=== PATIENT | female | born 1975 | race Caucasian/White ===

== ENCOUNTER 2018-03-17 17:25 | Emergency (ER) | payer SELFPAY ==
[2018-03-17] MEDS ORDERED: IBUPROFEN 400 MG TAB ONE (19:28)
--- NOTE | 2018-03-17 20:43 | RAD REPORT ---
EXAM DESCRIPTION: RAD - Foot Right 3 View - 03/17/2018 6:48 pm CLINICAL HISTORY: Foot pain and swelling COMPARISON: None. FINDINGS: No fracture, dislocation or periosteal reaction. No acute or destructive finding. Small pl cyndi spur is present. Distal soft tissues are edematous. No air or foreign body. IMPRESSION: No acute bone or joint finding. Small plantar spur present. Soft tissue swelling without air or foreign body.
[2018-03-17 21:16] LABS: Absolute Lymphocytes (CBC) 3.8 K/uL (0.7-4.9); Absolute Monocytes 0.6 K/uL (0.1-1.3); Absolute Neutrophil 6.4 K/uL (1.8-8.0); Basophils % 1.1 % (0-1.3); Eosinophils % 1.6 % (0-4.4); Lymphocytes % 34.3 % (15.3-44.8); MCH 26.9 pg (27.0-35.0); MCV 80.3 fL (80-100); MPV 8.8 fL (7.6-11.3); Monocytes % 5.6 % (3.3-12.3); RBC Red Blood Cell Count 4.73 M/uL (3.86-4.86)
[2018-03-17 21:24] LABS: Potassium 3.8 mEq/L (3.6-5.0)
[2018-03-17 21:28] LABS: Uric Acid 3.5 mg/dL (2.6-8.0)
--- NOTE | 2018-03-17 21:48 | EDPHYS ---
Physician Documentation [facility] Name: So Olea Age: 42 yrs Sex: Female : 1975 Arrival Date: 03/17/2018 Time: 17:27 Bed 11 Private MD: out of town, doctor ED Physician Jose Luis Sweeney HPI: 03/17 19:36 This 42 yrs old Female presents to ER via Ambulatory with complaints of Feet jmm Swelling, Foot Pain. 19:36 The patient presents with pain, that is acute. The complaints affect the dorsum of jmm right foot. Onset: The symptoms/episode began/occurred gradually, 4 day(s) ago. 19:36 Modifying factors: the symptoms are aggravated by movement, weight bearing. jmm 19:36 Associated signs and symptoms: Pertinent positives: swelling, Pertinent negatives jmm fever. This is a 42 year old female with a hx of chronic pain that presents to the ED with right foot pain. Patient denies trauma, denies known injury, denies fever. Denies hx of arthritis or gout. 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 - Social history:: Smoking status: Patient/guardian denies using tobacco. - Ebola Screening: : No symptoms or risks identified at this time. ROS: 19:36 Constitutional: Negative for fever, chills, and weight loss, Cardiovascular: Negative jmm for chest pain, palpitations, and edema, Respiratory: Negative for shortness of breath, cough, wheezing, and pleuritic chest pain. 19:36 MS/extremity: Positive for pain, swelling. 19:36 Skin: Positive for erythema. 19:36 All other systems are negative. Exam: 19:36 Constitutional: This is a well developed, well nourished patient who is awake, alert, jmm and in no acute distress. 19:36 Constitutional: The patient appears in no acute distress, alert, awake. 19:36 Neck: External neck: is normal. 19:36 Cardiovascular: Rate: normal, Rhythm: regular. 19:36 Respiratory: the patient does not display signs of respiratory distress, Respirations: normal, Breath sounds: are clear throughout. 19:36 Musculoskeletal/extremity: FROM appreciated to the right foot and ankle, compartments are soft, pain elicited on palpation of the dorsal surface of the foot. . 19:36 Skin: erythema noted to the right foot, no induration or streaking appreciated. 19:36 Neuro: Orientation: is normal, Mentation: is normal, Memory: is normal. Vital Signs: 17:51 BP 148 / 83; Pulse 74; Resp 18; Temp 97.8; Pulse Ox 98% ; Weight 108.86 kg; Height 5 sv ft. 5 in. (165.10 cm); Pain 7/10; 19:42 BP 131 / 82; Pulse 76; Resp 20; Pulse Ox 100% on R/A; jw5 17:51 Body Mass Index 39.94 (108.86 kg, 165.10 cm) sv MDM: 19:34 Patient medically screened. [facility] 19:36 Differential diagnosis: arthritis, cellulitis, foot sprain. Data reviewed: vital signs, [facility] nurses notes. 22:33 ED course: Patient is alert and non toxic in appearance in the ED. Due to the patient's [facility] pain to the foot along with redness and swelling, the patient will be prescribed antibiotics for cellulitis. The patient has no swelling to the lower leg, I do not currently suspect DVT. Patient is advised of the need to follow up with PCP or orthopedics or return to the ED if symptoms worsen. Patient understood and agrees with the plan of care. . 03/17 19:35 Order name: CBC with Diff; Complete Time: 21:26 [facility] 03/17 19:35 Order name: Uric Acid; Complete Time: 21:42 [facility] 03/17 17:54 Order name: Foot Right 3 View XRAY; Complete Time: 20:45 sv 03/17 19:35 Order name: BMP; Complete Time: 21:42 [facility] Administered Medications: 19:28 Drug: Motrin 800 mg Route: PO; aa1 20:30 Follow up: Response: No adverse reaction; Pain is decreased aa1 Disposition: 22:53 Co-signature as Attending Physician, Jose Luis Sweeney MD I agree with the assessment and tw4 plan of care. Disposition: 03/17/18 21:48 Discharged to Home. Impression: Cellulitis and acute lymphangitis, unspecified. - Condition is Stable. - Discharge Instructions: Cellulitis. - Prescriptions for Bactrim DS 800- 160 mg Oral Tablet - take 1 tablet by ORAL route every 12 hours for 10 days; 20 tablet. - Medication Reconciliation Form, Thank You Letter, Antibiotic Education, Prescription Opioid Use form. - Follow up: Private Physician; When: 1 - 2 days; Reason: Re-evaluation by your physician. - Notes: Please follow up with your primary care provider or orthopedics for further evaluation of your foot pain. We are treating you with antibiotics due to concerns you may have a skin infection. Please return to the ED if you develop increased redness, increased swelling, or increased pain Signatures: Dispatcher [employer] EDMS Anh Gregg RN RN Abena Mann RN RN aa1 West Bustos PA PA jmm Wadley, Terrence, MD MD tw4 Corrections: (The following items were deleted from the chart) 22:17 21:48 03/17/2018 21:48 Discharged to Home. Impression: Cellulitis and acute aa1 lymphangitis, unspecified. Condition is Stable. Forms are Medication Reconciliation Form, Thank You Letter, Antibiotic Education, Prescription Opioid Use. Follow up: Private Physician; When: 1 - 2 days; Reason: Re-evaluation by your physician. marty
--- NOTE | 2018-03-17 21:48 | ER ---
Nurse's Notes [facility] Name: So Olea Age: 42 yrs Sex: Female : 1975 Arrival Date: 03/17/2018 Time: 17:27 Bed 11 Private MD: out of town, doctor Diagnosis: Cellulitis and acute lymphangitis, unspecified Presentation: 03/17 17:48 Presenting complaint: Patient states: right foot pain started 3 days ago. Reports sv swelling. c/o nausea. Transition of care: patient was not received from another setting of care. Onset of symptoms was March 14, 2018. Risk Assessment: Do you want to hurt yourself or someone else? Patient reports no desire to harm self or others. Initial Sepsis Screen: Does the patient meet any 2 criteria? No. Patient's initial sepsis screen is negative. Does the patient have a suspected source of infection? No. Patient's initial sepsis screen is negative. Care prior to arrival: None. 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 - Social history:: Smoking status: Patient/guardian denies using tobacco. - Ebola Screening: : No symptoms or risks identified at this time. Screenin:45 Abuse screen: Denies threats or abuse. Denies injuries from another. Nutritional aa1 screening: No deficits noted. Tuberculosis screening: No symptoms or risk factors identified. Fall Risk None identified. Assessment: 19:45 General: Appears in no apparent distress. comfortable, Behavior is calm, cooperative, aa1 appropriate for age. Pain: Complains of pain in right foot Pain began 2-3 days ago. Neuro: Level of Consciousness is awake, alert, obeys commands, Oriented to person, place, time, situation, Moves all extremities. Full function Gait is steady. Respiratory: Airway is patent Respiratory effort is even, unlabored, Respiratory pattern is regular, symmetrical. GI: No signs and/or symptoms were reported involving the gastrointestinal system. : No signs and/or symptoms were reported regarding the genitourinary system. EENT: No signs and/or symptoms were reported regarding the EENT system. Derm: Skin is intact, is healthy with good turgor, Skin is pink, warm \T\ dry. Musculoskeletal: Circulation, motion, and sensation intact. Capillary refill < 3 seconds, Range of motion: intact in all extremities, Swelling present in right foot. 22:10 Reassessment: Patient appears in no apparent distress at this time. Patient is alert, aa1 oriented x 3, equal unlabored respirations, skin warm/dry/pink. Discussed d/c \T\ f/u instructions with pt; denies questions or concerns at this time. Vital Signs: 17:51 BP 148 / 83; Pulse 74; Resp 18; Temp 97.8; Pulse Ox 98% ; Weight 108.86 kg; Height 5 sv ft. 5 in. (165.10 cm); Pain 7/10; 19:42 BP 131 / 82; Pulse 76; Resp 20; Pulse Ox 100% on R/A; jw5 17:51 Body Mass Index 39.94 (108.86 kg, 165.10 cm) sv ED Course: 17:27 Patient arrived in ED. sb2 17:28 out of town, doctor is Private Physician. sb2 17:50 Triage completed. sv 17:52 Arm band placed on right wrist. sv 17:53 Patient placed in waiting room, Patient notified of wait time. sv 18:48 Foot Right 3 View XRAY In Process Unspecified. EDMS 19:25 Abena Mann, KRISTIN is Primary Nurse. aa1 19:28 West Bustos PA is PHCP. jmm 19:28 Jose Luis Sweeney MD is Attending Physician. jmm 19:45 Patient has correct armband on for positive identification. Call light in reach. Pulse aa1 ox on. NIBP on. 19:45 No provider procedures requiring assistance completed. aa1 21:10 Inserted saline lock: 20 gauge in left antecubital area, using aseptic technique. Blood oe collected. 22:15 IV discontinued, intact, bleeding controlled, No redness/swelling at site. Pressure aa1 dressing applied. Administered Medications: 19:28 Drug: Motrin 800 mg Route: PO; aa1 20:30 Follow up: Response: No adverse reaction; Pain is decreased aa1 Outcome: 21:48 Discharge ordered by . marty 22:17 Patient left the ED. aa1 22:17 Discharged to home ambulatory, with family. aa1 22:17 Condition: good 22:17 Discharge instructions given to patient, Instructed on discharge instructions, follow up and referral plans. medication usage, Demonstrated understanding of instructions, follow-up care, medications, Prescriptions given X 1. Signatures: Dispatcher [employer] Anh Jose RN RN sv Kern, Alissa, RN RN aa1 West Bustos PA PA jmm Espinosa, Orlando oe Billeau, Sheri sb2 Mary Santacruz jw5
== END 2018-03-17 22:17 | disposition home or self-care (01) ==
LOC: ER 17:25
DX: L03.115 Cellulitis of right lower limb (principal); I89.1 Lymphangitis; N80.9 Endometriosis, unspecified; I10 Essential (primary) hypertension
CPT/HCPCS: 36415; 80048; 84550; 85025; 99284

== ENCOUNTER 2019-01-09 16:39 | Observation (INO) | payer SELFPAY ==
--- OUTSIDE RECORDS SUMMARY | 2019-01-09 16:41 | XMS REPORT ---
:1975 [facility] Address [address] [place] [address] [address]. [address] [place] [address] Care Team Providers Name Role Phone Unavailable Unavailable Unavailable Problems This patient has no known problems. Allergies, Adverse Reactions, Alerts This patient has no known allergies or adverse reactions. Medications This patient has no known medications.
[2019-01-09 18:28] LABS: Barbiturates NEGATIVE (NEGATIVE); Benzodiazepines NEGATIVE (NEGATIVE); Cocaine NEGATIVE (NEGATIVE); METHAMPHETAM NEGATIVE (NEGATIVE); Methadone NEGATIVE (NEGATIVE); Opiates NEGATIVE (NEGATIVE); Phencyclidine NEGATIVE (NEGATIVE); THC Cannibis NEGATIVE (NEGATIVE)
[2019-01-09] MEDS ORDERED: KETOROLAC 30 MG/ML INJ ONE (18:29)
[2019-01-09] MEDS ORDERED: ONDANSETRON 4 MG/2 ML VIAL ONE ×2 (18:29→20:01)
[2019-01-09] MEDS ORDERED: NA CHLORIDE 0.9% 500 ML ONE ×2 (18:29→19:19)
--- NOTE | 2019-01-09 18:39 | RAD REPORT ---
EXAM DESCRIPTION: CT - Abdomen Pelvis Wo Contrast - 01/09/2019 6:26 pm CLINICAL HISTORY: Abdominal pain left flank pain COMPARISON: None TECHNIQUE: Computed axial tomography of the abdomen and pelvis was obtained. IV and oral contrast we re not requested. All CT scans are performed using dose optimization technique as appropriate and may include automated exposure control or mA/KV adjustment according to patient size. FINDINGS: The evaluation of solid organs, vessels and bowel is limited secondary to the lack of con trast administration. The liver, spleen, pancreas, adrenals and kidneys appear grossly normal. The appendix is normal. There is no evidence of diverticulitis. An adnexal mass is not noted Tiny umbilical hernia contains fat IMPRESSION: No acute abnormality is displayed.
[2019-01-09 18:52] LABS: Absolute Lymphocytes (CBC) 3.4 K/uL (0.7-4.9); Absolute Neutrophil 9.3 K/uL (1.8-8.0); Basophils % 0.5 % (0-1.3); Lymphocytes % 24.2 % (15.3-44.8); MPV 8.7 fL (7.6-11.3); Monocytes % 7.5 % (3.3-12.3); RBC Red Blood Cell Count 4.64 M/uL (3.86-4.86)
[2019-01-09 19:02] LABS: Albumin 3.5 g/dL (3.4-5.0); Bilirubin Direct 0.1 mg/dL (0-0.2); Bilirubin Total 0.5 mg/dL (0.2-1.0); Protein, Total 7.3 g/dL (6.4-8.2)
[2019-01-09 19:16] LABS: Urine Bacteria LOADED /HPF (<20); Urine RBC <5 /HPF (NONE SEEN)
[2019-01-09 19:17] LABS: Urine Culture Reflex Order REFLEXED
[2019-01-09] MEDS ORDERED: CEFTRIAXONE 1000 MG/VIAL ONE (19:18)
[2019-01-09] MEDS ORDERED: NA CHLORIDE 0.9% 100 ML IV ONE (19:19)
--- NOTE | 2019-01-09 19:52 | RAD REPORT ---
EXAM DESCRIPTION: US - Transvaginal Study Probe - 01/09/2019 7:35 pm CLINICAL HISTORY: Pelvic pain COMPARISON: 2014 FINDINGS: The uterus measures 7 x 4 x 5cm. A fibroid is not seen. The endometrial stripe measures 7 millimeters An approximately 3 centimeter left ovarian hypoechoic mass is present containing low level echoes. Color Doppler did not document flow within the left ovary. Right ovary was not seen. Right adnexal mass is not noted No significant free fluid is seen. IMPRESSION: 3 centimeter hypoechoic mass within the left ovary containing low level echoes may repre sent a hemorrhagic cyst or endometrioma. Color Doppler could not demonstrate flow within the ovary. This could indicate a torsion. However, th is needs to be correlated clinically as hemorrhagic cysts are known for being relatively avascular. Examination was discussed with Dr. Hector in the Emergency Room
[2019-01-09] MEDS ORDERED: MORPHINE 4 MG/ML SYR ONE (20:00)
[2019-01-09 20:23] LABS: Urine Blood 2+ (NEG); Urine Glucose NEGATIVE (NEG); Urine Protein 3+ (NEG); Urine Specific Gravity 1.025 (1.005-1.030)
[2019-01-09 20:23] LABS: Urine Specific Gravity 1.025 (1.005-1.030)
--- NOTE | 2019-01-09 20:42 | ER ---
Nurse's Notes [facility] Name: So Olea Age: 43 yrs Sex: Female : 1975 Arrival Date: 01/09/2019 Time: 16:42 Bed 18 Private MD: Diagnosis: Torsion of ovary and ovarian pedicle Presentation: 01/09 17:06 Presenting complaint: Patient states: i hurt really bad in my LEFT side and down into tw2 my groin and into back, i feel like i have to go to the bathroom but i cant. Transition of care: patient was not received from another setting of care. Onset of symptoms was January 09, 2019. Risk Assessment: Do you want to hurt yourself or someone else? Patient reports no desire to harm self or others. Initial Sepsis Screen: Does the patient meet any 2 criteria? RR > 20 per min. HR > 90 bpm. Yes Does the patient have a suspected source of infection? Yes: Dysuria/Frequency/Urgency/UTI. Care prior to arrival: None. 17:06 Method Of Arrival: Ambulatory tw2 17:06 Acuity: JERROD 3 tw2 17:08 Presenting complaint: Patient states: yesterday when when i went to the restroom i had tw2 quarter sized blood clots. 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 - Social history:: Smoking status: . - Ebola Screening: : Patient denies travel to an Ebola-affected area in the 21 days before illness onset. - Family history:: not pertinent. - Hospitalizations: : No recent hospitalization is reported. Screenin:15 Abuse screen: Denies threats or abuse. Denies injuries from another. Nutritional bp screening: No deficits noted. Tuberculosis screening: No symptoms or risk factors identified. Fall Risk None identified. Assessment: 17:31 Reassessment: called from lobby, no answer. Attempted to call patient's phone number on ss file. Not a working number. 19:15 Reassessment: PT taken to ultrasound, family is at the bedside, fluids paused for jb4 patient to be taken to ultrasound. Respirations even and unlabored. 19:15 General: Appears uncomfortable, Behavior is cooperative, anxious, crying. Pain: jb4 Complains of pain in left low back Pain radiates to abdomen Pain currently is 10 out of 10 on a pain scale. Neuro: Level of Consciousness is awake, alert, obeys commands, Oriented to person, place, time, situation. Cardiovascular: Patient's skin is warm and dry. Respiratory: Airway is patent Respiratory effort is even, labored, Respiratory pattern is symmetrical, tachypnea. GI: Reports lower abdominal pain, upper abdominal pain. : Reports pain in left flank(s), with urination. EENT: No signs and/or symptoms were reported regarding the EENT system. Derm: Skin is intact, Skin is pink, warm \T\ dry. Musculoskeletal: Circulation, motion, and sensation intact. 20:00 Reassessment: No changes from previously documented assessment. Patient and/or family jb4 updated on plan of care and expected duration. Pain level reassessed. Patient is alert, oriented x 3, equal unlabored respirations, skin warm/dry/pink. 21:00 Reassessment: Patient appears in no apparent distress at this time. Patient and/or jb4 family updated on plan of care and expected duration. Pain level reassessed. Patient is alert, oriented x 3, equal unlabored respirations, skin warm/dry/pink. Dr. Guerrier at the bedside. Patient states feeling better. 21:55 Reassessment: Patient appears in no apparent distress at this time. Patient and/or jb4 family updated on plan of care and expected duration. Pain level reassessed. Patient is alert, oriented x 3, equal unlabored respirations, skin warm/dry/pink. Patient states feeling better. Vital Signs: 17:07 BP 129 / 90; Pulse 123; Resp 20; Temp 98(O); Pulse Ox 100% on R/A; Weight 117.93 kg tw2 (R); Height 5 ft. 5 in. (165.10 cm); Pain 10/10; 19:50 BP 154 / 115; Pulse 104; Resp 17; Pulse Ox 100% on R/A; Pain 10/10; jb4 20:53 BP 153 / 89; Pulse 106; Resp 22; Temp 98.3(O); Pulse Ox 100% on R/A; jb4 21:55 BP 120 / 78; Pulse 101; Resp 20; Pulse Ox 100% on R/A; jb4 17:07 Body Mass Index 43.27 (117.93 kg, 165.10 cm) tw2 ED Course: 16:42 Patient arrived in ED. tw3 17:07 Triage completed. tw2 17:08 Arm band placed on. tw2 17:37 Sahil Foster, KRISTIN is Primary Nurse. bp 17:44 Andrea Jamil MD is Attending Physician. wa 17:57 Radiology exam delayed due to test not completed at this time. nj 18:06 Radiology exam delayed due to test not completed at this time. nj 18:15 Patient has correct armband on for positive identification. Bed in low position. Call bp light in reach. Side rails up X2. 18:15 Inserted saline lock: 20 gauge in right forearm, using aseptic technique. Blood bp collected. 18:[address] via wheelchair. vm2 18:26 CT completed. Patient moved back from CT. vm2 18:27 CT Abd/Pelvis - Without Cont In Process Unspecified. EDMS 19:23 West Bustos PA is PHCP. jmm 19:35 Transvaginal Study Probe In Process Unspecified. EDMS 20:41 Yecenia Pedersen MD is Hospitalizing Provider. [facility] 21:19 No provider procedures requiring assistance completed. Patient admitted, IV remains in jb4 place. Administered Medications: 18:22 Drug: NS 0.9% 500 ml Route: IV; Rate: bolus; Site: right forearm; bp 19:00 Follow up: Response: No adverse reaction; IV Status: Completed infusion; IV Intake: jb4 500ml 18:22 Drug: Zofran 4 mg Route: IVP; Site: right forearm; bp 19:04 Follow up: Response: No adverse reaction bp 18:22 Drug: TORadol 30 mg Route: IVP; Site: right forearm; bp 19:04 Follow up: Response: No adverse reaction; Pain is decreased bp 19:48 Drug: Zofran 4 mg Route: IVP; Site: right forearm; jb4 22:12 Follow up: Response: No adverse reaction; Nausea is decreased jb4 19:50 Drug: NS 0.9% 500 ml Route: IV; Rate: bolus; Site: right forearm; jb4 20:20 Follow up: Response: No adverse reaction; IV Status: Completed infusion; IV Intake: jb4 500ml 19:50 Drug: morphine 4 mg Route: IVP; Site: right forearm; jb4 22:12 Follow up: Response: No adverse reaction; Pain is decreased jb4 19:52 Drug: Rocephin - (cefTRIAXone) 2 grams Route: IVPB; Infused Over: 30 mins; Site: right jb4 forearm; 20:20 Follow up: Response: No adverse reaction; IV Status: Completed infusion; IV Intake: jb4 100ml Intake: 19:00 IV: 500ml; Total: 500ml. jb4 20:20 IV: 500ml; Total: 1000ml. jb4 20:20 IV: 100ml; Total: 1100ml. jb4 Outcome: 20:41 Decision to Hospitalize by Provider. marty 21:19 Admitted to L \T\ D, accompanied by tech, via wheelchair, room 279, Report called to andrew Ya RN 21:19 Condition: stable 21:19 Discharge instructions given to patient, Instructed on the need for admit, Demonstrated understanding of instructions. 22:15 Patient left the ED. jb4 Signatures: Dispatcher [employer] EDMS West Bustos PA PA jmm Smirch, Shelby, RN RN ss Wise, Tara, RN RN tw2 Hugo Dietrich RN RN [facility] Sanya Victor Tia 3 Judy Worley [facility] Andrea Jamil MD MD wa Peltier, Brian, RN RN bp Corrections: (The following items were deleted from the chart) 22:14 21:00 Reassessment: Patient appears in no apparent distress at this time. Patient jb4 and/or family updated on plan of care and expected duration. Pain level reassessed. Patient is alert, oriented x 3, equal unlabored respirations, skin warm/dry/pink. Patient states feeling better. jb4
--- NOTE | 2019-01-09 20:42 | EDPHYS ---
Physician Documentation [facility] Name: So Olea Age: 43 yrs Sex: Female : 1975 Arrival Date: 01/09/2019 Time: 16:42 Bed 18 Private MD: ED Physician Andrea Jamil HPI: 01/09 19:10 This 43 yrs old Female presents to ER via Ambulatory with complaints of Side wa Pain. 19:10 The patient complains of pain in the left flank. The pain does not radiate. Onset: The wa symptoms/episode began/occurred 2 day(s) ago. Modifying factors: The symptoms are alleviated by nothing. the symptoms are aggravated by nothing. Associated signs and symptoms: Pertinent positives: nausea, Pertinent negatives: diarrhea, dizziness, dysuria, fever, urinary frequency, headache, hematuria, vomiting. Severity of pain: At its worst the pain was severe in the emergency department the pain is unchanged. The patient has experienced similar episodes in the past, several times. The patient has not recently seen a physician. 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 - Social history:: Smoking status: . - Ebola Screening: : Patient denies travel to an Ebola-affected area in the 21 days before illness onset. - Family history:: not pertinent. - Hospitalizations: : No recent hospitalization is reported. ROS: 19:10 Constitutional: Negative for fever, chills, and weight loss, Eyes: Negative for injury, wa pain, redness, and discharge, ENT: Negative for injury, pain, and discharge, Neck: Negative for injury, pain, and swelling, Cardiovascular: Negative for chest pain, palpitations, and edema, Respiratory: Negative for shortness of breath, cough, wheezing, and pleuritic chest pain, MS/Extremity: Negative for injury and deformity, Skin: Negative for injury, rash, and discoloration, Neuro: Negative for headache, weakness, numbness, tingling, and seizure, Psych: Negative for depression, anxiety, suicide ideation, homicidal ideation, and hallucinations. 19:10 Abdomen/GI: Positive for abdominal pain, nausea, of the left lower quadrant. 19:10 Back: Positive for flank pain, on the left, Negative for radiated pain. 19:10 : Positive for pelvic pain, of the left side, Negative for urinary symptoms, urinary frequency, hematuria. Exam: 19:11 Constitutional: This is a well developed, well nourished patient who is awake, alert, wa and in no acute distress. Head/Face: Normocephalic, atraumatic. Eyes: Pupils equal round and reactive to light, extra-ocular motions intact. Lids and lashes normal. Conjunctiva and sclera are non-icteric and not injected. Cornea within normal limits. Periorbital areas with no swelling, redness, or edema. ENT: Nares patent. No nasal discharge, no septal abnormalities noted. Tympanic membranes are normal and external auditory canals are clear. Oropharynx with no redness, swelling, or masses, exudates, or evidence of obstruction, uvula midline. Mucous membranes moist. Neck: Trachea midline, no thyromegaly or masses palpated, and no cervical lymphadenopathy. Supple, full range of motion without nuchal rigidity, or vertebral point tenderness. No Meningismus. Chest/axilla: Normal chest wall appearance and motion. Nontender with no deformity. No lesions are appreciated. Cardiovascular: Regular rate and rhythm with a normal S1 and S2. No gallops, murmurs, or rubs. Normal PMI, no JVD. No pulse deficits. Respiratory: Lungs have equal breath sounds bilaterally, clear to auscultation and percussion. No rales, rhonchi or wheezes noted. No increased work of breathing, no retractions or nasal flaring. Skin: Warm, dry with normal turgor. Normal color with no rashes, no lesions, and no evidence of cellulitis. MS/ Extremity: Pulses equal, no cyanosis. Neurovascular intact. Full, normal range of motion. Neuro: Awake and alert, GCS 15, oriented to person, place, time, and situation. Cranial nerves II-XII grossly intact. Motor strength 5/5 in all extremities. Sensory grossly intact. Cerebellar exam normal. Normal gait. Psych: Awake, alert, with orientation to person, place and time. Behavior, mood, and affect are within normal limits. 19:11 Abdomen/GI: Inspection: abdomen appears normal, Palpation: moderate abdominal tenderness, in the left lower quadrant. 19:11 Back: CVA tenderness, that is mild, is noted on the left. Vital Signs: 17:07 BP 129 / 90; Pulse 123; Resp 20; Temp 98(O); Pulse Ox 100% on R/A; Weight 117.93 kg tw2 (R); Height 5 ft. 5 in. (165.10 cm); Pain 10/10; 19:50 BP 154 / 115; Pulse 104; Resp 17; Pulse Ox 100% on R/A; Pain 10/10; jb4 20:53 BP 153 / 89; Pulse 106; Resp 22; Temp 98.3(O); Pulse Ox 100% on R/A; jb4 21:55 BP 120 / 78; Pulse 101; Resp 20; Pulse Ox 100% on R/A; jb4 17:07 Body Mass Index 43.27 (117.93 kg, 165.10 cm) tw2 MDM: 17:44 Patient medically screened. ri 19:12 Differential diagnosis: nephrolithiasis, pyelonephritis, UTI, diverticulitis, consider ri ovarian cyst rupture. 19:19 Data reviewed: vital signs, nurses notes, lab test result(s). Test interpretation: by ri ED physician or midlevel provider: labs noted for leukocytosis. UA noted for loaded wbcs consistent with UTI. 19:20 Test interpretation: by ED physician or midlevel provider: CT abd/plevis: no acute ri process.. ED course: rocephin IV given. will check pelvic US r/o other pathology. 20:46 ED course: I discussed the patient with Dr. Pedersen whom accepted admission. . marty 01/09 17:50 Order name: Basic Metabolic Panel; Complete Time: 19: ri 01/09 17:50 Order name: CBC with Diff; Complete Time: 19: ri 01/09 17:50 Order name: Hepatic Function; Complete Time: 19: ri 01/09 17:50 Order name: Lipase; Complete Time: 19: ri 01/09 17:50 Order name: Urine Microscopic Only; Complete Time: 19:19 ri 01/09 17:51 Order name: UDS; Complete Time: 18:44 ri 01/09 18:12 Order name: Urine Dipstick--Ancillary (enter results); Complete Time: 20:27 [facility] 01/09 18:14 Order name: Urine --Ancillary (enter results); Complete Time: 20:27 [facility] 01/09 19:18 Order name: Urine Culture [facility] 01/09 20:44 Order name: Basic Metabolic Panel [facility] 01/09 20:44 Order name: Basic Metabolic Panel [facility] 01/09 20:44 Order name: Lipase [facility] 01/09 20:45 Order name: Lipase [facility] 01/09 20:45 Order name: Liver (Hepatic) Function [facility] 01/09 17:50 Order name: IV Saline Lock; Complete Time: 18:23 ri 01/09 17:50 Order name: Labs collected and sent; Complete Time: 18:23 ri 01/09 17:52 Order name: CT Abd/Pelvis - Without Cont; Complete Time: 18:43 ri 01/09 19:08 Order name: Transvaginal Study Probe; Complete Time: 19:55 [facility] 01/09 20:45 Order name: NPO [facility] 01/09 20:45 Order name: CBC with Automated Diff [facility] 01/09 20:45 Order name: CBC with Automated Diff [facility] 01/09 20:45 Order name: Liver (Hepatic) Function [facility] 01/09 17:50 Order name: Urine Dipstick-Ancillary (obtain specimen); Complete Time: 18:21 ri 01/09 17:50 Order name: Urine Test (obtain specimen); Complete Time: 18:21 ri Administered Medications: 18:22 Drug: NS 0.9% 500 ml Route: IV; Rate: bolus; Site: right forearm; bp 19:00 Follow up: Response: No adverse reaction; IV Status: Completed infusion; IV Intake: jb4 500ml 18:22 Drug: Zofran 4 mg Route: IVP; Site: right forearm; bp 19:04 Follow up: Response: No adverse reaction bp 18:22 Drug: TORadol 30 mg Route: IVP; Site: right forearm; bp 19:04 Follow up: Response: No adverse reaction; Pain is decreased bp 19:48 Drug: Zofran 4 mg Route: IVP; Site: right forearm; jb4 22:12 Follow up: Response: No adverse reaction; Nausea is decreased jb4 19:50 Drug: NS 0.9% 500 ml Route: IV; Rate: bolus; Site: right forearm; jb4 20:20 Follow up: Response: No adverse reaction; IV Status: Completed infusion; IV Intake: jb4 500ml 19:50 Drug: morphine 4 mg Route: IVP; Site: right forearm; jb4 22:12 Follow up: Response: No adverse reaction; Pain is decreased jb4 19:52 Drug: Rocephin - (cefTRIAXone) 2 grams Route: IVPB; Infused Over: 30 mins; Site: right jb4 forearm; 20:20 Follow up: Response: No adverse reaction; IV Status: Completed infusion; IV Intake: jb4 100ml Disposition: 01/10 07:36 Co-signature as Attending Physician, Andrea Jamil MD I agree with the assessment and wa plan of care. Disposition: 01/09/19 20:41 Hospitalization ordered by Yecenia Pedersen for Inpatient Admission. Preliminary diagnosis is Torsion of ovary and ovarian pedicle. - [facility]. - Status is Inpatient Admission. jb4 - Condition is Stable. - Problem is new. - Symptoms are unchanged. UTI on Admission? Yes Signatures: Dispatcher [employer] [facility] [place] [facility] Sylwia Silva, RN RN tw2 Hugo Dietrich, RN RN jb4 Andrea Jamil MD MD wa Aguilar, Jose, RN RN ja1 Sahil Foster RN RN bp Corrections: (The following items were deleted from the chart) 01/09 19:08 18:56 Pelvis Complete+US.RAD.BRZ ordered. [facility] EDRI 20:48 20:41 Hospitalization Ordered by Yecenia Pedersen MD for Inpatient Admission. Preliminary ja diagnosis is Torsion of ovary and ovarian pedicle. Bed requested for [facility]. Status is Inpatient Admission. Condition is Stable. Problem is new. Symptoms are unchanged. UTI on Admission? Yes. [facility] 22:15 20:48 01/09/2019 20:41 Hospitalization Ordered by Yecenia Pedersen MD for Inpatient jb4 Admission. Preliminary diagnosis is Torsion of ovary and ovarian pedicle. Bed requested for [facility]. Status is Inpatient Admission. Condition is Stable. Problem is new. Symptoms are unchanged. UTI on Admission? Yes. ja1
[2019-01-09] MEDS ORDERED: ACETAMINOPHEN 500 MG TAB PO PRN (20:43)
[2019-01-09] MEDS ORDERED: MORPHINE 4 MG/ML SYR IV PRN (20:43)
[2019-01-09] MEDS ORDERED: ONDANSETRON 4 MG/2 ML VIAL IV PRN (20:43)
[2019-01-09] MEDS ORDERED: ZOLPIDEM TARTRATE 5 MG TABLET PO PRN (22:02)
[2019-01-09] MEDS ORDERED: KETOROLAC 30 MG/ML INJ IV PRN (22:02)
--- NOTE | 2019-01-09 22:02 | P.OBGYNHP ---
Certification for Inpatient Patient admitted to: Observation With expected LOS: <2 Midnights Practitioner: I am a practitioner with admitting privileges, knowledge of patient current condition, hospital course, and medical plan of care. Services: Services provided to patient in accordance with Admission requirements found in Title 42 Section 412.3 of the Code of Federal Regulations Patient History Date of Service: 01/20/19 Reason for admission: Acute pelvic pain History of Present Illness: Patient is a 43-year-old 3 para 3 who presented to the emergency department with acute pelvic pain that began 2 days ago. Patient states at that time she also had some blood clots that came when she urinated. Patient has a history of endometriosis. Patient has been on Depo-Provera. States her next injection was due for February 18. She has been on Depo-Provera for 3 years. It appears that the patient has a history of chronic pain. When patient presented with this pain to the emergency department a CT scan and ultrasound were performed. Allergies No Known Drug Allergies Allergy (Unverified 01/13/15 09:13) Unknown No Known Allergies Allergy (Uncoded 07/15/17 11:16) Unknown Home Medications: Amitriptyline [Elavil*] 10 mg PO BEDTIME 01/09/19 Diclofenac Sodium 75 mg PO TID 01/09/19 Furosemide 20 mg PO BID 01/09/19 Gabapentin 300 mg PO TID 01/09/19 Lisinopril 10 mg PO BID 01/09/19 Tramadol HCl [Ultram] 50 mg PO PRN 01/09/19 Nitrofurantoin Monohyd/M-Cryst [Macrobid 100 mg Capsule] 100 mg PO BID #14 capsule 01/10/19 - Past Medical/Surgical History -: chronic pain -: hypertension -: obesity Past Surgical History: Patient denies surgical history - Family History Mother -: Hypertension Brother -: Heart disease - Social History Smoking Status: Current every day smoker Review of Systems General: Weakness, Malaise Eyes: Unremarkable ENT: Unremarkable Respiratory: Cough, Shortness of Breath Cardiovascular: Light Headedness Gastrointestinal: Nausea, Abdominal Pain Genitourinary: Dysuria, Frequency Musculoskeletal: Neck Pain, Back Pain Integumentary: Rash Neurological: Weakness Physical Examination - Vital Signs Temperature: 98 F Blood Pressure: 129/90 Pulse: 120 Respirations: 20 Pulse Ox (%): 100 - General General: Alert, Oriented x3, Moderate distress HEENT: Atraumatic Neck: Supple Respiratory: Normal air movement Cardiovascular: Edema Breasts: Normal configuration, Normal contours Gastrointestinal: No ascites, No massess, No guarding, Other (Tenderness palpable) Integumentary: Rash(es) (Vascular changes noted all across patient's thighs and legs. Also signs of excoriation.) - Female Pelvic External genitalia: Normal Vagina: Normal, [place], Moist Cervix: Normal, Non-tender Uterus: Non-gravid, Smooth contour, Anteverted, Other (Unable to palpate well due to obesity) Adnexa: Unable to evaluate (Secondary to obesity) Laboratory Data (last 24 hrs) 01/09/19 18:15: WBC 13.9 H, Hgb 12.6, Hct 39.0, Plt Count 286 01/09/19 18:15: Sodium 144, Potassium 4.0, BUN 12, Creatinine 0.79, Glucose 109 H, Total Bilirubin 0.5, AST 12 L, ALT 19, Alkaline Phosphatase 93, Lipase 223 Imagings Data: TECHNIQUE: Computed axial tomography of the abdomen and pelvis was obtained. IV and oral contrast were not requested. All CT scans are performed using dose optimization technique as appropriate and may include automated exposure control or mA/KV adjustment according to patient size. FINDINGS: The evaluation of solid organs, vessels and bowel is limited secondary to the lack of contrast administration. The liver, spleen, pancreas, adrenals and kidneys appear grossly normal. The appendix is normal. There is no evidence of diverticulitis. An adnexal mass is not noted Tiny umbilical hernia contains fat IMPRESSION: No acute abnormality is displayed EXAM DESCRIPTION: US - Transvaginal Study Probe - 01/09/2019 7:35 pm CLINICAL HISTORY: Pelvic pain COMPARISON: 2014 FINDINGS: The uterus measures 7 x 4 x 5cm. A fibroid is not seen. The endometrial stripe measures 7 millimeters An approximately 3 centimeter left ovarian hypoechoic mass is present containing low level echoes. Color Doppler did not document flow within the left ovary. Right ovary was not seen. Right adnexal mass is not noted No significant free fluid is seen. IMPRESSION: 3 centimeter hypoechoic mass within the left ovary containing low level echoes may represent a hemorrhagic cyst or endometrioma. Color Doppler could not demonstrate flow within the ovary. This could indicate a torsion. However, this needs to be correlated clinically as hemorrhagic cysts are known for being relatively avascular. Assessment and Plan - Plan 43-year-old 3 para 3 who presented to the emergency department with acute pelvic pain. Patient likely there has a ovarian cyst persists a urinary tract infection. Urine culture is pending. Pain management is being provided. Patient will be kept for observation CBC will be recheck to the morning to assess for hemorrhage. Also patient has a history of chronic pain for which she has been taking pain medications for. I researched the patient and the [place] [facility] truck index and found that she receives 180 tablets of tramadol monthly. Will encourage patient to use NSAIDs for pain management. Patient be kept for observation until tomorrow morning at which time her pain will be reassessed. And hopefully the urine culture results will be received. Discharge Plan: Home Plan to discharge in: 24 Hours - Advance Directives Does patient have a Living Will: No Does patient have a Durable POA for Healthcare: No
[2019-01-09] MEDS ORDERED: D5 0.45 NS 1,000 ML IV ONE (22:24)
[2019-01-09] MEDS: D5 0.45 NS 1,000 ML IV SCH (22:35)
[2019-01-09 22:47] VITALS: BMI 19.4
[2019-01-10 04:38] LABS: Absolute Lymphocytes (CBC) 2.8 K/uL (0.7-4.9); Absolute Monocytes 0.8 K/uL (0.1-1.3); Absolute Neutrophil 6.1 K/uL (1.8-8.0); Basophils % 0.7 % (0-1.3); Eosinophils % 1.5 % (0-4.4); Hematocrit 33.3 % (36.0-45.0); Lymphocytes % 28.1 % (15.3-44.8); MPV 8.6 fL (7.6-11.3); Monocytes % 8.1 % (3.3-12.3); RBC Red Blood Cell Count 4.06 M/uL (3.86-4.86)
[2019-01-10 04:45] LABS: Albumin 2.9 g/dL (3.4-5.0); Bilirubin Direct 0.2 mg/dL (0-0.2); Bilirubin Total 0.7 mg/dL (0.2-1.0); Potassium 4.1 mmol/L (3.5-5.1); Protein, Total 6.2 g/dL (6.4-8.2)
[2019-01-10] MEDS ORDERED: D5 0.45 NS 1,000 ML IV ONE (05:58)
[2019-01-10] MEDS: D5 0.45 NS 1,000 ML IV SCH (06:03)
[2019-01-10 07:27] VITALS: O2SAT 99
[2019-01-10] MEDS ORDERED: LISINOPRIL 10 MG TAB PO SCH (21:00)
[2019-01-10] MEDS ORDERED: FUROSEMIDE 20 MG TABLET PO SCH (21:00)
--- NOTE | 2019-01-10 22:37 | P.DS ---
Admission Date: 01/09/19 Discharge Date: 01/10/19 Disposition: ROUTINE DISCHARGE Discharge Condition: GOOD Reason for Admission: Acute pelvic pain Brief History of Present Illness: Patient is a 43-year-old 3 para 3 who presented to the emergency department with acute pelvic pain that began 2 days ago. Patient states at that time she also had some blood clots that came when she urinated. Patient has a history of endometriosis. Patient has been on Depo-Provera. States her next injection was due for February 18. She has been on Depo-Provera for 3 years. It appears that the patient has a history of chronic pain. When patient presented with this pain to the emergency department a CT scan and ultrasound were performed. Vital Signs/Physical Exam: Temp Pulse Resp BP Pulse Ox 97.7 F 94 H 18 151/76 H 99 01/10/19 13:20 01/10/19 13:20 01/10/19 13:20 01/10/19 13:20 01/10/19 07:22 Laboratory Data at Discharge: WBC 10.0 K/uL (4.3-10.9) D 01/10/19 04:14 Hgb 11.2 g/dL (12.0-15.0) L 01/10/19 04:14 Hct 33.3 % (36.0-45.0) L 01/10/19 04:14 Plt Count 241 K/uL (152-406) 01/10/19 04:14 Sodium 144 mmol/L (136-145) 01/10/19 04:14 Potassium 4.1 mmol/L (3.5-5.1) 01/10/19 04:14 BUN 10 mg/dL (7-18) 01/10/19 04:14 Creatinine 0.78 mg/dL (0.55-1.3) 01/10/19 04:14 Glucose 120 mg/dL (74-106) H 01/10/19 04:14 Total Bilirubin 0.7 mg/dL (0.2-1.0) 01/10/19 04:14 AST 10 U/L (15-37) L 01/10/19 04:14 ALT 17 U/L (12-78) 01/10/19 04:14 Alkaline Phosphatase 76 U/L (45-117) 01/10/19 04:14 Lipase 120 U/L (73-393) 01/10/19 04:14 Home Medications: Amitriptyline [Elavil*] 10 mg PO BEDTIME 01/09/19 Diclofenac Sodium 75 mg PO TID 01/09/19 Furosemide 20 mg PO BID 01/09/19 Gabapentin 300 mg PO TID 01/09/19 Lisinopril 10 mg PO BID 01/09/19 Tramadol HCl [Ultram] 50 mg PO PRN 01/09/19 Nitrofurantoin Monohyd/M-Cryst [Macrobid 100 mg Capsule] 100 mg PO BID #14 capsule 01/10/19 New Medications: Nitrofurantoin Monohyd/M-Cryst [Macrobid 100 mg Capsule] 100 mg PO BID #14 capsule Followup: [facility], health [Other] - 1 Week (Follow up with your physician after discharge. )
[2019-01-11] MEDS ORDERED: CEFTRIAXONE/SWI 2gm 2 GM/20 ML SYR IV ONE (09:45)
[2019-01-20 22:28] VITALS: BP 129/90; TEMP 98
== END 2019-01-10 14:40 | disposition home or self-care (01) ==
LOC: ER 16:39 → INTOOBSV 20:43 → 2ND-WC 20:43
PROVIDERS: ADMIT Student in an Organized Health Care Education/Training Program; ATTEND Student in an Organized Health Care Education/Training Program
DX: R10.2 Pelvic and perineal pain (principal); I10 Essential (primary) hypertension; F17.210 Nicotine dependence, cigarettes, uncomplicated
CPT/HCPCS: 36415; 74176; 76830; 80048; 80076; 80307; 81003; 81015; 81025; 83690; 85025; 87077; 87086; 87088; 87186; 96361; 96365; 96375; 99285; G0378; J0696; J2405

== ENCOUNTER 2019-05-30 15:20 | Emergency (ER) | payer SELFPAY ==
--- OUTSIDE RECORDS SUMMARY | 2019-05-30 15:23 | XMS REPORT ---
:1975 [facility] Address [address] [place] [address] [address] [place] [address] Care Team Providers Name Role Phone Unavailable Unavailable Unavailable Problems This patient has no known problems. Allergies, Adverse Reactions, Alerts This patient has no known allergies or adverse reactions. Medications This patient has no known medications.
--- OUTSIDE RECORDS SUMMARY | 2019-05-30 15:24 | XMS REPORT | Summary of Care ---
:1975 Author Organization [facility] Address [address] [place] [id number] Care Team Providers Name Role Phone Visit, [facility] Nurse Unavailable Unavailable Randee Locke MD Insurance Hmo Randee Locke MD Primary Care Provider Reason for Visit Reason Comments Refill Request Encounter Details Date Type Department Care Team Description 05/28/2019 Refill [facility] and Hugo Gonzalez III, MD Refill Request Adult Primary Care- [address] [place] [address] Dr. Dunn [place] [id number] [facility] [phone] [place] [address] [phone] Allergies No Known Allergiesdocumented as of this encounter (statuses as of 05/29/2019) Medications Medication Sig Dispensed Refills Start Date End Date Status MULTIVIT Take by 0 Active &MINERALS/FERROUS mouth. FUM (MULTI VITAMIN ORAL) CALCIUM CARB/VIT Take by 0 Active D3/MINERALS mouth. (CALCIUM CARBONATE-VIT D3-MIN ORAL) docusate calcium Take 1 capsule 60 capsule 2 07/09/2017 Active 240 mg capsule by mouth daily. diclofenac 75 mg EC Take 1 tablet 180 tablet 3 07/19/2018 Active tabletIndications: by mouth 2 Chronic pelvic pain (two) times in female daily with meals. furosemide 20 mg Take 1 tablet 90 tablet 3 07/19/2018 Active tabletIndications: by mouth Essential daily. hypertension, benign omeprazole 40 mg Take 1 capsule 180 capsule 3 07/19/2018 Active capsuleIndications: by mouth 2 Epigastric pain (two) times daily. LISINOPRIL 10 mg TAKE ONE 180 tablet 3 09/17/2018 Active tabletIndications: TABLET BY Essential MOUTH TWICE A hypertension, DAY benign turmeric root Take 500 mg by 0 Active extract 500 mg Cap mouth 2 (two) times daily. ondansetron Take 1 tablet 30 tablet 11 10/19/2018 Active (ZOFRAN) 4 mg by mouth every tabletIndications: 8 (eight) Chronic pelvic pain hours as in female, Nausea needed for Nausea and Vomiting (N/V). amitriptyline 10 mg Start with 1 270 tablet 3 10/19/2018 Active tabletIndications: pill at night Chronic pelvic pain and slowly in female increase up to 3 pills at night for pain as discussed in clinic. TRAMADOL 50 mg TAKE TWO 180 tablet 4 01/08/2019 Active tabletIndications: TABLETS BY Chronic pelvic pain MOUTH EVERY 8 in female HOURS NEEDED FOR PAIN (CHRONIC PELVIC PAIN) Diclofenac Sodium 1 Take 2-4 grams 100 g 3 01/28/2019 Active % gelIndications: three times a Chronic pelvic pain day as needed in female, Muscle for pain spasm DULoxetine 60 mg Take 1 capsule 90 capsule 3 01/28/2019 Active capsuleIndications: by mouth Chronic pelvic pain daily. in female FLUARIX QUAD ADM 0.5ML IM 0 11/23/2018 Active 8848-9522, PF, 60 UTD mcg (15 mcg x 4)/0.5 mL cholestyramine 4 grams/1 210 g 11 03/05/2019 Active light 4 gram scoop four powderIndications: times a day. Mold exposure GABAPENTIN 300 mg TAKE TWO 270 capsule 1 05/29/2019 Active capsuleIndications: CAPSULES BY Chronic pelvic pain MOUTH THREE in female TIMES A DAY GABAPENTIN 300 mg TAKE TWO 270 capsule 2 01/08/2019 Discontinued capsuleIndications: CAPSULES BY 9 Chronic pelvic pain MOUTH THREE in female TIMES A DAY Hospital, Clinic, or Other Ordered Dose Route Frequency Start Date End Date Status Facility Administered Medication medroxyPROGESTERone 150 mg IM [id number] 03/21/2019 11/27/2019 Active (DEPO-PROVERA) injection 150 mgIndications: Encounter for Depo-Provera contraception documented as of this encounter (statuses as of 05/29/2019) Active Problems Problem Noted Date Sigmoid diverticulitis 05/15/2019 Overview: Added automatically from request for surgery [id number] Abdominal pain 04/27/2019 Contraceptive management 12/19/2018 History of 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 12/19/2018 Essential hypertension, benign 07/07/2017 Encounter for surveillance of injectable contraceptive 07/28/2016 Well woman exam 07/28/2016 Hyperlipidemia, unspecified hyperlipidemia type 07/28/2016 HLD (hyperlipidemia) 04/05/2016 Chronic pelvic pain in female 07/30/2015 Morbid obesity 10/05/2014 Ovarian cyst 05/29/2014 documented as of this encounter (statuses as of 05/29/2019) Resolved Problems Problem Noted Date Resolved Date Surveillance of previously prescribed contraceptive method 10/05/20142015 Overview: ICD10 Diagnosis Term Nuclear Unit Operator Utility H/O 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 10/05/2014 04/05/2016 Acute upper respiratory infection 10/05/2014 07/30/2015 Overview: ICD10 Diagnosis Term Nuclear Unit Operator Utility Elevated blood pressure reading without diagnosis of 05/30/2014 10/05/2014 hypertension documented as of this encounter (statuses as of 05/29/2019) Immunizations Name Administration Dates Next Due Tdap 05/29/2014 documented as of this encounter Social History Tobacco Use Types Packs/Day Years Used Date Never Smoker Smokeless Tobacco: Never Used Alcohol Use Drinks/Week oz/Week Comments No 0 Standard drinks or equivalent 0.0 Education Answer Date Recorded What is the highest level of school you have completed or 12th grade 2018 the highest degree you have received? Financial Resource Strain Answer Date Recorded How hard is it for you to pay for the very basics like Not hard at all 2018 food, housing, medical care, and heating? Food Insecurity Answer Date Recorded Within the past 12 months, you worried that your food would Never true 2018 run out before you got money to buy more. Within the past 12 months, the food you bought just didn't Never true 2018 last and you didn't have money to get more. Transportation Needs Answer Date Recorded In the past 12 months, has lack of transportation kept you from No 04/27/2019 medical appointments or from getting medications? In the past 12 months, has lack of transportation kept you from No 04/27/2019 meetings, work, or getting things needed for daily living? Sex Assigned at Date Recorded Not on file Job Start Date Occupation Industry Not on file Not on file Not on file Travel History Travel Start Travel End No recent travel history available. documented as of this encounter Last Filed Vital Signs Not on filedocumented in this encounter Plan of Treatment Date Type Specialty Care Team Description 06/06/2019 Nurse Visit OB Satellites Visit, [facility] Nurse 06/28/2019 [facility] Surgery Mahi Escobar, Sigmoid diverticulitis Encounter [address] [place] [address] [address] [place] [address] [phone] 06/28/2019 Surgery Surgery Mahi Escobar, COLONOSCOPY [address] [place] [address] [address] [place] [address] [phone] 08/06/2019 Office Visit Internal Medicine Randee Locke MD [address] [place] [id number] Health Maintenance Due Date Last Done Comments INFLUENZA VACCINE 06/16/2019 01/05/2017 (Declined) PAP SMEAR 07/31/2020 07/31/2017, 05/29/2014, 10/01/2010, Additional history exists MAMMOGRAM 10/30/2020 Postponed from 2017 (Alternative Guidelines) DTaP,Tdap,and Td Vaccines 05/29/2024 05/29/2014 (2 - Td) PNEUMOCOCCAL 0-64 YEARS Aged Out No longer eligible COMBINED SERIES based on patient's age to complete this topic documented as of this encounter Results Not on filedocumented in this encounter Visit Diagnoses Diagnosis Chronic pelvic pain in female Unspecified symptom associated with female genital organs documented in this encounter Insurance Payer Benefit Plan / Subscriber ID Effective Phone Address Type Group Dates [facility] [id number] 2019-Addi [phone] [address] [facility] [employer] [employer] [id number] [place] [address] documented as of this encounter Advance Directives Name Relationship Healthcare Agent Communication Relationship Solitario Olea Spouse Primary healthcare agent Verona Baron Mother [facility] [phone] agent (Home)
--- OUTSIDE RECORDS SUMMARY | 2019-05-30 15:24 | XMS REPORT | Summary of Care ---
:1975 Author Organization [facility] Address [address] [place] [address] Care Team Providers Name Role Phone Visit, KendraRmchp Nurse Unavailable Unavailable Randee Locke MD Insurance Hmo Randee Locke MD Primary Care Provider Reason for Visit Reason Comments Follow-up Follow up visit from ED Other (Routine) Status Reason Specialty Diagnoses / Referred By Referred To Procedures Contact Contact Closed AIME-SURGERY / Diagnoses Abdominal pain in female Panchito Escobar, Panchito Escobar, Surgery Procedures Discharge Follow-up: Specialty Provider PANCHITO ESCOBAR; 2 Weeks MD DIAMOND [address] [place] [address] [address] [place] [place], [place] [id number] Phone: Encounter Details Date Type Department Care Team Description 05/13/2019 Office Visit [facility] Surgical Panchito Escobar, Sigmoid diverticulitis (Primary Dx); Specialties - Chronic pelvic pain in female; [address] History of endometriosis [address] [facility], [address] [place] [place] [address] [phone] Allergies No Known Allergiesdocumented as of this encounter (statuses as of 05/13/2019) Medications Medication Sig Dispensed Refills Start Date End Date Status MULTIVIT Take by mouth. 0 Active &MINERALS/FERROUS FUM (MULTI VITAMIN ORAL) CALCIUM CARB/VIT Take by mouth. 0 Active D3/MINERALS (CALCIUM CARBONATE-VIT D3-MIN ORAL) docusate calcium 240 Take 1 capsule 60 capsule 2 07/09/2017 Active mg capsule by mouth daily. diclofenac 75 mg EC Take 1 tablet by 180 tablet 3 07/19/2018 Active tabletIndications: mouth 2 (two) Chronic pelvic pain in times daily with female meals. furosemide 20 mg Take 1 tablet by 90 tablet 3 07/19/2018 Active tabletIndications: mouth daily. Essential hypertension, benign omeprazole 40 mg Take 1 capsule 180 capsule 3 07/19/2018 Active capsuleIndications: by mouth 2 (two) Epigastric pain times daily. LISINOPRIL 10 mg TAKE ONE TABLET 180 tablet 3 09/17/2018 Active tabletIndications: BY MOUTH TWICE A Essential DAY hypertension, benign turmeric root extract Take 500 mg by 0 Active 500 mg Cap mouth 2 (two) times daily. ondansetron (ZOFRAN) 4 Take 1 tablet by 30 tablet 11 10/19/2018 Active mg tabletIndications: mouth every 8 Chronic pelvic pain in (eight) hours as female, Nausea needed for Nausea and Vomiting (N/V). amitriptyline 10 mg Start with 1 270 tablet 3 10/19/2018 Active tabletIndications: pill at night Chronic pelvic pain in and slowly female increase up to 3 pills at night for pain as discussed in clinic. TRAMADOL 50 mg TAKE TWO TABLETS 180 tablet 4 01/08/2019 Active tabletIndications: BY MOUTH EVERY 8 Chronic pelvic pain in HOURS NEEDED female FOR PAIN (CHRONIC PELVIC PAIN) GABAPENTIN 300 mg TAKE TWO 270 capsule 2 01/08/2019 Active capsuleIndications: CAPSULES BY Chronic pelvic pain in MOUTH THREE female TIMES A DAY Diclofenac Sodium 1 % Take 2-4 grams 100 g 3 01/28/2019 Active gelIndications: three times a Chronic pelvic pain in day as needed female, Muscle spasm for pain DULoxetine 60 mg Take 1 capsule 90 capsule 3 01/28/2019 Active capsuleIndications: by mouth daily. Chronic pelvic pain in female FLUARIX QUAD ADM 0.5ML IM UTD 0 11/23/2018 Active 5536-8135, PF, 60 mcg (15 mcg x 4)/0.5 mL cholestyramine light 4 4 grams/1 scoop 210 g 11 03/05/2019 Active gram four times a powderIndications: day. Mold exposure Hospital, Clinic, or Other Ordered Dose Route Frequency Start Date End Date Status Facility Administered Medication medroxyPROGESTERone 150 mg IM [id number] 03/21/2019 11/27/2019 Active (DEPO-PROVERA) injection 150 mgIndications: Encounter for Depo-Provera contraception documented as of this encounter (statuses as of 05/13/2019) Active Problems Problem Noted Date Abdominal pain 04/27/2019 Contraceptive management 12/19/2018 History of 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 12/19/2018 Essential hypertension, benign 07/07/2017 Encounter for surveillance of injectable contraceptive 07/28/2016 Well woman exam 07/28/2016 Hyperlipidemia, unspecified hyperlipidemia type 07/28/2016 HLD (hyperlipidemia) 04/05/2016 Chronic pelvic pain in female 07/30/2015 Morbid obesity 10/05/2014 Ovarian cyst 05/29/2014 documented as of this encounter (statuses as of 05/13/2019) Resolved Problems Problem Noted Date Resolved Date Surveillance of previously prescribed contraceptive method 10/05/20142015 Overview: ICD10 Diagnosis Term Legal Department Manager Utility H/O 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 10/05/2014 04/05/2016 Acute upper respiratory infection 10/05/2014 07/30/2015 Overview: ICD10 Diagnosis Term Legal Department Manager Utility Elevated blood pressure reading without diagnosis of 05/30/2014 10/05/2014 hypertension documented as of this encounter (statuses as of 05/13/2019) Immunizations Name Administration Dates Next Due Tdap [...] of this encounter Last Filed Vital Signs Vital Sign Reading Time Taken Comments Blood Pressure 91/48 05/13/2019 9:55 AM CDT Pulse 94 05/13/2019 9:55 AM CDT Temperature 36.8 C (98.3 F) 05/13/2019 9:55 AM CDT Respiratory Rate 18 05/13/2019 9:55 AM CDT Oxygen Saturation - - Inhaled Oxygen Concentration - - Weight 116.6 kg (257 lb) 05/13/2019 9:55 AM CDT Height 167.6 cm (5' 6") 05/13/2019 9:55 AM CDT Body Mass Index 41.48 05/13/2019 9:55 AM CDT documented in this encounter Progress Notes Panchito Escobar MD - 05/13/2019 9:30 AM CDT GENERAL SURGERY CLINIC NOTE Patient Name: So Olea Date of : 1975 Date: 05/13/2019 Subjective: So Olea is a 43 year old female who presents for hospital follow up. Sheis doing well since her discharge from the hospital for sigmoid diverticulitis. She still reports minor LLQ pain but states it is better. She also has a history of chronic pelvic pain and states it is better as well. She is eating a bland diet. She denies nausea or vomiting. She is having regular softBM's without diarrhea or constipation. She denies fever. She finished her prescription of Augmentin. Past Medical History: Past Medical History: Diagnosis Date Anxiety ongoing Chronic pelvic pain in female Endometriosis 2014 Ongoing Hemorrhoids HTN (hypertension) Managed by Cornelia, ongoing 2015 Nerve pain Ovarian cyst Past Surgical History: Past Surgical History: Procedure Laterality Date TUBAL LIGATION 2007 Allergies: No Known Allergies Medications: Patient's Medications START taking these medications No medications on file CONTINUE taking these medications which have NOT CHANGED AMITRIPTYLINE 10 MG TABLET Start with 1 pill at night and slowly increase up to 3 pills at nightfor pain as discussed in clinic. CALCIUM CARB/VIT D3/MINERALS (CALCIUM CARBONATE-VIT D3-MIN ORAL) Take by mouth. CHOLESTYRAMINE LIGHT 4 GRAM POWDER 4 grams/1 scoop four times a day. DICLOFENAC 75 MG EC TABLET Take 1 tablet by mouth 2 (two) times daily with meals. DICLOFENAC SODIUM 1 % GEL Take 2-4 grams three times a day as needed for pain DOCUSATE CALCIUM 240 MG CAPSULE Take 1 capsule by mouth daily. DULOXETINE 60 MG CAPSULE Take 1 capsule by mouth daily. FLUARIX QUAD , PF, 60 MCG (15 MCG X 4)/0.5 ML ADM 0.5ML IM UTD FUROSEMIDE 20 MG TABLET Take 1 tablet by mouth daily. GABAPENTIN 300 MG CAPSULE TAKE TWO CAPSULES BY MOUTH THREE TIMES A DAY LISINOPRIL 10 MG TABLET TAKE ONE TABLET BY MOUTH TWICE A DAY MULTIVIT &MINERALS/FERROUS FUM (MULTI VITAMIN ORAL) Take by mouth. OMEPRAZOLE 40 MG CAPSULE Take 1 capsule by mouth 2 (two) times daily. ONDANSETRON (ZOFRAN) 4 MG TABLET Take 1 tablet by mouth every 8 (eight) hours as needed for Nausea and Vomiting (N/V). TRAMADOL 50 MG TABLET TAKE TWO TABLETS BY MOUTH EVERY 8 HOURS NEEDED FOR PAIN (CHRONIC PELVICPAIN) TURMERIC ROOT EXTRACT 500 MG CAP Take 500 mg by mouth 2 (two) times daily. START taking Modified Medications as Prescribed No medications on file STOP taking these medications No medications on file Current Outpatient Medications Medication Sig Dispense Refill cholestyramine light 4 gram powder 4 grams/1 scoop four times a day. 210 g 11 FLUARIX QUAD , PF, 60 mcg (15 mcg x 4)/0.5 mL ADM 0.5ML IM UTD 0 Diclofenac Sodium 1 % gel Take 2-4 grams three times a day as needed for pain 100 g 3 DULoxetine 60 mg capsule Take 1 capsule by mouth daily. 90 capsule 3 GABAPENTIN 300 mg capsule TAKE TWO CAPSULES BY MOUTH THREE TIMES A DAY 270 capsule 2 TRAMADOL 50 mg tablet TAKE TWO TABLETS BY MOUTH EVERY 8 HOURS NEEDED FOR PAIN (CHRONIC PELVICPAIN) 180 tablet 4 amitriptyline 10 mg tablet Start with 1 pill at night and slowly increase up to 3 pills at nightfor pain as discussed in clinic. 270 tablet 3 ondansetron (ZOFRAN) 4 mg tablet Take 1 tablet by mouth every 8 (eight) hours as needed for Nausea and Vomiting (N/V). 30 tablet 11 turmeric root extract 500 mg Cap Take 500 mg by mouth 2 (two) times daily. LISINOPRIL 10 mg tablet TAKE ONE TABLET BY MOUTH TWICE A DAY 180 tablet 3 diclofenac 75 mg EC tablet Take 1 tablet by mouth 2 (two) times daily with meals. 180 tablet 3 furosemide 20 mg tablet Take 1 tablet by mouth daily. 90 tablet 3 omeprazole 40 mg capsule Take 1 capsule by mouth 2 (two) times daily. 180 capsule 3 docusate calcium 240 mg capsule Take 1 capsule by mouth daily. 60 capsule 2 CALCIUM CARB/VIT D3/MINERALS (CALCIUM CARBONATE-VIT D3-MIN ORAL) Take by mouth. MULTIVIT &MINERALS/FERROUS FUM (MULTI VITAMIN ORAL) Take by mouth. Current Facility-Administered Medications Medication Dose Route Frequency Last Rate Last Dose medroxyPROGESTERone (DEPO-PROVERA) injection 150 mg 150 mg Intramuscular [id number] 150 mg at 03/13/19 0852 Family History: Family History Problem Relation Age of Onset Arthritis Mother 30 Hypertension Mother Heart Brother 30 ND's X2 Breast Cancer Maternal Grandmother Diabetes Maternal Grandmother Hypertension Maternal Grandmother Colon Cancer Paternal Grandfather No Significant Medical Problems Father Ovarian Cancer Maternal Aunt No Significant Medical Problems Maternal Uncle No Significant Medical Problems Paternal Aunt No Significant Medical Problems Paternal Uncle Cancer Maternal Grandfather Diabetes Maternal Grandfather Hypertension Maternal Grandfather No Significant Medical Problems Paternal Grandmother Social History: Social History Socioeconomic History Marital status: Spouse name: Solitario Olea Number of children: 3 Years of education: Not on file Highest education level: 12th grade Occupational History Occupation: [employer] Employer: [employer] Comment: [employer] Social Needs Financial resource strain: Not hard at all Food insecurity: Worry: Never true Inability: Never true Transportation needs: Medical: No Non-medical: No Tobacco Use Smoking status: Never Smoker Smokeless tobacco: Never Used Substance and Sexual Activity Alcohol use: No Alcohol/week: 0.0 oz Drug use: No Sexual activity: Yes Partners: Male control/protection: Injection, Surgical Comment: last sexual intercourse 12/17/2018 Lifestyle Physical activity: Days per week: Not on file Minutes per session: Not on file Stress: Not on file Relationships Social connections: Talks on phone: Not on file Gets together: Not on file Attends jehovah's witness service: Not on file Active member of club or organization: Not on file Attends meetings of clubs or organizations: Not on file Relationship status: Not on file Intimate partner violence: Fear of current or ex partner: Not on file Emotionally abused: Not on file Physically abused: Not on file Forced sexual activity: Not on file Other Topics Concern Not on file Social History Narrative Patient denies any violence or domestic. Patient lives at home with spouse and children. Pt is yarsani. Physical Exam: BP 91/48 (BP Location: Left arm, Patient Position: Sitting, BP CUFF SIZE: Adult Large) | Pulse 94 | Temp 36.8 C (98.3 F) (Oral) | Resp 18 | Ht 1.676 m ( 5' 6") | Wt 116.6 kg (257 lb) | BMI 41.48 kg/m Constitutional: Awake, alert, oriented, in no acute distress Head: Normocephalic, atraumatic Eyes: Extraocular movements grossly intact, pupils equal and reactive to light and accomodation, anicteric sclerae Ears: Normal external exam Nose: Normal external exam Mouth: Moist mucous membranes, good dentition, no lesions, tongue midline Neck: Supple, no jugular venous distention Cardiovascular: Regular rate and rhythm without murmurs, gallops, or rubs Respiratory: Symmetry of chest wall motion, clear to ausculation bilaterally, no respiratory distress GI: Normoactive bowel sounds, soft, nontender, non-distended Extremities: No clubbing, cyanosis, or edema Musculoskeletal: Normal tone and strength, normal range of motion Vascular: Radial and dorsalis pedis pulses palpable bilaterally Neurologic: CN II through XII grossly intact, no focal deficits Skin: Warm and dry, capillary refill <2 seconds, no jaundice, rashes, lesions , or erythema Hematologic/lymphatic: No cervical, axillary, or inguinal lymphadenopathy Psychiatric: Appropriate mood and affect, no obvious deficits of insight or judgment Radiology: CT ABDOMEN PELVIS W CONTRAST HISTORY: 43 years-old; Female; Abd distension Abd pain, acute, generalized COMPARISON: Abdominal radiographs earlier in the same day DOSE: CTDIvol: 13 mGy; DLP: 633 mGy-cm TECHNIQUE AND FINDINGS: Contiguous axial imaging from the level of the lung bases through the pubic symphysis was performed after the uncomplicated administration of 120 cc of intravenous Omnipaque contrast. Coronal and sagittal reconstructions were obtained. Auto mA and/or iterative reconstruction were used to reduce radiation dose. FINDINGS: LOWER THORAX: The lung bases are clear. No cardiomegaly. LIVER: No focal hepatic lesions. Normal contour. GALLBLADDER AND BILIARY TREE: No intra or extrahepatic biliary ductal dilation. No gallbladder wall thickening. SPLEEN: Unremarkable. PANCREAS: No ductal dilation or masses. ADRENAL GLANDS: No adrenal mass. KIDNEYS: No Hydroureteronephrosis, stones, or masses. Homogeneous and symmetrical enhancement. PERITONEUM AND RETROPERITONEUM: No free air or fluid collection. LYMPH NODES: No intra-abdominal or pelvic lymph node enlargement. GI TRACT: No dilation or bowel wall thickening. Scattered colonic diverticulosis noted. There is mild fat stranding about the sigmoid colon without evidence of perforation. The appendix is larger in size, up to 11 mm with areas of hypoattenuation in the base and tip, suggestive of lymphoid hyperplasia without fecalith. No fat stranding is noted about the appendix to suggest acute appendicitis. PELVIS/BLADDER: Bladder is partially distended with no wall thickening. The uterus is unremarkable. The left ovary measures up to 4.0 cm without identifiable mass or cyst. VESSELS: Unremarkable. BONES AND SOFT TISSUES: No suspicious lytic or sclerotic bony lesions. IMPRESSION Acute minimal sigmoid diverticulitis. Dilated appendix up to 11 mm with foci of lymphoid hyperplasia without any associated CT signs of appendicitis. Surgical consult is suggested. Assessment: So Olea is a 43 year old female doing well following hospitalization foracute noncomplicated sigmoid diverticulitis. Her abdominal pain is nearly resolved. She also reportsa history of endometriosis and chronic pelvic pain. She does not see a correctional officer chief regularly. Plan: 1. Schedule colonoscopy in 4 to 6 weeks 2. Refer to OBGYN for chronic pelvic pain Risks including bleeding and perforation, benefits, alternatives of colonoscopy were discussed with the patient; all questions answered; informed consent obtained. Panchito Escobar M.D. 05/13/2019 10:49 11: 17 AM CDTdocumented in this encounter Plan of Treatment Date Type Specialty Care Team Description 06/06/2019 Nurse Visit OB Satellites Visit, Teresachsrinivas Nurse 08/06/2019 Office Visit Internal Medicine Randee Locke MD [address] [place] [address] Dr Butts [address] [place] [address] [phone] Health Maintenance Due Date Last Done Comments [...] filedocumented in this encounter Visit Diagnoses Diagnosis Sigmoid diverticulitis - Primary Diverticulitis of colon (without mention of hemorrhage) Chronic pelvic pain in female Unspecified symptom associated with female genital organs History of endometriosis Personal history of other genital system and obstetric disorders documented in this encounter Insurance Payer Benefit Plan / Subscriber ID Effective Phone Address Type Group Dates [facility] [id number] 2019-Addi [phone] [address] [employer] 86 [id number] [place] [address] documented as of this encounter Advance Directives Name Relationship Healthcare Agent Communication Relationship Solitario Olea Spouse Primary healthcare agent Verona Baron Mother First alternate healthcare [phone] agent (Home)
--- OUTSIDE RECORDS SUMMARY | 2019-05-30 15:24 | XMS REPORT | Summary of Care ---
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 Mold exposure Hospital, Clinic, or Other Ordered Dose Route Frequency Start Date End Date Status Facility Administered Medication medroxyPROGESTERone 150 mg IM [id number] 03/21/2019 11/27/2019 Active (DEPO-PROVERA) injection 150 mgIndications: Encounter for Depo-Provera contraception documented as of this encounter (statuses as of 05/15/2019) Active Problems Problem Noted Date Abdominal pain 04/27/2019 Contraceptive management 12/19/2018 History of 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 12/19/2018 Essential hypertension, benign 07/07/2017 Encounter for surveillance of injectable contraceptive 07/28/2016 Well woman exam 07/28/2016 Hyperlipidemia, unspecified hyperlipidemia type 07/28/2016 HLD (hyperlipidemia) 04/05/2016 Chronic pelvic pain in female 07/30/2015 Morbid obesity 10/05/2014 Ovarian cyst 05/29/2014 documented as of this encounter (statuses as of 05/15/2019) Resolved Problems Problem Noted Date Resolved Date Surveillance of previously prescribed contraceptive method 10/05/20142015 Overview: ICD10 Diagnosis 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 H/O 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 10/05/2014 04/05/2016 Acute upper respiratory infection 10/05/2014 07/30/2015 Overview: ICD10 Diagnosis 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 Elevated blood pressure reading without diagnosis of 05/30/2014 10/05/2014 hypertension documented as of this encounter (statuses as of 05/15/2019) Immunizations Name Administration Dates Next Due Tdap [...] Description 06/06/2019 Nurse Visit OB Satellites Visit, Tiago-Thierry Nurse 08/06/2019 Office Visit Internal Medicine Randee Locke MD [address] [place] [address] Dr Butts [address] [place] [address] [phone] Health Maintenance Due Date Last Done Comments [...] Diverticulitis of colon (without mention of hemorrhage) documented in this encounter Insurance Payer Benefit Plan / Subscriber ID Effective Phone Address Type Group Dates [facility] [id number] 2019-Addi [phone] [facility] [employer] [phone] [place] [address] documented as of this encounter Advance Directives Name Relationship Healthcare Agent Communication Relationship Solitario Olea Spouse Primary healthcare agent Verona Tod Mother First alternate healthcare [phone] agent (Home)
--- OUTSIDE RECORDS SUMMARY | 2019-05-30 15:24 | XMS REPORT | Summary of Care ---
:1975 Author Organization [facility] Address [address] [place] [address] Care Team Providers Name Role Phone Visit, Teresachp Nurse Unavailable Unavailable Randee Locke MD Insurance Hmo Randee Locke MD Primary Care Provider Encounter Details Date Type Department Care Team Description 05/06/2019 Orders Only [facility] Doctor Unassigned, No [address] [facility] [place] [address] [address] [place] [address] Allergies No Known Allergiesdocumented as of this encounter (statuses as of 05/21/2019) Medications Medication Sig Dispensed Refills Start Date [...] ADM 0.5ML IM UTD 0 11/23/2018 Active 2860-1103, PF, 60 mcg (15 mcg x 4)/0.5 mL cholestyramine light 4 4 grams/1 scoop 210 g 11 03/05/2019 Active gram four times a powderIndications: day. Mold exposure Hospital, Clinic, or Other Ordered Dose Route Frequency Start Date End Date Status Facility Administered Medication medroxyPROGESTERone 150 mg IM [id number] 03/21/2019 11/27/2019 Active (DEPO-PROVERA) injection 150 mgIndications: Encounter for Depo-Provera contraception documented as of this encounter (statuses as of 05/21/2019) Active Problems Problem Noted Date Sigmoid diverticulitis 05/15/2019 Overview: Added automatically from request for surgery [id number] Abdominal pain 04/27/2019 Contraceptive management 12/19/2018 History of 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 12/19/2018 Essential hypertension, benign 07/07/2017 Encounter for surveillance of injectable contraceptive 07/28/2016 Well woman exam 07/28/2016 Hyperlipidemia, unspecified hyperlipidemia type 07/28/2016 HLD (hyperlipidemia) 04/05/2016 Chronic pelvic pain in female 07/30/2015 Morbid obesity 10/05/2014 Ovarian cyst 05/29/2014 documented as of this encounter (statuses as of 05/21/2019) Resolved Problems Problem Noted Date Resolved Date Surveillance of previously prescribed contraceptive method 10/05/20142015 Overview: ICD10 Diagnosis 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 H/O 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 10/05/2014 04/05/2016 Acute upper respiratory infection 10/05/2014 07/30/2015 Overview: ICD10 Diagnosis 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 Elevated blood pressure reading without diagnosis of 05/30/2014 10/05/2014 hypertension documented as of this encounter (statuses as of 05/21/2019) Immunizations Name Administration Dates Next Due Tdap [...] Description 06/06/2019 Nurse Visit OB Satellites Visit, Teresachp Nurse 06/28/2019 [facility] Surgery Shawn Mahi, Sigmoid diverticulitis Encounter [address] [facility] [address] [place] [address] [phone] 06/28/2019 Surgery Surgery Mahi Escobar, COLONOSCOPY [address] [facility] [address] [place], [place] [address] 08/06/2019 Office Visit Internal Medicine Randee Locke MD [address] [place] [address] Dr Butts [address] [place], [place] [address] Health Maintenance Due Date Last Done Comments INFLUENZA VACCINE 06/16/2019 01/05/2017 (Declined) PAP SMEAR 07/31/2020 07/31/2017, 05/29/2014, 10/01/2010, Additional history exists MAMMOGRAM 10/30/2020 Postponed from 2017 (Alternative Guidelines) DTaP,Tdap,and Td Vaccines 05/29/2024 05/29/2014 (2 - Td) PNEUMOCOCCAL 0-64 YEARS Aged Out No longer eligible COMBINED SERIES based on patient's age to complete this topic documented as of this encounter Procedures Procedure Name Priority Date/Time Associated Diagnosis Comments AUTHORIZATION FOR RELEASE Routine 05/06/2019 12:01 AM OF PHI CDT documented in this encounter Results Not on filedocumented in this encounter Insurance Payer Benefit Plan / Subscriber ID Effective Phone Address Type Group Dates [facility] [id number] 2019-Addi [phone] [facility] [employer] [facility] [phone] [place] [address] documented as of this encounter Advance Directives Name Relationship Healthcare Agent Communication Relationship Solitario Olea Spouse Primary healthcare agent Verona Baron Mother First alternate healthcare [phone] agent (Home)
--- OUTSIDE RECORDS SUMMARY | 2019-05-30 15:24 | XMS REPORT | Summary of Care ---
:1975 Author Organization [facility] Address [address] [place] [address] Care Team Providers Name Role Phone Visit, [...] Provider PANCHITO ESCOBAR; 2 Weeks MD DIAMOND [address] [place] [address] [address] [place] [place], [place] [phone] Phone: Encounter Details Date Type Department Care Team Description 05/13/2019 Office Visit [facility] Surgical Panchito Escobar, Sigmoid diverticulitis (Primary Dx); Specialties - Chronic pelvic pain in female; [address] History of endometriosis [address] [facility], [address] [place] [address] [place] [address] [phone] Allergies No Known Allergiesdocumented as of this [...] ADM 0.5ML IM UTD 0 11/23/2018 Active [id number], PF, 60 mcg (15 mcg x 4)/0.5 mL cholestyramine light 4 4 grams/1 scoop 210 g 11 03/05/2019 Active gram four times a powderIndications: day. 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 H/O 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 10/05/2014 04/05/2016 Acute upper respiratory infection 10/05/2014 07/30/2015 Overview: ICD10 Diagnosis Term Merchandise Shopper Utility Elevated blood pressure reading without diagnosis [...] (DEPO-PROVERA) injection 150 mg 150 mg Intramuscular [id number] 150 mg at 03/13/19 0852 Family History: Family History Problem Relation Age of Onset Arthritis Mother 30 Hypertension Mother Heart Brother 30 KS's X2 Breast Cancer Maternal Grandmother Diabetes Maternal [...] file Gets together: Not on file Attends jew service: Not on file Active member of [...] home with spouse and children. Pt is mandaen. Physical Exam: BP 91/48 (BP Location: Left [...] pelvic pain. She does not see a locum tenens hospitalist regularly. Plan: 1. Schedule colonoscopy in 4 [...] Office Visit Internal Medicine Randee Locke MD [address] [place] [address] Dr Butts [address] [place] [address] [phone] Health Maintenance Due Date Last Done Comments [...] ID Effective Phone Address Type Group Dates [facility] [id number] 2019-Addi [phone] [address] [employer] [id number] [place] [address] documented as of this encounter Advance Directives Name Relationship Healthcare Agent Communication Relationship Solitario Olea Spouse Primary healthcare agent Verona Baron Mother First alternate healthcare [phone] agent (Home)
[2019-05-30] MEDS ORDERED: IBUPROFEN 400 MG TAB ONE (15:57)
--- NOTE | 2019-05-30 16:14 | ER ---
Nurse's Notes [facility] Name: So Olea Age: 43 yrs Sex: Female : 1975 Arrival Date: 05/30/2019 Time: 15:22 Bed 13 Private MD: Diagnosis: Pain in right foot Presentation: 05/30 15:28 Presenting complaint: Patient states: Right foot pain for one month, no known injury. la1 Transition of care: patient was not received from another setting of care. Onset of symptoms was May 30, 2019. Risk Assessment: Do you want to hurt yourself or someone else? Patient reports no desire to harm self or others. Initial Sepsis Screen: Does the patient meet any 2 criteria? No. Patient's initial sepsis screen is negative. Does the patient have a suspected source of infection? No. Patient's initial sepsis screen is negative. Care prior to arrival: None. 15:28 Method Of Arrival: Ambulatory la1 15:28 Acuity: JERROD 4 la1 Historical: - Allergies: 15:28 No Known Allergies; la1 - PMHx: 15:28 Chronic pain; Endometriosis; Hypertension; Ovarian cysts; la1 - Immunization history:: Adult Immunizations up to date. - Social history:: Smoking status: Patient/guardian denies using tobacco. - Ebola Screening: : No symptoms or risks identified at this time. Screenin:01 Abuse screen: Denies threats or abuse. Nutritional screening: No deficits noted. aa5 Tuberculosis screening: No symptoms or risk factors identified. Fall Risk None identified. Assessment: 15:28 General: Appears in no apparent distress. Behavior is calm, cooperative. Pain: la1 Complains of pain in right foot. Neuro: Level of Consciousness is awake, alert, obeys commands, Oriented to person, place, time, situation. Cardiovascular: Capillary refill < 3 seconds Patient's skin is warm and dry. Respiratory: Airway is patent Respiratory effort is even, unlabored, Respiratory pattern is regular, symmetrical. GI: No signs and/or symptoms were reported involving the gastrointestinal system. : No signs and/or symptoms were reported regarding the genitourinary system. Musculoskeletal: Circulation, motion, and sensation intact. Range of motion: intact in all extremities. 15:59 Reassessment: Patient is alert, oriented x 3, equal unlabored respirations, skin aa5 warm/dry/pink. Awaiting x-ray results, pt notified of wait time . 16:35 Reassessment: Patient is alert, oriented x 3, equal unlabored respirations, skin aa5 warm/dry/pink. Vital Signs: 15:29 Pulse 94; Resp 16; Temp 97.5; Pulse Ox 100% on R/A; Weight 113.4 kg; Height 5 ft. 6 in. la1 (167.64 cm); 15:29 BP 151 / 72; la1 15:29 Body Mass Index 40.35 (113.40 kg, 167.64 cm) la1 ED Course: 15:22 Patient arrived in ED. as 15:26 [facility]-C [facility] kb 15:26 Edinson Walker MD is Attending Physician. kb 15:28 Triage completed. la1 15:28 Arm band placed on left wrist. la1 15:59 Haylie Andujar, RN is Primary Nurse. aa5 15:59 Patient has correct armband on for positive identification. Bed in low position. Call aa5 light in reach. Side rails up X2. 16:04 Foot Right 3 View XRAY In Process Unspecified. EDMS 16:35 No provider procedures requiring assistance completed. Patient did not have IV access aa5 during this emergency room visit. Administered Medications: 15:59 Drug: Ibuprofen 800 mg Route: PO; aa5 Outcome: 16:13 Discharge ordered by MD. kb 16:35 Discharged to home ambulatory. aa5 16:35 Condition: good 16:35 Discharge instructions given to patient, Instructed on discharge instructions, follow up and referral plans. medication usage, Demonstrated understanding of instructions, follow-up care, medications, Prescriptions given X 1. 16:36 Patient left the ED. rb1 Signatures: Dispatcher [employer] EDMS Kianna Rubio FNP-C DIRECTOR WRITING-Suzy Baldwin as Haylie Andujar, RN RN aa5 Kodak Garcia RN RN la1 Slime Brandon, KRISTIN RN rb1 Corrections: (The following items were deleted from the chart) 15:29 15:28 Acuity: JERROD 5 la1 la1 16:02 15:55 Patient has correct armband on for positive identification. Bed in low position. aa5 Call light in reach. Side rails up X2. aa5
--- NOTE | 2019-05-30 16:14 | EDPHYS ---
Physician Documentation [facility] Name: So Olea Age: 43 yrs Sex: Female : 1975 Arrival Date: 05/30/2019 Time: 15:22 Bed 13 Private MD: ED Physician Edinson Walker HPI: 05/30 16:00 This 43 yrs old Female presents to ER via Ambulatory with complaints of Foot kb Pain. 16:00 The patient presents with pain, that is acute, tenderness. The complaints affect the kb right foot. Context: The problem was sustained at an unknown location, resulted from an unknown cause, the patient can fully bear weight, the patient is able to ambulate. Onset: The symptoms/episode began/occurred 1 month(s) ago. Modifying factors: The symptoms are alleviated by nothing, the symptoms are aggravated by weight bearing. Associated signs and symptoms: The patient has no apparent associated signs or symptoms. Severity of symptoms: At their worst the symptoms were moderate, in the emergency department the symptoms are unchanged. The patient has not experienced similar symptoms in the past. The patient has not recently seen a physician. Pt reports pain to right foot for month. Denies injury. States pain runs across bottom of foot. . Historical: - Allergies: 15:28 No Known Allergies; la1 - PMHx: 15:28 Chronic pain; Endometriosis; Hypertension; Ovarian cysts; la1 - Immunization history:: Adult Immunizations up to date. - Social history:: Smoking status: Patient/guardian denies using tobacco. - Ebola Screening: : No symptoms or risks identified at this time. ROS: 15:56 Constitutional: Negative for fever, chills, and weight loss, Cardiovascular: Negative kb for chest pain, palpitations, and edema, Respiratory: Negative for shortness of breath, cough, wheezing, and pleuritic chest pain, Abdomen/GI: Negative for abdominal pain, nausea, vomiting, diarrhea, and constipation, Skin: Negative for injury, rash, and discoloration, Neuro: Negative for headache, weakness, numbness, tingling, and seizure. 15:56 MS/extremity: Positive for pain, tenderness. Exam: 15:56 Constitutional: This is a well developed, well nourished patient who is awake, alert, kb and in no acute distress. Head/Face: Normocephalic, atraumatic. Chest/axilla: Normal chest wall appearance and motion. Nontender with no deformity. No lesions are appreciated. Cardiovascular: Regular rate and rhythm with a normal S1 and S2. No gallops, murmurs, or rubs. Normal PMI, no JVD. No pulse deficits. Respiratory: Lungs have equal breath sounds bilaterally, clear to auscultation and percussion. No rales, rhonchi or wheezes noted. No increased work of breathing, no retractions or nasal flaring. Abdomen/GI: Soft, non-tender, with normal bowel sounds. No distension or tympany. No guarding or rebound. No evidence of tenderness throughout. Skin: Warm, dry with normal turgor. Normal color with no rashes, no lesions, and no evidence of cellulitis. Neuro: Awake and alert, GCS 15, oriented to person, place, time, and situation. Cranial nerves II-XII grossly intact. Motor strength 5/5 in all extremities. Sensory grossly intact. Cerebellar exam normal. Normal gait. 15:56 Musculoskeletal/extremity: Extremities: grossly normal except: noted in the right foot: pain, tenderness, ROM: intact in all extremities, Circulation is intact in all extremities. Sensation intact. Weight bearing: able to fully bear weight. Vital Signs: 15:29 Pulse 94; Resp 16; Temp 97.5; Pulse Ox 100% on R/A; Weight 113.4 kg; Height 5 ft. 6 in. la1 (167.64 cm); 15:29 BP 151 / 72; la1 15:29 Body Mass Index 40.35 (113.40 kg, 167.64 cm) la1 MDM: 15:29 Patient medically screened. kb 15:56 Data reviewed: vital signs, nurses notes. Data interpreted: Pulse oximetry: on room air kb is 100 %. Interpretation: normal. 16:00 Counseling: I had a detailed discussion with the patient and/or guardian regarding: the kb historical points, exam findings, and any diagnostic results supporting the discharge/admit diagnosis, radiology results, the need for outpatient follow up, a family practitioner, to return to the emergency department if symptoms worsen or persist or if there are any questions or concerns that arise at home. 16:21 Test interpretation: by ED physician or midlevel provider: plain radiologic studies, no kb acute fracture. 05/30 15:30 Order name: Foot Right 3 View XRAY; Complete Time: 16:21 kb Administered Medications: 15:59 Drug: Ibuprofen 800 mg Route: PO; aa5 Disposition: 05/31 08:35 Co-signature as Attending Physician, Edinson Walker MD I agree with the assessment and mary plan of care. Disposition: 05/30/19 16:13 Discharged to Home. Impression: Pain in right foot. - Condition is Stable. - Discharge Instructions: Plantar Fasciitis. - Prescriptions for Diclofenac Sodium 75 mg Oral Tablet, Delayed Release (E.C.) - take 1 tablet by ORAL route 2 times per day As needed; 30 tablet. - Medication Reconciliation Form, Thank You Letter, Antibiotic Education, Prescription Opioid Use form. - Follow up: Emergency Department; When: As needed; Reason: Worsening of condition. Follow up: Private Physician; When: 2 - 3 days; Reason: Recheck today's complaints, Continuance of care, Re-evaluation by your physician. Signatures: Dispatcher [employer] EDND Kianna Rubio, JEWELRY DRILLING MACHINE OPERATOR-C JEWELRY DRILLING MACHINE OPERATOR-Edinson Hernandez MD MD cha Calderon, Audri, RN RN aa5 Kodak Garcia RN RN la1 Slime Brandon, RN RN rb1 Corrections: (The following items were deleted from the chart) 05/30 16:36 16:13 05/30/2019 16:13 Discharged to Home. Impression: Pain in right foot. Condition is rb1 Stable. Discharge Instructions: Plantar Fasciitis. Prescriptions for Diclofenac Sodium 75 mg Oral Tablet, Delayed Release (E.C.) - take 1 tablet by ORAL route 2 times per day As needed; 30 tablet. and Forms are Medication Reconciliation Form, Thank You Letter, Antibiotic Education, Prescription Opioid Use. Follow up: Emergency Department; When: As needed; Reason: Worsening of condition. Follow up: Private Physician; When: 2 - 3 days; Reason: Recheck today's complaints, Continuance of care, Re-evaluation by your physician. kb
--- NOTE | 2019-05-30 16:16 | RAD REPORT ---
EXAM DESCRIPTION: RAD - Foot Right 3 View - 05/30/2019 4:01 pm CLINICAL HISTORY: Right foot pain FINDINGS: No fracture or dislocation is seen. Moderate plantar calcaneal spur Small posterior calcaneal spur
[2019-05-30 16:51] VITALS: BP 151/72; TEMP 97.5; O2SAT 100
== END 2019-05-30 16:36 | disposition home or self-care (01) ==
LOC: ER 15:20
DX: M79.671 Pain in right foot (principal); I10 Essential (primary) hypertension
CPT/HCPCS: 99283

== ENCOUNTER 2019-06-20 12:21 | Emergency (ER) | payer OTHER ==
--- OUTSIDE RECORDS SUMMARY | 2019-06-20 12:23 | XMS REPORT ---
:1975 [facility] Address [address] [place] [address] Dr. Hudson [address] [place] [address] Care Team Providers Name Role Phone Unavailable Unavailable Unavailable Problems This patient has no known problems. Allergies, Adverse Reactions, Alerts This patient has no known allergies or adverse reactions. Medications This patient has no known medications.
[2019-06-20] MEDS ORDERED: KETOROLAC 30 MG/ML INJ ONE (13:28)
[2019-06-20] MEDS ORDERED: CYCLOBENZAPRINE 10 MG TAB ONE (13:28)
[2019-06-20] MEDS ORDERED: HYDROCODONE/APAP 5/325 MG TAB ONE (13:28)
--- NOTE | 2019-06-20 14:32 | RAD REPORT ---
EXAM DESCRIPTION: RAD - Foot Right 3 View - 06/20/2019 1:19 pm CLINICAL HISTORY: Right foot pain status post injury FINDINGS: Nondisplaced fracture involves the base of the fifth metatarsal which appears subacute. The base of the fourth metatarsal lies a few millimeters medial to the medial aspect of the cuboid. T his may indicate a subtle dislocation. If clinically indicated further evaluation with CT could be ob tained. Large calcaneal spur
--- NOTE | 2019-06-20 15:33 | RAD REPORT ---
EXAM DESCRIPTION: CT - Foot Right Wo Con - 06/20/2019 3:21 pm CLINICAL HISTORY: Possible 4th metatarsal dislocation Pain and swelling COMPARISON: Foot Right 3 View dated 06/20/2019; Foot Right 3 View dated 05/30/2019 FINDINGS: Lucency is seen along the base of the fifth metatarsal with slight sclerosis seen, likely indicating subacute Olsen fracture. There is no evidence of a dislocation. Small posterior and planta r calcaneal spurs are seen. No soft tissue mass or hematoma. IMPRESSION: Subacute Olsen fracture is seen. No dislocation evident. All CT scans are performed using dose optimization technique as appropriate and may include automated exposure control or mA/KV adjustment according to patient size.
--- NOTE | 2019-06-20 15:59 | ER ---
Nurse's Notes [facility] Name: So Olea Age: 43 yrs Sex: Female : 1975 Arrival Date: 06/20/2019 Time: 12:23 Bed 24 Private MD: Diagnosis: Nondisplaced fracture of fifth metatarsal bone, right foot Presentation: 06/20 12:45 Presenting complaint: Patient states: pain to R foot for the past month. no trauma. ch hurts to walk on it now. Transition of care: patient was not received from another setting of care. Onset of symptoms was April 2019. Risk Assessment: Do you want to hurt yourself or someone else? Patient reports no desire to harm self or others. Initial Sepsis Screen: Does the patient meet any 2 criteria? Yes Does the patient have a suspected source of infection? No. Patient's initial sepsis screen is negative. Care prior to arrival: None. 12:45 Method Of Arrival: Ambulatory 12:45 Acuity: JERROD 4 Triage Assessment: 12:47 General: Appears in no apparent distress. 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 - Social history:: Smoking status: Patient/guardian denies using tobacco, Patient/guardian denies using alcohol, street drugs. - Ebola Screening: : Patient negative for fever greater than or equal to 101.5 degrees Fahrenheit, and additional compatible Ebola Virus Disease symptoms Patient denies exposure to infectious person Patient denies travel to an Ebola-affected area in the 21 days before illness onset No symptoms or risks identified at this time. Screenin:32 Abuse screen: Denies threats or abuse. Denies injuries from another. Nutritional ca1 screening: No deficits noted. Tuberculosis screening: No symptoms or risk factors identified. Fall Risk Gait- Impaired (20 pts.). Assessment: 13:32 General: Appears in no apparent distress. comfortable, Behavior is calm, cooperative, ca1 appropriate for age. Pain: Complains of pain in right foot Pain radiates to right barroso Pain currently is 9 out of 10 on a pain scale. Pain began about a month ago. Neuro: Level of Consciousness is awake, alert, obeys commands, Oriented to person, place, time, situation. Cardiovascular: Heart tones S1 S2 present Capillary refill < 3 seconds Patient's skin is warm and dry. Cardiovascular: Pulses are all present. Respiratory: Airway is patent Respiratory effort is even, unlabored, Respiratory pattern is regular, symmetrical, Breath sounds are clear bilaterally. Derm: Skin is intact, is healthy with good turgor, Skin is pink, warm \T\ dry. Musculoskeletal: Circulation, motion, and sensation intact. Capillary refill < 3 seconds, Range of motion: limited in right ankle. 14:30 Reassessment: Patient appears in no apparent distress at this time. Patient and/or ca1 family updated on plan of care and expected duration. Pain level reassessed. Patient is alert, oriented x 3, equal unlabored respirations, skin warm/dry/pink. 15:15 Reassessment: Patient appears in no apparent distress at this time. Patient and/or ca1 family updated on plan of care and expected duration. Pain level reassessed. Patient is alert, oriented x 3, equal unlabored respirations, skin warm/dry/pink. 16:38 Reassessment: Patient appears in no apparent distress at this time. Patient is alert, ca1 oriented x 3, equal unlabored respirations, skin warm/dry/pink. Vital Signs: 12:47 BP 128 / 58; Pulse 86; Resp 18; Temp 98.2; Pulse Ox 99% ; Weight 117.93 kg; Height 5 ch ft. 4 in. (162.56 cm); Pain 9/10; 14:12 BP 136 / 62; Pulse 102; Resp 20; Pulse Ox 100% ; lt1 16:38 BP 129 / 63; Pulse 94; Resp 16 S; Pulse Ox 99% on R/A; ca1 12:47 Body Mass Index 44.63 (117.93 kg, 162.56 cm) ED Course: 12:23 Patient arrived in ED. rg4 12:46 Triage completed. 12:47 Arm band placed on left wrist. Patient placed in an exam room, on a stretcher. ch 12:50 Ced Thorpe NP is PHCP. pm1 12:50 Renny Leon MD is Attending Physician. pm1 13:21 Caro Palumbo, KRISTIN is Primary Nurse. ca1 13:24 Foot Right 3 View XRAY In Process Unspecified. EDMS 13:32 Patient has correct armband on for positive identification. Bed in low position. Call ca1 light in reach. Side rails up X 1. Pulse ox on. NIBP on. 13:32 No provider procedures requiring assistance completed. Patient did not have IV access ca1 during this emergency room visit. 15:26 Foot Right Wo Con In Process Unspecified. EDMS 16:31 Crutch training done. On right foot patient was given a walker air low large black boot lt1 (walking boot). Administered Medications: 13:32 Drug: TORadol 60 mg Route: IM; Site: right gluteus; ca1 16:50 Follow up: Response: No adverse reaction; Pain is decreased ca1 13:32 Drug: Flexeril 10 mg Route: PO; ca1 15:30 Follow up: Response: No adverse reaction; Pain is decreased ca1 13:32 Drug: [place] 5 mg-325 mg 1 tabs Route: PO; ca1 14:30 Follow up: Response: No adverse reaction; Pain is decreased ca1 Outcome: 15:58 Discharge ordered by MD. pm1 16:51 Discharged to home via wheelchair, with crutches. ca1 16:51 Condition: stable 16:51 Discharge instructions given to patient, Instructed on discharge instructions, follow up and referral plans. medication usage, crutch walking, Demonstrated understanding of instructions, follow-up care, medications, crutch walking, Prescriptions given X 1. 16:51 Patient left the ED. ca1 Signatures: Dispatcher [employer] EDMS Karon Marques RN RN Ced Thorpe NP SCRAP CARRIER pm1 Emmy Bello rg4 Caro Palumbo RN RN ca1 Adriana King lt1 Corrections: (The following items were deleted from the chart) 15:32 15:31 Reassessment: Patient appears in no apparent distress at this time. Patient ca1 and/or family updated on plan of care and expected duration. Pain level reassessed. Patient is alert, oriented x 3, equal unlabored respirations, skin warm/dry/pink. ca1
--- NOTE | 2019-06-20 15:59 | EDPHYS ---
Physician Documentation [facility] Name: So Olea Age: 43 yrs Sex: Female : 1975 Arrival Date: 06/20/2019 Time: 12:23 Bed 24 Private MD: ED Physician Renny Leon HPI: 06/20 13:30 This 43 yrs old Female presents to ER via Ambulatory with complaints of Right pm1 Foot Pain. 13:30 The patient presents with pain. The complaints affect the lateral aspect of right foot. pm1 Context: The problem was sustained at home, resulted from an unknown cause, the patient can fully bear weight, the patient is able to ambulate, Problem is a result from a previous injury: No. Onset: The symptoms/episode began/occurred 1 month(s) ago. Modifying factors: the symptoms are aggravated by weight bearing. Associated signs and symptoms: Pertinent positives: swelling, Pertinent negatives calf tenderness, fever, numbness, tingling. Treatment prior to arrival includes: no previous treatment. Severity of symptoms: in the emergency department the symptoms are unchanged. The patient has not experienced similar symptoms in the past. The patient has not recently seen a physician. Denies trauma. 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 - Social history:: Smoking status: Patient/guardian denies using tobacco, Patient/guardian denies using alcohol, street drugs. - Ebola Screening: : Patient negative for fever greater than or equal to 101.5 degrees Fahrenheit, and additional compatible Ebola Virus Disease symptoms Patient denies exposure to infectious person Patient denies travel to an Ebola-affected area in the 21 days before illness onset No symptoms or risks identified at this time. ROS: 13:30 Constitutional: Negative for fever, chills, and weight loss, Cardiovascular: Negative pm1 for chest pain, palpitations, and edema, Respiratory: Negative for shortness of breath, cough, wheezing, and pleuritic chest pain, Back: Negative for injury and pain. 13:30 Skin: Negative for injury, rash, and discoloration, Neuro: Negative for headache, weakness, numbness, tingling, and seizure. 13:30 MS/extremity: Positive for pain, swelling, of the lateral aspect of right foot, Negative for deformity. Exam: 13:30 Constitutional: This is a well developed, well nourished patient who is awake, alert, pm1 and in no acute distress. Head/Face: Normocephalic, atraumatic. Skin: Warm, dry with normal turgor. Normal color with no rashes, no lesions, and no evidence of cellulitis. 13:30 Musculoskeletal/extremity: Extremities: grossly normal except: noted in the dorsum of right foot and lateral aspect of right foot: swelling, tenderness, There is no evidence of deformity, Circulation is intact in all extremities. Vital Signs: 12:47 BP 128 / 58; Pulse 86; Resp 18; Temp 98.2; Pulse Ox 99% ; Weight 117.93 kg; Height 5 ch ft. 4 in. (162.56 cm); Pain 9/10; 14:12 BP 136 / 62; Pulse 102; Resp 20; Pulse Ox 100% ; lt1 16:38 BP 129 / 63; Pulse 94; Resp 16 S; Pulse Ox 99% on R/A; ca1 12:47 Body Mass Index 44.63 (117.93 kg, 162.56 cm) MDM: 12:50 Patient medically screened. pm1 15:00 Data reviewed: vital signs. Data interpreted: Pulse oximetry: on room air is 100 %. pm1 Interpretation: normal. Counseling: I had a detailed discussion with the patient and/or guardian regarding: the historical points, exam findings, and any diagnostic results supporting the discharge/admit diagnosis, radiology results, the need for outpatient follow up, to return to the emergency department if symptoms worsen or persist or if there are any questions or concerns that arise at home. 06/20 12:54 Order name: Foot Right 3 View XRAY; Complete Time: 14:45 pm1 06/20 15:11 Order name: Foot Right Wo Con; Complete Time: 15:46 EDNH 06/20 15:55 Order name: Walking boot; Complete Time: 16:34 pm1 06/20 15:55 Order name: Crutches; Complete Time: 16:34 pm1 Administered Medications: 13:32 Drug: TORadol 60 mg Route: IM; Site: right gluteus; ca1 16:50 Follow up: Response: No adverse reaction; Pain is decreased ca1 13:32 Drug: Flexeril 10 mg Route: PO; ca1 15:30 Follow up: Response: No adverse reaction; Pain is decreased ca1 13:32 Drug: [place] 5 mg-325 mg 1 tabs Route: PO; ca1 14:30 Follow up: Response: No adverse reaction; Pain is decreased ca1 Disposition: 17:04 Co-signature as Attending Physician, Renny Leon MD. rn Disposition: 06/20/19 15:58 Discharged to Home. Impression: Nondisplaced fracture of fifth metatarsal bone, right foot. - Condition is Stable. - Discharge Instructions: Crutch Use, Metatarsal Fracture, Walking Boot. - Prescriptions for Tylenol- Codeine #3 300-30 mg Oral Tablet - take 2 tablets by ORAL route every 6 hours As needed; 20 tablet. - Work release form, Medication Reconciliation Form, Thank You Letter, Antibiotic Education, Prescription Opioid Use form. - Follow up: Emergency Department; When: As needed; Reason: Worsening of condition. Follow up: Private Physician; When: 2 - 3 days; Reason: Recheck today's complaints, Continuance of care, Re-evaluation by your physician. - Problem is new. - Symptoms have improved. Signatures: Dispatcher [employer] [facility] Karon Marques RN RN ch Nieto, Roman, MD MD rn Marinas, Patrick, NIDIA CLINICAL COUNSELOR pm1 Caro Palumbo RN RN ca1 Corrections: (The following items were deleted from the chart) 16:51 15:58 06/20/2019 15:58 Discharged to Home. Impression: Nondisplaced fracture of fifth ca1 metatarsal bone, right foot. Condition is Stable. Forms are Medication Reconciliation Form, Thank You Letter, Antibiotic Education, Prescription Opioid Use. Follow up: Emergency Department; When: As needed; Reason: Worsening of condition. Follow up: Private Physician; When: 2 - 3 days; Reason: Recheck today's complaints, Continuance of care, Re-evaluation by your physician. Problem is new. Symptoms have improved. pm1
[2019-06-20 17:57] VITALS: TEMP 98.2
[2019-06-20 17:59] VITALS: BP 129/63; O2SAT 99
== END 2019-06-20 16:51 | disposition home or self-care (01) ==
LOC: ER 12:21
DX: S92.354A Nondisplaced fracture of fifth metatarsal bone, right foot, initial encounter for closed fracture (principal); X58.XXXA Exposure to other specified factors, initial encounter; Y93.9 Activity, unspecified; Y92.009 Unspecified place in unspecified non-institutional (private) residence as the place of occurrence of the external cause; I10 Essential (primary) hypertension; K21.9 Gastro-esophageal reflux disease without esophagitis
CPT/HCPCS: 73700; 96372; 99284

== ENCOUNTER 2019-12-09 05:46 | Emergency (ER) | payer OTHER ==
--- OUTSIDE RECORDS SUMMARY | 2019-12-09 05:47 | XMS REPORT ---
:1975 [facility] Address [address] [place] [address] Dr. Hudson [address] [place] [address] Care Team Providers Name Role Phone Unavailable Unavailable Unavailable Problems This patient has no known problems. Allergies, Adverse Reactions, Alerts This patient has no known allergies or adverse reactions. Medications This patient has no known medications.
--- OUTSIDE RECORDS SUMMARY | 2019-12-09 05:50 | XMS REPORT | Summary of Care ---
:1975 Author Organization [facility] Address [address] [place] [address] Care Team Providers Name Role Phone Visit, Jazmine Nurse Unavailable Unavailable Randee [place] MD Insurance Hmo Randee [place] MD Primary Care Provider Reason for Visit Reason Comments DEPO PROVERA Encounter Details Date Type Department Care Team Description [facility]2019 [facility] [address] [facility] [place] [address] [phone] En[facility] [place] [facility] Dep[facility]-Pro[facility]a [address] contraception ([place], [place]) [address] Allergies No Known Allergiesdocumented as of this encounter (statuses as of 11/22/2019) Medications Medication Sig Dispensed Refills Start Date End Date Status MULTIVIT Take by mouth. 0 Active &MINERALS/FERROUS FUM (MULTI VITAMIN ORAL) CALCIUM CARB/VIT Take by mouth. 0 Active D3/MINERALS (CALCIUM CARBONATE-VIT D3-MIN ORAL) docusate calcium 240 Take 1 capsule 60 capsule 2 07/09/2017 Active mg capsule by mouth daily. turmeric root extract Take 500 mg by 0 Active 500 mg Cap mouth 2 (two) times daily. Diclofenac Sodium 1 % Take 2-4 grams 100 g 3 01/28/2019 Active gelIndications: three times a Chronic pelvic pain in day as needed female, Muscle spasm for pain FLUARIX QUAD ADM 0.5ML IM UTD 0 11/23/2018 Active 3506-1679, PF, 60 mcg (15 mcg x 4)/0.5 mL peg-electrolyte soln Take 4,000 mL by 4000 mL 0 06/14/2019 Active 236-22.74-6.74 -5.86 mouth gram SEE-INSTRUCTIONS solutionIndications: . Take as Sigmoid diverticulitis directed FUROSEMIDE 20 mg TAKE ONE TABLET 90 tablet 2 07/11/2019 Active tabletIndications: BY MOUTH DAILY Essential hypertension, benign cholestyramine light 4 4 grams/1 scoop 210 g 11 08/01/2019 Active gram four times a powderIndications: day. Mold exposure traMADol 50 mg Take 2 tablets 180 tablet 3 08/01/2019 Active tabletIndications: by mouth every 8 Chronic pelvic pain in (eight) hours as female needed (severe chronic pelvic pain). diclofenac 75 mg EC Take 1 tablet by 180 tablet 3 08/01/2019 Active tabletIndications: mouth 2 (two) Chronic pelvic pain in times daily with female meals. LISINOPRIL 10 mg TAKE ONE TABLET 180 tablet 2 10/23/2019 Active tabletIndications: BY MOUTH TWICE A Essential DAY hypertension, benign ondansetron (ZOFRAN) 4 Take 1 tablet by 30 tablet 11 11/15/2019 Active mg tabletIndications: mouth every 8 Chronic pelvic pain in (eight) hours as female, Nausea needed for Nausea and Vomiting (N/V). DULoxetine 60 mg Take 1 capsule 90 capsule 3 11/15/2019 Active capsuleIndications: by mouth daily. Chronic pelvic pain in female omeprazole 40 mg Take 1 capsule 180 capsule 3 11/15/2019 Active capsuleIndications: by mouth 2 (two) Epigastric pain times daily. gabapentin 300 mg Take 3 capsules 270 capsule 3 11/15/2019 Active capsuleIndications: by mouth 3 Chronic pelvic pain in (three) times female daily. amitriptyline 10 mg START WITH 1 270 tablet 3 11/15/2019 Active tabletIndications: TABLET AT NIGHT Chronic pelvic pain in AND SLOWLY female INCREASE UP TO 3 TABLETS AT NIGHT FOR PAIN DISCUSSED IN CLINIC Hospital, Clinic, or Other Ordered Dose Route Frequency Start Date End Date Status Facility Administered Medication medroxyPROGESTERone 150 mg IM ONCE 11/22/2019 11/22/2019 Ended (DEPO-PROVERA) injection 150 mgIndications: Encounter for Depo-Provera contraception documented as of this encounter (statuses as of 11/22/2019) Active Problems Problem Noted Date Sigmoid diverticulitis 05/15/2019 Overview: Added automatically from request for surgery [id number] Abdominal pain 04/27/2019 Contraceptive management 12/19/2018 History of 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 12/19/2018 Essential hypertension, benign 07/07/2017 Encounter for surveillance of injectable contraceptive 07/28/2016 Well woman exam 07/28/2016 Hyperlipidemia, unspecified hyperlipidemia type 07/28/2016 HLD (hyperlipidemia) 04/05/2016 Chronic pelvic pain in female 07/30/2015 Morbid obesity 10/05/2014 Ovarian cyst 05/29/2014 documented as of this encounter (statuses as of 11/22/2019) Resolved Problems Problem Noted Date Resolved Date Surveillance of previously prescribed contraceptive method 10/05/20142015 Overview: ICD10 Diagnosis Term Project Builder Utility H/O 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 10/05/2014 04/05/2016 Acute upper respiratory infection 10/05/2014 07/30/2015 Overview: ICD10 Diagnosis 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 Project Builder Utility Elevated blood pressure reading without diagnosis of 05/30/2014 10/05/2014 hypertension documented as of this encounter (statuses as of 11/22/2019) Immunizations Name Administration Dates Next Due Influenza Virus Vaccine 06/19/2019 Influenza Virus Vaccine Quad .5 mL IM 6+ MO 11/23/2018 Tdap 05/29/2014 documented as of this encounter [...] Sign Reading Time Taken Comments Blood Pressure 142/76 11/22/2019 9:01 AM VIDEO EFFECTS EDITOR Pulse 106 11/22/2019 8:47 AM VIDEO EFFECTS EDITOR Temperature 36.2 C (97.1 F) 11/22/2019 8:47 AM VIDEO EFFECTS EDITOR Respiratory Rate 16 11/22/2019 8:47 AM VIDEO EFFECTS EDITOR Oxygen Saturation - - Inhaled Oxygen Concentration - - Weight 123.4 kg (272 lb) 11/22/2019 8:47 AM VIDEO EFFECTS EDITOR Height 162.6 cm (5' 4") 11/22/2019 8:47 AM VIDEO EFFECTS EDITOR Body Mass Index 46.69 11/22/2019 8:47 AM VIDEO EFFECTS EDITOR documented in this encounter Progress Notes Stevan Love RN - 11/22/2019 8:30 AM CST44 year old female has been identified by and name. Verbal consent has been obtained by patientto have an injection of Depo Provera, as ordered by the provider. Date of last Depo Provera injection:08/30/2019 Last WWE: 12/19/2018 Encounter Diagnosis: v25.49 The site was cleaned with an alcohol swab and given intramuscularly (IM) in the left gluteus. A band aid dressing was then applied to the injection site. The patient tolerated the procedure well , norash, swelling or reaction noted. Advised patient on Calcium intake 500-1200 mg daily. ED warnings given. Patient to return to clinic in 12 weeks for next Depo/wwe. Patient verbalized understanding. Manual BP 144/76, patient took BP meds at 5 Am 11/22/2019, patient to get clearance letter from PCP for depo shot and bring to wwe appointment. STEVAN LOVE RN 11/22/2019 8:44 AM documented in this encounter Plan of Treatment Date Type Specialty Care Team Description 12/26/2019 Office Visit Internal Medicine Randee [place] MD [address] [place] [address] [phone] 02/14/2020 Office Visit [facility] [address] [facility] [place], [place] [id number] Health Maintenance Due Date Last Done Comments PAP SMEAR 07/31/2020 07/31/2017, 05/29/2014, 10/01/2010, Additional history exists Breast Cancer Screening 10/30/2020 Postponed from (MAMMOGRAM) 2017 (Alternative Guidelines) DTaP,Tdap,and Td Vaccines 05/29/2024 05/29/2014 (2 - Td) INFLUENZA VACCINE Completed 06/19/2019, 11/23/2018 PNEUMOCOCCAL 0-64 YEARS Aged Out No longer eligible COMBINED SERIES based on patient's age to complete this topic documented as of this encounter Results Not on filedocumented in this encounter Visit Diagnoses Diagnosis Encounter for Depo-Provera contraception - Primary Surveillance of other previously prescribed contraceptive method documented in this encounter Administered Medications Medication Order MAR Action Action Date Dose Rate Site medroxyPROGESTERone Given 11/22/2019 9:04 150 mg Left (DEPO-PROVERA) injection 150 AM VIDEO EFFECTS EDITOR Dorsogluteal-IM mg 150 mg, Intramuscular, ONCE, 1 dose, Mon11/22/19 at 0945, Routine documented in this encounter Insurance Payer Benefit Plan / Subscriber ID Effective Dates Phone Address Type Group [facility] [id number] 2019-Prese HMO/PPO/[facility] PPO nt S documented as of this encounter Advance Directives Name Relationship Healthcare Agent Communication Relationship Solitario Olea Spouse Primary healthcare agent Verona Baron Mother [facility] [phone] agent (Home)
--- OUTSIDE RECORDS SUMMARY | 2019-12-09 05:50 | XMS REPORT | Summary of Care ---
:1975 Author Organization [facility] Address [address] [place] [address] Care Team Providers Name Role Phone Visit, Teresachp Nurse Unavailable Unavailable Randee [place] MD Insurance Hmo Randee [place] MD Primary Care Provider Reason for Visit Reason Comments Results Encounter Details Date Type Department Care Team Description 06/21/2019 Telephone [facility] Pediatric and Randee [place], Results Adult Primary Care- MD [place] [address] [place] [address], [address] [place] [address] [place] [address] Allergies No Known Allergiesdocumented as of this encounter (statuses as of 06/21/2019) Medications Medication Sig Dispensed Refills Start Date [...] night for pain as discussed in clinic. Diclofenac Sodium 1 % Take 2-4 grams 100 g 3 01/28/2019 Active gelIndications: three times a Chronic pelvic pain in day as needed female, Muscle spasm for pain DULoxetine 60 mg Take 1 capsule 90 capsule 3 01/28/2019 Active capsuleIndications: by mouth daily. Chronic pelvic pain in female FLUARIX QUAD ADM 0.5ML IM UTD 0 11/23/2018 Active 4877-9173, PF, 60 mcg (15 mcg x 4)/0.5 mL cholestyramine light 4 4 grams/1 scoop 210 g 11 03/05/2019 Active gram four times a powderIndications: day. Mold exposure GABAPENTIN 300 mg TAKE TWO 270 capsule 1 05/29/2019 Active capsuleIndications: CAPSULES BY Chronic pelvic pain in MOUTH THREE female TIMES A DAY TRAMADOL 50 mg TAKE TWO TABLETS 180 tablet 3 06/06/2019 Active tabletIndications: BY MOUTH EVERY 8 Chronic pelvic pain in HOURS NEEDED female FOR PAIN peg-electrolyte soln Take 4,000 mL by 4000 mL 0 06/14/2019 Active 236-22.74-6.74 -5.86 mouth gram SEE-INSTRUCTIONS solutionIndications: . Take as Sigmoid diverticulitis directed Hospital, Clinic, or Other Ordered Dose Route Frequency Start Date End Date Status Facility Administered Medication medroxyPROGESTERone 150 mg IM [id number] 03/21/2019 11/27/2019 Active (DEPO-PROVERA) injection 150 mgIndications: Encounter for Depo-Provera contraception documented as of this encounter (statuses as of 06/21/2019) Active Problems Problem Noted Date Sigmoid diverticulitis 05/15/2019 Overview: Added automatically from request for surgery [id number] Abdominal pain 04/27/2019 Contraceptive management 12/19/2018 History of 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 12/19/2018 Essential hypertension, benign 07/07/2017 Encounter for surveillance of injectable contraceptive 07/28/2016 Well woman exam 07/28/2016 Hyperlipidemia, unspecified hyperlipidemia type 07/28/2016 HLD (hyperlipidemia) 04/05/2016 Chronic pelvic pain in female 07/30/2015 Morbid obesity 10/05/2014 Ovarian cyst 05/29/2014 documented as of this encounter (statuses as of 06/21/2019) Resolved Problems Problem Noted Date Resolved Date Surveillance of previously prescribed contraceptive method 10/05/20142015 Overview: ICD10 Diagnosis Term Theatrical Rigger Utility H/O 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 10/05/2014 04/05/2016 Acute upper respiratory infection 10/05/2014 07/30/2015 Overview: ICD10 Diagnosis Term Theatrical Rigger Utility Elevated blood pressure reading without diagnosis of 05/30/2014 10/05/2014 hypertension documented as of this encounter (statuses as of 06/21/2019) Immunizations Name Administration Dates Next Due Tdap [...] Treatment Date Type Specialty Care Team Description 06/28/2019 [facility] Surgery Mahi Escobar, Sigmoid diverticulitis Encounter [address] [facility] [address] [place] [address] [phone] 08/06/2019 Office Visit Internal Medicine Randee [place] MD [address] [place] [address] [address] [place], [place] [address] 08/29/2019 Nurse Visit [facility] Health Maintenance Due Date Last Done Comments INFLUENZA VACCINE (#1) 2019 PAP SMEAR 07/31/2020 07/31/2017, 05/29/2014, 10/01/2010, Additional [...] ID Effective Phone Address Type Group Dates [facility] [id number] 2019-Addi [phone] HMO HEALTH [employer] HEALTH CHOICE nt 86 [phone] [place] [address] documented as of this encounter Advance Directives Name Relationship Healthcare Agent Communication Relationship Solitario Olea Spouse Primary healthcare agent Verona Baron Mother First alternate healthcare [phone] agent (Home)
--- OUTSIDE RECORDS SUMMARY | 2019-12-09 05:50 | XMS REPORT | Summary of Care ---
:1975 Author Organization [facility] Address [address] [place] [address] Care Team Providers Name Role Phone Visit, Teresachp Nurse Unavailable Unavailable Randee [place] MD Insurance Hmo Randee [place] MD Primary Care Provider Reason for Visit Reason Comments Refill Request Encounter Details Date Type Department Care Team Description 11/14/2019 Refill [facility] Pediatric and Randee [place], Refill Request Adult Primary Care- MD [place] [address] [place] [address], [address] [place] [address] [place] [address] Allergies No Known Allergiesdocumented as of this encounter (statuses as of 11/18/2019) Medications Medication Sig Dispensed Refills Start Date [...] ADM 0.5ML IM UTD 0 11/23/2018 Active 5098-6490, PF, 60 mcg (15 mcg x 4)/0.5 [...] AT NIGHT FOR PAIN DISCUSSED IN CLINIC documented as of this encounter (statuses as of 11/18/2019) Active Problems Problem Noted Date Sigmoid diverticulitis 05/15/2019 Overview: Added automatically from request for surgery [id number] Abdominal pain 04/27/2019 Contraceptive management 12/19/2018 History of 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 12/19/2018 Essential hypertension, benign 07/07/2017 Encounter for surveillance of injectable contraceptive 07/28/2016 Well woman exam 07/28/2016 Hyperlipidemia, unspecified hyperlipidemia type 07/28/2016 HLD (hyperlipidemia) 04/05/2016 Chronic pelvic pain in female 07/30/2015 Morbid obesity 10/05/2014 Ovarian cyst 05/29/2014 documented as of this encounter (statuses as of 11/18/2019) Resolved Problems Problem Noted Date Resolved Date Surveillance of previously prescribed contraceptive method 10/05/20142015 Overview: ICD10 Diagnosis Term Front Desk Officer Utility H/O 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 10/05/2014 04/05/2016 Acute upper respiratory infection 10/05/2014 07/30/2015 Overview: ICD10 Diagnosis Term Front Desk Officer Utility Elevated blood pressure reading without diagnosis of 05/30/2014 10/05/2014 hypertension documented as of this encounter (statuses as of 11/18/2019) Immunizations Name Administration Dates Next Due Influenza [...] Treatment Date Type Specialty Care Team Description 11/22/2019 Nurse Visit [facility] Visit, KendraRmchp Nurse 12/26/2019 Office Visit Internal Medicine Randee [place] MD [address] [place] [address] Dr Butts [address] [place] [address] [phone] Health Maintenance Due Date Last Done Comments [...] ID Effective Phone Address Type Group Dates [facility] [id number] 2019-Pre HMO/PPO/POS HEALTHCARE HEALTHCARE PPO sent [facility] x[facility] 2019-Pre [phone] Medicaid WOMEN sent [id number] [place] [address] documented as of this encounter Advance Directives Name Relationship Healthcare Agent Communication Relationship Solitario Olea Spouse Primary healthcare agent Verona Baron Mother First alternate healthcare [phone] agent (Home)
[2019-12-09 06:42] LABS: Absolute Lymphocytes (CBC) 2.8 K/uL (0.7-4.9); Basophils % 0.9 % (0-1.3); Hematocrit 34.6 % (36.0-45.0); Lymphocytes % 34.9 % (15.3-44.8); MPV 8.5 fL (7.6-11.3); RBC Red Blood Cell Count 4.53 M/uL (3.86-4.86)
[2019-12-09] MEDS ORDERED: ONDANSETRON 4 MG/2 ML VIAL ONE (06:43)
[2019-12-09] MEDS ORDERED: MORPHINE 4 MG/ML SYR ONE (06:43)
[2019-12-09] MEDS ORDERED: NA CHLORIDE 0.9% 1,000 ML ONE (06:43)
[2019-12-09 06:59] LABS: Albumin 3.7 g/dL (3.4-5.0); Bilirubin Direct 0.1 mg/dL (0-0.2); Bilirubin Total 0.4 mg/dL (0.2-1.0); Potassium 4.1 mmol/L (3.5-5.1); Protein, Total 7.5 g/dL (6.4-8.2)
[2019-12-09 07:45] LABS: Urine Blood NEGATIVE (NEG); Urine Glucose NEGATIVE (NEG); Urine Protein NEGATIVE (NEG); Urine Specific Gravity 1.025 (1.005-1.030); Urine pH 6.5 (5.0-7.0)
--- NOTE | 2019-12-09 07:58 | RAD REPORT ---
EXAM DESCRIPTION: CT - Abdomen Pelvis W Contrast - 12/09/2019 7:21 am CLINICAL HISTORY: Abdominal pain COMPARISON: 2018 TECHNIQUE: Computed axial tomography of the abdomen pelvis was obtained. 100 cc Isovue-300 was admin istered intravenously. Oral contrast was not requested which limits evaluation of bowel. All CT scans are performed using dose optimization technique as appropriate and may include automated exposure control or mA/KV adjustment according to patient size. FINDINGS: The liver, spleen, pancreas, adrenal and kidneys appear unremarkable. There is no evidence of diverticulitis. Normal appendix. Small umbilical hernia IMPRESSION: No acute abnormality is displayed.
--- NOTE | 2019-12-09 08:21 | ER ---
Nurse's Notes [facility] Name: So Olea Age: 44 yrs Sex: Female : 1975 Arrival Date: 12/09/2019 Time: 05:47 Bed 5 Private MD: Diagnosis: Generalized abdominal pain;Rectal bleeding Presentation: 12/09 06:04 Presenting complaint: Patient states: generalized abd pain x 1 week and 4 episodes of aa1 bloody stool in past 24 hrs. Transition of care: patient was not received from another setting of care. Onset of symptoms was December 03, 2019. Risk Assessment: Do you want to hurt yourself or someone else? Patient reports no desire to harm self or others. Initial Sepsis Screen:. Care prior to arrival: None. 06:04 Method Of Arrival: Ambulatory aa1 06:04 Acuity: JERROD 3 aa1 Triage Assessment: 06:07 General: Appears in no apparent distress. comfortable, Behavior is calm, cooperative, aa1 appropriate for age. Historical: - Allergies: 06:07 No Known Allergies; aa1 - Home Meds: 06:07 Amitriptyline Oral [Active]; diclofenac Oral [Active]; duloxetine Oral [Active]; aa1 Furosemide Oral [Active]; gabapentin Oral [Active]; lisinopril Oral [Active]; Tramadol Oral [Active]; Zantac Oral [Active]; - PMHx: 06:07 Chronic pain; Endometriosis; GERD; Hypertension; Ovarian cysts; aa1 - PSHx: 06:07 None; aa1 - Immunization history:: Flu vaccine is up to date. - Coronavirus screen:: The patient has NOT traveled to [place] in the past 14 days. Proceed with normal triage process as indicated. - Social history:: Smoking status: Patient denies any tobacco usage or history of. - Ebola Screening: : No symptoms or risks identified at this time. Screenin:22 Abuse screen: Denies threats or abuse. Denies injuries from another. Nutritional hb screening: No deficits noted. Tuberculosis screening: No symptoms or risk factors identified. Fall Risk None identified. Assessment: 06:30 General: Appears in no apparent distress. uncomfortable, Behavior is calm, cooperative, jb4 appropriate for age. Pain: Complains of pain in abdomen Pain does not radiate. Pain currently is 9 out of 10 on a pain scale. Quality of pain is described as stabbing. Neuro: Level of Consciousness is awake, alert, obeys commands, Oriented to person, place, time, situation. Cardiovascular: Patient's skin is warm and dry. Respiratory: Airway is patent Respiratory effort is even, unlabored, Respiratory pattern is regular, symmetrical. GI: Abdomen is non-distended, obese, Bowel sounds present X 4 quads. Abd is soft X 4 quads Abdomen is tender to palpation X 4 quads. : No signs and/or symptoms were reported regarding the genitourinary system. EENT: No signs and/or symptoms were reported regarding the EENT system. Derm: Skin is intact, Skin is pink, warm \T\ dry. Musculoskeletal: Circulation, motion, and sensation intact. Range of motion: intact in all extremities. 07:23 Reassessment: Patient appears in no apparent distress at this time. Patient and/or hb family updated on plan of care and expected duration. Pain level reassessed. Patient is alert, oriented x 3, equal unlabored respirations, skin warm/dry/pink. 08:15 Reassessment: Patient appears in no apparent distress at this time. Patient and/or hb family updated on plan of care and expected duration. Pain level reassessed. Patient is alert, oriented x 3, equal unlabored respirations, skin warm/dry/pink. Vital Signs: 06:07 Weight 117.93 kg; Height 5 ft. 6 in. (167.64 cm); Pain 8/10; aa1 06:09 BP 142 / 99; Pulse 100; Resp 18; Temp 98.6(O); Pulse Ox 100% on R/A; oe 08:00 BP 133 / 93; Pulse 87; Resp 16; Temp 98.1; Pulse Ox 100% on R/A; hb 06:07 Body Mass Index 41.96 (117.93 kg, 167.64 cm) aa1 ED Course: 05:47 Patient arrived in ED. ds1 05:59 Kianna Rubio FNP-C [facility]. kb 05:59 Aman Yip MD is Attending Physician. kb 06:05 Triage completed. aa1 06:26 Hugo Dietrich, RN is Primary Nurse. jb4 06:30 Initial lab(s) drawn, by me, sent to lab. Inserted saline lock: 20 gauge in right jb4 antecubital area, using aseptic technique. Blood collected. 07:22 CT Abd/Pelvis - IV Contrast Only In Process Unspecified. EDMS 07:45 Patient has correct armband on for positive identification. Bed in low position. Call hb light in reach. Side rails up X 1. 08:34 No provider procedures requiring assistance completed. IV discontinued, intact, hb bleeding controlled, No redness/swelling at site. Pressure dressing applied. Administered Medications: 06:58 Drug: NS 0.9% 1000 ml Route: IV; Rate: 1000 ml; Site: right antecubital; jb4 07:15 Follow up: Response: No adverse reaction; IV Status: Completed infusion; IV Intake: hb 1000ml 06:58 Drug: Zofran 4 mg Route: IVP; Site: right antecubital; 4 07:30 Follow up: Response: No adverse reaction hb 07:00 Drug: morphine 4 mg {Note: Rass score 0.} Route: IVP; Site: right antecubital; 4 07:30 Follow up: Response: No adverse reaction hb Point of Care Testing: Guaiac: 06:17 Stool Guaiac: Positive; Stool Hemoccult Control: Pass; mw2 Intake: 07:15 IV: 1000ml; Total: 1000ml. hb Outcome: 08:19 Discharge ordered by . kb 08:34 Discharged to home ambulatory, with family. hb 08:34 Condition: stable 08:34 Discharge instructions given to patient, Instructed on discharge instructions, follow up and referral plans. medication usage, Demonstrated understanding of instructions, follow-up care, medications, Prescriptions given X 2. 08:36 Patient left the ED. hb Signatures: Dispatcher [employer] EDMS Kianna Rubio, ROLL CLAMP OPERATOR-C ROLL CLAMP OPERATOR-CkAbena Avila RN RN Lori Hernandez ds1 Kiera Swanson RN RN Hugo Venegas RN RN jb4 James Sharma MyKena mw2
--- NOTE | 2019-12-09 08:21 | EDPHYS ---
Physician Documentation [facility] Name: So Olea Age: 44 yrs Sex: Female : 1975 Arrival Date: 12/09/2019 Time: 05:47 Bed 5 Private MD: ED Physician Aman Yip HPI: 12/09 07:43 This 44 yrs old Female presents to ER via Ambulatory with complaints of kb Abdominal Pain, Bloody Stools. 07:43 The patient presents with abdominal pain that is diffuse. Onset: The symptoms/episode kb began/occurred 1 week(s) ago. The symptoms do not radiate. Associated signs and symptoms: Pertinent positives: blood in stools. The symptoms are described as constant. Modifying factors: The symptoms are alleviated by nothing, the symptoms are aggravated by nothing. Severity of pain: At its worst the pain was moderate in the emergency department the pain is unchanged. The patient has experienced a previous episode, and the symptoms today are exactly the same, diverticulitis in the past . The patient has not recently seen a physician. Pt reports abd pain that has been going on "forever," but worse over the last week. States she started having blood with bowel movements last night. States the pain is diffuse, reported as bloating. . Historical: - Allergies: 06:07 No Known Allergies; aa1 - Home Meds: 06:07 Amitriptyline Oral [Active]; diclofenac Oral [Active]; duloxetine Oral [Active]; aa1 Furosemide Oral [Active]; gabapentin Oral [Active]; lisinopril Oral [Active]; Tramadol Oral [Active]; Zantac Oral [Active]; - PMHx: 06:07 Chronic pain; Endometriosis; GERD; Hypertension; Ovarian cysts; aa1 - PSHx: 06:07 None; aa1 - Immunization history:: Flu vaccine is up to date. - Coronavirus screen:: The patient has NOT traveled to [place] in the past 14 days. Proceed with normal triage process as indicated. - Social history:: Smoking status: Patient denies any tobacco usage or history of. - Ebola Screening: : No symptoms or risks identified at this time. ROS: 07:43 Constitutional: Negative for fever, chills, and weight loss, Neck: Negative for injury, kb pain, and swelling, Cardiovascular: Negative for chest pain, palpitations, and edema, Respiratory: Negative for shortness of breath, cough, wheezing, and pleuritic chest pain, Back: Negative for injury and pain, MS/Extremity: Negative for injury and deformity, Skin: Negative for injury, rash, and discoloration, Neuro: Negative for headache, weakness, numbness, tingling, and seizure. 07:43 Abdomen/GI: Positive for abdominal pain, rectal bleeding. Exam: 07:43 Constitutional: This is a well developed, well nourished patient who is awake, alert, kb and in no acute distress. Head/Face: Normocephalic, atraumatic. Chest/axilla: Normal chest wall appearance and motion. Nontender with no deformity. No lesions are appreciated. Cardiovascular: Regular rate and rhythm with a normal S1 and S2. No gallops, murmurs, or rubs. Normal PMI, no JVD. No pulse deficits. Respiratory: Lungs have equal breath sounds bilaterally, clear to auscultation and percussion. No rales, rhonchi or wheezes noted. No increased work of breathing, no retractions or nasal flaring. Back: No spinal tenderness. No costovertebral tenderness. Full range of motion. Skin: Warm, dry with normal turgor. Normal color with no rashes, no lesions, and no evidence of cellulitis. MS/ Extremity: Pulses equal, no cyanosis. Neurovascular intact. Full, normal range of motion. Neuro: Awake and alert, GCS 15, oriented to person, place, time, and situation. Cranial nerves II-XII grossly intact. Motor strength 5/5 in all extremities. Sensory grossly intact. Cerebellar exam normal. Normal gait. 07:43 Abdomen/GI: Inspection: obese Bowel sounds: normal, in all quadrants, Palpation: soft, in all quadrants, mild abdominal tenderness, in the right upper quadrant, left upper quadrant and right lower quadrant, moderate abdominal tenderness, in the left lower quadrant, Rectal exam: rectal tone normal, Stool: guaiac positive, hemorrhoid(s), external, tenderness. Vital Signs: 06:07 Weight 117.93 kg; Height 5 ft. 6 in. (167.64 cm); Pain 8/10; aa1 06:09 BP 142 / 99; Pulse 100; Resp 18; Temp 98.6(O); Pulse Ox 100% on R/A; oe 08:00 BP 133 / 93; Pulse 87; Resp 16; Temp 98.1; Pulse Ox 100% on R/A; hb 06:07 Body Mass Index 41.96 (117.93 kg, 167.64 cm) aa1 MDM: 06:00 Patient medically screened. kb 07:43 Differential diagnosis: bowel obstruction, diverticulitis, GI Bleed, non-specific abd kb pain. Data reviewed: vital signs, nurses notes, lab test result(s), radiologic studies, CT scan. Data interpreted: Pulse oximetry: on room air is 100 %. Interpretation: normal. 08:15 Counseling: I had a detailed discussion with the patient and/or guardian regarding: the kb historical points, exam findings, and any diagnostic results supporting the discharge/admit diagnosis, lab results, radiology results, the need for outpatient follow up, a nail specialist, to return to the emergency department if symptoms worsen or persist or if there are any questions or concerns that arise at home. 08:17 ED course: Discussed diagnostic findings with pt. Pt has seen Dr Sandoval in the past and kb will follow up with him. States they are trying to find a cause of her chronic abd pain. No gross blood upon exam. Pt does have external, possible internal, hemorrhoids. H\\T\\H wnl. Will discharge home to follow up with Jaime. Pt given return precautions and is in agreement in plan of care. . 12/09 06:10 Order name: Basic Metabolic Panel; Complete Time: 07:06 kb 12/09 06:10 Order name: CBC with Diff; Complete Time: 07:06 kb 12/09 06:10 Order name: Hepatic Function; Complete Time: 07:06 kb 12/09 06:10 Order name: Lipase; Complete Time: 07:06 kb 12/09 07:35 Order name: Urine Dipstick--Ancillary (enter results); Complete Time: 07:47 bd 12/09 07:35 Order name: Urine --Ancillary (enter results); Complete Time: 07:47 bd 12/09 06:10 Order name: IV Saline Lock; Complete Time: 06:41 kb 12/09 06:10 Order name: Labs collected and sent; Complete Time: 06:41 kb 12/09 06:18 Order name: CT Abd/Pelvis - IV Contrast Only; Complete Time: 08:28 kb 12/09 08:15 Order name: Vital Signs; Complete Time: 08:35 kb Administered Medications: 06:58 Drug: NS 0.9% 1000 ml Route: IV; Rate: 1000 ml; Site: right antecubital; jb4 07:15 Follow up: Response: No adverse reaction; IV Status: Completed infusion; IV Intake: hb 1000ml 06:58 Drug: Zofran 4 mg Route: IVP; Site: right antecubital; jb4 07:30 Follow up: Response: No adverse reaction hb 07:00 Drug: morphine 4 mg {Note: Rass score 0.} Route: IVP; Site: right antecubital; jb4 07:30 Follow up: Response: No adverse reaction hb Point of Care Testing: Guaiac: 06:17 Stool Guaiac: Positive; Stool Hemoccult Control: Pass; mw2 Disposition: 12/09/19 08:19 Discharged to Home. Impression: Generalized abdominal pain, Rectal bleeding. - Condition is Stable. - Discharge Instructions: Abdominal Pain, Adult, [id number], Rectal Bleeding, [id number]. - Prescriptions for Bentyl 20 mg Oral Tablet - take 1 tablet by ORAL route every 6 hours As needed; 20 tablet. Zofran 4 mg Oral Tablet - take 1 tablet by ORAL route every 6 hours As needed; 20 tablet. - Medication Reconciliation Form, Thank You Letter, Antibiotic Education, Prescription Opioid Use, Work release form, Family Work Release form. - Follow up: Emergency Department; When: As needed; Reason: Worsening of condition. Follow up: Private Physician; When: 2 - 3 days; Reason: Recheck today's complaints, Continuance of care, Re-evaluation by your physician. Addendum: 12/15/2019 19:01 Co-signature as Attending Physician, Aman julian Signatures: Dispatcher [employer] EDMN Kianna Rubio FNP-C FNP-Abena Priest RN RN aa1 Aman Yip MD MD pkl Baxter, Heather, KRISTIN RN Hugo Venegas RN RN jb4 Corrections: (The following items were deleted from the chart) 12/09 08:20 08:17 ED course: Discussed diagnostic findings with pt. Pt has seen Dr Sandoval in the kb past and will follow up with him. No gross blood upon exam. Pt does have external, possible internal, hemorrhoids. H\\T\\H wnl. Will discharge home to follow up with Jaime. Pt given return precautions and is in agreement in plan of care. . kb 08:36 08:19 12/09/2019 08:19 Discharged to Home. Impression: Generalized abdominal pain; hb Rectal bleeding. Condition is Stable. Forms are Medication Reconciliation Form, Thank You Letter, Antibiotic Education, Prescription Opioid Use. Follow up: Emergency Department; When: As needed; Reason: Worsening of condition. Follow up: Private Physician; When: 2 - 3 days; Reason: Recheck today's complaints, Continuance of care, Re-evaluation by your physician. kb
[2019-12-09 08:58] VITALS: BP 133/93; TEMP 98.1; O2SAT 100
== END 2019-12-09 08:36 | disposition home or self-care (01) ==
LOC: ER 05:46
DX: K62.5 Hemorrhage of anus and rectum (principal); I10 Essential (primary) hypertension; G89.29 Other chronic pain
CPT/HCPCS: 85025; 80048; 36415; 81025; 80076; 81003; 83690; 74177; 96375; 96374; 99284; Q9967; J7030; J2405

== ENCOUNTER 2020-02-08 11:10 | Emergency (ER) | payer OTHER ==
--- OUTSIDE RECORDS SUMMARY | 2020-02-08 11:12 | XMS REPORT ---
:1975 Author Organization [facility] t Address [address] [place] [address] Dr. Hudson [address] [place] [id number] Care Team Providers Name Role Phone Unavailable Unavailable Unavailable Problems This patient has no known problems. Allergies, Adverse Reactions, Alerts This patient has no known allergies or adverse reactions. Medications This patient has no known medications.
--- OUTSIDE RECORDS SUMMARY | 2020-02-08 11:16 | XMS REPORT | Summary of Care ---
:1975 Author Organization [facility] Address [address] [place] [id number] Care Team Providers Name Role Phone Visit, Nurse Unavailable Unavailable Jeffry Locke MD Insurance Hmo Jeffry Locke MD Primary Care Provider Reason for Visit Reason Comments Refill Request Encounter Details Date Type Department Care Team Description 12/19/[address] [facility] and Elyssa Locke, Refill Request Adult Primary Care- MD Dunn [address] [place] [address], [address] [place] [address] [place] [address] [phone] Allergies No Known Allergiesdocumented as of this encounter (statuses as of 12/20/2019) Medications Medication Sig Dispensed Refills Start End Date Status Date MULTIVIT Take by 0 Active &MINERALS/FERROUS mouth. FUM (MULTI VITAMIN ORAL) CALCIUM CARB/VIT Take by 0 Act sacha D3/MINERALS mouth. (CALCIUM CARBONATE-VIT D3-MIN ORAL) docusate calcium Take 1 60 capsule 2 Ac tive 240 mg capsule capsule by 7 mouth daily. turmeric root Take 500 mg 0 Acti ve extract 500 mg Cap by mouth 2 (two) times daily. Diclofenac Sodium 1 Take 2-4 100 g 3 Active % gelIndications: grams three 9 Chronic pelvic pain times a day in female, Muscle as needed for spasm pain FLUARIX QUAD ADM 0.5ML IM 0 Acti ve [id number], PF, 60 UTD 9 mcg (15 mcg x 4)/0.5 mL peg-electrolyte Take 4,000 mL 4000 mL 0 Active soln [id number] by mouth 9 -5.86 gram SEE-INSTRUCTI solutionIndications ONS. Take as : Sigmoid directed diverticulitis FUROSEMIDE 20 mg TAKE ONE 90 tablet 2 Act sacha tabletIndications: TABLET BY 9 Essential MOUTH DAILY hypertension, benign cholestyramine 4 grams/1 210 g 11 Activ e light 4 gram scoop four 9 powderIndications: times a day. Mold exposure diclofenac 75 mg EC Take 1 tablet 180 tablet 3 Active tabletIndications: by mouth 2 9 Chronic pelvic pain (two) times in female daily with meals. LISINOPRIL 10 mg TAKE ONE 180 tablet 2 Ac tive tabletIndications: TABLET BY 0 Essential MOUTH TWICE A hypertension, DAY benign DULoxetine 60 mg Take 1 90 capsule 3 Ac tive capsuleIndications: capsule by 0 Chronic pelvic pain mouth daily. in female omeprazole 40 mg Take 1 180 capsule 3 A ctive capsuleIndications: capsule by 0 Epigastric pain mouth 2 (two) times daily. gabapentin 300 mg Take 3 270 capsule 3 Active capsuleIndications: capsules by 0 Chronic pelvic pain mouth 3 in female (three) times daily. amitriptyline 10 mg START WITH 1 270 tablet 3 Active tabletIndications: TABLET AT 0 Chronic pelvic pain NIGHT AND in female SLOWLY INCREASE UP TO 3 TABLETS AT NIGHT FOR PAIN DISCUSSED IN CLINIC traMADol 50 mg Take 2 180 tablet 3 Acti ve tabletIndications: tablets by 0 Chronic pelvic pain mouth every 8 in female (eight) hours as needed (severe chronic pelvic pain). ondansetron Take 1 tablet 30 tablet 11 Acti ve (ZOFRAN) 4 mg by mouth 0 tabletIndications: every 8 Chronic pelvic pain (eight) hours in female, Nausea as needed for Nausea and Vomiting (N/V). traMADol 50 mg Take 2 180 tablet 3 12/19/19 Disc ontinued tabletIndications: tablets by 9 20 (Reorder) Chronic pelvic pain mouth every 8 in female (eight) hours as needed (severe chronic pelvic pain). ondansetron Take 1 tablet 30 tablet 11 12/19/19 Disc ontinued (ZOFRAN) 4 mg by mouth 0 20 (Reord er) tabletIndications: every 8 Chronic pelvic pain (eight) hours in female, Nausea as needed for Nausea and Vomiting (N/V). documented as of this encounter (statuses as of 12/20/2019) Active Problems Problem Noted Date Sigmoid diverticulitis 05/15/2019 Overview: Added automatically from request for susanna delgado [id number] Abdominal pain 04/27/2019 Contraceptive management 12/19/2018 History of 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 12/19/2018 Essential hypertension, benign 07/07/2017 Encounter for surveillance of injectable contraceptive 07/28/2016 Well woman exam 07/28/2016 Hyperlipidemia, unspecified hyperlipidemia type 2015 HLD (hyperlipidemia) 04/05/2016 Chronic pelvic pain in female 07/30/2015 Morbid obesity 10/05/2014 Ovarian cyst 05/29/2014 documented as of this encounter (statuses as of 12/20/2019) Resolved Problems Problem Noted Date Resolved Date Surveillance of previously prescribed contraceptive method 1 12/06/2013 04/05/2016 Overview: ICD10 Diagnosis Term [employer] H/O 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 10/05/2014 04/05/2016 Acute upper respiratory infection 10/05/20142014 Overview: ICD10 Diagnosis Term [employer] Elevated blood pressure reading without diagnosis of 014 10/05/2014 hypertension documented as of this encounter (statuses as of 12/20/2019) Immunizations Name Administration Dates Next Due Influenza [...] level of school you have completed or 12 th grade 04/27/2019 the highest degree you have received? Financial Resource Strain Answer Date Recorded How hard is it for you to pay for the very basics like Not h aniceto at all 04/27/2019 food, housing, medical care, and heating? Food Insecurity Answer Date Recorded Within the past 12 months, you worried that your food would Never true 04/27/2019 run out before you got money to buy more. Within the past 12 months, the food you bought just didn't N ever true 04/27/2019 last and you didn't have money to get more. Transportation Needs Answer Date Recorded In the past 12 months, has lack of transportation kept you f rom No 04/27/2019 medical appointments or from getting medications? In the past 12 months, has lack of transportation kept you f rom No 04/27/2019 meetings, work, or getting things [...] Team Description 12/26/2019 Office Visit Internal Medicine Pat Locke MD [address] [address] [phone] 02/14/2020 [facility] Visit [facility] [place] [address] [place] [address] [phone] Haider Ware, COMPUTER [employer] LIBRARIAN [address] [place] [address] Health Maintenance Due Date Last Done Comments PAP SMEAR 07/31/2020 07/31/2017, 05/29/2014, 10/01/2010, Additional history exists Breast Cancer Screening 10/30/2020 Postpone d from (MAMMOGRAM) 2017 ([place]) DTaP,Tdap,and Td Vaccines 05/29/2024 05/29/2014 (2 - Td) INFLUENZA VACCINE Completed 06/19/2019, 11/23/2018 PNEUMOCOCCAL 0-64 YEARS Aged Out No longe r eligible COMBINED SERIES based on patient 's age to complete this topic documented as of this encounter Results Not on filedocumented in this encounter Visit Diagnoses Diagnosis Chronic pelvic pain in female Unspecified symptom associated with fema le genital organs Nausea Nausea alone documented in this encounter Insurance Payer Benefit Plan / Subscriber ID Effective Phone Address T ype Group Dates [facility] [id number] 2019-Pre HMO/PP O/POS [facility] 2019-Pre [phone] dicaid WOMEN sent [id number] [place] [address] documented as of this encounter Advance Directives Name Relationship Healthcare Agent Communication Relationship Solitario Olea Spouse Primary healthcare agent Verona Baron Mother [facility] agent (Home)
--- OUTSIDE RECORDS SUMMARY | 2020-02-08 11:16 | XMS REPORT | Summary of Care ---
:1975 Author Organization [facility] Address [address] [place] [address] Care Team Providers Name Role Phone Visit, Nurse Unavailable Unavailable Jeffry Locke MD Insurance Hmo Jeffry Locke MD Primary Care Provider Encounter Details Date Type Department Care Team Description 12/05/2019 Patient Secure [facility] Pediatric Romario Locke and Adult Primary MD Jeffry [facility]- [address] [facility] , [facility] [[email or web address] [address] [place] [address] [place] [phone] [address] [phone] Allergies No Known Allergiesdocumented as of this encounter (statuses as of 12/16/2019) Medications Medication Sig Dispensed Refills Start Date End Date Status MULTIVIT Take by mouth. 0 Acti ve &MINERALS/FERROUS FUM (MULTI VITAMIN ORAL) CALCIUM CARB/VIT [...] ADM 0.5ML IM UTD 0 11/23/2018 Active 1384-1150, PF, 60 mcg (15 mcg x 4)/0.5 [...] as of this encounter (statuses as of 12/16/2019) Active Problems Problem Noted Date Sigmoid diverticulitis 05/15/2019 Overview: Added automatically from request for susanna delgado [id number] Abdominal pain 04/27/2019 Contraceptive management 12/19/2018 History of 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 12/19/2018 Essential hypertension, benign 07/07/2017 Encounter for surveillance of injectable contraceptive 07/28/2016 Well woman exam 07/28/2016 Hyperlipidemia, unspecified hyperlipidemia type 2015 HLD (hyperlipidemia) 04/05/2016 Chronic pelvic pain in female 07/30/2015 Morbid obesity 10/05/2014 Ovarian cyst 05/29/2014 documented as of this encounter (statuses as of 12/16/2019) Resolved Problems Problem Noted Date Resolved Date Surveillance of previously prescribed contraceptive method 1 12/06/2013 04/05/2016 Overview: ICD10 Diagnosis Term [employer] Utility H/O 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 10/05/2014 04/05/2016 Acute upper respiratory infection 10/05/20142014 Overview: ICD10 Diagnosis [employer] Utility Elevated blood pressure reading without diagnosis of 014 10/05/2014 hypertension documented as of this encounter (statuses as of 12/16/2019) Immunizations Name Administration Dates Next Due Influenza [...] Internal Medicine Pat Locke MD [address] [address] 02/14/2020 Office Visit [facility], WHCNP [address] [place], [place] [address] Haider Ware, CANNON CREWMEMBER [address] [place] [address] [phone] Health Maintenance Due Date Last Done Comments [...] ID Effective Phone Address T ype Group [facility] [id number] 2019-Pre HMO/PP O/POS HEALTHCARE HEALTHCARE PPO [facility] x[facility] 2019-Pre [phone] [address] dicaid WOMEN sent [id number] [place] [address] documented as of this encounter Advance Directives Name Relationship Healthcare Agent Communication Relationship Solitario Olea Spouse Primary healthcare agent Verona Tod Mother [facility] agent (Home)
--- OUTSIDE RECORDS SUMMARY | 2020-02-08 11:16 | XMS REPORT | Summary of Care ---
:1975 Author Organization [facility] - [facility] Address [address] [place] [address] Care Team Providers Name Role Phone Visit, Nurse Unavailable Unavailable Jeffry Locke MD Insurance Hmo Jeffry Locke MD Primary Care Provider Reason for Visit Reason Comments Refill Request Encounter Details Date Type Department Care Team Description 11/12/2019 Refill [facility] Pediatric and Elyssa Locke, Refill Request Adult Primary Care- MD Dunn [address] [place] [address], [address] [place] [address] [place] [address] [phone] Allergies No Known Allergiesdocumented as of this encounter (statuses as of 12/09/2019) Medications Medication Sig Dispensed Refills Start End [...] QUAD ADM 0.5ML IM 0 Acti ve 2387-2493, PF, 60 UTD 9 mcg (15 mcg [...] 9 powderIndications: times a day. Mold exposure traMADol 50 mg Take 2 180 tablet 3 Acti ve tabletIndications: tablets by 9 Chronic pelvic pain mouth every 8 in female (eight) hours as needed (severe chronic pelvic pain). diclofenac 75 mg EC Take 1 tablet 180 tablet 3 Active tabletIndications: by mouth 2 9 Chronic pelvic pain (two) times in female daily with meals. LISINOPRIL 10 mg TAKE ONE 180 tablet 2 Ac tive tabletIndications: TABLET BY 0 Essential MOUTH TWICE A hypertension, DAY benign ondansetron Take 1 tablet 30 tablet 11 Acti ve (ZOFRAN) 4 mg by mouth 0 tabletIndications: every 8 Chronic pelvic pain (eight) hours in female, Nausea as needed for Nausea and Vomiting (N/V). DULoxetine 60 mg Take 1 90 capsule [...] AT NIGHT FOR PAIN DISCUSSED IN CLINIC ondansetron Take 1 tablet 30 tablet 11 11/12/19 Disc ontinued (ZOFRAN) 4 mg by mouth 9 20 (Reord er) tabletIndications: every 8 Chronic pelvic pain (eight) hours in female, Nausea as needed for Nausea and Vomiting (N/V). DULoxetine 60 mg Take 1 90 capsule 3 11/12/19 Di scontinued capsuleIndications: capsule by 9 20 (Reorder) Chronic pelvic pain mouth daily. in female OMEPRAZOLE 40 mg TAKE ONE 180 capsule 1 11/12/19 D iscontinued capsuleIndications: CAPSULE BY 9 20 (Reorder) Epigastric pain MOUTH TWICE A DAY gabapentin 300 mg Take 3 270 capsule 3 11/12/19 Discontinued capsuleIndications: capsules by 9 20 (Reorder) Chronic pelvic pain mouth 3 in female (three) times daily. amitriptyline 10 mg START WITH 1 270 tablet 2 Discontinued tabletIndications: TABLET AT 9 20 ( Reorder) Chronic pelvic pain NIGHT AND in female SLOWLY INCREASE UP TO 3 TABLETS AT NIGHT FOR PAIN DISCUSSED IN CLINIC documented as of this encounter (statuses as of 12/09/2019) Active Problems Problem Noted Date Sigmoid diverticulitis 05/15/2019 Overview: Added automatically from request for susanna danny [id number] Abdominal pain 04/27/2019 Contraceptive management 12/19/2018 History of 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 12/19/2018 Essential hypertension, benign 07/07/2017 Encounter for surveillance of injectable contraceptive 07/28/2016 Well woman exam 07/28/2016 Hyperlipidemia, unspecified hyperlipidemia type 2015 HLD (hyperlipidemia) 04/05/2016 Chronic pelvic pain in female 07/30/2015 Morbid obesity 10/05/2014 Ovarian cyst 05/29/2014 documented as of this encounter (statuses as of 12/09/2019) Resolved Problems Problem Noted Date Resolved Date Surveillance of previously prescribed contraceptive method 1 12/06/2013 04/05/2016 Overview: ICD10 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 H/O 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 10/05/2014 04/05/2016 Acute upper respiratory infection 10/05/20142014 Overview: ICD10 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 Elevated blood pressure reading without diagnosis of 014 10/05/2014 hypertension documented as of this encounter (statuses as of 12/09/2019) Immunizations Name Administration Dates Next Due Influenza [...] Internal Medicine Pat Locke MD [address] [address] [phone] 02/14/2020 Office Visit [facility], CNP [address] [place] [address] [phone] Haider Ware, LEARNING SPECIALIST [address] [place] [address] [phone] Health Maintenance Due Date Last Done Comments [...] fema le genital organs Nausea Nausea alone Epigastric pain Abdominal pain, epigastric documented in this encounter Insurance Payer Benefit Plan / Subscriber ID Effective Phone Address T e Group Dates [facility] [id number] 2019-Pre HMO/PP O/POS HEALTHCARE HEALTHCARE PPO sent [facility] xxxxxxxxx 2019-Pre [phone] [address] dicaid WOMEN sent [id number] [place] [address] documented as of this encounter Advance Directives Name Relationship Healthcare Agent Communication Relationship Solitario Olea Spouse Primary healthcare agent Verona Baron Mother [facility] agent (Home)
--- OUTSIDE RECORDS SUMMARY | 2020-02-08 11:16 | XMS REPORT | Summary of Care ---
:1975 Author Organization [facility] - [facility] Address [address] [place] [address] Care Team Providers Name Role Phone Visit, Nurse Unavailable Unavailable Jeffry Locke MD Insurance Hmo Jeffry Locke MD Primary Care Provider Reason for Visit Reason Comments Refill Request Encounter Details Date Type Department Care Team Description 10/23/2019 Refill [facility] Pediatric and Elyssa Locke, Refill Request Adult Primary Care- MD Dunn [address] [place] [address], [address] 3 [address] [place] [address] [place] [address] [phone] Allergies No Known Allergiesdocumented as of this [...] QUAD ADM 0.5ML IM 0 Acti ve 5374-3311, PF, 60 UTD 9 mcg (15 mcg [...] Essential MOUTH TWICE A hypertension, DAY benign LISINOPRIL 10 mg TAKE ONE 180 tablet 3 10/23/19 Di scontinued tabletIndications: TABLET BY 8 20 Essential MOUTH TWICE A hypertension, DAY benign [...] Added automatically from request for susanna delgado [id number] Abdominal pain 04/27/2019 Contraceptive management 12/19/2018 History [...] 1 12/06/2013 04/05/2016 Overview: ICD10 Diagnosis 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 H/O 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 10/05/2014 04/05/2016 Acute upper respiratory infection 10/05/20142014 Overview: ICD10 Diagnosis 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 Elevated blood pressure reading without [...] Internal Medicine Pat Locke MD [address] [address] [phone] 02/14/2020 Office Visit [facility], CNP [address] [place] [address] Haider Ware, LIFT TRUCK MECHANIC [address] [place] [address] [phone] Health Maintenance Due Date Last Done Comments [...] filedocumented in this encounter Visit Diagnoses Diagnosis Essential hypertension, benign documented in this encounter Insurance Payer Benefit Plan / Subscriber ID Effective Phone Address T ype Group Dates [facility] [id number] 2019-Pre HMO/PP O/POS HEALTHCARE HEALTHCARE PPO sent [facility] xxxxxxxxx 2019-Pre [phone] [address] Me dicaid WOMEN sent [phone] [place] [address] documented as of this encounter Advance Directives Name Relationship Healthcare Agent Communication Relationship Solitario Olea Spouse Primary healthcare agent Verona Baron Mother [facility] agent (Home)
--- OUTSIDE RECORDS SUMMARY | 2020-02-08 11:17 | XMS REPORT | Summary of Care ---
:1975 Author Organization [facility] Address [address] [place] [address] Care Team Providers Name Role Phone Visit, Nurse Unavailable Unavailable Jeffry Locke MD Insurance Hmo Jeffry Locke MD Primary Care Provider Encounter Details Date Type Department Care Team Description 12/26/2019 Letter (Out) [facility] Pediatric and Elyssa Locke, Adult Primary Care- MD Dunn [address] [place] [address], [address] [place] [address] [place] [address] [phone] Allergies No Known Allergiesdocumented as of this encounter (statuses as of 12/26/2019) Medications Medication Sig Dispensed Refills Start Date End Date Status MULTIVIT Take by mouth. 0 Acti ve &MINERALS/FERROUS FUM (MULTI VITAMIN ORAL) CALCIUM CARB/VIT Take by mouth. 0 Active D3/MINERALS (CALCIUM CARBONATE-VIT D3-MIN ORAL) docusate calcium 240 Take 1 capsule 60 capsule 2 07/09/2017 Active mg capsule by mouth daily. Diclofenac Sodium 1 % Take 2-4 grams 100 g 3 01/28/2019 Active gelIndications: three times a Chronic pelvic pain day as needed in female, Muscle for pain spasm FUROSEMIDE 20 mg TAKE ONE TABLET 90 tablet 2 07/11/2019 Active tabletIndications: BY MOUTH DAILY Essential hypertension, benign cholestyramine light 4 grams/1 scoop 210 g 11 08/01/2019 Active 4 gram four times a powderIndications: day. Mold exposure diclofenac 75 mg EC Take 1 tablet 180 tablet 3 08/01/2019 Active tabletIndications: by mouth 2 Chronic pelvic pain (two) times in female daily with meals. LISINOPRIL 10 mg TAKE ONE TABLET 180 tablet 2 10/23/2019 Active tabletIndications: BY MOUTH TWICE Essential A DAY hypertension, benign DULoxetine 60 mg Take 1 capsule 90 capsule 3 11/15/2019 Active capsuleIndications: by mouth daily. Chronic pelvic pain in female omeprazole 40 mg Take 1 capsule 180 capsule 3 11/15/2019 Active capsuleIndications: by mouth 2 Epigastric pain (two) times daily. gabapentin 300 mg Take 3 capsules 270 capsule 3 11/15/2019 Active capsuleIndications: by mouth 3 Chronic pelvic pain (three) times in female daily. traMADol 50 mg Take 2 tablets 180 tablet 3 12/20/2019 Active tabletIndications: by mouth every Chronic pelvic pain 8 (eight) hours in female as needed (severe chronic pelvic pain). ondansetron (ZOFRAN) Take 1 tablet 30 tablet 11 12/20/2019 Active 4 mg by mouth every tabletIndications: 8 (eight) hours Chronic pelvic pain as needed for in female, Nausea Nausea and Vomiting (N/V). xplpix-nszdeydy-yetfv Take 1 capsule 90 capsule 3 12/26/2019 Active se 12,000-38,000 by mouth 3 -60,000 unit (three) times capsuleIndications: daily with Epigastric pain meals. amoxicillin-clavulana Take 1 tablet 60 tablet 1 12/26/201908/2020 Active te (AUGMENTIN) by mouth 2 875-125 mg per (two) times tabletIndications: daily for 60 Chronic abdominal days. pain, Chronic pelvic pain in female, UTI symptoms amLODIPine 5 mg Take 1 tablet 30 tablet 3 12/26/2019 Active tabletIndications: by mouth daily. Essential hypertension, benign amitriptyline 50 mg Take 1 tablet 30 tablet 3 12/26/2019 Active tabletIndications: by mouth at Chronic pelvic pain bedtime. in female, Pain in both lower extremities, Chronic midline low back pain with bilateral sciatica documented as of this encounter (statuses as of 12/26/2019) Active Problems Problem Noted Date Sigmoid diverticulitis 05/15/2019 Overview: Added automatically from request for susanna delgado [id number] Abdominal pain 04/27/2019 Contraceptive management 12/19/2018 History of 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 12/19/2018 Essential hypertension, benign 07/07/2017 Encounter for surveillance of injectable contraceptive 07/28/2016 Well woman exam 07/28/2016 Hyperlipidemia, unspecified hyperlipidemia type 2015 HLD (hyperlipidemia) 04/05/2016 Chronic pelvic pain in female 07/30/2015 Morbid obesity 10/05/2014 Ovarian cyst 05/29/2014 documented as of this encounter (statuses as of 12/26/2019) Resolved Problems Problem Noted Date Resolved Date Surveillance of previously prescribed contraceptive method 1 12/06/2013 04/05/2016 Overview: ICD10 Diagnosis 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 H/O 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 10/05/2014 04/05/2016 Acute upper respiratory infection 10/05/20142014 Overview: ICD10 Diagnosis 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 Elevated blood pressure reading without diagnosis of 014 10/05/2014 hypertension documented as of this encounter (statuses as of 12/26/2019) Immunizations Name Administration Dates Next Due Influenza [...] Treatment Date Type Specialty Care Team Description 01/06/2020 Office Visit Internal Medicine Pat Locke MD [address] [address] [phone] 01/23/2020 Office Visit Internal Medicine Pat Locke MD [address] [address] [phone] 02/14/2020 Office Visit [facility], CNP [address] [place] [address] Haider Ware, METAL CUT OFF SAW OPERATOR [address] [place] [address] Health Maintenance Due Date Last Done Comments [...] Effective Phone Address T ype Group Dates [employer] [id number] 2019-Pre HMO/PP O/POS [facility] xxxxxxxxx 2019-Pre [phone] [address] Me dicaid WOMEN sent [id number] [place] [address] documented as of this encounter Advance Directives Name Relationship Healthcare Agent Communication Relationship Solitario Olea Spouse Primary healthcare agent Verona Baron Mother [facility] agent (Home)
--- OUTSIDE RECORDS SUMMARY | 2020-02-08 11:17 | XMS REPORT | Summary of Care ---
:1975 Author Organization [facility] [employer] [facility] Address [address] [place] [address] Care Team Providers Name Role Phone Visit, Nurse Unavailable Unavailable Jeffry Locke MD Insurance Hmo Jeffry Locke MD Primary Care Provider Reason for Referral (Routine) Status Reason Specialty Diagnoses / Referred By Referred To Procedures Contact Contact New Request Obstetrics & Diagnoses Chronic pelvic pain in female [facility] Gynecology Procedures CONSULT/REFERRAL HAND SCREEN PRINTER Randee Teran MD [address] [place] [address] [address] [place] [address] MRI/CAT Scan (Routine) Status Reason Specialty Diagnoses / Referred By Referred To Procedures Contact Contact New Request Diagnostic Diagnoses Chronic midline low back pain with bilateral sciatica Cornelia, Radiology Procedures MR LUMBAR SPINE WO CONTRAST Randee Teran MD [address] [place] [address] [facility] [address] [place] [address] Reason for Visit Reason Comments ANNUAL EXAM UTI Encounter Details Date Type Department Care Team Description 12/26/2019 Office Visit [facility] Pediatric Cornelia, UTI sy mptoms (Primary Dx); and Adult Primary Kranthi Ulloa Epigastric pain; Care- [address] Chronic abdominal pain; [address], [facility] 103 Chronic pelvic pain in female; [address] [place] [address] Essential hypertension, benign; [place], [place] [phone] Frequent headaches; [id number] Other chest pain; [phone] Shortness of br eath; Leg swelling; Pain in both lo wer extremities; Skin tag; Chronic 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 FUM (MULTI VITAMIN ORAL) CALCIUM CARB/VIT Take by 0 Act sacha D3/MINERALS mouth. (CALCIUM CARBONATE-VIT D3-MIN ORAL) docusate calcium Take 1 60 capsule 2 Ac tive 240 mg capsule capsule by 7 mouth daily. Diclofenac Sodium 1 Take 2-4 100 g 3 Active % gelIndications: grams three 9 Chronic pelvic pain times a day in female, Muscle as needed for spasm pain FUROSEMIDE 20 mg TAKE ONE 90 tablet [...] mouth 3 in female (three) times daily. traMADol 50 mg Take 2 180 tablet 3 Acti ve tabletIndications: tablets by 0 Chronic pelvic pain mouth every 8 in female (eight) hours as needed (severe chronic pelvic pain). ondansetron Take 1 tablet 30 tablet 11 Acti ve (ZOFRAN) 4 mg by mouth 0 tabletIndications: every 8 Chronic pelvic pain (eight) hours in female, Nausea as needed for Nausea and Vomiting (N/V). mbpvrh-ylwxodzv-iyu Take 1 90 capsule 3 Active lase 12,000-38,000 capsule by 0 -60,000 unit mouth 3 capsuleIndications: (three) times Epigastric pain daily with meals. amoxicillin-clavula Take 1 tablet 60 tablet 1 Active jennifer (AUGMENTIN) by mouth 2 0 20 875-125 mg per (two) times tabletIndications: daily for 60 Chronic abdominal days. pain, Chronic pelvic pain in female, UTI symptoms amLODIPine 5 mg Take 1 tablet 30 tablet 3 Active tabletIndications: by mouth 0 Essential daily. hypertension, benign amitriptyline 50 mg Take 1 tablet 30 tablet 3 Active tabletIndications: by mouth at 0 Chronic pelvic pain bedtime. in female, Pain in both lower extremities, Chronic midline low back pain with bilateral sciatica turmeric root Take 500 mg 0 12/26/19 Disc ontinued extract 500 mg Cap by mouth 2 20 (Therapy (two) times complete d) daily. FLUARIX QUAD ADM 0.5ML IM 0 12/26/19 Disc ontinued [id number], PF, 60 UTD 9 20 (T herapy mcg (15 mcg x comple dylon) 4)/0.5 mL peg-electrolyte Take 4,000 mL 4000 mL 0 12/26/19 Discontinued soln [id number] by mouth 9 20 (Therapy -5.86 gram SEE-INSTRUCTI compl eted) solutionIndications ONS. Take as : Sigmoid directed diverticulitis amitriptyline 10 mg START WITH 1 270 tablet 3 Discontinued tabletIndications: TABLET AT 0 20 ( Dose Chronic pelvic pain NIGHT AND adjustment) in female SLOWLY INCREASE UP TO 3 TABLETS AT NIGHT FOR PAIN DISCUSSED IN CLINIC amitriptyline 10 mg 3 TABLETS AT 270 tablet 3 Discontinued tabletIndications: NIGHT FOR 0 20 ( Reorder) Chronic pelvic pain PAIN in female documented as of this encounter (statuses as of 01/06/2020) Active Problems Problem Noted Date Abdominal pain 04/27/2019 Contraceptive management 12/19/2018 Essential hypertension, benign 07/07/2017 Hyperlipidemia, unspecified hyperlipidemia type 2015 HLD (hyperlipidemia) 04/05/2016 Chronic pelvic pain in female 07/30/2015 Morbid obesity 10/05/2014 Ovarian cyst 05/29/2014 documented as of this encounter (statuses as of 01/06/2020) Resolved Problems Problem Noted Date Resolved Date Sigmoid diverticulitis 05/15/2019 01/06/2020 Overview: Added automatically from request for susanna delgado [id number] History of 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 12/19/2018 01/06/2020 Encounter for surveillance of injectable contraceptive 07/2801/06/2020 Well woman exam 07/28/2016 01/06/2020 Surveillance of previously prescribed contraceptive method 1 12/06/2013 04/05/2016 Overview: ICD10 Diagnosis Term Jig Worker Utility H/O 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 10/05/2014 04/05/2016 Acute upper respiratory infection 10/05/20142014 Overview: ICD10 Diagnosis Term Jig Worker Utility Elevated blood pressure reading without diagnosis of 014 10/05/2014 hypertension documented as of this encounter (statuses as of 01/06/2020) Immunizations Name Administration Dates Next Due Influenza [...] Sign Reading Time Taken Comments Blood Pressure 138/80 12/26/2019 8:55 AM CDT Pulse 98 12/26/2019 8:54 AM CDT Temperature 36.3 C (97.4 F) 12/26/2019 8:54 AM CDT Respiratory Rate 20 12/26/2019 8:54 AM CDT Oxygen Saturation 99% 12/26/2019 8:54 AM CDT Inhaled Oxygen Concentration - - Weight 122.1 kg (269 lb 1.6 oz) 12/26/2019 8:54 AM CDT Height - - Body Mass Index 46.19 11/22/2019 8:47 AM HEAVY EQUIPMENT SALES ASSOCIATE documented in this encounter Patient Instructions Patient InstructionsArchana Ball - 12/26/2019 8:20 AM CDTStart d-mannose 500mg twice a day, it can help decrease UTI recurrence and decrease resistance. Look up foods high in omega 3. [place] 3 can help fight inflammation and omega 6 cause inflammation. Work on increasing omega 3 and decreasing omega 6 in diet. Try to AVOID anything containing peanut oil, sunflower oil and saffron oil. Canola oil seems to be better. Tablespoon of ground flaxseed can also help regulate bowels Eggs from free range chickens are best. If you eat meat, grass fed meat is best. documented in this encounter Progress Notes Randee Locke MD - 12/26/2019 8:20 AM CDT DOS: 12/26/2019 CC: Follow up of chronic conditions HPI: So Olea is a 44 year old female with history including has a past medical history of Anxiety, Chronic pelvic pain in female, Endometriosis (2014), Hemorrhoids, HTN (hypertension),Nerve pain, and Ovarian cyst. who is being seen today for follow up of chronic conditions. Patient states she's had UTI symptoms for about a week. Last UTI was about 3 months ago. UA done 12/26/2019 in clinic is positive, will send for culture. Patient states she saw Dr. Sandoval. She states she was still having blood in her stool so she [facility] and states they couldn't find anything wrong. She states she's had issues with external hemorrhoids but never internal. She she has chronic lower midline back pain that shoots down both legs. She compares leg pain to burning, numbing, and tingling. She states she has a hard time going up stairs, she feels like she has to pick herself up. She has more pain when she has leg swelling. Pain sometimes keeps her out at night. Patient states swelling gets so bad she has to go up a clothing size or two due to discomfort. Patient states she gets a real tight and full sensation along with pain in her abd area at least once a month. When she has this pains she states it's hard for her to breath and eating makes pain worse. She denies seeing solid foods in her bowels. Patient states within 5 min after eating she has diarrhea. She states the pain improves after she has diarrhea because she feels like she released pressure, but this doesn't last long and she ends up feeling bloated again. Patient states she still gets pelvic pain. She hasn't followed with OBGYN. She takes cholestyramine 3 times a day. Patient states her BPs have been high and she has more frequent headaches. She states BPs at home have been running 160s/80s, this is on lisinopril. Patient states lisinopril initially helped but now it doesn't seem to be helping as much. Occasional chest pain more on the left side of her chest, happens when her BPs are high. Patient states she has shortness of breath. She feels like this is due to her weight. Patient states she's having trouble falling asleep. She uses otc melatonin and she takes amitriptyline, not on max dose. Medications reviewed in EPIC, past medical history and social history and allergies reviewed. Review of Systems Gastrointestinal: Positive for abdominal distention, abdominal pain and diarrhea. Neurological: Positive for headaches. Psychiatric/Behavioral: Positive for sleep disturbance. PE: Blood pressure 138/80, pulse 98, temperature 36.3 C (97.4 F), temperature source Oral, resp. rate 20, weight 269 lb 1.6 oz (122.1 kg), SpO2 99 %. Physical Exam Constitutional: She is oriented to person, place, and time. She appears well- developed and well-nourished. HENT: Head: Normocephalic and atraumatic. Nose: Nose normal. No tracheal deviation. Eyes: Lids are normal. Right eye exhibits no discharge. Left eye exhibits no discharge. No scleral icterus. Eyelids normal. Cardiovascular: Normal rate, regular rhythm and normal heart sounds. Exam reveals no gallop and no friction rub. No murmur heard. Pulmonary/Chest: Effort normal and breath sounds normal. No respiratory distress. She has no wheezes. She has no rales. Abdominal: Normal appearance. GI system: Soft. No distension, bowel sounds are normal. There is no tenderness. Neurological: She is alert and oriented to person, place, and time. Skin: Skin is warm and dry. No rash noted. She has some skin tags and other changes around the neck area. Psychiatric: She has a normal mood and affect. Her speech is normal and behavior is normal. Vitals reviewed. Results: No new labs Education & Visit Time: this visit involved counseling and coordination of care that comprised more than 50% of the visit time. I spent at least 40 minutes total time with the patient. Of that time, at least 1 minutes was spent on exam, and at least 39 minutes was spent obtaining history and counseling the patient regarding risks and benefits of treatment, treatment options and prevention. A/P: So Olea is a 44 year old female with history including has a past medical history of Anxiety, Chronic pelvic pain in female, Endometriosis (2014), Hemorrhoids, HTN (hypertension), Nerve pain, and Ovarian cyst. who is being seen today for chronic medical conditions. UTI symptoms (primary encounter diagnosis) Comment: symptoms x1 week. UA today was positive, will send for culture. Discussed d-mannose, 500mg bid, and how it can help decrease UTI recurrence and decrease resistance. Plan: POCT URINALYSIS W SPECIFIC GRAVITY, URINE CULTURE, amoxicillin-clavulanate (AUGMENTIN) 875-125 mg per tablet Epigastric pain Comment: could be related to pancreatitis, will try creon. Plan: START ksaxqw-qjiknffb-ueykebz 12,000-38,000 -60,000 unit capsule Chronic abdominal pain Comment: pain better on antibiotics. Plan: amoxicillin-clavulanate (AUGMENTIN) 875-125 mg per tablet Chronic pelvic pain in female Comment: pain is better on antibiotics. Referral sent to OBGYN. Plan: amoxicillin-clavulanate (AUGMENTIN) 875-125 mg per tablet, START amitriptyline 50 mg tablet, CONSULT/REFERRAL HAND SCREEN PRINTER, Essential hypertension, benign Comment: BPs have been high. Plan: START amLODIPine 5 mg tablet Frequent headaches Comment: she reports more frequent headaches with high BPs. Plan: will work on controlling BPs. Other chest pain Comment: she reports chest pain more on the left side when BPs are high. Plan: If chest pain doesn't get better with lowering her BPs she will need to see cardiology. Shortness of breath Comment: ongoing. Plan: monitor. Leg swelling Comment: could be associated with pancreatitis. Plan: patient will start creon. Pain in both lower extremities Comment: she reports a burning and tingling pain in both legs. increased amitriptyline, this can help with nerve pain. Plan: START amitriptyline 50 mg tablet Skin tag Comment: she has skin tags around her neck and some other skin changes, this could be related to diet. Plan: patient will work on diet, information given on after visit summary. Chronic midline low back pain with bilateral sciatica Comment: pain not controlled. Plan: MR LUMBAR SPINE WO CONTRAST, START amitriptyline 50 mg tablet Difficulty sleeping Comment: pain keeps her up at night. Plan: discussed with patient she can take max 10mg of melatonin. Also increased amitriptyline. Return for appointment on 01/23/20 at 4pm per for abd pain follow-up, ALT visit on 01/06/20 for BP follow-up. Plan of care, desired health behaviors, goals,& medication discussed with patient and educational resources and self management tools provided as appropriate. Patient/family/guardian voices understanding. Patient verbalized understanding & agrees to plan of care. Barriers to care: none Ability to manage care: good Scribe's Attestation Archana Lovell , am scribing for, and in the presence of, Randee Locke MD who performed the services described here-in. Archana Ball, December 26, 2019, 9:08 AM Physician's Attestation I, Randee Locke MD, personally performed the services described in this documentation , asscribed by, Archana Ball in my presence and it is both accurate and complete. Randee Locke MD January 06, 2020, 2:38 PM documented in this encounter Plan of Treatment Date Type Specialty Care Team Description 01/06/2020 Office Visit Internal Medicine Pat Locke MD Arrived [address] [place] [address] 77 15 [phone] 01/23/2020 Office Visit Internal Medicine Pat Locke MD [address] [place] [address] 77 15 [phone] 02/14/2020 Office Visit [facility] AkinsiMc lubin, CNP [address] [place] [address] Haider Ware, CLINICAL NURSING ASSISTANT [address] [place] [address] Name Type Priority Associated Diagnoses Order S chedule MR LUMBAR SPINE WO IMAGING Routine Chronic midline low ba ck Expected: 12/26/2019, CONTRAST pain with bilateral Expires: 12/25/2020 sciatica Health Maintenance Due Date Last Done Comments [...] Procedures Procedure Name Priority Date/Time Associated Diagnosis Comme nts URINE CULTURE Routine 12/26/2019 9:03 AM UTI symptoms Results for this CDT procedure are i n the results section. POCT URINALYSIS Routine 12/26/2019 9:01 AM UTI symptoms Resul ts for this CDT procedure are i n the results section. documented in this encounter Results URINE CULTURE (12/26/2019 9:03 AM CDT) URINE CULTURE >100,000 CFU/mL [facility] Escherichia coli SERVICES Specimen Urine Organism Antibiotic Method Susceptibility Escherichia coli Ampicillin SUSCEPTIBILITY TESTING 4: Susce ptible Escherichia coli Cefazolin SUSCEPTIBILITY TESTING <=4: Sidra ceptible Escherichia coli Ceftriaxone SUSCEPTIBILITY TESTING <=1: Sidra ceptible Escherichia coli Ciprofloxacin SUSCEPTIBILITY TESTING <=0.25: Susceptible Escherichia coli Ertapenem SUSCEPTIBILITY TESTING <=0.5: S usceptible Escherichia coli Gentamicin SUSCEPTIBILITY TESTING <=1: Sidra ceptible Escherichia coli Levofloxacin SUSCEPTIBILITY TESTING <=0.12: Susceptible Escherichia coli Nitrofurantoin SUSCEPTIBILITY TESTING <=16: [place]allos sceptible Escherichia coli Piperacillin/Tazobactam SUSCEPTIBILITY TESTING <=4: Susceptible Escherichia coli Trimethoprim/Sulfamethoxa SUSCEPTIBILITY TESTIN G <=20: Susceptible zole Performing Organization Address City/State/Zipcode Phone Number [facility] CLIA: [id number], [address] [place] [address] [facility] POCT URINALYSIS W SPECIFIC GRAVITY (12/26/2019 9:01 AM CDT) Pathologist Sig nature POCT U SP GRAV 1.020 1.005 - 1.025 mg/dl POCT PH U 5 5 - 8 mg/dl POCT U LEUK EST 3+ Negative - Negative POCT U NIT Positive Negative - Negative POCT U PROT trace Negative - Negative POCT U GLU Negative Negative - Negative POCT U KETONE Negative Negative - Negative POCT U UROBILI 0.2 0.2 - 1 mg/dl POCT U BILI Negative Negative - Negative POCT U BLD 3+ Negative - Negative POCT U COLOR dark yellow POCT U APPEAR Specimen Urine - URINE, CLEAN CATCH documented in this encounter Visit Diagnoses Diagnosis UTI symptoms - Primary Epigastric pain Abdominal pain, epigastric Chronic abdominal pain Abdominal pain, unspecified site Chronic pelvic pain in female Unspecified symptom associated with fema le genital organs Essential hypertension, benign Frequent headaches Other chest pain Shortness of breath Leg swelling Swelling of limb Pain in both lower extremities Skin tag Unspecified hypertrophic and atrophic co ndition of skin Chronic midline low back pain with bilat eral sciatica Difficulty sleeping Sleep disturbance, unspecified documented in this encounter Insurance Payer Benefit Plan / Subscriber ID Effective Dates Phone Addre ss Type Group [facility] [id number] 2019-Prese HMO/ PPO/ HEALTHCARE HEALTHCARE PPO nt S documented as of this encounter Advance Directives Name Relationship Healthcare Agent Communication Relationship Solitario Olea Spouse Primary healthcare agent Verona Baron Mother [facility] healthcare agent (Home)
--- OUTSIDE RECORDS SUMMARY | 2020-02-08 11:18 | XMS REPORT | Summary of Care ---
:1975 Author Organization [facility] [employer] [facility] Address [address] [place] [address] Care Team Providers Name Role Phone Visit, Nurse Unavailable Unavailable Jeffry Locke MD Insurance Hmo Jeffry Locke MD Primary Care Provider Reason for Referral (Routine) Status Reason Specialty Diagnoses / Referred By Referred To Procedures Contact Contact New Request Obstetrics & Diagnoses Chronic pelvic pain in female [facility] Gynecology Procedures CONSULT/REFERRAL LEASING ASSOCIATE Randee Teran MD [address] [place] [address] [address] [place] [address] MRI/CAT Scan (Routine) Status Reason Specialty Diagnoses / Referred By Referred To Procedures Contact Contact New Request Diagnostic Diagnoses Chronic midline low back pain with bilateral sciatica Cornelia, Radiology Procedures MR LUMBAR SPINE WO CONTRAST Randee Teran MD [address] [place] [address] [facility] [address] [place] [address] Reason for Visit Reason Comments ANNUAL EXAM UTI Encounter Details Date Type Department Care Team Description 12/26/2019 Office Visit [facility] Pediatric Cornelia, UTI sy mptoms (Primary Dx); and Adult Primary Kranthi Ulloa Epigastric pain; Care- [address] Chronic abdominal pain; [address], [facility] 103 Chronic pelvic pain in female; [address] [place] [address] Essential hypertension, benign; [place], [place] [phone] Frequent headaches; [phone] Other chest pain; [phone] Shortness of br eath; Leg swelling; Pain [...] as needed for Nausea and Vomiting (N/V). [id number] Take 1 90 capsule 3 Active lase [...] ADM 0.5ML IM 0 12/26/19 Disc ontinued [id number], PF, 60 UTD 9 20 (T herapy [...] Added automatically from request for susanna delgado [id number] History of 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 12/19/2018 01/06/2020 Encounter for surveillance of injectable contraceptive 07/2801/06/2020 Well woman exam 07/28/2016 01/06/2020 Surveillance of previously prescribed contraceptive method 1 12/06/2013 04/05/2016 Overview: ICD10 Diagnosis Term Cello Teacher Utility H/O 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 10/05/2014 04/05/2016 Acute upper respiratory infection 10/05/20142014 Overview: ICD10 Diagnosis Term Cello Teacher Utility Elevated blood pressure reading without diagnosis [...] Body Mass Index 46.19 11/22/2019 8:47 AM STAFF DEVELOPMENT EDUCATOR documented in this encounter Patient Instructions Patient InstructionsArchana Ball - 12/26/2019 8:20 AM CDTStart d-mannose 500mg twice a day, it can help decrease UTI recurrence and decrease resistance. Look up foods high in omega 3. [place] 3 can help fight inflammation and omega [...] blood in her stool so she went [facility] ER and states they couldn't find anything [...] to pancreatitis, will try creon. Plan: START rbxqhu-wdluryhl-yjwoifj 12,000-38,000 -60,000 unit capsule Chronic abdominal pain Comment: pain better on antibiotics. Plan: amoxicillin-clavulanate (AUGMENTIN) 875-125 mg per tablet Chronic pelvic pain in female Comment: pain is better on antibiotics. Referral sent to OBGYN. Plan: amoxicillin-clavulanate (AUGMENTIN) 875-125 mg per tablet, START amitriptyline 50 mg tablet, CONSULT/REFERRAL LEASING ASSOCIATE, Essential hypertension, benign Comment: BPs have been [...] Visit Internal Medicine Pat Locke MD Arrived [address] [place] [address] 77 15 [phone] 01/23/2020 Office Visit Internal Medicine Pat Locke MD [address] [place] [address] 77 15 [phone] 02/14/2020 Office Visit [facility] AkinsiMc lubin, CNP [address] [place] [address] Haider Ware, INTERNATIONAL ACCOUNTANT [address] [place] [address] Name Type Priority Associated Diagnoses Order S [...] 9:03 AM CDT) URINE CULTURE >100,000 CFU/mL [facility] Escherichia coli SERVICES Specimen Urine Organism [...] zole Performing Organization Address City/State/Zipcode Phone Number [facility] CLIA: [id number], [address] [place] [address] 555 [facility] POCT URINALYSIS W SPECIFIC GRAVITY (12/26/2019 9:01 [...] Effective Dates Phone Addre ss Type Group [facility] [id number] 2019-Prese HMO/ PPO/ HEALTHCARE HEALTHCARE PPO nt S documented as of this encounter Advance Directives Name Relationship Healthcare Agent Communication Relationship Solitario Olea Spouse Primary healthcare agent Verona Baron Mother [facility] healthcare agent (Home)
--- OUTSIDE RECORDS SUMMARY | 2020-02-08 11:18 | XMS REPORT | Summary of Care ---
:1975 Author Organization [facility] - [facility] Address [address] [place] [address] Care Team Providers Name Role Phone Visit, Nurse Unavailable Unavailable Jeffry Locke MD Insurance Hmo Jeffry Locke MD Primary Care Provider Reason for Visit Reason Comments Assessment Encounter Details Date Type Department Care Team Description 01/06/2020 Telephone [facility] Pediatric and Elyssa Locke, Assessment Adult Primary Care- MD Dunn [address] [place] [address], [address] [place] [address] [place] [address] [phone] Allergies No Known Allergiesdocumented as of this [...] as needed for Nausea and Vomiting (N/V). amoxicillin-clavula Take 1 tablet 60 tablet 1 Active jennifer (AUGMENTIN) by mouth 2 0 20 875-125 mg per (two) times tabletIndications: daily for 60 Chronic abdominal days. pain, Chronic pelvic pain in female, UTI symptoms amitriptyline 50 mg Take 1 tablet 30 tablet 3 Active tabletIndications: by mouth at 0 Chronic pelvic pain bedtime. in female, Pain in both lower extremities, Chronic midline low back pain with bilateral sciatica amLODIPine 5 mg Take 1.5 45 tablet 3 Acti ve tabletIndications: tablets by 0 Essential mouth daily. hypertension, benign oaawfk-affpngpx-ifj Take 2 180 capsule 3 Active lase 12,000-38,000 capsules by 0 -60,000 unit mouth 3 capsuleIndications: (three) times Epigastric pain daily with meals. fluconazole 150 mg Take 1 pill 2 tablet 3 Active tabletIndications: now and 1 in 0 Antibiotics causing 72 hours. adverse effect in therapeutic use, initial encounter qvzxme-iplwzmnc-cyx Take 1 90 capsule 3 01/06/20 Discontinued lase 12,000-38,000 capsule by 0 20 (Reorder) -60,000 unit mouth 3 capsuleIndications: (three) times Epigastric pain daily with meals. amLODIPine 5 mg Take 1 tablet 30 tablet 3 01/06/20 Discontinued tabletIndications: by mouth 0 20 ( Reorder) Essential daily. 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 Utility H/O 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 10/05/2014 04/05/2016 Acute upper respiratory infection 10/05/20142014 Overview: ICD10 Diagnosis Term It Field Technician Utility Elevated blood pressure reading without diagnosis [...] Treatment Date Type Specialty Care Team Description 01/23/2020 Office Visit Internal Medicine Pat Locke MD [address] 775 [address] [phone] 02/14/2020 Office Visit [facility] Satellites Mc Boogie, CNP [address] [place] [address] [phone] Haider Ware, SENIOR BUYER [address] [place] [address] [phone] Health Maintenance Due Date Last Done Comments [...] filedocumented in this encounter Visit Diagnoses Diagnosis Antibiotics causing adverse effect in th erapeutic use, initial encounter - Primary Essential hypertension, benign Epigastric pain Abdominal pain, epigastric documented in this encounter Insurance Payer Benefit Plan / Subscriber ID Effective Phone Address [facility] [id number] 2019-Pre HMO/PP O/POS HEALTHCARE HEALTHCARE PPO sent [facility] xxxxxxxxx 2019-Pre [phone] [address] Me dicaid WOMEN sent [id number] [place] [address] documented as of this encounter Advance Directives Name Relationship Healthcare Agent Communication Relationship Solitario Olea Spouse Primary healthcare agent Verona Baron Mother First [facility] agent (Home)
--- OUTSIDE RECORDS SUMMARY | 2020-02-08 11:18 | XMS REPORT | Summary of Care ---
:1975 Author Organization [facility] Address [address] [place] [address] Care Team Providers Name Role Phone Visit, Nurse Unavailable Unavailable Jeffry Locke MD Insurance Hmo Jeffry Locke MD Primary Care Provider Encounter Details Date Type Department Care Team Description 01/01/2020 Patient Secure [facility] Romario Locke and Adult Primary MD Jeffry [facility] [address] 146 [facility] , [facility] [address] [place] [address] [place], [place] [phone] [address] [phone] Allergies No Known Allergiesdocumented as of this encounter (statuses as of 01/07/2020) Medications Medication Sig Dispensed Refills Start Date [...] in female, Nausea Nausea and Vomiting (N/V). amoxicillin-clavulana Take 1 tablet 60 tablet 1 [...] as of this encounter (statuses as of 01/07/2020) Active Problems Problem Noted Date Abdominal pain 04/27/2019 Contraceptive management 12/19/2018 Essential hypertension, benign 07/07/2017 Hyperlipidemia, unspecified hyperlipidemia type 2015 HLD (hyperlipidemia) 04/05/2016 Chronic pelvic pain in female 07/30/2015 Morbid obesity 10/05/2014 Ovarian cyst 05/29/2014 documented as of this encounter (statuses as of 01/07/2020) Resolved Problems Problem Noted Date Resolved Date Sigmoid diverticulitis 05/15/2019 01/06/2020 Overview: Added automatically from request for susanna delgado [id number] History of 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 12/19/2018 01/06/2020 Encounter for surveillance of injectable contraceptive 07/2801/06/2020 Well woman exam 07/28/2016 01/06/2020 Surveillance of previously prescribed contraceptive method 1 12/06/2013 04/05/2016 Overview: ICD10 Diagnosis 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 Utility H/O 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 10/05/2014 04/05/2016 Acute upper respiratory infection 10/05/20142014 Overview: ICD10 Diagnosis 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 Utility Elevated blood pressure reading without diagnosis of 014 10/05/2014 hypertension documented as of this encounter (statuses as of 01/07/2020) Immunizations Name Administration Dates Next Due Influenza [...] Treatment Date Type Specialty Care Team Description 01/21/2020 Office Visit Internal Medicine Pat Locke MD [address] [facility] [address] [place], [place] [address] [phone] 02/14/2020 Office Visit [facility] Satellites Mc Boogie, CNP [address] [facility] [place] [address] [phone] Haider Ware, SENIOR AUDIT MANAGER [address] [place], [place] 1098[address] Health Maintenance Due Date Last Done Comments [...] ID Effective Phone Address T e Group [facility] [id number] 2019-Pre HMO/PP O/POS HEALTHCARE HEALTHCARE PPO sent [employer] [place] [facility] xxxxxxxxx 2019-Pre [phone] P O BOX Me dicaid WOMEN sent [id number] [place] [address] documented as of this encounter Advance Directives Name Relationship Healthcare Agent Communication Relationship Solitario lOea Spouse Primary healthcare agent Verona Baron Mother [facility] agent (Home)
--- OUTSIDE RECORDS SUMMARY | 2020-02-08 11:19 | XMS REPORT | Summary of Care ---
:1975 Author Organization [facility] Address [address] [place] [address] Care Team Providers Name Role Phone Visit, Nurse Unavailable Unavailable Jeffry Locke MD Insurance Hmo Jeffry Locke MD Primary Care Provider Reason for Visit Reason Comments Appointment Referral/consult Encounter Details Date Type Department Care Team Description 01/14/2020 Telephone [facility] Women's Randee Locke Appointment; Healthcare- Shaun Teran MD Referral/consult 146 [facility], [address] [facility] [address] [facility] 103 [place], [place] [address] [phone] Allergies No Known Allergiesdocumented as of this encounter (statuses as of 01/14/2020) Medications Medication Sig Dispensed Refills Start Date [...] 5 mg Take 1.5 45 tablet 3 01/06/2020 Act sacha tabletIndications: tablets by Essential mouth daily. hypertension, benign gqcfol-vcpuhxyg-fvebt Take 2 capsules 180 capsule 3 01/06/2020 Active se 12,000-38,000 by mouth 3 -60,000 unit (three) times capsuleIndications: daily with Epigastric pain meals. fluconazole 150 mg Take 1 pill now 2 tablet 3 01/06/2020 Active tabletIndications: and 1 in 72 Antibiotics causing hours. adverse effect in therapeutic use, initial encounter documented as of this encounter (statuses as of 01/14/2020) Active Problems Problem Noted Date Abdominal pain 04/27/2019 Contraceptive management 12/19/2018 Essential hypertension, benign 07/07/2017 Hyperlipidemia, unspecified hyperlipidemia type 2015 HLD (hyperlipidemia) 04/05/2016 Chronic pelvic pain in female 07/30/2015 Morbid obesity 10/05/2014 Ovarian cyst 05/29/2014 documented as of this encounter (statuses as of 01/14/2020) Resolved Problems Problem Noted Date Resolved Date Sigmoid diverticulitis 05/15/2019 01/06/2020 Overview: Added automatically from request for susanna delgado [id number] History of 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 12/19/2018 01/06/2020 Encounter for surveillance of injectable contraceptive 07/2801/06/2020 Well woman exam 07/28/2016 01/06/2020 Surveillance of previously prescribed contraceptive method 1 12/06/2013 04/05/2016 Overview: ICD10 Diagnosis 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 H/O 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 10/05/2014 04/05/2016 Acute upper respiratory infection 10/05/20142014 Overview: ICD10 Diagnosis 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 Elevated blood pressure reading without diagnosis of 014 10/05/2014 hypertension documented as of this encounter (statuses as of 01/14/2020) Immunizations Name Administration Dates Next Due Influenza [...] Internal Medicine Pat Locke MD [address] 775 [address] [phone] 02/14/2020 Office Visit [facility]ell[facility] Mc Boogie, CNP [address] [place] [address] Haider Ware, VEHICLE DAMAGE APPRAISER [address] [place] [address] Health Maintenance Due Date Last Done Comments [...] Effective Phone Address T e Group Dates [facility] [id number] 2019-Pre HMO/PP O/POS HEALTHCARE HEALTHCARE PPO sent [facility] [place] [facility] xxxxxxxxx 2019-Pre [phone] [address] Me dicaid WOMEN sent [id number] [place] [address] documented as of this encounter Advance Directives Name Relationship Healthcare Agent Communication Relationship Solitario Olea Spouse Primary healthcare agent Verona Baron Mother First [place] [phone] agent (Home)
--- OUTSIDE RECORDS SUMMARY | 2020-02-08 11:19 | XMS REPORT | Summary of Care ---
:1975 Author Organization [facility] Address [address] [place] [address] Care Team Providers Name Role Phone Visit, Nurse Unavailable Unavailable Jeffry Locke MD Insurance Hmo Jeffry Locke MD Primary Care Provider Reason for Visit Reason Comments Refill Request Encounter Details Date Type Department Care Team Description 01/19/2020 Refill [facility] Pediatric and Elyssa Locke, Refill Request Adult Primary Care- MD Dunn [address] [place] [address], [address] [place] [address] [place] [address] [phone] Allergies No Known Allergiesdocumented as of this encounter (statuses as of 01/21/2020) Medications Medication Sig Dispensed Refills Start Date End Date Status MULTIVIT Take by 0 Active &MINERALS/FERROUS mouth. FUM (MULTI VITAMIN ORAL) CALCIUM CARB/VIT Take by 0 Act sacha D3/MINERALS (CALCIUM mouth. CARBONATE-VIT D3-MIN ORAL) docusate calcium 240 Take 1 60 capsule 2 07/09/2017 Active mg capsule capsule by mouth daily. Diclofenac Sodium 1 Take 2-4 100 g 3 01/28/2019 Active % gelIndications: grams three Chronic pelvic pain times a day in female, Muscle as needed for spasm pain cholestyramine light 4 grams/1 210 g 11 08/01/2019 Active 4 gram scoop four powderIndications: times a day. Mold exposure diclofenac 75 mg EC Take 1 tablet 180 tablet 3 08/01/2019 Active tabletIndications: by mouth 2 Chronic pelvic pain (two) times in female daily with meals. LISINOPRIL 10 mg TAKE ONE 180 tablet 2 10/23/2019 A ctive tabletIndications: TABLET BY Essential MOUTH TWICE A hypertension, benign DAY gabapentin 300 mg Take 3 270 capsule 3 11/15/2019 Active capsuleIndications: capsules by Chronic pelvic pain mouth 3 in female (three) times daily. traMADol 50 mg Take 2 180 tablet 3 12/20/2019 Act sacha tabletIndications: tablets by Chronic pelvic pain mouth every 8 in female (eight) hours as needed (severe chronic pelvic pain). ondansetron (ZOFRAN) Take 1 tablet 30 tablet 11 12/20/2019 Active 4 mg by mouth tabletIndications: every 8 Chronic pelvic pain (eight) hours in female, Nausea as needed for Nausea and Vomiting (N/V). amoxicillin-clavulan Take 1 tablet 60 tablet 1 12/26/201902/13 Active ate (AUGMENTIN) by mouth 2 0 875-125 mg per (two) times tabletIndications: daily [...] tablets by Essential mouth daily. hypertension, benign aevmpp-ekekbaql-jyfe Take 2 180 capsule 3 01/06/2020 Active ase 12,000-38,000 capsules by -60,000 unit mouth 3 capsuleIndications: (three) times Epigastric pain daily with meals. fluconazole 150 mg Take 1 pill 2 tablet 3 01/06/2020 Active tabletIndications: now and 1 in Antibiotics causing 72 hours. adverse effect in therapeutic use, initial encounter furosemide 20 mg Take 1 tablet 90 tablet 2 01/16/2020 Active tabletIndications: by mouth Essential daily. hypertension, benign DULOXETINE 60 mg TAKE ONE 90 capsule 3 01/21/2020 A ctive capsuleIndications: CAPSULE BY Chronic pelvic pain MOUTH DAILY in female DULoxetine 60 mg Take 1 90 capsule 3 11/15/2019 D iscontinued capsuleIndications: capsule by 0 Chronic pelvic pain mouth daily. in female documented as of this encounter (statuses as of 01/21/2020) Active Problems Problem Noted Date Abdominal pain 04/27/2019 Contraceptive management 12/19/2018 Essential hypertension, benign 07/07/2017 Hyperlipidemia, unspecified hyperlipidemia type 2015 HLD (hyperlipidemia) 04/05/2016 Chronic pelvic pain in female 07/30/2015 Morbid obesity 10/05/2014 Ovarian cyst 05/29/2014 documented as of this encounter (statuses as of 01/21/2020) Resolved Problems Problem Noted Date Resolved Date Sigmoid diverticulitis 05/15/2019 01/06/2020 Overview: Added automatically from request for susanna delgado [id number] History of 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 12/19/2018 01/06/2020 Encounter for surveillance of injectable contraceptive 07/2801/06/2020 Well woman exam 07/28/2016 01/06/2020 Surveillance of previously prescribed contraceptive method 1 12/06/2013 04/05/2016 Overview: ICD10 Diagnosis Term 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 H/O 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 10/05/2014 04/05/2016 Acute upper respiratory infection 10/05/20142014 Overview: ICD10 Diagnosis Term Dry 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 Elevated blood pressure reading without diagnosis of 014 10/05/2014 hypertension documented as of this encounter (statuses as of 01/21/2020) Immunizations Name Administration Dates Next Due Influenza [...] Visit Internal Medicine Pat Locke MD Arrived [address] 7[address] [phone] 02/14/2020 Office Visit [facility] Mc Boogie, CNP [address] [place] [address] Haider Ware, PERSONNEL TRAINING OFFICER [address] [place] [address] Health Maintenance Due Date Last Done Comments [...] symptom associated with fema le genital organs documented in this encounter Insurance Payer Benefit Plan / Subscriber ID Effective Phone Address T ype Group Dates [facility] [id number] 2019-Pre HMO/PP O/POS HEALTHCARE HEALTHCARE PPO sent [facility] [place] [facility] xxxxxxxxx 2019-Pre [phone] [address] Me dicaid WOMEN sent [id number] [place] [address] documented as of this encounter Advance Directives Name Relationship Healthcare Agent Communication Relationship Solitario Olea Spouse Primary healthcare agent Verona Baron Mother [facility] agent (Home)
--- OUTSIDE RECORDS SUMMARY | 2020-02-08 11:19 | XMS REPORT | Summary of Care ---
:1975 Author Organization [facility] Address [address] [place] [address] Care Team Providers Name Role Phone Visit, Nurse Unavailable Unavailable Jeffry Locke MD Insurance Hmo Jeffry Locke MD Primary Care Provider Reason for Visit Reason Comments Refill Request Encounter Details Date Type Department Care Team Description 01/21/2020 Refill [facility] Pediatric and Elyssa Locke, Refill Request Adult Primary Care- MD Dunn [address] [place] [address], [address] 3 205 [place] [address] [place] [address] [phone] Allergies No Known Allergiesdocumented as of this [...] Essential MOUTH TWICE A hypertension, benign DAY DULoxetine 60 mg Take 1 90 capsule 3 11/15/2019 A ctive capsuleIndications: capsule by Chronic pelvic pain mouth daily. in female gabapentin 300 mg Take 3 270 capsule [...] amoxicillin-clavulan Take 1 tablet 60 tablet 1 12/26/2019/ Active ate (AUGMENTIN) by mouth 2 0 [...] tablets by Essential mouth daily. hypertension, benign cwwrxc-ywtpjpxr-fkpq Take 2 180 capsule 3 01/06/2020 Active [...] tabletIndications: by mouth Essential daily. hypertension, benign OMEPRAZOLE 40 mg TAKE ONE 180 capsule 0 01/21/2020 Active capsuleIndications: CAPSULE BY Epigastric pain MOUTH TWICE A DAY omeprazole 40 mg Take 1 180 capsule 3 11/15/2019 Discontinued capsuleIndications: capsule by 0 Epigastric pain mouth 2 (two) times daily. 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 [address] [place] [address] [phone] Haider Ware, RECREATION OFFICER [address] [place] [address] [phone] Health Maintenance Due Date Last Done Comments [...] filedocumented in this encounter Visit Diagnoses Diagnosis Epigastric pain Abdominal pain, epigastric documented in this encounter Insurance Payer Benefit Plan / Subscriber ID Effective Phone Address T ype Group [facility] [id number] 2019-Pre HMO/PP O/POS HEALTHCARE HEALTHCARE PPO sent [facility] xxxxxxxxx 2019-Pre [phone] P [address] Me dicaid WOMEN sent [id number] [place] [address] documented as of this encounter Advance Directives Name Relationship Healthcare Agent Communication Relationship Solitario Olea Spouse Primary healthcare agent Verona Baron Mother [facility] agent (Home)
--- OUTSIDE RECORDS SUMMARY | 2020-02-08 11:19 | XMS REPORT | Summary of Care ---
:1975 Author Organization [facility] Address [address] [place] [address] Care Team Providers Name Role Phone Visit, Nurse Unavailable Unavailable Jeffry Locke MD Insurance Hmo Jeffry Locke MD Primary Care Provider Reason for Visit Reason Comments Appointment Referral/consult Encounter Details Date Type Department Care Team Description 01/14/2020 Telephone [facility] Women's Randee Locke Appointment; Healthcare- Shaun Teran MD Referral/consult 146 [facility], [address] [facility] [address] [facility] 103 [place], [place] [address] [phone] Allergies No Known Allergiesdocumented as of this [...] tablets by Essential mouth daily. 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 Utility Elevated blood pressure reading without diagnosis [...] Internal Medicine Pat Locke MD [address] [address] [phone] 02/14/2020 Office Visit [facility] Satellites Mc Boogie, CNP [address] [place] [address] Haider Ware, PATIENT DAY COORDINATOR [address] [place] [address] Health Maintenance Due Date Last Done Comments [...] Effective Phone Address T e Group Dates [facility] [id number] 2019-Pre HMO/PP O/POS HEALTHCARE HEALTHCARE PPO sent [facility] [place] [facility]W-[facility] xxxxxxxxx 2019-Pre [phone] [address] Me dicaid WOMEN sent [id number] [place] [address] documented as of this encounter Advance Directives Name Relationship Healthcare Agent Communication Relationship Solitario Olea Spouse Primary healthcare agent Verona Baron Mother First [place] [phone] agent (Home)
--- OUTSIDE RECORDS SUMMARY | 2020-02-08 11:19 | XMS REPORT | Summary of Care ---
:1975 Author Organization [facility] Address [address] [place] [address] Care Team Providers Name Role Phone Visit, Nurse Unavailable Unavailable Jeffry Locke MD Insurance Hmo Jeffry Locke MD Primary Care Provider Reason for Visit Reason Comments Refill Request Encounter Details Date Type Department Care Team Description 01/16/2020 Refill [facility] Pediatric and Elyssa Locke, Refill Request Adult Primary Care- MD Dunn [address] [place] [address], [address] [place] [address] [place] [address] [phone] Allergies No Known Allergiesdocumented as of this encounter (statuses as of 01/16/2020) Medications Medication Sig Dispensed Refills Start End [...] Muscle as needed for spasm pain cholestyramine 4 grams/1 210 g 11 Activ [...] by 0 Essential mouth daily. hypertension, benign vxrjtj-ozmdsotn-edh Take 2 180 capsule 3 Active lase 12,000-38,000 capsules by 0 -60,000 unit mouth 3 capsuleIndications: (three) times Epigastric pain daily with meals. fluconazole 150 mg Take 1 pill 2 tablet 3 Active tabletIndications: now and 1 in 0 Antibiotics causing 72 hours. adverse effect in therapeutic use, initial encounter furosemide 20 mg Take 1 tablet 90 tablet 2 Active tabletIndications: by mouth 0 Essential daily. hypertension, benign FUROSEMIDE 20 mg TAKE ONE 90 tablet 2 01/16/20 Dis continued tabletIndications: TABLET BY 9 20 ( Reorder) Essential MOUTH DAILY hypertension, benign documented as of this encounter (statuses as of 01/16/2020) Active Problems Problem Noted Date Abdominal pain 04/27/2019 Contraceptive management 12/19/2018 Essential hypertension, benign 07/07/2017 Hyperlipidemia, unspecified hyperlipidemia type 2015 HLD (hyperlipidemia) 04/05/2016 Chronic pelvic pain in female 07/30/2015 Morbid obesity 10/05/2014 Ovarian cyst 05/29/2014 documented as of this encounter (statuses as of 01/16/2020) Resolved Problems Problem Noted Date Resolved Date Sigmoid diverticulitis 05/15/2019 01/06/2020 Overview: Added automatically from request for susanna delgado [id number] History of 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 12/19/2018 01/06/2020 Encounter for surveillance of injectable contraceptive 07/2801/06/2020 Well woman exam 07/28/2016 01/06/2020 Surveillance of previously prescribed contraceptive method 1 12/06/2013 04/05/2016 Overview: ICD10 Diagnosis Term 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 H/O 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 10/05/2014 04/05/2016 Acute upper respiratory infection 10/05/20142014 Overview: ICD10 Diagnosis Term 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 Elevated blood pressure reading without diagnosis of 014 10/05/2014 hypertension documented as of this encounter (statuses as of 01/16/2020) Immunizations Name Administration Dates Next Due Influenza [...] Internal Medicine Pat Locke MD [address] [address] [phone] 02/14/2020 Office Visit [facility], [facility] [address] [place] [address] [phone] Haider Ware, CAN REPAIRER [address] [place] [address] Health Maintenance Due Date Last Done Comments [...] ID Effective Phone Address T e Group [facility] [id number] 2019-Pre HMO/PP O/POS HEALTHCARE HEALTHCARE PPO sent [facility] xxxxxxxxx 2019-Pre [phone] [address] dicaid WOMEN sent [phone] [id number] [place] [address] documented as of this encounter Advance Directives Name Relationship Healthcare Agent Communication Relationship Solitario Olea Spouse Primary healthcare agent Verona Baron Mother First [facility] agent (Home)
--- OUTSIDE RECORDS SUMMARY | 2020-02-08 11:20 | XMS REPORT | Summary of Care ---
:1975 Author Organization [facility] [employer] Address [address] [place] [address] Care Team Providers Name Role Phone Visit, Nurse Unavailable Unavailable Jeffry Locke MD Insurance Hmo Jeffry Locke MD Primary Care Provider Reason for Visit Reason Comments Assessment abdominal pain, alt visit Encounter Details Date Type Department Care Team Description 01/21/2020 Telephone [facility] Pediatric Louise Locke Assessment (abdominal and Adult Primary AMD pain, alt visit) [facility] [address] [address] [place] [address] [place] [phone] [address] [phone] Allergies No Known Allergiesdocumented as of this encounter (statuses as of 01/21/2020) Medications Medication Sig Dispensed Refills Start End [...] Essential MOUTH TWICE A hypertension, DAY benign gabapentin 300 mg Take 3 270 capsule [...] as needed for Nausea and Vomiting (N/V). amitriptyline 50 mg Take 1 tablet 30 tablet 3 Active tabletIndications: by mouth at 0 Chronic pelvic pain bedtime. in female, Pain in both lower extremities, Chronic midline low back pain with bilateral sciatica amLODIPine 5 mg Take 1.5 45 tablet 3 Acti ve tabletIndications: tablets by 0 Essential mouth daily. hypertension, benign kcrmhm-vhzhypmk-fgz Take 2 180 capsule 3 Active lase [...] by mouth 0 Essential daily. hypertension, benign DULOXETINE 60 mg TAKE ONE 90 capsule 3 Ac tive capsuleIndications: CAPSULE BY 0 Chronic pelvic pain MOUTH DAILY in female esomeprazole Take 1 180 capsule 3 Activ e (NEXIUM) 40 mg capsule by 0 capsuleIndications: mouth 2 (two) Epigastric pain times daily. ciprofloxacin HCl Take 1 tablet 60 tablet 0 02/20/20 Active 500 mg by mouth 0 20 tabletIndications: every 12 Chronic pelvic pain (twelve) in female hours for 30 days. metroNIDAZOLE Take 1 tablet 90 tablet 0 02/20/20 Ac tive (FLAGYL) 500 mg by mouth 0 20 tabletIndications: every 8 Chronic pelvic pain (eight) hours in female for 30 days. amoxicillin-clavula Take 1 tablet 60 tablet 1 Discontinued jennifer (AUGMENTIN) by mouth 2 0 20 (A lternate 875-125 mg per (two) times the rapy) tabletIndications: daily for 60 Chronic abdominal days. pain, Chronic pelvic pain in female, UTI symptoms documented as of this encounter (statuses as [...] Added automatically from request for susanna delgado [id number] History of 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 12/19/2018 01/06/2020 Encounter for surveillance of injectable contraceptive 07/2801/06/2020 Well woman exam 07/28/2016 01/06/2020 Surveillance of previously prescribed contraceptive method 1 12/06/2013 04/05/2016 Overview: ICD10 Diagnosis Term Verification Engineer Utility H/O 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 10/05/2014 04/05/2016 Acute upper respiratory infection 10/05/20142014 Overview: ICD10 Diagnosis Term Verification Engineer Utility Elevated blood pressure reading without diagnosis [...] Treatment Date Type Specialty Care Team Description 02/14/2020 Office Visit [facility], CNP [address] [place] [address] Haider Ware, TREE DRILLER [address] [place] [address] Health Maintenance Due Date Last Done Comments [...] Diagnoses Diagnosis Chronic pelvic pain in female - Primary Unspecified symptom associated with fema le genital organs documented in this encounter Insurance Payer Benefit Plan / Subscriber ID Effective Phone Address T [facility] Group Dates [facility] [id number] 2019-Pre HMO/PP O/POS [facility] PPO sent [facility] xxxxxxxxx 2019-Pre [phone] [address] dicaid WOMEN sent [id number] [place] [address] documented as of this encounter Advance Directives Name Relationship Healthcare Agent Communication Relationship Solitario Olea Spouse Primary healthcare agent Verona Baron Mother [place] [phone] agent (Home)
--- OUTSIDE RECORDS SUMMARY | 2020-02-08 11:20 | XMS REPORT | Summary of Care ---
:1975 Author Organization [facility] Address [address] [place] [address] Care Team Providers Name Role Phone Visit, Nurse Unavailable Unavailable Jeffry Locke MD Insurance Hmo Jeffry Locke MD Primary Care Provider Reason for Visit Reason Comments Refill Request Encounter Details Date Type Department Care Team Description 01/21/2020 Refill [facility] Pediatric and Elyssa Locke, Refill Request Adult Primary Care- MD Dunn [address] [place] [address], [address] [place] [address] [place] [address] [phone] Allergies No Known Allergiesdocumented as of this [...] needed in female, Muscle for pain spasm cholestyramine light 4 grams/1 scoop 210 g [...] MOUTH TWICE Essential A DAY hypertension, benign gabapentin 300 mg Take 3 capsules 270 [...] tablets by Essential mouth daily. hypertension, benign bceuwu-aaaqcjbx-ftyrc Take 2 capsules 180 capsule 3 01/06/2020 [...] tablet 2 01/16/2020 Active tabletIndications: by mouth daily. Essential hypertension, benign DULOXETINE 60 mg TAKE ONE 90 capsule 3 01/21/2020 A ctive capsuleIndications: CAPSULE BY Chronic pelvic pain MOUTH DAILY in female esomeprazole (NEXIUM) Take 1 capsule 180 capsule 3 01/21/2020 Active 40 mg by mouth 2 capsuleIndications: (two) times Epigastric pain daily. documented as of this encounter (statuses [...] Added automatically from request for susanna delgado [id number] History of 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 12/19/2018 01/06/2020 Encounter for surveillance of injectable contraceptive 07/2801/06/2020 Well woman exam 07/28/2016 01/06/2020 Surveillance of previously prescribed contraceptive method 1 12/06/2013 04/05/2016 Overview: ICD10 Diagnosis Term Records Management Engineer Utility H/O 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 10/05/2014 04/05/2016 Acute upper respiratory infection 10/05/20142014 Overview: ICD10 Diagnosis Term Records Management Engineer Utility Elevated blood pressure reading without [...] Medicine Pat Locke MD Arrived [address] [address] [phone] 02/14/2020 Office Visit [facility] [address] [place] [facility] [place] [address] Haider Ware, SENIOR FIREWALL ENGINEER [address] [place] [address] Health Maintenance Due Date Last Done Comments [...] Effective Phone Address T ype Group Dates [facility] [id number] 2019-Pre HMO/PP O/POS HEALTHCARE HEALTHCARE PPO sent [facility] [place] [facility] xxxxxxxxx 2019-Pre [phone] [address] Me dicaid WOMEN sent [id number] [place] [address] documented as of this encounter Advance Directives Name Relationship Healthcare Agent Communication Relationship Solitario Olea Spouse Primary healthcare agent Verona Baron Mother First [place] [phone] agent (Home)
--- OUTSIDE RECORDS SUMMARY | 2020-02-08 11:20 | XMS REPORT | Summary of Care ---
:1975 Author Organization [facility] [address] Address [address] [place] [address] Care Team Providers Name Role Phone Visit, Nurse Unavailable Unavailable Jeffry Locke MD Insurance Hmo Jeffry Locke MD Primary Care Provider Reason for Visit Reason Comments Rx Concern/Question Encounter Details Date Type Department Care Team Description 01/20/2020 Telephone [facility] Pediatric Louise Locke Rx Concern/Question and Adult Primary Care- MD Jeffry [place] [address] [address] [place] [address] [place] [address] [phone] Allergies No Known Allergiesdocumented as of this [...] tablets by Essential mouth daily. hypertension, benign zhwbjw-yzzosxvx-vltdz Take 2 capsules 180 capsule 3 01/06/2020 [...] tabletIndications: by mouth daily. Essential hypertension, benign esomeprazole (NEXIUM) Take 1 capsule 180 capsule [...] Added automatically from request for susanna delgado [id number] History of 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 12/19/2018 01/06/2020 Encounter for surveillance of injectable contraceptive 07/2801/06/2020 Well woman exam 07/28/2016 01/06/2020 Surveillance of previously prescribed contraceptive method 1 12/06/2013 04/05/2016 Overview: ICD10 Diagnosis Term Rug Hooker Utility H/O 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 10/05/2014 04/05/2016 Acute upper respiratory infection 10/05/20142014 Overview: ICD10 Diagnosis Term Rug Hooker Utility Elevated blood pressure reading without diagnosis [...] Medicine Pat Locke MD Arrived [address] [address] 02/14/2020 Office Visit [facility], CNP [address] [place], [place] [address] Haider Ware, TIMBER DEADENER [address] [place], [place] [id number] Health Maintenance Due Date Last Done Comments [...] this encounter Visit Diagnoses Diagnosis Epigastric pain - Primary Abdominal pain, epigastric documented in this encounter Insurance Payer Benefit Plan / Subscriber ID Effective Phone Address T ype Group Dates [facility] [id number] 2019-Pre HMO/PP O/POS HEALTHCARE HEALTHCARE PPO sent [facility] xxxxxxxxx 2019-Pre [phone] [address] Me dicaid WOMEN sent [id number] [place] [address] documented as of this encounter Advance Directives Name Relationship Healthcare Agent Communication Relationship Solitario Olea Spouse Primary healthcare agent Verona Baron Mother First [facility] healthcare agent (Home)
--- OUTSIDE RECORDS SUMMARY | 2020-02-08 11:21 | XMS REPORT | Summary of Care ---
:1975 Author Organization [facility] Address [address] [place] [address] Care Team Providers Name Role Phone Visit, Nurse Unavailable Unavailable Jeffry Locke MD Insurance Hmo Jeffry Locke MD Primary Care Provider Reason for Visit Reason Comments Refill Request Encounter Details Date Type Department Care Team Description 01/22/2020 Refill [facility] Pediatric and Elyssa Locke, Refill Request Adult Primary Care- MD Dunn [address] [place] [address], [address] 3 [address] [place] [address] [place] [address] [phone] Allergies No Known Allergiesdocumented as of this encounter (statuses as of 01/22/2020) Medications Medication Sig Dispensed Refills Start Date [...] in female, Nausea Nausea and Vomiting (N/V). amitriptyline 50 mg Take 1 tablet 30 tablet 3 12/26/2019 Active tabletIndications: by mouth at Chronic pelvic pain bedtime. in female, Pain in both lower extremities, Chronic midline low back pain with bilateral sciatica amLODIPine 5 mg Take 1.5 45 tablet 3 01/06/2020 Act sacha tabletIndications: tablets by Essential mouth daily. hypertension, benign lkfwty-fuqnveui-kbbbj Take 2 capsules 180 capsule 3 01/06/2020 [...] 2 capsuleIndications: (two) times Epigastric pain daily. ciprofloxacin HCl 500 Take 1 tablet 60 tablet 0 01/21/202004/2020 Active mg tabletIndications: by mouth every Chronic pelvic pain 12 (twelve) in female hours for 30 days. metroNIDAZOLE Take 1 tablet 90 tablet 0 01/21/2020 02/20/2020 Active (FLAGYL) 500 mg by mouth every tabletIndications: 8 (eight) hours Chronic pelvic pain for 30 days. in female documented as of this encounter (statuses as of 01/22/2020) Active Problems Problem Noted Date Abdominal pain 04/27/2019 Contraceptive management 12/19/2018 Essential hypertension, benign 07/07/2017 Hyperlipidemia, unspecified hyperlipidemia type 2015 HLD (hyperlipidemia) 04/05/2016 Chronic pelvic pain in female 07/30/2015 Morbid obesity 10/05/2014 Ovarian cyst 05/29/2014 documented as of this encounter (statuses as of 01/22/2020) Resolved Problems Problem Noted Date Resolved Date Sigmoid diverticulitis 05/15/2019 01/06/2020 Overview: Added automatically from request for susanna danny [id number] History of 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 12/19/2018 01/06/2020 Encounter for surveillance of injectable contraceptive 07/2801/06/2020 Well woman exam 07/28/2016 01/06/2020 Surveillance of previously prescribed contraceptive method 1 12/06/2013 04/05/2016 Overview: ICD10 Diagnosis 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 Of Revenue Cycle Management Utility H/O 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 10/05/2014 04/05/2016 Acute upper respiratory infection 10/05/20142014 Overview: ICD10 Diagnosis 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 Of Revenue Cycle Management Utility Elevated blood pressure reading without diagnosis of 014 10/05/2014 hypertension documented as of this encounter (statuses as of 01/22/2020) Immunizations Name Administration Dates Next Due Influenza [...] Treatment Date Type Specialty Care Team Description 02/13/2020 Office Visit Internal Medicine Pat Locke MD [address] [address] [phone] 02/14/2020 Office Visit [facility] C, CNP [address] [place] [address] Haider Ware, MATERIAL CONTROL ASSOCIATE [address] [place] [address] [phone] Health Maintenance Due Date Last Done Comments [...] Effective Phone Address T ype Group Dates [facility] [id number] 2019-Pre HMO/PP O/POS HEALTHCARE HEALTHCARE PPO sent [facility] [place] [facility] xxxxxxxxx 2019-Pre [phone] [address] Me dicaid WOMEN sent [id number] [place] [address] documented as of this encounter Advance Directives Name Relationship Healthcare Agent Communication Relationship Solitario Olea Spouse Primary healthcare agent Verona Baron Mother First [facility] agent (Home)
--- OUTSIDE RECORDS SUMMARY | 2020-02-08 11:21 | XMS REPORT | Summary of Care ---
:1975 Author Organization [facility] [employer] Address [address] [place] [address] Care Team Providers Name Role Phone Visit, Nurse Unavailable Unavailable Jeffry Locke MD Insurance Hmo Jeffry Locke MD Primary Care Provider Reason for Visit Reason Comments Rx Concern/Question Encounter Details Date Type Department Care Team Description 01/21/2020 Telephone [facility] Pediatric Louise Locke Rx Concern/Question and Adult Primary Care- MD Jeffry [place] [address] [address] [place] [address] [place] [address] [phone] Allergies No Known Allergiesdocumented as of this [...] as needed female, Muscle spasm for pain cholestyramine light 4 4 grams/1 scoop 210 [...] MOUTH TWICE A Essential DAY hypertension, benign gabapentin 300 mg Take 3 capsules 270 capsule 3 11/15/2019 Active capsuleIndications: by mouth 3 Chronic pelvic pain in (three) times female daily. traMADol 50 mg Take 2 tablets 180 tablet 3 12/20/2019 Active tabletIndications: by mouth every 8 Chronic pelvic pain in (eight) hours as female needed (severe chronic pelvic pain). ondansetron (ZOFRAN) 4 Take 1 tablet by 30 tablet 11 12/20/2019 Active mg tabletIndications: mouth every 8 Chronic pelvic pain in (eight) hours as female, Nausea needed for Nausea and Vomiting (N/V). amitriptyline 50 mg Take 1 tablet by 30 tablet 3 12/26/2019 Active tabletIndications: mouth at Chronic pelvic pain in bedtime. female, Pain in both lower extremities, Chronic midline low back pain with bilateral sciatica amLODIPine 5 mg Take 1.5 tablets 45 tablet 3 01/06/2020 Active tabletIndications: by mouth daily. Essential hypertension, benign vkgghf-mulikdke-poxugx Take 2 capsules 180 capsule 3 0 Active e 12,000-38,000 by mouth 3 -60,000 unit (three) times capsuleIndications: daily with Epigastric pain meals. fluconazole 150 mg Take 1 pill now 2 tablet 3 01/06/2020 Active tabletIndications: and 1 in 72 Antibiotics causing hours. adverse effect in therapeutic use, initial encounter furosemide 20 mg Take 1 tablet by 90 tablet 2 01/16/2020 Active tabletIndications: mouth daily. Essential hypertension, benign DULOXETINE 60 mg TAKE ONE CAPSULE 90 capsule 3 01/21/2020 Active capsuleIndications: BY MOUTH DAILY Chronic pelvic pain in female esomeprazole (NEXIUM) Take 1 capsule 180 capsule 3 01/21/2020 Active 40 mg by mouth 2 (two) capsuleIndications: times daily. Epigastric pain documented as of this encounter (statuses as [...] Added automatically from request for susanna delgado [id number] History of 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 12/19/2018 01/06/2020 Encounter for surveillance of injectable contraceptive 07/2801/06/2020 Well woman exam 07/28/2016 01/06/2020 Surveillance of previously prescribed contraceptive method 1 12/06/2013 04/05/2016 Overview: ICD10 Diagnosis Term Scientific Informatics Project Leader Utility H/O 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 10/05/2014 04/05/2016 Acute upper respiratory infection 10/05/20142014 Overview: ICD10 Diagnosis Term Scientific Informatics Project Leader Utility Elevated blood pressure reading without diagnosis [...] Internal Medicine Pat Locke MD [address] [address] [phone] 02/14/2020 [facility] [address] [place] [address] [phone] Haider Ware, BAGGER AND STOCK HANDLER HELPER [address] [place] [address] [phone] Health Maintenance Due Date Last Done Comments [...] ID Effective Phone Address T e Group [facility] [id number] 2019-Pre HMO/PP O/POS HEALTHCARE HEALTHCARE PPO sent [employer] [place] [facility] xxxxxxxxx 2019-Pre [phone] [address] Me dicaid WOMEN sent [id number] [place] [address] documented as of this encounter Advance Directives Name Relationship Healthcare Agent Communication Relationship Solitario Olea Spouse Primary healthcare agent Verona Baron Mother First [place] [phone] agent (Home)
[2020-02-08] MEDS ORDERED: IBUPROFEN 200 MG TAB PO ONE (12:22)
[2020-02-08] MEDS ORDERED: CYCLOBENZAPRINE 10 MG TAB ONE (12:22)
[2020-02-08] MEDS ORDERED: ACETAMINOPHEN 325 MG TABLET ONE (12:22)
[2020-02-08] MEDS ORDERED: IBUPROFEN 400 MG TAB ONE (12:23)
--- NOTE | 2020-02-08 12:31 | EDPHYS ---
Physician Documentation [facility] Name: So Olea Age: 44 yrs Sex: Female : 1975 Arrival Date: 02/08/2020 Time: 11:13 Bed 14 Private MD: ED Physician Edinson Walker HPI: 02/07 12:24 This 44 yrs old Female presents to ER via Ambulatory with complaints of Leg la1 Pain. 12:24 The patient presents with pain, spasm. The complaints affect the right leg, thigh, la1 knee, calf area, foot. Context: The problem was sustained at an unknown site, the patient can fully bear weight, the patient is able to ambulate, with mild difficulty, no injury. Onset: The symptoms/episode began/occurred 2 week(s) ago. Modifying factors: The symptoms are alleviated by nothing. the symptoms are aggravated by movement, weight bearing, bending knee. Associated signs and symptoms: Pertinent positives: numbness, tingling, Pertinent negatives calf tenderness, fever, nausea, swelling. Severity of symptoms: At their worst the symptoms were moderate. The patient has experienced a previous episode. Historical: - PMHx: 11:31 Endometriosis; Hypertension; Ovarian cysts; GERD; Chronic pain; hb - PSHx: 11: None; hb - Immunization history:: Adult Immunizations up to date. - Social history:: Smoking status: Patient denies any tobacco usage or history of. ROS: 12:25 Constitutional: Negative for fever, chills, and weight loss, Eyes: Negative for injury, la1 pain, redness, and discharge, Neck: Negative for injury, pain, and swelling, Cardiovascular: Negative for chest pain, palpitations, and edema, Respiratory: Negative for shortness of breath, cough, wheezing, and pleuritic chest pain, Abdomen/GI: Negative for abdominal pain, nausea, vomiting, diarrhea, and constipation, Back: Negative for injury and pain. 12:25 Skin: Negative for injury, rash, and discoloration. 12:25 MS/extremity: Positive for pain, tingling, of the Right leg from posterior hip to foot. Exam: 12:26 Constitutional: This is a well developed, well nourished patient who is awake, alert, la1 and in no acute distress. Head/Face: Normocephalic, atraumatic. Chest/axilla: Normal chest wall motion. Cardiovascular: Regular rate and rhythm with a normal S1 and S2. Respiratory: Lungs have equal breath sounds bilaterally, clear to auscultation 12:26 Skin: Warm, dry with normal turgor. Normal color with no rashes, no lesions, and no evidence of cellulitis. MS/ Extremity: Pulses equal, no cyanosis. Neurovascular intact. Neuro: Awake and alert, GCS 15, oriented to person, place, time, and situation. Cranial nerves II-XII grossly intact. Motor strength 5/5 in all extremities. Sensory grossly intact. 12:26 Back: ROM is painful, with all movement, CVA tenderness, is absent, vertebral tenderness, is not appreciated, Straight leg raises: right lower extremity illicits pain, at 30 degrees. Vital Signs: 11:29 BP 147 / 77; Pulse 87; Resp 16; Temp 97.8; Pulse Ox 100% ; Weight 106.59 kg; Height 5 hb ft. 6 in. (167.64 cm); Pain 6/10; 11:29 Body Mass Index 37.93 (106.59 kg, 167.64 cm) hb MDM: 11:36 Patient medically screened. mary 12:27 Data reviewed: vital signs, nurses notes, and as a result, I will discharge patient. la1 Data interpreted: Pulse oximetry: on room air is 100 %. Interpretation: normal. Counseling: I had a detailed discussion with the patient and/or guardian regarding: the historical points, exam findings, and any diagnostic results supporting the discharge/admit diagnosis, the need for outpatient follow up, a family practitioner, to return to the emergency department if symptoms worsen or persist or if there are any questions or concerns that arise at home. Special discussion: Based on the patient's history, exam, and Dx evaluation, there is no indication for emergent intervention or inpatient Tx. It is understood by the patient/guardian that if the Sx's persist or worsen they need to return immediately for re-evaluation. ED course: pt without saddle anesthesia, urine/bowel incontinence or reported retention, no nursing home steroid use, no IV drug use reported, no injury/falls, no calf tenderness. Pt has had sx for 2 weeks, good strength with dorsi and plantar flexion of right foot. . Administered Medications: 12:22 Drug: Ibuprofen 600 mg Route: PO; ll1 12:22 Drug: Tylenol 650 mg Route: PO; ll1 12:22 Drug: Flexeril 10 mg Route: PO; ll1 Disposition: 02/08/20 12:30 Discharged to Home. Impression: Sciatica, right side, Pain in right leg. - Condition is Stable. - Discharge Instructions: Musculoskeletal Pain, Sciatica, Sciatica, [id number]. - Prescriptions for Tylenol- Codeine #3 300-30 mg Oral Tablet - take 2 tablets by ORAL route every 6 hours As needed; 20 tablet. Cyclobenzaprine 10 mg Oral Tablet - take 1 tablet by ORAL route every 8 hours As needed; 20 tablet. Medrol (Artemio) 4 mg Oral Tablets, Dose Pack - take 1 tablet by ORAL route as directed - follow package instructions; 1 packet. - Work release form, Medication Reconciliation Form, Thank You Letter, Prescription Opioid Use form. - Follow up: Private Physician; When: 2 - 3 days; Reason: Recheck today's complaints, Continuance of care, Re-evaluation by your physician. Follow up: Emergency Department; When: As needed; Reason: Worsening of condition. - Problem is an ongoing problem. - Symptoms are unchanged. Addendum: 02/10/2020 09:55 Co-signature as Attending Physician, Edinson Walker MD I agree with the assessment and c maharaj plan of care. Signatures: Edinson Walker MD MD cha Attema, Lee, DIGITAL SALES PLANNER-C DIGITAL SALES PLANNER-Cla1 Kiera Swanson RN RN Carmelina Small RN RN ll1 Corrections: (The following items were deleted from the chart) 02/07 12:50 12:30 02/08/2020 12:30 Discharged to Home. Impression: Sciatica, right side; Pain in hb right leg. Condition is Stable. Forms are Medication Reconciliation Form, Thank You Letter, Antibiotic Education, Prescription Opioid Use. Follow up: Private Physician; When: 2 - 3 days; Reason: Recheck today's complaints, Continuance of care, Re-evaluation by your physician. Follow up: Emergency Department; When: As needed; Reason: Worsening of condition. Problem is an ongoing problem. Symptoms are unchanged. la1
--- NOTE | 2020-02-08 12:31 | ER ---
Nurse's Notes [facility] Name: So Olea Age: 44 yrs Sex: Female : 1975 Arrival Date: 02/08/2020 Time: 11:13 Bed 14 Private MD: Diagnosis: Sciatica, right side;Pain in right leg Presentation: 02/07 11:29 Chief complaint: Right knee pain that radiates to right lower leg x 2 months. Report hb pain started in right low back then moved to right leg. Denies injury. Coronavirus screen: Proceed with normal triage. Ebola Screen: No symptoms or risks identified at this time. Initial Sepsis Screen: Does the patient meet any 2 criteria? No. Patient's initial sepsis screen is negative. Does the patient have a suspected source of infection? No. Patient's initial sepsis screen is negative. Risk Assessment: Do you want to hurt yourself or someone else? Patient reports no desire to harm self or others. Onset of symptoms was January 2020. 11:29 Method Of Arrival: Ambulatory hb 11:29 Acuity: JERROD 4 hb Triage Assessment: 11:32 General: Appears in no apparent distress. Behavior is calm, cooperative. Pain: Pain hb currently is 6 out of 10 on a pain scale. EENT: No signs and/or symptoms were reported regarding the EENT system. Neuro: Level of Consciousness is awake, alert, obeys commands, Oriented to person, place, time, situation. Cardiovascular: Capillary refill < 3 seconds Patient's skin is warm and dry. Respiratory: Airway is patent Respiratory effort is even, unlabored, Respiratory pattern is regular, symmetrical. GI: No signs and/or symptoms were reported involving the gastrointestinal system. : No signs and/or symptoms were reported regarding the genitourinary system. Derm: Skin is pink, warm \T\ dry. Musculoskeletal: Reports right knee pain. Historical: - PMHx: 11:31 Endometriosis; Hypertension; Ovarian cysts; GERD; Chronic pain; hb - PSHx: 11:31 None; hb - Immunization history:: Adult Immunizations up to date. - Social history:: Smoking status: Patient denies any tobacco usage or history of. Screenin:50 Abuse screen: Denies threats or abuse. Denies injuries from another. Nutritional hb screening: No deficits noted. Tuberculosis screening: No symptoms or risk factors identified. Fall Risk None identified. Assessment: 11:35 General: see triage assessment. hb 12:30 Reassessment: Patient appears in no apparent distress at this time. Patient and/or hb family updated on plan of care and expected duration. Pain level reassessed. Patient is alert, oriented x 3, equal unlabored respirations, skin warm/dry/pink. Vital Signs: 11:29 BP 147 / 77; Pulse 87; Resp 16; Temp 97.8; Pulse Ox 100% ; Weight 106.59 kg; Height 5 hb ft. 6 in. (167.64 cm); Pain 6/10; 11:29 Body Mass Index 37.93 (106.59 kg, 167.64 cm) hb ED Course: 11:13 Patient arrived in ED. mr 11:28 Kodak Garcia FNP-C [facility]. la1 11:28 Edinson Walker MD is Attending Physician. la1 11:31 Triage completed. hb 11:31 Arm band placed on. hb 11:47 Carmelina Small RN is Primary Nurse. ll1 11:50 Patient has correct armband on for positive identification. Bed in low position. Call hb light in reach. Side rails up X 1. 12:49 No provider procedures requiring assistance completed. Patient did not have IV access hb during this emergency room visit. Administered Medications: 12:22 Drug: Ibuprofen 600 mg Route: PO; ll1 12:22 Drug: Tylenol 650 mg Route: PO; ll1 12:22 Drug: Flexeril 10 mg Route: PO; ll1 Outcome: 12:30 Discharge ordered by . la1 12:49 Discharged to home ambulatory. hb 12:49 Condition: stable 12:49 Discharge instructions given to patient, Instructed on discharge instructions, follow up and referral plans. medication usage, Demonstrated understanding of instructions, follow-up care, medications, Prescriptions given X 3. 12:50 Patient left the ED. hb Signatures: Curry Marielos mr Kodak Garcia FNP-C FNP-Cla1 Kiera Swanson RN RN Carmelina Preston RN RN ll1 Corrections: (The following items were deleted from the chart) 11:55 11:55 General: see triage assessment. hb hb
[2020-02-08 12:55] VITALS: BP 147/77; TEMP 97.8; O2SAT 100
== END 2020-02-08 12:50 | disposition home or self-care (01) ==
LOC: ER 11:10
DX: M54.31 Sciatica, right side (principal); I10 Essential (primary) hypertension
CPT/HCPCS: 99283

== ENCOUNTER 2020-06-15 13:48 | Emergency (ER) | payer OTHER ==
--- OUTSIDE RECORDS SUMMARY | 2020-06-15 13:51 | XMS REPORT | Summary of Care ---
:1975 Author Organization [facility] - [facility] Address [address] [place] [id number] Care Team Providers Name Role Phone Visit, Nurse Unavailable Unavailable Jeffry Locke MD Insurance Hmo Jeffry Locke MD Primary Care Provider Reason for Visit Reason Comments Refill Request Encounter Details Date Type Department Care Team Description 03/09/2020 Refill [facility] Pediatric and Elyssa Locke, Refill Request Adult Primary Care- MD Dunn [address] [place] [address], [address] [place] [address] [place] [address] [phone] Allergies No Known Allergiesdocumented as of this encounter (statuses as of 03/18/2020) Medications Medication Sig Dispensed Refills Start Date [...] MOUTH TWICE A Essential DAY hypertension, benign traMADol 50 mg Take 2 tablets 180 [...] tabletIndications: by mouth daily. Essential hypertension, benign zsnlwv-nhoyhdne-tozpad Take 2 capsules 180 capsule 3 0 Active e 12,000-38,000 by mouth 3 -60,000 unit (three) times capsuleIndications: daily with Epigastric pain meals. furosemide 20 mg Take 1 tablet by 90 tablet 2 01/16/2020 Active tabletIndications: mouth daily. Essential hypertension, benign DULOXETINE 60 mg TAKE ONE CAPSULE 90 capsule 3 01/21/2020 Active capsuleIndications: BY MOUTH DAILY Chronic pelvic pain in female esomeprazole (NEXIUM) Take 1 capsule 180 capsule 3 01/21/2020 Active 40 mg by mouth 2 (two) capsuleIndications: times daily. Epigastric pain butalbital-acetaminoph Take 1 tablet by 60 tablet 0 02/19/2020 Active en-caff 50-325-40 mg mouth every 4 tabletIndications: (four) hours as Migraine equivalent needed syndrome (Migraine). ondansetron (ZOFRAN) 4 Take 1 tablet by 30 tablet 0 02/19/2020 Active mg tabletIndications: mouth every 12 Nausea (twelve) hours. PREVALITE 4 gram TAKE 1 PACKET BY 120 Packet 3 03/18/2020 Active packetIndications: MOUTH Chronic pelvic pain in DIRECTED FOUR female TIMES DAILY (CAN USE CAN IF PACKET UNAVAILABLE) Hospital, Clinic, or Other Ordered Dose Route Frequency Start Date End Date Status Facility Administered Medication medroxyPROGESTERone 150 mg IM [id number] 02/14/2020 1 Active (DEPO-PROVERA) injection 150 mgIndications: Encounter for other contraceptive management documented as of this encounter (statuses as of 03/18/2020) Active Problems Problem Noted Date Migraine equivalent syndrome 02/19/2020 Nausea 02/19/2020 Fatigue, unspecified type 02/19/2020 Well woman exam 02/14/2020 Contraception management 02/14/2020 Epigastric pain 02/10/2020 Abdominal pain 04/27/2019 Contraceptive management 12/19/2018 Essential hypertension, benign 07/07/2017 Hyperlipidemia, unspecified hyperlipidemia type 2015 HLD (hyperlipidemia) 04/05/2016 Chronic pelvic pain in female 07/30/2015 Morbid obesity 10/05/2014 Ovarian cyst 05/29/2014 documented as of this encounter (statuses as of 03/18/2020) Resolved Problems Problem Noted Date Resolved Date Sigmoid diverticulitis 05/15/2019 01/06/2020 Overview: Added automatically from request for susanna danny [id number] History of 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 12/19/2018 01/06/2020 Encounter for surveillance of injectable contraceptive 07/2801/06/2020 Well woman exam 07/28/2016 01/06/2020 Surveillance of previously prescribed contraceptive method 1 12/06/2013 04/05/2016 Overview: ICD10 Diagnosis Term 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 COVID-19 Exposure Response Date Recorded In the last month, have you been in contact with No / Unsure 02/19/2020 2:10 PM CDT someone who was confirmed or suspected to have Coronavirus / COVID-19? documented as of this encounter Last Filed Vital Signs Not on filedocumented in this encounter Plan of Treatment Date Type Specialty Care Team Description 05/15/2020 [facility] Visit [facility] [place] [address], [place] [address] [phone] Health Maintenance Due Date Last Done Comments PAP SMEAR 07/31/2020 07/31/2017, 05/29/2014, 10/01/2010, Additional history exists Breast Cancer Screening 10/30/2020 Postpone d from (MAMMOGRAM) 2017 ([place]) Depression Screening 02/18/2021 02/19/2020 DTaP,Tdap,and Td Vaccines 05/29/2024 05/29/2014 (2 - [...] Address T ype Group Dates [employer] [id number] 2019-Pre HMO/PP O/POS HEALTHCARE HEALTHCARE PPO sent [facility] xxxxxxxxx 2019-Pre [phone] dicaid WOMEN sent [phone] [place] [address] documented as of this encounter Advance Directives Name Relationship Healthcare Agent Communication Relationship Solitario Olea Spouse Primary healthcare agent Verona Baron Mother [facility] agent (Home)
--- OUTSIDE RECORDS SUMMARY | 2020-06-15 13:51 | XMS REPORT | Continuity of Care Document ---
:1975 Author Organization [facility] t Address [address] [place] [address] Care Team Providers Name Role Phone Jeffry Locke MD Attending Clinician Problems This patient has no known problems. Allergies, Adverse Reactions, Alerts This patient has no known allergies or adverse reactions. Medications This patient has no known medications. Procedures This patient has no known procedures. Encounters Start End Encounter Admission Attending Care Care Encounter Source Date/Time Date/Time Type Type Clinicians Facility Department ID 2020-06-15 2020-06-15 Telephone [facility] [id number] 00:00:00 00:00:00 Randee Dunn [id number] Olga Lidia [id number] Professio [phone] [address] 2020-06-12 2020-06-12 Patient [facility] [id number] 00:00:00 00:00:00 Secure Msg Randee Dunn [id number] Olga Lidia [id number] Professio [phone] [address] 2020-06-05 2020-06-05 Office [facility] [id number] 13:38:13 14:48:45 Visit Randee Dunn [id number] Olga Lidia [id number] [facility] [phone] [facility] [address] [facility] 2020-06-05 2020-06-05 Telephone NORMA Locke [id number] 00:00:00 00:00:00 Randee Dunn [id number] [place] [id number] [facility] [phone] [address] Results This patient has no known results.
--- OUTSIDE RECORDS SUMMARY | 2020-06-15 13:51 | XMS REPORT | Summary of Care ---
:1975 Author Organization [facility] - [facility] Address [address] [place] [address] Care Team Providers Name Role Phone Visit, Nurse Unavailable Unavailable Jeffry Locke MD Insurance Hmo Jeffry Locke MD Primary Care Provider Reason for Visit Reason Comments Refill Request Encounter Details Date Type Department Care Team Description 04/02/2020 Refill [facility] Pediatric and Elyssa Locke, Refill Request Adult Primary Care- MD Dunn [address] [place] [address] 146 [facility] [address] [place] [address] [place] [address] [phone] Allergies No Known Allergiesdocumented as of this encounter (statuses as of 04/05/2020) Medications Medication Sig Dispensed Refills Start Date [...] Essential MOUTH TWICE A hypertension, benign DAY traMADol 50 mg Take 2 180 tablet [...] tablets by Essential mouth daily. hypertension, benign [id number]-ltkxbxgd-djcq Take 2 180 capsule 3 01/06/2020 Active ase 12,000-38,000 capsules by -60,000 unit mouth 3 capsuleIndications: (three) times Epigastric pain daily with meals. DULOXETINE 60 mg TAKE ONE 90 capsule 3 01/21/2020 A ctive capsuleIndications: CAPSULE BY Chronic pelvic pain MOUTH DAILY in female esomeprazole Take 1 180 capsule 3 01/21/2020 Acti ve (NEXIUM) 40 mg capsule by capsuleIndications: mouth 2 (two) Epigastric pain times daily. butalbital-acetamino Take 1 tablet 60 tablet 0 02/19/2020 Active phen-caff 50-325-40 by mouth mg every 4 tabletIndications: (four) hours Migraine equivalent as needed syndrome (Migraine). ondansetron (ZOFRAN) Take 1 tablet 30 tablet 0 02/19/2020 Active 4 mg by mouth tabletIndications: every 12 Nausea (twelve) hours. PREVALITE 4 gram TAKE 1 PACKET 120 Packet 3 03/18/2020 Active packetIndications: BY MOUTH Chronic pelvic pain DIRECTED FOUR in female TIMES DAILY (CAN USE CAN IF PACKET UNAVAILABLE) GABAPENTIN 300 mg TAKE 3 270 capsule 0 03/16/2020 Active capsuleIndications: CAPSULES BY Chronic pelvic pain MOUTH 3 TIMES in female A DAY FUROSEMIDE 20 mg TAKE ONE 90 tablet 1 04/05/2020 Ac tive tabletIndications: TABLET BY Essential MOUTH DAILY hypertension, benign furosemide 20 mg Take 1 tablet 90 tablet 2 01/16/2020 04/05/20 2 Discontinued tabletIndications: by mouth 0 Essential daily. hypertension, benign Hospital, Clinic, or Other Ordered Dose Route Frequency Start Date End Date Status Facility Administered Medication medroxyPROGESTERone 150 mg IM [id number] 02/14/2020 1 Active (DEPO-PROVERA) injection 150 mgIndications: Encounter for other contraceptive management documented as of this encounter (statuses as of 04/05/2020) Active Problems Problem Noted Date Migraine equivalent syndrome 02/19/2020 Nausea 02/19/2020 Fatigue, unspecified type 02/19/2020 Well woman exam 02/14/2020 Contraception management 02/14/2020 Epigastric pain 02/10/2020 Abdominal pain 04/27/2019 Contraceptive management 12/19/2018 Essential hypertension, benign 07/07/2017 Hyperlipidemia, unspecified hyperlipidemia type 2015 HLD (hyperlipidemia) 04/05/2016 Chronic pelvic pain in female 07/30/2015 Morbid obesity 10/05/2014 Ovarian cyst 05/29/2014 documented as of this encounter (statuses as of 04/05/2020) Resolved Problems Problem Noted Date Resolved Date Sigmoid diverticulitis 05/15/2019 01/06/2020 Overview: Added automatically from request for susanna delgado [id number] History of 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 12/19/2018 01/06/2020 Encounter for surveillance of injectable contraceptive 07/2801/06/2020 Well woman exam 07/28/2016 01/06/2020 Surveillance of previously prescribed contraceptive method 1 12/06/2013 04/05/2016 Overview: ICD10 Diagnosis Term 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 H/O 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 10/05/2014 04/05/2016 Acute upper respiratory infection 10/05/20142014 Overview: ICD10 Diagnosis Term 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 Elevated blood pressure reading without diagnosis of 014 10/05/2014 hypertension documented as of this encounter (statuses as of 04/05/2020) Immunizations Name Administration Dates Next Due Influenza Virus Vaccine 06/19/2019 Influenza Virus Vaccine Quad .5 mL IM 6+ MO 11/23/2018 TDAP 05/29/2014 documented as of this encounter Social [...] 05/15/2020 [facility] [place] [address] [place], [place] [address] [phone] Health Maintenance Due Date Last Done Comments [...] Effective Phone Address T e Group Dates [facility] [id number] 2019-Pre HMO/PP O/POS [facility] PPO sent Naldo [facility] xxxxxxxxx 2019-Pre [phone] [address] dicaid WOMEN sent [phone] [place] [address] documented as of this encounter Advance Directives Name Relationship Healthcare Agent Communication Relationship Solitario Olea Spouse Primary healthcare agent Verona Baron Mother First [facility] agent (Home)
--- OUTSIDE RECORDS SUMMARY | 2020-06-15 13:52 | XMS REPORT | Summary of Care ---
:1975 Author Organization [facility] - [facility] Address [address] [place] [address] Care Team Providers Name Role Phone Visit, Nurse Unavailable Unavailable Jeffry Locke MD Insurance Hmo Jeffry Locke MD Primary Care Provider Reason for Visit Reason Comments Refill Request Encounter Details Date Type Department Care Team Description 04/05/2020 Refill [facility] Pediatric and Elyssa Locke, Refill Request Adult Primary Care- MD Dunn [address] [place] [address] 146 [facility] [address] [place] [address] [place] [address] [phone] Allergies No Known Allergiesdocumented as of this encounter (statuses as of 04/06/2020) Medications Medication Sig Dispensed Refills Start Date [...] four powderIndications: times a day. Mold exposure LISINOPRIL 10 mg TAKE ONE 180 tablet 2 10/23/2019 A ctive tabletIndications: TABLET BY Essential MOUTH TWICE A hypertension, benign DAY traMADol 50 mg Take 2 180 tablet 3 12/20/2019 Act sacha tabletIndications: tablets by Chronic pelvic pain mouth every 8 in female (eight) hours as needed (severe chronic pelvic pain). amitriptyline 50 mg Take 1 tablet 30 tablet 3 12/26/2019 Active tabletIndications: by mouth at Chronic pelvic pain bedtime. in female, Pain in both lower extremities, Chronic midline low back pain with bilateral sciatica amLODIPine 5 mg Take 1.5 45 tablet 3 01/06/2020 Act sacha tabletIndications: tablets by Essential mouth daily. hypertension, benign vcqykz-zyafoite-rjgo Take 2 180 capsule 3 01/06/2020 Active [...] hours Migraine equivalent as needed syndrome (Migraine). PREVALITE 4 gram TAKE 1 PACKET 120 Packet 3 03/18/2020 Active packetIndications: BY MOUTH Chronic pelvic pain DIRECTED FOUR in female TIMES DAILY (CAN USE CAN IF PACKET UNAVAILABLE) GABAPENTIN 300 mg TAKE 3 270 capsule 0 03/16/2020 Active capsuleIndications: CAPSULES BY Chronic pelvic pain MOUTH 3 TIMES in female A DAY ONDANSETRON 4 mg TAKE 1 TABLET 30 tablet 0 04/05/2020 Active tabletIndications: BY MOUTH Nausea EVERY 12 HOURS FUROSEMIDE 20 mg TAKE ONE 90 tablet 1 04/05/2020 Ac tive tabletIndications: TABLET BY Essential MOUTH DAILY hypertension, benign DICLOFENAC 75 mg EC TAKE 1 TABLET 180 tablet 0 04/06/2020 Active tabletIndications: BY MOUTH Chronic pelvic pain TWICE A DAY in female WITH FOOD diclofenac 75 mg EC Take 1 tablet 180 tablet 3 08/01/201903/17 Discontinued tabletIndications: by mouth 2 0 Chronic pelvic pain (two) times in female daily with meals. Hospital, Clinic, or Other Ordered Dose Route Frequency Start Date End Date Status Facility Administered Medication medroxyPROGESTERone 150 mg IM [id number] 02/14/2020 1 Active (DEPO-PROVERA) injection 150 mgIndications: Encounter for other contraceptive management documented as of this encounter (statuses as of 04/06/2020) Active Problems Problem Noted Date Migraine equivalent syndrome 02/19/2020 Nausea 02/19/2020 Fatigue, unspecified type 02/19/2020 Well woman exam 02/14/2020 Contraception management 02/14/2020 Epigastric pain 02/10/2020 Abdominal pain 04/27/2019 Contraceptive management 12/19/2018 Essential hypertension, benign 07/07/2017 Hyperlipidemia, unspecified hyperlipidemia type 2015 HLD (hyperlipidemia) 04/05/2016 Chronic pelvic pain in female 07/30/2015 Morbid obesity 10/05/2014 Ovarian cyst 05/29/2014 documented as of this encounter (statuses as of 04/06/2020) Resolved Problems Problem Noted Date Resolved Date Sigmoid diverticulitis 05/15/2019 01/06/2020 Overview: Added automatically from request for susanna danny [id number] History of 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 12/19/2018 01/06/2020 Encounter for surveillance of injectable contraceptive 07/2801/06/2020 Well woman exam 07/28/2016 01/06/2020 Surveillance of previously prescribed contraceptive method 1 12/06/2013 04/05/2016 Overview: ICD10 Diagnosis Term 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 H/O 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 10/05/2014 04/05/2016 Acute upper respiratory infection 10/05/20142014 Overview: ICD10 Diagnosis Term 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 Elevated blood pressure reading without diagnosis of 014 10/05/2014 hypertension documented as of this encounter (statuses as of 04/06/2020) Immunizations Name Administration Dates Next Due Influenza [...] 05/15/2020 Office Visit [facility] [place], [facility] [address] [address] 15 [phone] Health Maintenance Due Date Last Done Comments [...] Effective Phone Address T ype Group Dates [facility] [id number] 2019-Pre HMO/PP O/POS HEALTHCARE HEALTHCARE PPO sent [facility] [place] HTW-RMCHP xxxxxxxxx 2019-Pre [phone] [address] Me dicaid WOMEN sent [phone] [place] [address] documented as of this encounter Advance Directives Name Relationship Healthcare Agent Communication Relationship Solitario Olea Spouse Primary healthcare agent Verona Baron Mother [facility] agent (Home)
--- OUTSIDE RECORDS SUMMARY | 2020-06-15 13:52 | XMS REPORT | Summary of Care ---
:1975 Author Organization [facility] Address [address] [place] [address] Care Team Providers Name Role Phone Visit, Nurse Unavailable Unavailable Jeffry Locke MD Insurance Hmo Jeffry Locke MD Primary Care Provider Reason for Visit Reason Comments Refill Request Encounter Details Date Type Department Care Team Description 04/06/2020 Refill [facility] Pediatric and Elyssa Locke, Refill Request Adult Primary Care- MD Dunn [address] [place] [address] 146 [facility] [address] [place] [address] [place] [address] [phone] Allergies No Known Allergiesdocumented as of this encounter (statuses as of 04/08/2020) Medications Medication Sig Dispensed Refills Start Date [...] tablets by Essential mouth daily. hypertension, benign rfgmwj-nqxogtgy-kmdd Take 2 180 capsule 3 01/06/2020 Active [...] DAILY (CAN USE CAN IF PACKET UNAVAILABLE) ONDANSETRON 4 mg TAKE 1 TABLET 30 tablet 0 04/05/2020 Active tabletIndications: BY MOUTH Nausea EVERY 12 HOURS FUROSEMIDE 20 mg TAKE ONE 90 tablet 1 04/05/2020 Ac tive tabletIndications: TABLET BY Essential MOUTH DAILY hypertension, benign DICLOFENAC 75 mg EC TAKE 1 TABLET 180 tablet 0 04/06/2020 Active tabletIndications: BY MOUTH Chronic pelvic pain TWICE A DAY in female WITH FOOD GABAPENTIN 300 mg TAKE 3 270 capsule 3 04/08/2020 Active capsuleIndications: CAPSULES BY Chronic pelvic pain MOUTH 3 TIMES in female A DAY GABAPENTIN 300 mg TAKE 3 270 capsule 0 03/16/2020 Discontinued capsuleIndications: CAPSULES BY 0 Chronic pelvic pain MOUTH 3 TIMES in female A DAY Hospital, Clinic, or Other Ordered Dose Route Frequency Start Date End Date Status Facility Administered Medication medroxyPROGESTERone 150 mg IM [id number] 02/14/2020 1 Active (DEPO-PROVERA) injection 150 mgIndications: Encounter for other contraceptive management documented as of this encounter (statuses as of 04/08/2020) Active Problems Problem Noted Date Migraine equivalent syndrome 02/19/2020 Nausea 02/19/2020 Fatigue, unspecified type 02/19/2020 Well woman exam 02/14/2020 Contraception management 02/14/2020 Epigastric pain 02/10/2020 Abdominal pain 04/27/2019 Contraceptive management 12/19/2018 Essential hypertension, benign 07/07/2017 Hyperlipidemia, unspecified hyperlipidemia type 2015 HLD (hyperlipidemia) 04/05/2016 Chronic pelvic pain in female 07/30/2015 Morbid obesity 10/05/2014 Ovarian cyst 05/29/2014 documented as of this encounter (statuses as of 04/08/2020) Resolved Problems Problem Noted Date Resolved Date Sigmoid diverticulitis 05/15/2019 01/06/2020 Overview: Added automatically from request for susanna danny [id number] History of 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 12/19/2018 01/06/2020 Encounter for surveillance of injectable contraceptive 07/2801/06/2020 Well woman exam 07/28/2016 01/06/2020 Surveillance of previously prescribed contraceptive method 1 12/06/2013 04/05/2016 Overview: ICD10 Diagnosis Term Corporate Pilot Utility H/O 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 10/05/2014 04/05/2016 Acute upper respiratory infection 10/05/20142014 Overview: ICD10 Diagnosis Term Corporate Pilot Utility Elevated blood pressure reading without diagnosis of 014 10/05/2014 hypertension documented as of this encounter (statuses as of 04/08/2020) Immunizations Name Administration Dates Next Due Influenza [...] 05/15/2020 [facility] [address] [address] [phone] Health Maintenance Due Date Last Done Comments [...] Effective Phone Address T ype Group Dates [facility] [id number] 2019-Pre HMO/PP O/POS HEALTHCARE HEALTHCARE PPO sent [facility] [place] HTW-RMCHP xxxxxxxxx 2019-Pre [phone] [address] Me dicaid WOMEN sent [phone] [place] [address] documented as of this encounter Advance Directives Name Relationship Healthcare Agent Communication Relationship Solitario Olea Spouse Primary healthcare agent Verona Baron Mother First [facility] healthcare agent (Home)
--- OUTSIDE RECORDS SUMMARY | 2020-06-15 13:52 | XMS REPORT | Summary of Care ---
:1975 Author Organization [facility] Address [address] [place] [address] Care Team Providers Name Role Phone Visit, Nurse Unavailable Unavailable Jeffry Locke MD Insurance Hmo Jeffry Locke MD Primary Care Provider Reason for Visit Reason Comments Refill Request Encounter Details Date Type Department Care Team Description 04/11/2020 Refill [facility] Pediatric and Elyssa Locke, Refill Request Adult Primary Care- MD Dunn [address] [place] [address] 146 [facility] [address] [place] [address] [place] [address] [phone] Allergies No Known Allergiesdocumented as of this encounter (statuses as of 04/13/2020) Medications Medication Sig Dispensed Refills Start Date End Date Status MULTIVIT Take by 0 Active &MINERALS/FERROUS mouth. FUM (MULTI VITAMIN ORAL) CALCIUM CARB/VIT Take by 0 Act sacha D3/MINERALS mouth. (CALCIUM CARBONATE-VIT D3-MIN ORAL) docusate calcium Take 1 capsule 60 capsule 2 07/09/2017 Active 240 mg capsule by mouth daily. Diclofenac Sodium 1 Take 2-4 grams 100 g 3 01/28/2019 Active % gelIndications: three times a Chronic pelvic pain day as needed in female, Muscle for pain spasm LISINOPRIL 10 mg TAKE ONE 180 tablet 2 10/23/2019 A ctive tabletIndications: TABLET BY Essential MOUTH TWICE A hypertension, DAY benign traMADol 50 mg Take 2 tablets 180 tablet 3 12/20/2019 Active tabletIndications: by mouth every Chronic pelvic pain 8 (eight) in female hours as needed (severe chronic pelvic pain). amLODIPine 5 mg Take 1.5 45 tablet 3 01/06/2020 Act sacha tabletIndications: tablets by Essential mouth daily. hypertension, benign jvwdyl-tonungvd-kvc Take 2 180 capsule 3 01/06/2020 Active lase 12,000-38,000 capsules by -60,000 unit mouth 3 capsuleIndications: (three) times Epigastric pain daily with meals. DULOXETINE 60 mg TAKE ONE 90 capsule 3 01/21/2020 A ctive capsuleIndications: CAPSULE BY Chronic pelvic pain MOUTH DAILY in female esomeprazole Take 1 capsule 180 capsule 3 01/21/2020 Active (NEXIUM) 40 mg by mouth 2 capsuleIndications: (two) times Epigastric pain daily. butalbital-acetamin Take 1 tablet 60 tablet 0 02/19/2020 Active ophen-caff by mouth every 50-325-40 mg 4 (four) hours tabletIndications: as needed Migraine equivalent (Migraine). syndrome ONDANSETRON 4 mg TAKE 1 TABLET 30 tablet 0 04/05/2020 Active tabletIndications: BY MOUTH EVERY Nausea 12 HOURS FUROSEMIDE 20 mg TAKE ONE 90 tablet 1 04/05/2020 Ac tive tabletIndications: TABLET BY Essential MOUTH DAILY hypertension, benign DICLOFENAC 75 mg EC TAKE 1 TABLET 180 tablet 0 04/06/2020 Active tabletIndications: BY MOUTH TWICE Chronic pelvic pain A DAY WITH in female FOOD GABAPENTIN 300 mg TAKE 3 270 capsule 3 04/08/2020 Active capsuleIndications: CAPSULES BY Chronic pelvic pain MOUTH 3 TIMES in female A DAY AMITRIPTYLINE 50 mg TAKE 1 TABLET 90 tablet 3 04/13/2020 Active tabletIndications: BY MOUTH AT Chronic pelvic pain BEDTIME in female, Pain in both lower extremities, Chronic midline low back pain with bilateral sciatica amitriptyline 50 mg Take 1 tablet 30 tablet 3 12/26/201904/13 Discontinued tabletIndications: by mouth at 0 Chronic pelvic pain bedtime. in female, Pain in both lower extremities, Chronic midline low back pain with bilateral sciatica Hospital, Clinic, or Other Ordered Dose Route Frequency Start Date End Date Status Facility Administered Medication medroxyPROGESTERone 150 mg IM [id number] 02/14/2020 1 Active (DEPO-PROVERA) injection 150 mgIndications: Encounter for other contraceptive management documented as of this encounter (statuses as of 04/13/2020) Active Problems Problem Noted Date Migraine equivalent syndrome 02/19/2020 Nausea 02/19/2020 Fatigue, unspecified type 02/19/2020 Well woman exam 02/14/2020 Contraception management 02/14/2020 Epigastric pain 02/10/2020 Abdominal pain 04/27/2019 Contraceptive management 12/19/2018 Essential hypertension, benign 07/07/2017 Hyperlipidemia, unspecified hyperlipidemia type 2015 HLD (hyperlipidemia) 04/05/2016 Chronic pelvic pain in female 07/30/2015 Morbid obesity 10/05/2014 Ovarian cyst 05/29/2014 documented as of this encounter (statuses as of 04/13/2020) Resolved Problems Problem Noted Date Resolved Date Sigmoid diverticulitis 05/15/2019 01/06/2020 Overview: Added automatically from request for susanna delgado [id number] History of 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 12/19/2018 01/06/2020 Encounter for surveillance of injectable contraceptive 07/2801/06/2020 Well woman exam 07/28/2016 01/06/2020 Surveillance of previously prescribed contraceptive method 1 12/06/2013 04/05/2016 Overview: ICD10 Diagnosis 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 H/O 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 10/05/2014 04/05/2016 Acute upper respiratory infection 10/05/20142014 Overview: ICD10 Diagnosis 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 Elevated blood pressure reading without diagnosis of 014 10/05/2014 hypertension documented as of this encounter (statuses as of 04/13/2020) Immunizations Name Administration Dates Next Due Influenza [...] 05/15/2020 Office Visit [facility] [place], [facility] [address] [address] 15 [phone] Health Maintenance Due Date Last Done Comments [...] symptom associated with fema le genital organs Pain in both lower extremities Chronic midline low back pain with bilat eral sciatica documented in this encounter Insurance Payer Benefit Plan / Subscriber ID Effective Phone Address T ype Group Dates [facility] [id number] 2019-Pre HMO/PP O/POS HEALTHCARE HEALTHCARE PPO sent [facility] [place] HTW-RMCHP xxxxxxxxx 2019-Pre [phone] [address] Me dicaid WOMEN sent [phone] [id number] [place] [address] documented as of this encounter Advance Directives Name Relationship Healthcare Agent Communication Relationship Solitario Olea Spouse Primary healthcare agent Verona Baron Mother First [place] [phone] agent (Home)
--- OUTSIDE RECORDS SUMMARY | 2020-06-15 13:52 | XMS REPORT | Summary of Care ---
:1975 Author Organization [facility] [employer] Address [address] [place] [address] Care Team Providers Name Role Phone Visit, Nurse Unavailable Unavailable Jeffry Locke MD Insurance Hmo Jeffry Locke MD Primary Care Provider Reason for Visit Reason Comments Refill Request Encounter Details Date Type Department Care Team Description 03/31/2020 Refill [facility] Family Medicine Richard Chandler MD Refill Request - [address] [facility] [address] s[address] [place] [address] [place] [address] [phone] Allergies No Known Allergiesdocumented as of this encounter (statuses as of 04/05/2020) Medications Medication Sig Dispensed Refills Start End [...] DAY benign traMADol 50 mg Take 2 180 tablet [...] by 0 Essential mouth daily. hypertension, benign bpkzbf-vdnwhinc-azv Take 2 180 capsule 3 Active lase [...] mouth 2 (two) Epigastric pain times daily. butalbital-acetamin Take 1 tablet 60 tablet 0 Active ophen-caff by mouth 0 50-325-40 mg every 4 tabletIndications: (four) hours Migraine equivalent as needed syndrome (Migraine). PREVALITE 4 gram TAKE 1 PACKET 120 Packet 3 Active packetIndications: BY MOUTH 0 Chronic pelvic pain DIRECTED FOUR in female TIMES DAILY (CAN USE CAN IF PACKET UNAVAILABLE) GABAPENTIN 300 mg TAKE 3 270 capsule 0 Active capsuleIndications: CAPSULES BY 0 Chronic pelvic pain MOUTH 3 TIMES in female A DAY ONDANSETRON 4 mg TAKE 1 TABLET 30 tablet 0 Active tabletIndications: BY MOUTH 0 Nausea EVERY 12 HOURS ondansetron Take 1 tablet 30 tablet 11 04/05/20 Disc ontinued (ZOFRAN) 4 mg by mouth 0 20 (Reord er) tabletIndications: every 8 Chronic pelvic pain (eight) hours in female, Nausea as needed for Nausea and Vomiting (N/V). ondansetron Take 1 tablet 30 tablet 0 04/05/20 Disc ontinued (ZOFRAN) 4 mg by mouth 0 20 tabletIndications: every 12 Nausea (twelve) hours. 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 [address], [place] [address] [phone] Health Maintenance Due Date Last Done Comments [...] filedocumented in this encounter Visit Diagnoses Diagnosis Nausea Nausea alone documented in this encounter Insurance Payer Benefit Plan / Subscriber ID Effective Phone Address T [facility] Group Dates [facility] [id number] 2019-Pre HMO/PP O/POS [facility] PPO sent [facility] xxxxxxxxx 2019-Pre [phone] [address] Me dicaid WOMEN sent [id number] [place] [address] documented as of this encounter Advance Directives Name Relationship Healthcare Agent Communication Relationship Solitario Olea Spouse Primary healthcare agent Verona Baron Mother First [facility] agent (Home)
--- OUTSIDE RECORDS SUMMARY | 2020-06-15 13:52 | XMS REPORT | Summary of Care ---
:1975 Author Organization [facility] Address [address] [place] [address] Care Team Providers Name Role Phone Visit, Nurse Unavailable Unavailable Jeffry Locke MD Insurance Hmo Jeffry Locke MD Primary Care Provider Reason for Visit Reason Comments Refill Request Encounter Details Date Type Department Care Team Description 04/12/2020 Refill [facility] Pediatric and Elyssa Locke, Refill Request Adult Primary Care- MD Dunn [address] [place] [address] 146 [facility] [address] [place] [address] [place] [address] [phone] Allergies No Known Allergiesdocumented as of this encounter (statuses as of 04/13/2020) Medications Medication Sig Dispensed Refills Start End [...] female, Muscle as needed for spasm pain LISINOPRIL 10 mg TAKE ONE 180 tablet [...] by 0 Essential mouth daily. hypertension, benign ntlepd-phvwguhs-can Take 2 180 capsule 3 Active lase [...] hours Migraine equivalent as needed syndrome (Migraine). ONDANSETRON 4 mg TAKE 1 TABLET 30 tablet 0 Active tabletIndications: BY MOUTH 0 Nausea EVERY 12 HOURS FUROSEMIDE 20 mg TAKE ONE 90 tablet 1 Act sacha tabletIndications: TABLET BY 0 Essential MOUTH DAILY hypertension, benign DICLOFENAC 75 mg EC TAKE 1 TABLET 180 tablet 0 Active tabletIndications: BY MOUTH 0 Chronic pelvic pain TWICE A DAY in female WITH FOOD GABAPENTIN 300 mg TAKE 3 270 capsule 3 Active capsuleIndications: CAPSULES BY 0 Chronic pelvic pain MOUTH 3 TIMES in female A DAY cholestyramine Take 1 Packet 360 Packet 3 Active light (PREVALITE) 4 by mouth 4 0 gram (four) times packetIndications: daily. Chronic pelvic pain in female cholestyramine 4 grams/1 210 g 11 04/13/20 Disco ntinued light 4 gram scoop four 9 20 (Alter jennifer powderIndications: times a day. therapy) Mold exposure PREVALITE 4 gram TAKE 1 PACKET 120 Packet 3 04/13/20 Discontinued packetIndications: BY MOUTH 0 20 Chronic pelvic pain DIRECTED FOUR in female TIMES DAILY (CAN USE CAN IF PACKET UNAVAILABLE) Hospital, Clinic, or Other Ordered Dose Route Frequency Start Date End Date Status Facility Administered Medication medroxyPROGESTERone 150 mg IM [id number] 02/14/2020 1 Active (DEPO-PROVERA) injection 150 mgIndications: [...] Added automatically from request for susanna delgado [id number] History of 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 12/19/2018 01/06/2020 Encounter for surveillance of injectable contraceptive 07/2801/06/2020 Well woman exam 07/28/2016 01/06/2020 Surveillance of previously prescribed contraceptive method 1 12/06/2013 04/05/2016 Overview: ICD10 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 [id number] 2019-Pre HMO/PP O/POS HEALTHCARE HEALTHCARE PPO sent [facility] xxxxxxxxx 2019-Pre [phone] [address] Me dicaid WOMEN sent [id number] [place] [address] documented as of this encounter Advance Directives Name Relationship Healthcare Agent Communication Relationship Solitario Olea Spouse Primary healthcare agent Verona Baron Mother [facility] agent (Home)
--- OUTSIDE RECORDS SUMMARY | 2020-06-15 13:53 | XMS REPORT | Summary of Care ---
:1975 Author Organization [facility] Address [address] [place] [address] Care Team Providers Name Role Phone Visit, Nurse Unavailable Unavailable Jeffry Locke MD Insurance Hmo Jeffry Locke MD Primary Care Provider Reason for Visit Reason Comments Refill Request Encounter Details Date Type Department Care Team Description 04/16/2020 Refill [facility] Pediatric and Elyssa Locke, Refill Request Adult Primary Care- MD Dunn [address] [place] [address] 146 [facility] [address] [place] [address] [place] [address] [phone] Allergies No Known Allergiesdocumented as of this encounter (statuses as of 04/17/2020) Medications Medication Sig Dispensed Refills Start End [...] Essential MOUTH TWICE A hypertension, DAY benign amLODIPine 5 mg Take 1.5 45 tablet 3 Acti ve tabletIndications: tablets by 0 Essential mouth daily. hypertension, benign tycnat-ksjdanlp-dsd Take 2 180 capsule 3 Active lase [...] mg TAKE 1 TABLET 90 tablet 3 Active tabletIndications: BY MOUTH AT 0 Chronic pelvic pain BEDTIME in female, Pain in both lower extremities, Chronic midline low back pain with bilateral sciatica cholestyramine Take 1 Packet 360 Packet 3 Active light (PREVALITE) 4 by mouth 4 0 gram (four) times packetIndications: daily. Chronic pelvic pain in female traMADol 50 mg Take 2 180 tablet 3 Acti ve tabletIndications: tablets by 0 Chronic pelvic pain mouth every 8 in female (eight) hours as needed (severe chronic pelvic pain). traMADol 50 mg Take 2 180 tablet 3 04/16/20 Disc ontinued tabletIndications: tablets by 0 20 (Reorder) Chronic pelvic pain mouth every 8 in female (eight) hours as needed (severe chronic pelvic pain). Hospital, Clinic, or Other Ordered Dose Route Frequency Start Date End Date Status Facility Administered Medication medroxyPROGESTERone 150 mg IM [id number] 02/14/2020 1 Active (DEPO-PROVERA) injection 150 mgIndications: Encounter for other contraceptive management documented as of this encounter (statuses as of 04/17/2020) Active Problems Problem Noted Date Migraine equivalent syndrome 02/19/2020 Nausea 02/19/2020 Fatigue, unspecified type 02/19/2020 Well woman exam 02/14/2020 Contraception management 02/14/2020 Epigastric pain 02/10/2020 Abdominal pain 04/27/2019 Contraceptive management 12/19/2018 Essential hypertension, benign 07/07/2017 Hyperlipidemia, unspecified hyperlipidemia type 2015 HLD (hyperlipidemia) 04/05/2016 Chronic pelvic pain in female 07/30/2015 Morbid obesity 10/05/2014 Ovarian cyst 05/29/2014 documented as of this encounter (statuses as of 04/17/2020) Resolved Problems Problem Noted Date Resolved Date Sigmoid diverticulitis 05/15/2019 01/06/2020 Overview: Added automatically from request for susanna danny [id number] History of 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 12/19/2018 01/06/2020 Encounter for surveillance of injectable contraceptive 07/2801/06/2020 Well woman exam 07/28/2016 01/06/2020 Surveillance of previously prescribed contraceptive method 1 12/06/2013 04/05/2016 Overview: ICD10 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 H/O 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 10/05/2014 04/05/2016 Acute upper respiratory infection 10/05/20142014 Overview: ICD10 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 Elevated blood pressure reading without diagnosis of 014 10/05/2014 hypertension documented as of this encounter (statuses as of 04/17/2020) Immunizations Name Administration Dates Next Due Influenza [...] 05/15/2020 [facility] [address] [place] [address] [phone] Health Maintenance Due Date Last Done Comments INFLUENZA VACCINE (#1) 2020 06/19/2019, 11/23/2018 PAP SMEAR 07/31/2020 07/31/2017, 05/29/2014, 10/01/2010, Additional history exists Breast Cancer Screening 10/30/2020 Postpone d from (MAMMOGRAM) 2017 ([place] Guidelines) Depression Screening 02/18/2021 02/19/2020 DTaP,Tdap,and Td Vaccines 05/29/2024 05/29/2014 (2 - Td) PNEUMOCOCCAL 0-64 YEARS Aged Out No longe [...] ID Effective Phone Address T ype Group [facility] [id number] 2019-Pre HMO/PP O/POS HEALTHCARE HEALTHCARE PPO sent [facility] [place] [facility] xxxxxxxxx 2019-Pre [phone] [address] Me dicaid WOMEN sent [id number] [place] [address] documented as of this encounter Advance Directives Name Relationship Healthcare Agent Communication Relationship Solitario Olea Spouse Primary healthcare agent Verona Baron Mother [facility] [id number] agent (Home)
--- OUTSIDE RECORDS SUMMARY | 2020-06-15 13:53 | XMS REPORT | Summary of Care ---
:1975 Author Organization [facility] Address [address] [place] [address] Care Team Providers Name Role Phone Visit, Nurse Unavailable Unavailable Jeffry Locke MD Insurance Hmo Jeffry Locke MD Primary Care Provider Reason for Visit Reason Comments Medical Records Encounter Details Date Type Department Care Team Description 04/24/2020 Telephone [facility] Pediatric and Elyssa Locke, Medical Records Adult Primary Care- MD Dunn [address] [place] [address] [address] [place] [address] [place] [address] [phone] Allergies No Known Allergiesdocumented as of this encounter (statuses as of 04/24/2020) Medications Medication Sig Dispensed Refills Start Date [...] as needed female, Muscle spasm for pain LISINOPRIL 10 mg TAKE ONE TABLET 180 tablet 2 10/23/2019 Active tabletIndications: BY MOUTH TWICE A Essential DAY hypertension, benign amLODIPine 5 mg Take 1.5 tablets 45 tablet 3 01/06/2020 Active tabletIndications: by mouth daily. Essential hypertension, benign dmaxwi-blalcyev-jntajw Take 2 capsules 180 capsule 3 0 Active e 12,000-38,000 by mouth 3 -60,000 unit (three) times capsuleIndications: daily with Epigastric pain meals. DULOXETINE 60 mg TAKE ONE CAPSULE 90 [...] hours as Migraine equivalent needed syndrome (Migraine). ONDANSETRON 4 mg TAKE 1 TABLET BY 30 tablet 0 04/05/2020 Active tabletIndications: MOUTH EVERY 12 Nausea HOURS FUROSEMIDE 20 mg TAKE ONE TABLET 90 tablet 1 04/05/2020 Active tabletIndications: BY MOUTH DAILY Essential hypertension, benign DICLOFENAC 75 mg EC TAKE 1 TABLET BY 180 tablet 0 04/06/2020 Active tabletIndications: MOUTH TWICE A Chronic pelvic pain in DAY WITH FOOD female GABAPENTIN 300 mg TAKE 3 CAPSULES 270 capsule 3 04/08/2020 Active capsuleIndications: BY MOUTH 3 TIMES Chronic pelvic pain in A DAY female AMITRIPTYLINE 50 mg TAKE 1 TABLET BY 90 tablet 3 04/13/2020 Active tabletIndications: MOUTH AT BEDTIME Chronic pelvic pain in female, Pain in both lower extremities, Chronic midline low back pain with bilateral sciatica cholestyramine light Take 1 Packet by 360 Packet 3 04/13/2020 Active (PREVALITE) 4 gram mouth 4 (four) packetIndications: times daily. Chronic pelvic pain in female traMADol 50 mg Take 2 tablets 180 tablet 3 04/17/2020 Active tabletIndications: by mouth every 8 Chronic pelvic pain in (eight) hours as female needed (severe chronic pelvic pain). Hospital, Clinic, or Other Ordered Dose Route Frequency Start Date End Date Status Facility Administered Medication medroxyPROGESTERone 150 mg IM [id number] 02/14/2020 1 Active (DEPO-PROVERA) injection 150 mgIndications: Encounter for other contraceptive management documented as of this encounter (statuses as of 04/24/2020) Active Problems Problem Noted Date Migraine equivalent syndrome 02/19/2020 Nausea 02/19/2020 Fatigue, unspecified type 02/19/2020 Well woman exam 02/14/2020 Contraception management 02/14/2020 Epigastric pain 02/10/2020 Abdominal pain 04/27/2019 Contraceptive management 12/19/2018 Essential hypertension, benign 07/07/2017 Hyperlipidemia, unspecified hyperlipidemia type 2015 HLD (hyperlipidemia) 04/05/2016 Chronic pelvic pain in female 07/30/2015 Morbid obesity 10/05/2014 Ovarian cyst 05/29/2014 documented as of this encounter (statuses as of 04/24/2020) Resolved Problems Problem Noted Date Resolved Date Sigmoid diverticulitis 05/15/2019 01/06/2020 Overview: Added automatically from request for susanna danny [id number] History of 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 12/19/2018 01/06/2020 Encounter for surveillance of injectable contraceptive 07/2801/06/2020 Well woman exam 07/28/2016 01/06/2020 Surveillance of previously prescribed contraceptive method 1 12/06/2013 04/05/2016 Overview: ICD10 Diagnosis 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 H/O 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 10/05/2014 04/05/2016 Acute upper respiratory infection 10/05/20142014 Overview: ICD10 Diagnosis 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 Elevated blood pressure reading without diagnosis of 014 10/05/2014 hypertension documented as of this encounter (statuses as of 04/24/2020) Immunizations Name Administration Dates Next Due Influenza [...] 05/15/2020 Office Visit [facility], [facility] [address] [place], [place] [address] [phone] Health Maintenance Due Date Last Done Comments [...] T ype Group Dates [facility] [id number] 2019-Pre HMO/PP O/POS [facility]ALTHC[facility] PPO sent [facility] xxxxxxxxx 2019-Pre [phone] [address] Me dicaid WOMEN sent [id number] [place] [phone] documented as of this encounter Advance Directives Name Relationship Healthcare Agent Communication Relationship Solitario Olea Spouse Primary healthcare agent Verona Baron Mother [place] [phone] agent (Home)
--- OUTSIDE RECORDS SUMMARY | 2020-06-15 13:53 | XMS REPORT | Summary of Care ---
:1975 Author Organization [facility] Address [address] [place] [address] Care Team Providers Name Role Phone Visit, Nurse Unavailable Unavailable Jeffry Locke MD Insurance Hmo Jeffry Locke MD Primary Care Provider Reason for Visit Reason Comments Rx Concern/Question Encounter Details Date Type Department Care Team Description 04/17/2020 Telephone [facility] Pediatric Louise Locke Rx Concern/Question and Adult Primary Care- MD Jeffry [address], [address] [place] [address] [place] [address] [phone] Allergies No Known Allergiesdocumented as of this encounter (statuses as of 04/27/2020) Medications Medication Sig Dispensed Refills Start End [...] by 0 Essential mouth daily. hypertension, benign DULOXETINE 60 mg TAKE [...] hours as needed (severe chronic pelvic pain). vathfu-zsdjbeco-qta Take 2 540 capsule 3 Active lase 12,000-38,000 capsules by 0 -60,000 unit mouth 3 capsuleIndications: (three) times Epigastric pain daily with meals. mwyzlw-zmkojzxw-yfs Take 2 180 capsule 3 04/26/20 Discontinued lase 12,000-38,000 capsules by 0 20 (Reorder) -60,000 unit mouth 3 capsuleIndications: (three) times Epigastric pain daily with meals. Hospital, Clinic, or Other Ordered Dose Route Frequency Start Date End Date Status Facility Administered Medication medroxyPROGESTERone 150 mg IM [id number] 02/14/2020 1 Active (DEPO-PROVERA) injection 150 mgIndications: Encounter for other contraceptive management documented as of this encounter (statuses as of 04/27/2020) Active Problems Problem Noted Date Migraine equivalent syndrome 02/19/2020 Nausea 02/19/2020 Fatigue, unspecified type 02/19/2020 Well woman exam 02/14/2020 Contraception management 02/14/2020 Epigastric pain 02/10/2020 Abdominal pain 04/27/2019 Contraceptive management 12/19/2018 Essential hypertension, benign 07/07/2017 Hyperlipidemia, unspecified hyperlipidemia type 2015 HLD (hyperlipidemia) 04/05/2016 Chronic pelvic pain in female 07/30/2015 Morbid obesity 10/05/2014 Ovarian cyst 05/29/2014 documented as of this encounter (statuses as of 04/27/2020) Resolved Problems Problem Noted Date Resolved Date Sigmoid diverticulitis 05/15/2019 01/06/2020 Overview: Added automatically from request for susanna danny [id number] History of 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 12/19/2018 01/06/2020 Encounter for surveillance of injectable contraceptive 07/2801/06/2020 Well woman exam 07/28/2016 01/06/2020 Surveillance of previously prescribed contraceptive method 1 12/06/2013 04/05/2016 Overview: ICD10 Diagnosis 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 Religious Education 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 H/O 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 10/05/2014 04/05/2016 Acute upper respiratory infection 10/05/20142014 Overview: ICD10 Diagnosis 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 Religious Education Utility Elevated blood pressure reading without diagnosis of 014 10/05/2014 hypertension documented as of this encounter (statuses as of 04/27/2020) Immunizations Name Administration Dates Next Due Influenza [...] 05/15/2020 [facility] Visit [facility], [facility] [address] [place], [place] [address] [phone] Health Maintenance Due Date Last Done Comments [...] symptom associated with fema le genital organs Epigastric pain Abdominal pain, epigastric documented in this encounter Insurance Payer Benefit Plan / Subscriber ID Effective Phone Address T ype Group Dates [facility] [id number] 2019-Pre HMO/PP O/POS HEALTHCARE HEALTHCARE PPO sent [facility] xxxxxxxxx 2019-Pre [phone] [address] Me dicaid WOMEN sent [id number] [place] [address] documented as of this encounter Advance Directives Name Relationship Healthcare Agent Communication Relationship Solitario Olea Spouse Primary healthcare agent Verona Baron Mother [facility] agent (Home)
--- OUTSIDE RECORDS SUMMARY | 2020-06-15 13:54 | XMS REPORT | Summary of Care ---
:1975 Author Organization [facility] [employer] Address [address] [place] [address] Care Team Providers Name Role Phone Visit, Nurse Unavailable Unavailable Jeffry Locek MD Insurance Hmo Jeffry Locke MD Primary Care Provider Reason for Visit Reason Comments CONTROL Encounter Details Date Type Department Care Team Description 05/15/2020 Office Visit [facility]- Martha Boogieer for other [place] [facility] [address] [facility] (Primary Dx) [place], [place] [phone] Allergies No Known Allergiesdocumented as of this encounter (statuses as of 05/15/2020) Medications Medication Sig Dispensed Refills Start Date [...] as needed female, Muscle spasm for pain amLODIPine 5 mg Take 1.5 tablets 45 [...] as female needed (severe chronic pelvic pain). cvrccw-hwxhpdqu-drtfmu Take 2 capsules 540 capsule 3 0 Active e 12,000-38,000 by mouth 3 -60,000 unit (three) times capsuleIndications: daily with Epigastric pain meals. LISINOPRIL 10 mg TAKE 1 TABLET BY 180 tablet 3 05/14/2020 Active tabletIndications: MOUTH TWICE A Essential DAY hypertension, benign Hospital, Clinic, or Other Ordered Dose Route Frequency Start Date End Date Status Facility Administered Medication medroxyPROGESTERone 150 mg IM [id number] 02/14/2020 1 Active (DEPO-PROVERA) injection 150 mgIndications: Encounter for other contraceptive management documented as of this encounter (statuses as of 05/15/2020) Active Problems Problem Noted Date Migraine equivalent syndrome 02/19/2020 Nausea 02/19/2020 Fatigue, unspecified type 02/19/2020 Well woman exam 02/14/2020 Contraception management 02/14/2020 Epigastric pain 02/10/2020 Abdominal pain 04/27/2019 Contraceptive management 12/19/2018 Essential hypertension, benign 07/07/2017 Hyperlipidemia, unspecified hyperlipidemia type 2015 HLD (hyperlipidemia) 04/05/2016 Chronic pelvic pain in female 07/30/2015 Morbid obesity 10/05/2014 Ovarian cyst 05/29/2014 documented as of this encounter (statuses as of 05/15/2020) Resolved Problems Problem Noted Date Resolved Date Sigmoid diverticulitis 05/15/2019 01/06/2020 Overview: Added automatically from request for susanna danny [id number] History of 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 12/19/2018 01/06/2020 Encounter for surveillance of injectable contraceptive 07/2801/06/2020 Well woman exam 07/28/2016 01/06/2020 Surveillance of previously prescribed contraceptive method 1 12/06/2013 04/05/2016 Overview: ICD10 Diagnosis 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 documented as of this encounter Last Filed Vital Signs Vital Sign Reading Time Taken Comments Blood Pressure 142/80 05/15/2020 8:53 AM CDT Pulse 82 05/15/2020 8:43 AM CDT Temperature 36.4 C (97.6 F) 05/15/2020 8:43 AM CDT Respiratory Rate 16 05/15/2020 8:42 AM CDT Oxygen Saturation - - Inhaled Oxygen Concentration - - Weight 120.8 kg (266 lb 4.8 oz) 05/15/2020 8:42 AM CDT Height 167.6 cm (5' 6") 05/15/2020 8:42 AM CDT Body Mass Index 42.98 05/15/2020 8:42 AM CDT documented in this encounter Progress Notes Nathaly Headley, KRISTIN - 05/15/2020 8:15 AM CDT44 year old female has been identified by and name. Verbal consent has been obtained by patientto have an injection of Depo Provera, as ordered by the provider. Date of last Depo Provera injection: 02/14/2020 Last WWE: 02/14/2020 Encounter Diagnosis: v25.49 The site was cleaned with an alcohol swab and given intramuscularly (IM) in the left gluteus. A band aid dressing was then applied to the injection site. The patient tolerated the procedure well , norash, swelling or reaction noted. Advised patient on Calcium intake 500-1200 mg daily. ED warnings given. Patient to return to clinic in 12 weeks for next Depo. Patient verbalized understanding. NATHALY HEADLEY RN 05/15/2020 9:17 AM Martha Boogie [facility] - 05/15/2020 8:15 AM CDT Chief complaint: Chief Complaint Patient presents with CONTROL HPI: the patient is here today for contraceptive management. She reports she is doing well for the most part and desires to continue with depo for control. She reports she does desire a treatmentplan that was offered to her in [place], but states she desires to postpone going to [place] in the meantime and desires to continue with her depo for birthcontrol, and pain control. She reports she has tubal for birthcontrol. Histories OB History Para Term AB Living 3 3 3 SAB TAB Ectopic Multiple Live Births 3 # Outcome Date GA Lbr Mason/2nd Weight Sex Delivery Anes PTL Lv 3 Para 2 Para 1 Para Past Medical History: Diagnosis Date Anxiety ongoing Chronic pelvic pain in female Endometriosis 2013 Ongoing Hemorrhoids HTN (hypertension) Managed by Cornelia, ongoing 2015 Nerve pain Ovarian cyst Ovarian cyst Family History Problem Relation Age of Onset Arthritis Mother 30 Hypertension Mother Heart Brother 30 DC's X2 Breast Cancer Maternal Grandmother Diabetes Maternal Grandmother Hypertension Maternal Grandmother Colon Cancer Paternal Grandfather No Significant Medical Problems Father Ovarian Cancer Maternal Aunt No Significant Medical Problems Maternal Uncle No Significant Medical Problems Paternal Aunt No Significant Medical Problems Paternal Uncle Cancer Maternal Grandfather Diabetes Maternal Grandfather Hypertension Maternal Grandfather No Significant Medical Problems Paternal Grandmother Family Status Relation Name Status Mo Alive Bone deteriating Bro Alive MGMo Alive PGFa Alive Fa Alive Sis Alive Anxiety MAunt Alive MUnc Alive PAunt Alive PUnc Alive MGFa Alive Bone cancer PGMo Alive Past Surgical History: Procedure Laterality Date TUBAL LIGATION 2007 Social History Socioeconomic History Marital status: Spouse name: Solitario Olea Number of children: 3 Years of education: Not on file Highest education level: 12th grade Occupational History Occupation: [employer] Employer: [employer] Comment: [employer] Social Needs Financial resource strain: Not hard at all Food insecurity: Worry: Never true Inability: Never true Transportation needs: Medical: No Non-medical: No Tobacco Use Smoking status: Never Smoker Smokeless tobacco: Never Used Substance and Sexual Activity Alcohol use: No Alcohol/week: 0.0 standard drinks Drug use: No Sexual activity: Yes Partners: Male control/protection: Surgical, Injection Comment: last sexual intercourse 02/07/2020 Lifestyle Physical activity: Days per week: Not on file Minutes per session: Not on file Stress: Not on file Relationships Social connections: Talks on phone: Not on file Gets together: Not on file Attends amish service: Not on file Active member of [...] home with spouse and children. Pt is christianity. Social History Substance and Sexual Activity Sexual Activity Yes Partners: Male control/protection: Surgical, Injection Comment: last sexual intercourse 02/07/2020 Labs No new labs and Urgent Care on 02/19/2020 Component Date Value SARS-CoV-2 PCR 02/19/2020 Not Detected Radiology No new radiology. Allergies So has No Known Allergies. Medications So has a current medication list which includes the following prescription(s): lisinopril, lgkygj-tmerudoy-rglbika, tramadol, amitriptyline, cholestyramine light, gabapentin, diclofenac, furosemide, ondansetron, poarhgzvbo-yjfmpoadjesmm-yngn, duloxetine, esomeprazole, amlodipine, diclofenac sodium, docusate calcium, calcium carb/vit d3/minerals, and multivit-min/ferrous fumarate, and the following Facility-Administered Medications: medroxyprogesterone. Review of Systems Constitutional: Negative. HENT: Negative. Eyes: Negative. Respiratory: Negative. Breasts: Negative. Cardiovascular: Negative. Gastrointestinal: Negative. Genitourinary: Negative. Musculoskeletal: Negative. Skin: Negative. Neurological: Negative. Psychiatric/Behavioral: Negative. Endocrine: Endocrine negative BP (!) 142/80 (BP Location: Right arm, Patient Position: Sitting, BP CUFF SIZE: Adult Large) | Pulse 82 | Temp 36.4 C (97.6 F) (Oral) | Resp 16 | Ht 5' 6" (1.676 m) | Wt 266 lb 4.8 oz (120.8 kg) | LMP (LMP Unknown) | BMI 42.98 kg/m Pregravid BMI: Could not be calculated Physical Exam Vitals reviewed. Constitutional: She is oriented to person, place, and time. She appears well- developed and well-nourished. Her body habitus is normal. Cardiovascular: Regular rate and rhythm. No peripheral edema present. Pulmonary/Chest: Normal inspiratory effort. Neuro/Psychiatric: She has a normal mood and affect. She is oriented to person, place, and time. Skin: Skin normal. No lesion, no rash and no ulceration present. Assessment/Plan Return to clinic in 12 weeks. for depo Return to clinic in 9 months for WWE or sooner as needed Encounter for other contraceptive management (primary encounter diagnosis) Comment: continue Plan: DEPO This visit did not involve counseling and coordination that comprised more than 50% of the visit time. KAT Baeza 05/15/2020 9:05 AM documented in this encounter Plan of Treatment Date Type Specialty Care Team Description 05/21/2020 Appointment Radiology Gay Locke MD [address] [address] [phone] 05/21/2020 Appointment Radiology Mc Boogie [facility] [address] [address] [phone] 05/22/2020 Office Visit Internal Medicine Pat Locke MD [address] [address] 15 [phone] 08/07/2020 Nurse Visit OB Satellites Visit, Ang-Rmp Nurse Health Maintenance Due Date Last Done [...] this encounter Visit Diagnoses Diagnosis Encounter for other contraceptive manage ment - Primary documented in this encounter Administered Medications Medication Order MAR Action Action Date Dose Rate Site medroxyPROGESTERone Given 05/15/2020 9:16 150 mg Left Upper Quad. (DEPO-PROVERA) injection 150 AM CDT Gluteus mg 150 mg, Intramuscular, [id number], 4 doses, First dose on Mon02/14/20 at 1130, Last dose on Mon10/23/20 at 1130, Routine Given 02/14/2020 11:24 AM CDT 150 mg Righ t Dorsogluteal-IM documented in this encounter Insurance Payer Benefit Plan / Subscriber ID Effective Dates Phone Addre ss Type Group [facility] [id number] 2019-Prese HMO/ PPO/ HEALTHCARE HEALTHCARE PPO nt S [phone] [id number] (Work) documented as of this encounter Advance Directives Name Relationship Healthcare Agent Communication Relationship Solitario Olea Spouse Primary healthcare agent Verona Baron Mother First alternate healthcare agent (Home)
--- OUTSIDE RECORDS SUMMARY | 2020-06-15 13:54 | XMS REPORT | Summary of Care ---
:1975 Author Organization [facility] Address [address] [place] [address] Care Team Providers Name Role Phone Visit, Nurse Unavailable Unavailable Jeffry Locke MD Insurance Hmo Jeffry Locke MD Primary Care Provider Encounter Details Date Type Department Care Team Description 05/13/2020 Orders Only [facility] Doctor Unassigned, No [address] [facility] Name [address] [phone] [place] [address] Allergies No Known Allergiesdocumented as of this encounter (statuses as of 05/13/2020) Medications Medication Sig Dispensed Refills Start Date [...] as female needed (severe chronic pelvic pain). nhycij-hpbengmx-spyevs Take 2 capsules 540 capsule 3 0 Active e 12,000-38,000 by mouth 3 -60,000 unit (three) times capsuleIndications: daily with Epigastric pain meals. Hospital, Clinic, or Other Ordered Dose Route Frequency Start Date End Date Status Facility Administered Medication medroxyPROGESTERone 150 mg IM [id number] 02/14/2020 1 Active (DEPO-PROVERA) injection 150 mgIndications: Encounter for other contraceptive management documented as of this encounter (statuses as of 05/13/2020) Active Problems Problem Noted Date Migraine equivalent syndrome 02/19/2020 Nausea 02/19/2020 Fatigue, unspecified type 02/19/2020 Well woman exam 02/14/2020 Contraception management 02/14/2020 Epigastric pain 02/10/2020 Abdominal pain 04/27/2019 Contraceptive management 12/19/2018 Essential hypertension, benign 07/07/2017 Hyperlipidemia, unspecified hyperlipidemia type 2015 HLD (hyperlipidemia) 04/05/2016 Chronic pelvic pain in female 07/30/2015 Morbid obesity 10/05/2014 Ovarian cyst 05/29/2014 documented as of this encounter (statuses as of 05/13/2020) Resolved Problems Problem Noted Date Resolved Date Sigmoid diverticulitis 05/15/2019 01/06/2020 Overview: Added automatically from request for susanna delgado [id number] History of 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 12/19/2018 01/06/2020 Encounter for surveillance of injectable contraceptive 07/2801/06/2020 Well woman exam 07/28/2016 01/06/2020 Surveillance of previously prescribed contraceptive method 1 12/06/2013 04/05/2016 Overview: ICD10 Diagnosis 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 documented as of this encounter Last Filed Vital Signs Not on filedocumented in this encounter Plan of Treatment Date Type Specialty Care Team Description 05/15/2020 Office Visit [facility] Satellites [facility]ie[facility] [address] [address] [phone] 05/21/2020 Appointment Radiology Gay Locke MD [address] [address] [phone] 05/21/2020 Appointment Radiology Mc Boogie, CNP [address] [address] [phone] 05/22/2020 Office Visit Internal Medicine Pat Locke MD [address] [address] [phone] Health Maintenance Due Date Last Done Comments [...] Name Priority Date/Time Associated Diagnosis Comme nts EXTERNAL PROVIDER Routine 05/13/2020 12:01 AM CDT RECORDS documented in this encounter Results Not on filedocumented in this encounter Insurance Payer Benefit Plan / Subscriber ID Effective Phone Address T ype Group Dates [facility] [id number] 2019-Pre HMO/PP O/POS HEALTHCARE HEALTHCARE PPO sent [facility] xxxxxxxxx 2019-Pre [phone] dicaid WOMEN sent [phone] [place] [address] documented as of this encounter Advance Directives Name Relationship Healthcare Agent Communication Relationship Solitario Olea Spouse Primary healthcare agent Verona Baron Mother First [facility] healthcare agent (Home)
--- OUTSIDE RECORDS SUMMARY | 2020-06-15 13:54 | XMS REPORT | Summary of Care ---
:1975 Author Organization [facility] Address [address] [place] [address] Care Team Providers Name Role Phone Visit, Nurse Unavailable Unavailable Jeffry Locke MD Insurance Hmo Jeffry Locke MD Primary Care Provider Reason for Visit Reason Comments Refill Request Encounter Details Date Type Department Care Team Description 05/11/2020 Refill [facility] Pediatric and Elyssa Locke, Refill Request Adult Primary Care- MD Dunn [address] [place] [address] 146 [facility] [address] [place] [address] [place] [address] [phone] Allergies No Known Allergiesdocumented as of this encounter (statuses as of 05/14/2020) Medications Medication Sig Dispensed Refills Start Date [...] female, Muscle as needed for spasm pain amLODIPine 5 mg Take 1.5 45 tablet 3 01/06/2020 Act sacha tabletIndications: tablets by Essential mouth daily. hypertension, benign DULOXETINE 60 [...] bilateral sciatica cholestyramine light Take 1 Packet 360 Packet 3 04/13/2020 Active (PREVALITE) 4 gram by mouth 4 packetIndications: (four) times Chronic pelvic pain daily. in female traMADol 50 mg Take 2 180 tablet 3 04/17/2020 Act sacha tabletIndications: tablets by Chronic pelvic pain mouth every 8 in female (eight) hours as needed (severe chronic pelvic pain). xxqdnn-zxbwkqhs-fvme Take 2 540 capsule 3 04/26/2020 Active ase 12,000-38,000 capsules by -60,000 unit mouth 3 capsuleIndications: (three) times Epigastric pain daily with meals. LISINOPRIL 10 mg TAKE 1 TABLET 180 tablet 3 05/14/2020 Active tabletIndications: BY MOUTH Essential TWICE A DAY hypertension, benign LISINOPRIL 10 mg TAKE ONE 180 tablet 2 10/23/2019 D iscontinued tabletIndications: TABLET BY 0 Essential MOUTH TWICE A hypertension, benign DAY Hospital, Clinic, or Other Ordered Dose Route Frequency Start Date End Date Status Facility Administered Medication medroxyPROGESTERone 150 mg IM [id number] 02/14/2020 1 Active (DEPO-PROVERA) injection 150 mgIndications: Encounter for other contraceptive management documented as of this encounter (statuses as of 05/14/2020) Active Problems Problem Noted Date Migraine equivalent syndrome 02/19/2020 Nausea 02/19/2020 Fatigue, unspecified type 02/19/2020 Well woman exam 02/14/2020 Contraception management 02/14/2020 Epigastric pain 02/10/2020 Abdominal pain 04/27/2019 Contraceptive management 12/19/2018 Essential hypertension, benign 07/07/2017 Hyperlipidemia, unspecified hyperlipidemia type 2015 HLD (hyperlipidemia) 04/05/2016 Chronic pelvic pain in female 07/30/2015 Morbid obesity 10/05/2014 Ovarian cyst 05/29/2014 documented as of this encounter (statuses as of 05/14/2020) Resolved Problems Problem Noted Date Resolved Date Sigmoid diverticulitis 05/15/2019 01/06/2020 Overview: Added automatically from request for susanna danny [id number] History of 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 12/19/2018 01/06/2020 Encounter for surveillance of injectable contraceptive 07/2801/06/2020 Well woman exam 07/28/2016 01/06/2020 Surveillance of previously prescribed contraceptive method 1 12/06/2013 04/05/2016 Overview: ICD10 Diagnosis 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 H/O 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 10/05/2014 04/05/2016 Acute upper respiratory infection 10/05/20142014 Overview: ICD10 Diagnosis Term Route 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 Elevated blood pressure reading without diagnosis of 014 10/05/2014 hypertension documented as of this encounter (statuses as of 05/14/2020) Immunizations Name Administration Dates Next Due Influenza [...] 05/15/2020 Office Visit OB Satellites Mc Boogie, [facility] [address] [address] [phone] 05/21/2020 Appointment Radiology Gay Locke MD [address] [address] [phone] 05/21/2020 Appointment Radiology Mc Boogie [facility] [address] [address] [phone] 05/22/2020 Office Visit Internal Medicine Pat Locke MD [address] [address] [phone] Health Maintenance Due Date Last Done Comments [...] / Subscriber ID Effective Phone Address T [facility] Group [facility] [id number] 2019-Pre HMO/PP O/POS [facility] PPO [facility] 2019-Pre [phone] dicaid WOMEN sent [phone] [place] [address] documented as of this encounter Advance Directives Name Relationship Healthcare Agent Communication Relationship Solitario Olea Spouse Primary healthcare agent Verona Baron Mother First [facility] agent (Home)
--- OUTSIDE RECORDS SUMMARY | 2020-06-15 13:54 | XMS REPORT | Summary of Care ---
:1975 Author Organization [facility] [employer] Address [address] [place] [address] Care Team Providers Name Role Phone Visit, Nurse Unavailable Unavailable Jeffry Locke MD Insurance Hmo Jeffry Locke MD Primary Care Provider Reason for Visit Reason Comments CONTROL Encounter Details Date Type Department Care Team Description 05/15/2020 Office Visit [facility]- Martha Boogieer for other [place] [facility], [facility] [address] [facility] (Primary Dx) [place], [place] [phone] Allergies No Known Allergiesdocumented as of this [...] as female needed (severe chronic pelvic pain). zvmsed-uyiauxiq-mujqha Take 2 capsules 540 capsule 3 0 Active e 12,000-38,000 by mouth 3 -60,000 unit (three) times capsuleIndications: daily with Epigastric pain meals. LISINOPRIL 10 mg TAKE 1 TABLET BY 180 tablet 3 05/14/2020 Active tabletIndications: MOUTH TWICE A Essential DAY hypertension, benign Hospital, Clinic, or Other Ordered Dose Route Frequency Start Date End Date Status Facility Administered Medication medroxyPROGESTERone 150 mg IM [id number] 02/14/2020 1 Active (DEPO-PROVERA) injection 150 mgIndications: [...] Added automatically from request for susanna danny [id number] History of 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 12/19/2018 01/06/2020 Encounter for surveillance of injectable contraceptive 07/2801/06/2020 Well woman exam 07/28/2016 01/06/2020 Surveillance of previously prescribed contraceptive method 1 12/06/2013 04/05/2016 Overview: ICD10 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 - 05/15/2020 8:15 AM CDT Chief complaint: Chief Complaint Patient presents with CONTROL HPI: the patient is here today for contraceptive management. She reports she is doing well for the most part and desires to continue with depo for control. She reports she does desire a treatmentplan that was offered to her in [place], but states she desires to postpone going to [place] in the meantime and desires to continue [...] home with spouse and children. Pt is jainism. Social History Substance and Sexual Activity Sexual Activity Yes Partners: Male control/protection: Surgical, Injection Comment: last sexual intercourse 02/07/2020 Labs No new labs and Urgent Care on 02/19/2020 Component Date Value SARS-CoV-2 PCR 02/19/2020 Not Detected Radiology No new radiology. Allergies So has No Known Allergies. Medications So has a current medication list which includes the following prescription(s): lisinopril, pidopi-olkmkxxo-liiorwd, tramadol, amitriptyline, cholestyramine light, gabapentin, diclofenac, furosemide, ondansetron, aygxzeiati-htlilznnmvamw-isgd, duloxetine, esomeprazole, amlodipine, diclofenac sodium, docusate calcium, [...] Appointment Radiology Gay Locke MD [address] [address] [phone] 05/21/2020 Appointment Radiology Mc Boogie [facility] [address] [address] [phone] 05/22/2020 Office Visit Internal Medicine Pat Locke MD [address] [address] [phone] 08/07/2020 Nurse Visit OB Satellites Visit, Ang-Rmp [...] AM CDT Gluteus mg 150 mg, Intramuscular, [id number], 4 doses, First dose on Mon02/14/20 at 1130, Last dose on Mon10/23/20 at 1130, Routine Given 02/14/2020 11:24 AM CDT 150 mg Righ t Dorsogluteal-IM documented in this encounter Insurance Payer Benefit Plan / Subscriber ID Effective Dates Phone Addre ss Type Group [facility] [id number] 2019-Prese HMO/ PPO/ HEALTHCARE HEALTHCARE PPO nt S [phone] (Work) documented as of this encounter Advance Directives Name Relationship Healthcare Agent Communication Relationship Solitario Olea Spouse Primary healthcare agent Verona Baron Mother First alternate healthcare agent (Home)
--- OUTSIDE RECORDS SUMMARY | 2020-06-15 13:55 | XMS REPORT | Summary of Care ---
:1975 Author Organization [facility] [employer] Address [address] [place] [address] Care Team Providers Name Role Phone Visit, Nurse Unavailable Unavailable Jeffry Locke MD Insurance Hmo Jeffry Locke MD Primary Care Provider Reason for Visit Reason Comments Medical Records [place] Records Encounter Details Date Type Department Care Team Description 05/15/2020 Telephone [facility] Pediatric Louise Locke Medical Records and Adult Primary MD Jeffry ([facility] Records) [address], [address] [place] [address] [place] [phone] [address] [phone] Allergies No Known Allergiesdocumented as of this [...] as female needed (severe chronic pelvic pain). [id number]-axjgdzai-tzabdk Take 2 capsules 540 capsule 3 0 Active e 12,000-38,000 by mouth 3 -60,000 unit (three) times capsuleIndications: daily with Epigastric pain meals. LISINOPRIL 10 mg TAKE 1 TABLET BY 180 tablet 3 05/14/2020 Active tabletIndications: MOUTH TWICE A Essential DAY hypertension, benign Hospital, Clinic, or Other Ordered Dose Route Frequency Start Date End Date Status Facility Administered Medication medroxyPROGESTERone 150 mg IM [id number] 02/14/2020 1 Active (DEPO-PROVERA) injection 150 mgIndications: [...] Added automatically from request for susanna danny [id number] History of 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 12/19/2018 01/06/2020 Encounter for surveillance of injectable contraceptive 07/2801/06/2020 Well woman exam 07/28/2016 01/06/2020 Surveillance of previously prescribed contraceptive method 1 12/06/2013 04/05/2016 Overview: ICD10 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 H/O 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 10/05/2014 04/05/2016 Acute upper respiratory infection 10/05/20142014 Overview: ICD10 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 Elevated blood pressure reading without diagnosis [...] Appointment Radiology Gay Locke MD [address] [address] [phone] 05/21/2020 Appointment Radiology [place] [address] [address] [phone] 05/22/2020 Office Visit Internal Medicine Pat Locke MD [address] [address] 15 [phone] 08/07/2020 Nurse Visit OB Satellites [facility] Health Maintenance Due Date Last Done [...] Effective Phone Address T ype Group Dates [facility] [id number] 2019-Pre HMO/PP O/POS HEALTHCARE HEALTHCARE PPO sent [facility] xxxxxxxxx 2019-Pre [phone] [address] Me dicaid WOMEN sent [id number] [place] [address] documented as of this encounter Advance Directives Name Relationship Healthcare Agent Communication Relationship Solitario Olea Spouse Primary healthcare agent Verona Baron Mother [place] [phone] agent (Home)
--- OUTSIDE RECORDS SUMMARY | 2020-06-15 13:55 | XMS REPORT | Summary of Care ---
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 Cornelia, Radiology Procedures MR LUMBAR SPINE WO CONTRAST CHG MRI, LUMBAR SPINE MR LUMBAR SPINE WO CONTRAST Randee Teran MD [address] [place] [address] Dr [address]ts [address] [place] [id number] Reason for Visit MRI/CAT Scan (Routine) Status Reason Specialty Diagnoses / Referred By Referred To Procedures Contact Contact Closed Diagnostic Diagnoses 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 Pat Ceron MD [address] [place] [address] [id number] [phone] Allergies No Known Allergiesdocumented as of this encounter (statuses as of 05/22/2020) Medications Medication Sig Dispensed Refills Start Date [...] as female needed (severe chronic pelvic pain). krwtvt-gcehbiaj-rddove Take 2 capsules 540 capsule 3 0 Active e 12,000-38,000 by mouth 3 -60,000 unit (three) times capsuleIndications: daily with Epigastric pain meals. LISINOPRIL 10 mg TAKE 1 TABLET BY 180 tablet 3 05/14/2020 Active tabletIndications: MOUTH TWICE A Essential DAY hypertension, benign doxazosin 1 mg Take 1 tablet by 60 tablet 3 05/21/2020 Active tabletIndications: mouth at Essential bedtime. For 7 hypertension, benign days., then increase to 2 at bedtime. Hospital, Clinic, or Other Ordered Dose Route Frequency Start Date End Date Status Facility Administered Medication medroxyPROGESTERone 150 mg IM [id number] 02/14/2020 1 Active (DEPO-PROVERA) injection 150 mgIndications: Encounter for other contraceptive management documented as of this encounter (statuses as of 05/22/2020) Active Problems Problem Noted Date Migraine equivalent syndrome 02/19/2020 Nausea 02/19/2020 Fatigue, unspecified type 02/19/2020 Well woman exam 02/14/2020 Contraception management 02/14/2020 Epigastric pain 02/10/2020 Abdominal pain 04/27/2019 Contraceptive management 12/19/2018 Essential hypertension, benign 07/07/2017 Hyperlipidemia, unspecified hyperlipidemia type 2015 HLD (hyperlipidemia) 04/05/2016 Chronic pelvic pain in female 07/30/2015 Morbid obesity 10/05/2014 Ovarian cyst 05/29/2014 documented as of this encounter (statuses as of 05/22/2020) Resolved Problems Problem Noted Date Resolved Date Sigmoid diverticulitis 05/15/2019 01/06/2020 Overview: Added automatically from request for susanna danny [id number] History of 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 12/19/2018 01/06/2020 Encounter for surveillance of injectable contraceptive 07/2801/06/2020 Well woman exam 07/28/2016 01/06/2020 Surveillance of previously prescribed contraceptive method 1 12/06/2013 04/05/2016 Overview: 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 documented as of this encounter Last Filed Vital Signs Not on filedocumented in this encounter Plan of Treatment Date Type Specialty Care Team Description 08/07/2020 [facility]2020 Office Visit Internal Medicine Pat Locke MD [address] [facility] [address] [place], [place] [address] [phone] Health Maintenance Due Date Last Done Comments INFLUENZA VACCINE (#1) 2020 06/19/2019, 11/23/2018 PAP SMEAR 07/31/2020 07/31/2017, 05/29/2014, 10/01/2010, Additional history exists Depression Screening 02/18/2021 02/19/2020 Breast Cancer Screening 05/21/2021 05/21/2020 (MAMMOGRAM) DTaP,Tdap,and Td Vaccines 05/29/2024 05/29/2014 (2 - Td) PNEUMOCOCCAL 0-64 YEARS Aged Out No longe r eligible COMBINED SERIES based on patient 's age to complete this topic documented as of this encounter Procedures Procedure Name Priority Date/Time Associated Diagnosis Comme nts MR LUMBAR SPINE WO Routine 05/21/2020 11:47 AM Chronic midline low Results for this CONTRAST CDT back pain with procedure are in bilateral sciatica the resul ts section. documented in this encounter Results MR LUMBAR SPINE WO CONTRAST (05/21/2020 11:47 AM CDT) Specimen Narrative Performed At HISTORY: Chronic low back pain, pelvic p ain and pain radiating into left PACS/VR/DOSE leg. TECHNIQUE: Sagittal T2 FRFSE, T1, STIR a nd axial T2 FRFSE T1 studies of lumbar spines are obtained. Additional c oronal T2 FRFSE study is also obtained. FINDINGS: No acute compression fracture or aggressive lesions of the bones detected. Spinal canal appears to be of adequate size and normal conus/cauda equina are found at the leve l of T12. Visualized retroperitoneum is unremarkable for aortic aneurysm or enlarged lymph nodes or hydronephrosis. Slightly exaggerated lower lumbar lordosis noted. T11-T12, T12-L1, L1-L2: Small osteophyte s time seen along the ventral vertebral margins at all 3 levels. Shall ow Schmorl's node noted in the upper plate of T12. Minimal disc desiccation noted at T12-L1. No bulging of the disc is seen into the spinal canal L2-L3: Normal. L3-L4: Normal. L4-L5: Mild facet arthritis with slightly thickened li gamentum flavum and minimal fluid in both facet joints. No bulging of the disc into the spinal canal. L5-S1: Mild facet arthritis with slightl y more on the right side with slightly thickened ligamentum flavum not ed. Minimal midline disc bulge without thecal sac compression. CONCLUSIONS: No lumbar disc herniation d etected at any of the lumbar levels. No spinal stenosis or foraminal stenosis detected in any of the lumbar levels. Procedure Note [facility], Radiant Results Inft User - 2019 11:52 AM CDT HISTORY: Chronic low back pain, pelvic pain and pain radiating into left leg. TECHNIQUE: Sagittal T2 FRFSE, T1, STIR a nd axial T2 FRFSE T1 studies of lumbar spines are obtained. Additional c oronal T2 FRFSE study is also obtained. FINDINGS: No acute compression fracture or aggressive lesions of the bones detected. Spinal canal appears to be of adequate size and normal conus/cauda equina are found at the leve l of T12. Visualized retroperitoneum is unremarkable for aort ic aneurysm or enlarged lymph nodes or hydronephrosis. Slightly exaggerated lower lumbar lordosis noted. T11-T12, T12-L1, L1-L2: Small osteophyte s time seen along the ventral vertebral margins at all 3 levels. Shall ow Schmorl's node noted in the upper plate of T12. Minimal disc desicca tion noted at T12-L1. No bulging of the disc is seen into the spinal canal L2-L3: Normal. L3-L4: Normal. L4-L5: Mild facet arthritis with slightl y thickened ligamentum flavum and minimal fluid in both facet joints. No b ulging of the disc into the spinal canal. L5-S1: Mild facet arthritis with slightl y more on the right side with slightly thickened ligamentum flavum not ed. Minimal midline disc bulge without thecal sac compression. CONCLUSIONS: No lumbar disc herniation d etected at any of the lumbar levels. No spinal stenosis or foraminal stenosis detected in any of the lumbar levels. Performing Organization Address City/State/Zipcode Phone Number PACS/VR/DOSE documented in this encounter Visit Diagnoses Diagnosis Chronic midline low back pain with bilat eral sciatica documented in this encounter Insurance Payer Benefit Plan / Subscriber ID Effective Dates Phone Addre ss Type Group [facility] [id number] 2019-[facility] [phone] [id number] (Work) documented as of this encounter Advance Directives Name Relationship Healthcare Agent Communication Relationship Solitario Olea Spouse Health Care Agent Verona Baron Mother [facility] [phone] Agent (Home)
--- OUTSIDE RECORDS SUMMARY | 2020-06-15 13:55 | XMS REPORT | Summary of Care ---
:1975 Author Organization [facility] Address [address] [place] [address] Care Team Providers Name Role Phone Visit, Nurse Unavailable Unavailable Jeffry Locke MD Insurance Hmo Jeffry Locke MD Primary Care Provider Encounter Details Date Type Department Care Team Description 05/21/2020 Orders Only [facility] Doctor Unassigned, No [address] [facility] Name [address] [phone] [place] [address] Allergies No Known Allergiesdocumented as of this encounter (statuses as of 05/21/2020) Medications Medication Sig Dispensed Refills Start Date [...] as female needed (severe chronic pelvic pain). cyhcah-ievygobh-hyhijr Take 2 capsules 540 capsule 3 0 Active e 12,000-38,000 by mouth 3 -60,000 unit (three) times capsuleIndications: daily with Epigastric pain meals. LISINOPRIL 10 mg TAKE 1 TABLET BY 180 tablet 3 05/14/2020 Active tabletIndications: MOUTH TWICE A Essential DAY hypertension, benign Hospital, Clinic, or Other Ordered Dose Route Frequency Start Date End Date Status Facility Administered Medication medroxyPROGESTERone 150 mg IM [id number] 02/14/2020 1 Active (DEPO-PROVERA) injection 150 mgIndications: Encounter for other contraceptive management documented as of this encounter (statuses as of 05/21/2020) Active Problems Problem Noted Date Migraine equivalent syndrome 02/19/2020 Nausea 02/19/2020 Fatigue, unspecified type 02/19/2020 Well woman exam 02/14/2020 Contraception management 02/14/2020 Epigastric pain 02/10/2020 Abdominal pain 04/27/2019 Contraceptive management 12/19/2018 Essential hypertension, benign 07/07/2017 Hyperlipidemia, unspecified hyperlipidemia type 2015 HLD (hyperlipidemia) 04/05/2016 Chronic pelvic pain in female 07/30/2015 Morbid obesity 10/05/2014 Ovarian cyst 05/29/2014 documented as of this encounter (statuses as of 05/21/2020) Resolved Problems Problem Noted Date Resolved Date Sigmoid diverticulitis 05/15/2019 01/06/2020 Overview: Added automatically from request for susanna delgado [id number] History of 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 12/19/2018 01/06/2020 Encounter for surveillance of injectable contraceptive 07/2801/06/2020 Well woman exam 07/28/2016 01/06/2020 Surveillance of previously prescribed contraceptive method 1 12/06/2013 04/05/2016 Overview: ICD10 Diagnosis 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 H/O 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 10/05/2014 04/05/2016 Acute upper respiratory infection 10/05/20142014 Overview: ICD10 Diagnosis 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 Elevated blood pressure reading without diagnosis of 014 10/05/2014 hypertension documented as of this encounter (statuses as of 05/21/2020) Immunizations Name Administration Dates Next Due Influenza [...] 05/21/2020 Appointment Radiology Gay Locke MD [address] [address] [phone] 05/21/2020 [facility]ment [facility] [place] [address] [address] [phone] 05/22/2020 Office Visit Internal Medicine Pat Locke MD [address] [address] [phone] 08/07/2020 Nurse [facility] Health Maintenance Due Date Last [...] Name Priority Date/Time Associated Diagnosis Comme nts ASSIGNMENT OF BENEFITS Routine 05/21/2020 10:44 AM CDT documented in this encounter Results Not on filedocumented in this encounter Insurance Payer Benefit Plan / Subscriber ID Effective Phone Address T ype Group Dates [facility] [id number] 2019-Pre HMO/PP O/POS HEALTHCARE HEALTHCARE PPO sent [facility] [id number] 2019-Pre [phone] [address] Me dicaid WOMEN sent [id number] [place] [address] documented as of this encounter Advance Directives Name Relationship Healthcare Agent Communication Relationship Solitario Olea Spouse Health Care Agent Verona Baron Mother [facility] [phone] Agent (Home)
--- OUTSIDE RECORDS SUMMARY | 2020-06-15 13:55 | XMS REPORT | Summary of Care ---
:1975 Author Organization [facility] Address [address] [place] [address] Care Team Providers Name Role Phone Visit, Nurse Unavailable Unavailable Jeffry Locke MD Insurance Hmo Jeffry Locke MD Primary Care Provider Reason for Referral Radiology Services (Routine) Status Reason Specialty Diagnoses / Referred By Referred To Procedures Contact Contact Closed Diagnostic Diagnoses Well woman exam WELL WOMAN EXAM [place], Radiology Procedures BI SCREENING MAMMOGRAM BILATERAL CHG SCREENING MAMMOGRAPHY BI 2-VIEW BREAST INC CAD BI SCREENING MAMMOGRAM BILATERAL Martha C, WHCNP [address] [place] [address] Reason for Visit Radiology Services (Routine) Status Reason Specialty Diagnoses / Referred By Referred To Procedures Contact Contact Closed Diagnostic Diagnoses Well woman exam WELL WOMAN EXAM [place], Radiology Procedures BI SCREENING MAMMOGRAM BILATERAL CHG SCREENING MAMMOGRAPHY BI 2-VIEW BREAST INC CAD BI SCREENING MAMMOGRAM BILATERAL Martha C, WHCNP [address] [place] [address] Encounter Details Date Type Department Care Team Description 05/21/2020 Hospital Encounter [facility] [place], Elias bud Arrived [facility], WHCNP [address] [place] [address] [place] [address] [facility] A [phone] [place], [place] [address] [phone] Allergies No Known Allergiesdocumented as of this [...] as female needed (severe chronic pelvic pain). kwcqmn-bsnllxdt-kvcumk Take 2 capsules 540 capsule 3 0 Active e 12,000-38,000 by mouth 3 -60,000 unit (three) times capsuleIndications: daily with Epigastric pain meals. LISINOPRIL 10 mg TAKE 1 TABLET BY 180 tablet 3 05/14/2020 Active tabletIndications: MOUTH TWICE A Essential DAY hypertension, benign Hospital, Clinic, or Other Ordered Dose Route Frequency Start Date End Date Status Facility Administered Medication medroxyPROGESTERone 150 mg IM [id number] 02/14/2020 1 Active (DEPO-PROVERA) injection 150 mgIndications: [...] 01/06/2020 Overview: Added automatically from request for ssuanna danny [id number] History of 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 12/19/2018 01/06/2020 Encounter for surveillance of injectable contraceptive 07/2801/06/2020 Well woman exam 07/28/2016 01/06/2020 Surveillance of previously prescribed contraceptive method 1 12/06/2013 04/05/2016 Overview: ICD10 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/O 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 10/05/2014 04/05/2016 Acute upper respiratory infection 10/05/20142014 Overview: ICD10 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 documented in this encounter Results BI SCREENING MAMMOGRAM BILATERAL (05/21/2020 11:57 AM CDT) Specimen Narrative Performed At This result has an attachment that is no t available. Examination: PACS BI SCREENING MAMMOGRAM BILATERAL History: Patient is 44 year old and is seen for: Routine. Computer-aided detection (CAD) utilized. Comparisons: 01/22/2018 DIGITAL MAMMOGRAM SCREENING VA N Findings: The breasts are almost entirely fatty. There is no parrish dence of suspicious masses, calcifications, or other abnormal findings. Impression: No signs of malignancy. Recommendation: Annual mammographic follow-up - Bilateral BI-RADS Category: Both 1 - Negative Performing Organization Address City/State/Zipcode Phone Number PACS documented in this encounter Visit Diagnoses Diagnosis Well woman exam Routine general medical examination at a health care facility documented in this encounter Insurance Payer Benefit Plan / Subscriber ID Effective Dates Phone Addre ss Type Group [facility] [id number] 2019-Prese HMO/ PPO/[facility] PPO nt S [phone] (Work) documented as of this encounter Advance Directives Name Relationship Healthcare Agent Communication Relationship Solitario Olea Spouse Health Care Agent Verona Baron Mother [facility] Agent (Home)
--- OUTSIDE RECORDS SUMMARY | 2020-06-15 13:56 | XMS REPORT | Summary of Care ---
:1975 Author Organization [facility] Address [address] [place] [address] Care Team Providers Name Role Phone Visit, Nurse Unavailable Unavailable Jeffry Valdes MD Insurance Hmo Jeffry Valdes MD Primary Care Provider Reason for Visit Reason Comments Appointment Encounter Details Date Type Department Care Team Description 05/19/2020 Telephone [facility] Pediatric and Elyssa Valdes, Appointment Adult Primary Care- MD Dunn [address] [place] [address] [address] [place] [address] [place] [address] [phone] Allergies No Known Allergiesdocumented as of this encounter (statuses as of 05/26/2020) Medications Medication Sig Dispensed Refills Start Date [...] as female needed (severe chronic pelvic pain). [id number]-ojttabvt-jkzhsl Take 2 capsules 540 capsule 3 0 Active e 12,000-38,000 by mouth 3 -60,000 unit (three) times capsuleIndications: daily with Epigastric pain meals. LISINOPRIL 10 mg TAKE 1 TABLET BY 180 tablet 3 05/14/2020 Active tabletIndications: MOUTH TWICE A Essential DAY hypertension, benign Hospital, Clinic, or Other Ordered Dose Route Frequency Start Date End Date Status Facility Administered Medication medroxyPROGESTERone 150 mg IM [id number] 02/14/2020 04/02/202 1 Active (DEPO-PROVERA) injection 150 mgIndications: Encounter for other contraceptive management documented as of this encounter (statuses as of 05/26/2020) Active Problems Problem Noted Date Migraine equivalent syndrome 02/19/2020 Nausea 02/19/2020 Fatigue, unspecified type 02/19/2020 Well woman exam 02/14/2020 Contraception management 02/14/2020 Epigastric pain 02/10/2020 Abdominal pain 04/27/2019 Contraceptive management 12/19/2018 Essential hypertension, benign 07/07/2017 Hyperlipidemia, unspecified hyperlipidemia type 2015 HLD (hyperlipidemia) 04/05/2016 Chronic pelvic pain in female 07/30/2015 Morbid obesity 10/05/2014 Ovarian cyst 05/29/2014 documented as of this encounter (statuses as of 05/26/2020) Resolved Problems Problem Noted Date Resolved Date Sigmoid diverticulitis 05/15/2019 01/06/2020 Overview: Added automatically from request for susanna danny [id number] History of 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 12/19/2018 01/06/2020 Encounter for surveillance of injectable contraceptive 07/2801/06/2020 Well woman exam 07/28/2016 01/06/2020 Surveillance of previously prescribed contraceptive method 1 12/06/2013 04/05/2016 Overview: ICD10 Diagnosis Term Head Bucker Utility H/O 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 10/05/2014 04/05/2016 Acute upper respiratory infection 10/05/20142014 Overview: ICD10 Diagnosis Term Head Bucker Utility Elevated blood pressure reading without diagnosis of 014 10/05/2014 hypertension documented as of this encounter (statuses as of 05/26/2020) Immunizations Name Administration Dates Next Due Influenza [...] Signs Not on filedocumented in this encounter Miscellaneous Notes Telephone Encounter - Deborah Perry - 05/26/2020 10:09 AM CDTPatient did tele health before her scheduled. elephone Encounter - Terra Huggins MA - 05/19/2020 10:31 AM CDT05/19/20 10:31 AM Routing to [facility] to schedule tele-health with . Terra Huggins MA 05/19/2020 10:31 AM elephone Encounter - Deborah Perry - 05/19/2020 8:38 AM CDTPt is requesting a tele health instead of office visit originally scheduled on 05/22/20. Next tele health with DR VALDES is in July 2020 but patient states she needs to be seen. documented in this encounter Plan of Treatment Date Type Specialty Care Team Description 08/07/2020 Nurse Visit OB Satellites [facility], [facility] 08/21/2020 Office Visit Internal Medicine Pat Valdes MD [address] [place] [address], [place] [address] [phone] Health Maintenance Due Date Last Done Comments [...] Effective Phone Address T ype Group Dates [facility] [id number] 2019-Pre HMO/PP O/POS [facility] HEALTH[facility] PPO sent [facility] [id number] 2019-Pre [phone] dicaid WOMEN sent [phone] [place] [address] documented as of this encounter Advance Directives Name Relationship Healthcare Agent Communication Relationship Solitario Olea Spouse Health Care Agent Verona Baron Mother [facility] Care Agent (Home)
--- OUTSIDE RECORDS SUMMARY | 2020-06-15 13:56 | XMS REPORT | Summary of Care ---
:1975 Author Organization [facility] Address [address] [place] [address] Care Team Providers Name Role Phone Visit, Nurse Unavailable Unavailable Jeffry Locke MD Insurance Hmo Jeffry Locke MD Primary Care Provider Reason for Visit Reason Comments Erroneous encounter-disregard Encounter Details Date Type Department Care Team Description 05/26/2020 Telephone [facility] Pediatric Louise Locke Erroneous and Adult Primary MD Jeffry encounter-disregard Care- [place] [address], [address] [place] [address] [place] [phone] [address] [phone] Allergies No Known Allergiesdocumented as of this [...] as female needed (severe chronic pelvic pain). blbfkn-cxzcxktk-nxtmuc Take 2 capsules 540 capsule 3 0 [...] days., then increase to 2 at bedtime. doxazosin 2 mg Take 1 tablet by 60 tablet 3 05/25/2020 Active tabletIndications: mouth daily. 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 H/O 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 10/05/2014 04/05/2016 Acute upper respiratory infection 10/05/20142014 Overview: ICD10 Diagnosis Term Behaviour Support Teacher Utility Elevated blood pressure reading without [...] Description 08/07/2020 [facility]/21/2020 Office Visit Internal Medicine Pat Locke MD [address] [place] [address] [phone] Health Maintenance Due Date Last Done Comments [...] Effective Phone Address T ype Group Dates [facility] [id number] 2019-Pre HMO/PP O/POS HEALTHCARE HEALTHCARE PPO sent [facility] [id number] 2019-Pre [phone] [address] dicaid WOMEN sent [phone] [place] [address] documented as of this encounter Advance Directives Name Relationship Healthcare Agent Communication Relationship Solitario Olea Spouse Health Care Agent Verona Baron Mother [facility] Health Care [phone] Agent (Home)
--- OUTSIDE RECORDS SUMMARY | 2020-06-15 13:56 | XMS REPORT | Summary of Care ---
:1975 Author Organization [facility] Address [address] [place] [address] Care Team Providers Name Role Phone Visit, Nurse Unavailable Unavailable Jeffry Locke MD Insurance Hmo Jeffry Locke MD Primary Care Provider Reason for Visit Reason Comments Rx Concern/Question Encounter Details Date Type Department Care Team Description 05/25/2020 Telephone [facility] InterviewBest Family Randee Locke Concern/Question Medicine - Shaun Teran MD [address] [place] [address] Dr goncalves [address] [place] [address] [place] [address] [facility] [address] [place], [place] [address] [phone] Allergies No Known Allergiesdocumented as of this encounter (statuses as of 05/25/2020) Medications Medication Sig Dispensed Refills Start Date [...] as female needed (severe chronic pelvic pain). nxioaq-vewwnkkv-rapqmp Take 2 capsules 540 capsule 3 0 [...] Facility Administered Medication medroxyPROGESTERone 150 mg IM [id number] 02/14/2020 1 Active (DEPO-PROVERA) injection 150 mgIndications: Encounter for other contraceptive management documented as of this encounter (statuses as of 05/25/2020) Active Problems Problem Noted Date Migraine equivalent syndrome 02/19/2020 Nausea 02/19/2020 Fatigue, unspecified type 02/19/2020 Well woman exam 02/14/2020 Contraception management 02/14/2020 Epigastric pain 02/10/2020 Abdominal pain 04/27/2019 Contraceptive management 12/19/2018 Essential hypertension, benign 07/07/2017 Hyperlipidemia, unspecified hyperlipidemia type 2015 HLD (hyperlipidemia) 04/05/2016 Chronic pelvic pain in female 07/30/2015 Morbid obesity 10/05/2014 Ovarian cyst 05/29/2014 documented as of this encounter (statuses as of 05/25/2020) Resolved Problems Problem Noted Date Resolved Date Sigmoid diverticulitis 05/15/2019 01/06/2020 Overview: Added automatically from request for susanna danny [id number] History of 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 12/19/2018 01/06/2020 Encounter for surveillance of injectable contraceptive 07/2801/06/2020 Well woman exam 07/28/2016 01/06/2020 Surveillance of previously prescribed contraceptive method 1 12/06/2013 04/05/2016 Overview: ICD10 Diagnosis 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 RAHUL CARRILLO MA 05/25/2020 4:57 PM Telephone Encounter - Randee Locke MD - 05/25/2020 1:54 PM CDTI don't remember her discussing thigh pain. She mentioned back pain, did not get to it due to other things discussed. According to her chart she is on the following medications for pain: max dose of tramadol and gabapentin, 50mg amitriptyline daily, diclofenac 75mg bid, and duloxetine 60mg daily. Please confirm she is taking all of these. Is the pain sharp? Shooting? When does it occur? Is her leg swelling improved? elephone Encounter - Ovidio Headley - 05/25/2020 8:55 AM CDTPatient is requesting medication in regards to pain in her left thigh up to her buttocks. Please advise. documented in this encounter Plan of Treatment Date Type Specialty Care Team Description 08/07/2020 [facility] 08/21/2020 Office Visit Internal Medicine Pat Locke MD [address] [address] 15 [phone] Health Maintenance Due Date Last Done Comments [...] Effective Phone Address T e Group Dates [facility] [id number] 2019-Pre HMO/PP O/POS [facility]ALTHCARE HEALTHCARE [facility] [id number] 2019-Pre [phone] [address] Me dicaid WOMEN sent [phone] [id number] [place] [address] documented as of this encounter Advance Directives Name Relationship Healthcare Agent Communication Relationship Solitario Olea Spouse Health Care Agent Verona Baron Mother [facility] Health Care Agent (Home)
--- OUTSIDE RECORDS SUMMARY | 2020-06-15 13:56 | XMS REPORT | Summary of Care ---
:1975 Author Organization [facility] Address [address] [place] [address] Care Team Providers Name Role Phone Visit, Nurse Unavailable Unavailable Jeffry Locke MD Insurance Hmo Jeffry Locke MD Primary Care Provider Reason for Visit Reason Comments Rx Concern/Question Encounter Details Date Type Department Care Team Description 05/21/2020 Telephone [facility] Pediatric Louise Locke Rx Concern/Question and Adult Primary Care- MD Jeffry [address], [address] [place] [address] [place] [address] [phone] Allergies No Known Allergiesdocumented as of this [...] as female needed (severe chronic pelvic pain). 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 RAHUL CARRILLO MA 05/25/2020 4:56 PM Telephone Encounter - Randee Locke MD - 05/25/2020 2:00 PM CDTRx sent in. Let patient know. elephone Encounter - Rahul Carrillo MA - 05/22/2020 9:12 AM CDTCalled and spoke with pharmacy. Pharmacy stated the insurance will only cover 1 tablet per day. Pharmacy has dispensed the Rx as prescribed. Pharmacy requested a Rx of 2 MG of Doxazosin to finish the remainders of patients mediationtherapy. RAHUL CARRILLO MA 05/22/2020 9:14 AM Telephone Encounter - Megan Steinberg - 05/21/2020 3:46 PM CDTCVS is calling and is requesting to speak to the nurse in regards to the medication that was just faxed over, [facility] has stated that there is billing issues with the insurance and where needing to see if there is an alternative, please call [facility] back in regards to this encounter. documented in this encounter Plan of Treatment Date Type Specialty Care Team Description 08/07/2020 Nurse Visit OB Satellites Visit, [facility] Nurse 08/21/2020 Office Visit Internal Medicine Pat Locke MD [address] [place] [address] [phone] Health Maintenance Due Date Last Done Comments [...] encounter Visit Diagnoses Diagnosis Essential hypertension, benign - Primary documented in this encounter Insurance Payer Benefit Plan / Subscriber ID Effective Phone Address T ype Group Dates [facility] [id number] 2019-Pre HMO/PP O/POS HEALTHCARE HEALTHCARE PPO sent [facility] [id number] 2019-Pre [phone] [address] dicaid WOMEN sent [id number] [place] [address] documented as of this encounter Advance Directives Name Relationship Healthcare Agent Communication Relationship Solitario Olea Spouse Health Care Agent Verona Baron Mother [facility] Health Care Agent (Home)
--- OUTSIDE RECORDS SUMMARY | 2020-06-15 13:56 | XMS REPORT | Summary of Care ---
:1975 Author Organization [facility] Address [address] [place] [address] Care Team Providers Name Role Phone Visit, Nurse Unavailable Unavailable Jeffry Locke MD Insurance Hmo Jeffry Locke MD Primary Care Provider Reason for Visit Reason Comments Follow-up Encounter Details Date Type Department Care Team Description 05/21/2020 Telemedicine Visit [facility] [place], Essential hypertension, benign (Primary Dx); Pediatric and Adult Randee Teran MD Leg swelling; Primary Care- [address] Frequent headaches; [facility] 103 Chronic midline low back pain with bilat eral sciatica; [address] [place], [place] Chronic pe lvic pain in female; Drive, [address] [address] Epigastric pain; [place], [place] [phone] Feeling tired; [phone] Routine adult health [facility] Allergies No Known Allergiesdocumented as of this encounter (statuses as of 05/24/2020) Medications Medication Sig Dispensed Refills Start Date [...] as female needed (severe chronic pelvic pain). nidven-dncffbwu-imybic Take 2 capsules 540 capsule 3 0 [...] Facility Administered Medication medroxyPROGESTERone 150 mg IM [id number] 02/14/2020 1 Active (DEPO-PROVERA) injection 150 mgIndications: Encounter for other contraceptive management documented as of this encounter (statuses as of 05/24/2020) Active Problems Problem Noted Date Migraine equivalent syndrome 02/19/2020 Nausea 02/19/2020 Fatigue, unspecified type 02/19/2020 Well woman exam 02/14/2020 Contraception management 02/14/2020 Epigastric pain 02/10/2020 Abdominal pain 04/27/2019 Contraceptive management 12/19/2018 Essential hypertension, benign 07/07/2017 Hyperlipidemia, unspecified hyperlipidemia type 2015 HLD (hyperlipidemia) 04/05/2016 Chronic pelvic pain in female 07/30/2015 Morbid obesity 10/05/2014 Ovarian cyst 05/29/2014 documented as of this encounter (statuses as of 05/24/2020) Resolved Problems Problem Noted Date Resolved Date Sigmoid diverticulitis 05/15/2019 01/06/2020 Overview: Added automatically from request for susanna delgado [id number] History of 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 12/19/2018 01/06/2020 Encounter for surveillance of injectable contraceptive 07/2801/06/2020 Well woman exam 07/28/2016 01/06/2020 Surveillance of previously prescribed contraceptive method 1 12/06/2013 04/05/2016 Overview: ICD10 Diagnosis Term Instrument Calibrator Utility H/O 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 10/05/2014 04/05/2016 Acute upper respiratory infection 10/05/20142014 Overview: ICD10 Diagnosis Term Instrument Calibrator Utility Elevated blood pressure reading without diagnosis of 014 10/05/2014 hypertension documented as of this encounter (statuses as of 05/24/2020) Immunizations Name Administration Dates Next Due Influenza [...] Signs Not on filedocumented in this encounter Patient Instructions Patient InstructionsArchana Ball - 05/21/2020 3:20 PM CDTYou can read "Plant Paradox" by Dr. Rain. He has a lot of good information on diet and talks aboutlectins. You can also go online to https://[email or web address] Learn.[employer]/ for more information and recipes. You can go to [email or web address]/ And https://Side.Cr.[employer]/ When you waste picker the doxazosin, decrease the amlodipine to one tablet in the morning and start one tablet of doxazosin at night, do this for 7 days. Then decrease amlodipine to half a tablet in the morning and take two tablets of doxazosin at night. documented in this encounter Progress Notes Randee Locke MD - 05/21/2020 3:20 PM CDT DOS: 05/21/2020 CC: Follow up of chronic conditions Verbal consent obtained from Patient: So Olea for telehealth services provided below. Communication with patient was conducted via Telephone due to patient unable to obtain video call option. Location of Patient: Home Location of Provider: Office Date of Service: 05/21/2020 HPI: So Olea is a 44 year old female with history including has a past medical history of Anxiety, Chronic pelvic pain in female, Endometriosis (2013), Hemorrhoids, HTN (hypertension),Nerve pain, Ovarian cyst, and Ovarian cyst. who is being seen today for follow up of chronic conditions. Reviewed MRI done today 05/21/2020 with patient. Results showed no disc herniation or spinal stenosis.She has arthritis is some areas of the spine but this shouldn't be causing the pain she's having. Patient states she's had a lot going on and she's been in more pain. She recently lost her brother, around this time she noticed more abd pain and menstrual like pain. The creon is still significantly helping with abd bloating. Patient states pelvic pain and GI symptoms improve with antibiotics but come back 2.5-3 week after she finishes the antibiotics. Symptoms also improved with colonoscopy prep. Patient reports amoxicillin made diarrhea worse but she tolerated flagyl and cipro well. Patient states she's tired all the time. Still has back pain, No change compared to a couple months ago. Patient states her back is very bothersome today. She reports pain gets so bad that she's unable to move. Patient states GI told her she has gastritis, diverticulosis, 7 ulcers, and some type of hernia. Patient states her BPs have been high. She states the last time she went to the doctor it was 150/89. Patient states she has occasional headaches with high blood pressure. Patient states she's had a lot of weight gain and has trouble losing weight. Patient states she had a lot of swelling in her legs, mainly on the right side. She takes furosemideand still has swelling. At times swelling is so bad on the right side that she's unable to wear her shoe. Medications reviewed in EPIC, past medical history and social history and allergies reviewed. Review of Systems Cardiovascular: Positive for leg swelling. Genitourinary: Negative for difficulty urinating. Musculoskeletal: Positive for back pain. Neurological: Positive for headaches. PE: This is a televisit unable to get vitals. Physical Exam Constitutional: Comments: Alert and oriented Pulmonary: Effort: No respiratory distress. Breath sounds: Normal breath sounds. No wheezing. Neurological: Comments: Answers questions appropriately Psychiatric: Thought Content: Thought content normal. Results: No new labs A total of 31 minutes was spent on the Telephone due to patient unable to obtain video call option with the patient. A/P: So Olea is a 44 year old female with history including has a past medical history of Anxiety, Chronic pelvic pain in female, Endometriosis (2013), Hemorrhoids, HTN (hypertension), Nerve pain, Ovarian cyst, and Ovarian cyst. who is being seen today for chronic medical conditions. Essential hypertension, benign (primary encounter diagnosis) Comment: BPs have been high. Plan: START doxazosin 1 mg tablet. Discussed with patient when she picks up the of the doxazosin, decrease the amlodipine to one tablet in the morning and start one tablet of doxazosin at night, do this for 7 days. Then decrease amlodipine to half a tablet in the morning and take two tablets of doxazosin at night. Leg swelling Comment: amlodipine can cause swelling. Plan: will switch from amlodipine to doxazosin. Frequent headaches Comment: patient reports headaches with high BP Plan: Brining BP down should help with this. Chronic midline low back pain with bilateral sciatica Comment: still has pain Plan: work on diet. Chronic pelvic pain in female Epigastric pain Comment: pain improves with antibiotics, also improved with colonoscopy prep. Plan: patient will work on diet. Discussed Dr. Rain's lectin free diet, information given on aftervisit summary. Feeling tired Comment: Could be related to chronic inflammation. Plan: work on decreasing inflammation. Discussed diet. Routine adult health maintenance Comment: patient is due for routine labs. Plan: CBC WITH DIFF, COMP. METABOLIC PANEL (97445), LIPID PANEL (70559)(TOTAL CHOLESTEROL, TRIGLYCERIDES, HDL), THYROID STIMULATING HORMONE, FREE T4, FREE T3, GLYCOSYLATED HEMOGLOBIN (A1C) Return in about 3 months (around 08/21/2020) for Chronic medical conditions. Plan of care, desired health behaviors, goals,& [...] performed the services described here-in. Archana Ball, May 21, 2020, 2:58 PM Physician's Attestation IRandee MD, personally performed the services described in this documentation , asscribed by, Archana Ball in my presence and it is both accurate and complete. Randee Locke MD May 24, 2020, 4:35 PM documented in this encounter Plan of Treatment Date Type Specialty Care Team Description 08/07/2020 Nurse Visit [facility] 08/21/2020 Office Visit Internal Medicine Pat Locke MD [address] [place] [address] 15 [phone] Name Type Priority Associated Diagnoses Order S chedule CBC WITH DIFF LAB Routine Routine adult health Ordere d: 05/21/2020 maintenance COMP. METABOLIC PANEL LAB Routine Routine adult healt h Ordered: 05/21/2020 (52221) maintenance LIPID PANEL (59063)(TOTAL LAB Routine Routine adult h ealth Ordered: 05/21/2020 CHOLESTEROL, maintenance TRIGLYCERIDES, HDL) THYROID STIMULATING LAB Routine Routine adult health Ordered: 05/21/2020 HORMONE maintenance FREE T4 LAB Routine Routine adult health Ordered : 05/21/2020 maintenance FREE T3 LAB Routine Routine adult health Ordered : 05/21/2020 maintenance GLYCOSYLATED HEMOGLOBIN LAB Routine Routine adult hea lth Ordered: 05/21/2020 (A1C) maintenance Health Maintenance Due Date Last Done Comments [...] Diagnoses Diagnosis Essential hypertension, benign - Primary Leg swelling Swelling of limb Frequent headaches Chronic midline low back pain with bilat eral sciatica Chronic pelvic pain in female Unspecified symptom associated with fema le genital organs Epigastric pain Abdominal pain, epigastric Feeling tired Other malaise and fatigue Routine adult health maintenance Routine general medical examination at a health care facility documented in this encounter Insurance Payer Benefit Plan / Subscriber ID Effective Dates Phone Addre ss Type Group [facility] [id number] 2019-[facility] HMO/ PPO/[facility] HEALTHCARE PPO nt S [phone] [id number] (Work) documented as of this encounter Advance Directives Name Relationship Healthcare Agent Communication Relationship Solitario Olea Spouse Health Care Agent Verona Baron Mother [facility] Health Care Agent (Home)
--- OUTSIDE RECORDS SUMMARY | 2020-06-15 13:56 | XMS REPORT | Summary of Care ---
:1975 Author Organization [facility] Address [address] [place] [address] Care Team Providers Name Role Phone Visit, Nurse Unavailable Unavailable Jeffry Locke MD Insurance Hmo Jeffry Locke MD Primary Care Provider Reason for Visit Reason Comments Refill Request Encounter Details Date Type Department Care Team Description 05/25/2020 Refill [facility] Pediatric and Elysas Locke, Refill Request Adult Primary Care- MD [place] [address] [place] [address] 146 [facility] 103 [address] [place] [address] [place] [address] [phone] Allergies No Known Allergiesdocumented as of this [...] as female needed (severe chronic pelvic pain). fdqwca-dweaugjs-sezzis Take 2 capsules 540 capsule 3 0 [...] Facility Administered Medication medroxyPROGESTERone 150 mg IM [id number] 02/14/2020 1 Active (DEPO-PROVERA) injection 150 mgIndications: [...] Added automatically from request for susanna danny [id number] History of 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 12/19/2018 01/06/2020 Encounter for surveillance of injectable contraceptive 07/2801/06/2020 Well woman exam 07/28/2016 01/06/2020 Surveillance of previously prescribed contraceptive method 1 12/06/2013 04/05/2016 Overview: ICD10 Diagnosis Term Van Loader Utility H/O 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 10/05/2014 04/05/2016 Acute upper respiratory infection 10/05/20142014 Overview: ICD10 Diagnosis Term Van Loader Utility Elevated blood pressure reading without diagnosis [...] Description 08/07/2020 Nurse [facility] 08/[facility]/2020 Office Visit Internal Medicine Pat Locke MD [address] [place] [address] 15 [phone] Health Maintenance Due Date Last Done Comments [...] Effective Phone Address T ype Group Dates [employer] [id number] 2019-Pre HMO/PP O/POS HEALTHCARE HEALTHCARE PPO [facility] [id number] 2019-Pre [phone] dicaid WOMEN sent [id number] [place] [address] documented as of this encounter Advance Directives Name Relationship Healthcare Agent Communication Relationship Solitario Olea Spouse Health Care Agent Verona Baron Mother [facility] Agent (Home)
--- OUTSIDE RECORDS SUMMARY | 2020-06-15 13:57 | XMS REPORT | Summary of Care ---
:1975 Author Organization [facility] Address [address] [place] [address] Care Team Providers Name Role Phone Visit, Nurse Unavailable Unavailable Jeffry Locke MD Insurance Hmo Jeffry Locke MD Primary Care Provider Reason for Visit Reason Onset Date Comments Erroneous encounter-disregard 06/02/2020 Encounter Details Date Type Department Care Team Description 06/02/[address] [facility] Pediatric Lisandro Locke (Primary Dx); and Adult Primary Kranthi Ulloa ERRONEOUS ENCOUNTER--DISREGARD Care- [address], [address] [place], [place] [address] [place] [address] [phone] [address] [phone] Allergies No Known Allergiesdocumented as of this encounter (statuses as of 06/02/2020) Medications Medication Sig Dispensed Refills Start Date [...] as female needed (severe chronic pelvic pain). iidjqg-fockhblc-jijhzf Take 2 capsules 540 capsule 3 0 [...] Active tabletIndications: mouth daily. Essential hypertension, benign famotidine 40 mg Take 1 tablet by 90 tablet 3 06/02/2020 Active tabletIndications: mouth daily. Indigestion Hospital, Clinic, or Other Ordered Dose Route Frequency Start Date End Date Status Facility Administered Medication medroxyPROGESTERone 150 mg IM [id number] 02/14/2020 1 Active (DEPO-PROVERA) injection 150 mgIndications: Encounter for other contraceptive management documented as of this encounter (statuses as of 06/02/2020) Active Problems Problem Noted Date Migraine equivalent syndrome 02/19/2020 Nausea 02/19/2020 Fatigue, unspecified type 02/19/2020 Well woman exam 02/14/2020 Contraception management 02/14/2020 Epigastric pain 02/10/2020 Abdominal pain 04/27/2019 Contraceptive management 12/19/2018 Essential hypertension, benign 07/07/2017 Hyperlipidemia, unspecified hyperlipidemia type 2015 HLD (hyperlipidemia) 04/05/2016 Chronic pelvic pain in female 07/30/2015 Morbid obesity 10/05/2014 Ovarian cyst 05/29/2014 documented as of this encounter (statuses as of 06/02/2020) Resolved Problems Problem Noted Date Resolved Date Sigmoid diverticulitis 05/15/2019 01/06/2020 Overview: Added automatically from request for susanna delgado [id number] History of 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 12/19/2018 01/06/2020 Encounter for surveillance of injectable contraceptive 07/2801/06/2020 Well woman exam 07/28/2016 01/06/2020 Surveillance of previously prescribed contraceptive method 1 12/06/2013 04/05/2016 Overview: ICD10 Diagnosis Term 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 Please disregard. documented in this encounter Plan of Treatment Date Type Specialty Care Team Description 06/05/2020 Office Visit Internal Medicine Pat Locke MD [address] [place] [address] 15 [phone] 08/07/2020 [facility] 08/21/2020 Office Visit Internal Medicine Pat Locke MD [address] [facility] 103 [place], [place] [address] Health Maintenance Due Date Last Done Comments [...] filedocumented in this encounter Visit Diagnoses Diagnosis Indigestion - Primary Dyspepsia and other specified disorders of function of stomach ERRONEOUS ENCOUNTER--DISREGARD documented in this encounter Insurance Payer Benefit Plan / Subscriber ID Effective Dates Phone Addre ss Type Group [facility] [id number] 2019-Prese HMO/ PPO/[facility] HEALTHCARE PPO nt S [phone] [id number] (Work) documented as of this encounter Advance Directives Name Relationship Healthcare Agent Communication Relationship Solitario Olea Spouse Health Care Agent Verona Tod Mother [facility] Health Care Agent (Home)
--- OUTSIDE RECORDS SUMMARY | 2020-06-15 13:57 | XMS REPORT | Summary of Care ---
:1975 Author Organization [facility] Address [address] [place] [address] Care Team Providers Name Role Phone Visit, Nurse Unavailable Unavailable Jeffry Locke MD Insurance Hmo Jeffry Locke MD Primary Care Provider Reason for Visit Reason Comments Assessment alt visit Encounter Details Date Type Department Care Team Description 06/02/2020 Telephone [facility] Pediatric Louise Locke Assessment (alt visit) and Adult Primary MD Jeffry Care- [address], [address] [place] [address] [place], [place] [phone] [address] [phone] Allergies No Known Allergiesdocumented as of this [...] as female needed (severe chronic pelvic pain). kkxkfv-sebvvxkz-byfbsd Take 2 capsules 540 capsule 3 0 [...] Facility Administered Medication medroxyPROGESTERone 150 mg IM [id number] 02/14/2020 1 Active (DEPO-PROVERA) injection 150 mgIndications: [...] Added automatically from request for susanna delgado [id number] History of 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 12/19/2018 01/06/2020 Encounter for surveillance of injectable contraceptive 07/2801/06/2020 Well woman exam 07/28/2016 01/06/2020 Surveillance of previously prescribed contraceptive method 1 12/06/2013 04/05/2016 Overview: ICD10 Diagnosis Term Test Facility Engineer Utility H/O 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 10/05/2014 04/05/2016 Acute upper respiratory infection 10/05/20142014 Overview: ICD10 Diagnosis Term Test Facility Engineer Utility Elevated blood pressure reading without [...] this encounter Miscellaneous Notes Telephone Encounter - Randee Locke MD - 06/02/2020 5:25 PM CDTCalled patient this afternoon, gave her the information about the GI 360 test by [employer], she will consider it but the test is not likely covered by insurance. She will check. She has not been feeling well today, more indigestion, pain, some bloody stools. But worst pain is the indigestion. Is on nexium bid, will add famotidine at night. She needs a letter for work. No family with autoimmune disorder she is aware of. She has appointment with me on Monday, will follow up then, she will call if she is getting worse. documented in this encounter Plan of Treatment Date Type Specialty Care Team Description 06/05/2020 Office Visit Internal Medicine Pat Locke MD [address] [address] 15 [phone] 08/07/2020 Nurse Visit OB Satellites Visit, [facility] Nurse 08/21/2020 Office Visit Internal Medicine Pat Locke MD [address] [address] 15 [phone] Health Maintenance Due Date Last Done Comments [...] Effective Phone Address T ype Group Dates [facility] [id number] 2019-Pre HMO/PP O/POS HEALTHCARE HEALTHCARE PPO [facility] [id number] 2019-Pre [phone] dicaid WOMEN sent [id number] [place] [address] documented as of this encounter Advance Directives Name Relationship Healthcare Agent Communication Relationship Solitario Olea Spouse Health Care Agent Verona Baron Mother [facility] Health Care [phone] Agent (Home)
--- OUTSIDE RECORDS SUMMARY | 2020-06-15 13:57 | XMS REPORT | Summary of Care ---
:1975 Author Organization [facility] [employer] Address [address] [place] [address] Care Team Providers Name Role Phone Visit, Nurse Unavailable Unavailable Jeffry Locke MD Insurance Hmo Jeffry Locke MD Primary Care Provider Reason for Visit Reason Onset Date Comments Erroneous encounter-disregard 06/02/2020 Encounter Details Date Type Department Care Team Description 06/02/2020 Office Visit [facility] Pediatric Lisandro Locke (Primary Dx); and Adult Primary Kranthi Ulloa ERRONEOUS ENCOUNTER--DISREGARD Care- [address], [address] [place], [place] [address] [place] [address] [phone] [address] [phone] Allergies No Known Allergiesdocumented as of this [...] as female needed (severe chronic pelvic pain). bdqlto-gwantvbo-qoxdfw Take 2 capsules 540 capsule 3 0 [...] Facility Administered Medication medroxyPROGESTERone 150 mg IM [id number] 02/14/2020 1 Active (DEPO-PROVERA) injection 150 mgIndications: [...] Added automatically from request for susanna delgado [id number] History of 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 12/19/2018 01/06/2020 Encounter for surveillance of injectable contraceptive 07/2801/06/2020 Well woman exam 07/28/2016 01/06/2020 Surveillance of previously prescribed contraceptive method 1 12/06/2013 04/05/2016 Overview: ICD10 Diagnosis Term Dna Sequencing Associate Utility H/O 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 10/05/2014 04/05/2016 Acute upper respiratory infection 10/05/20142014 Overview: ICD10 Diagnosis Term Dna Sequencing Associate Utility Elevated blood pressure reading without diagnosis [...] Office Visit Internal Medicine Pat Locke MD [address] [place] [address] [phone] 08/07/2020 [facility] 08/21/2020 Office Visit Internal Medicine Pat Locke MD [address] [facility] 103 [place], [place] [address] Health Maintenance Due Date [...] Effective Dates Phone Addre ss Type Group [facility] [id number] 2019-Prese HMO/ PPO/[employer] PPO nt S [phone] (Work) documented as of this encounter Advance Directives Name Relationship Healthcare Agent Communication Relationship Solitario Olea Spouse Health Care Agent Verona Tod Mother [facility] Health Care [phone] Agent (Home)
--- OUTSIDE RECORDS SUMMARY | 2020-06-15 13:57 | XMS REPORT | Summary of Care ---
:1975 Author Organization [facility] - [facility] Address [address] [place] [address] Care Team Providers Name Role Phone Visit, Nurse Unavailable Unavailable Jeffry Locke MD Insurance Hmo Jeffry Locke MD Primary Care Provider Encounter Details Date Type Department Care Team Description 05/27/2020 Orders Only [facility] Doctor Unassigned, No [address] [facility] [place] [address] [address] [place] [address] Allergies No Known Allergiesdocumented as of this encounter (statuses as of 05/27/2020) Medications Medication Sig Dispensed Refills Start Date [...] as female needed (severe chronic pelvic pain). [id number] Take 2 capsules 540 capsule 3 0 [...] Facility Administered Medication medroxyPROGESTERone 150 mg IM [id number] 02/14/2020 1 Active (DEPO-PROVERA) injection 150 mgIndications: Encounter for other contraceptive management documented as of this encounter (statuses as of 05/27/2020) Active Problems Problem Noted Date Migraine equivalent syndrome 02/19/2020 Nausea 02/19/2020 Fatigue, unspecified type 02/19/2020 Well woman exam 02/14/2020 Contraception management 02/14/2020 Epigastric pain 02/10/2020 Abdominal pain 04/27/2019 Contraceptive management 12/19/2018 Essential hypertension, benign 07/07/2017 Hyperlipidemia, unspecified hyperlipidemia type 2015 HLD (hyperlipidemia) 04/05/2016 Chronic pelvic pain in female 07/30/2015 Morbid obesity 10/05/2014 Ovarian cyst 05/29/2014 documented as of this encounter (statuses as of 05/27/2020) Resolved Problems Problem Noted Date Resolved Date Sigmoid diverticulitis 05/15/2019 01/06/2020 Overview: Added automatically from request for susanna delgado [id number] History of 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 12/19/2018 01/06/2020 Encounter for surveillance of injectable contraceptive 07/2801/06/2020 Well woman exam 07/28/2016 01/06/2020 Surveillance of previously prescribed contraceptive method 1 12/06/2013 04/05/2016 Overview: ICD10 Diagnosis Term Nursing Aide Utility H/O 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 10/05/2014 04/05/2016 Acute upper respiratory infection 10/05/20142014 Overview: ICD10 Diagnosis Term Nursing Aide Utility Elevated blood pressure reading without diagnosis of 014 10/05/2014 hypertension documented as of this encounter (statuses as of 05/27/2020) Immunizations Name Administration Dates Next Due Influenza [...] Treatment Date Type Specialty Care Team Description 06/02/2020 Office Visit Internal Medicine Pat Locke MD [address] [place] [address] [phone] 08/07/2020 Nurse Visit OB Satellites Visit, [facility] Nurse 08/21/2020 Office Visit Internal Medicine Pat Locke MD [address] [place] [address] 77 15 [phone] Health Maintenance Due Date Last Done Comments [...] Associated Diagnosis Comme nts EXTERNAL PROVIDER Routine 05/27/2020 12:01 AM CDT RECORDS documented in this encounter Results Not on filedocumented in this encounter Insurance Payer Benefit Plan / Subscriber ID Effective Phone Address T ype Group Dates [facility] [id number] 2019-Pre HMO/PP O/POS HEALTHCARE HEALTHCARE PPO sent [facility] [id number] 2019-Pre [phone] [address] dicaid WOMEN sent [id number] [place] [address] documented as of this encounter Advance Directives Name Relationship Healthcare Agent Communication Relationship Solitario Olea Spouse Health Care Agent Verona Baron Mother First [facility] Health Care Agent (Home)
--- OUTSIDE RECORDS SUMMARY | 2020-06-15 13:58 | XMS REPORT | Summary of Care ---
:1975 Author Organization [facility] Address [address] [place] [address] Care Team Providers Name Role Phone Visit, Nurse Unavailable Unavailable Jeffry Locke MD Insurance Hmo Jeffry Locke MD Primary Care Provider Reason for Visit Reason Comments Follow-up GI Problem Encounter Details Date Type Department Care Team Description 06/05/2020 Office Visit [facility] Yasmin Locke abdominal pain (Primary Dx); and Adult Primary Kranthi Ulloa Diarrhea, unspecified type; [facility]- [address] Excessive sweating; [address] [place] [address] [address]; [address], [address] [place] [address] Difficulty sleeping [place] [phone] [address] [phone] Allergies No Known Allergiesdocumented as of this encounter (statuses as of 06/07/2020) Medications Medication Sig Dispensed Refills Start Date [...] needed in female, Muscle for pain spasm amLODIPine 5 mg Take 1.5 45 tablet 3 01/06/2020 Act sacha tabletIndications: tablets by Essential mouth daily. hypertension, benign DULOXETINE 60 mg TAKE ONE 90 capsule 3 01/21/2020 A ctive capsuleIndications: CAPSULE BY Chronic pelvic pain MOUTH DAILY in female esomeprazole (NEXIUM) Take 1 capsule 180 capsule 3 01/21/2020 Active 40 mg by mouth 2 capsuleIndications: (two) times Epigastric pain daily. butalbital-acetaminop Take 1 tablet 60 tablet 0 02/19/2020 Active hen-caff 50-325-40 mg by mouth every tabletIndications: 4 (four) hours Migraine equivalent as needed syndrome (Migraine). ONDANSETRON 4 mg TAKE 1 TABLET 30 tablet 0 04/05/2020 Active tabletIndications: BY MOUTH EVERY Nausea 12 HOURS FUROSEMIDE 20 mg TAKE ONE TABLET 90 tablet 1 04/05/2020 Active tabletIndications: BY MOUTH DAILY Essential hypertension, benign DICLOFENAC 75 mg EC TAKE 1 TABLET 180 tablet 0 04/06/2020 Active tabletIndications: BY MOUTH TWICE Chronic pelvic pain A DAY WITH FOOD in female GABAPENTIN 300 mg TAKE 3 CAPSULES 270 capsule 3 04/08/2020 Active capsuleIndications: BY MOUTH 3 Chronic pelvic pain TIMES A DAY in female AMITRIPTYLINE 50 mg TAKE 1 TABLET 90 [...] 3 04/17/2020 Active tabletIndications: by mouth every Chronic pelvic pain 8 (eight) hours in female as needed (severe chronic pelvic pain). [id number]-vlimphvr-[id number] Take 2 capsules 540 capsule 3 04/26/2020 Active se 12,000-38,000 by mouth 3 -60,000 unit (three) times capsuleIndications: daily with Epigastric pain meals. LISINOPRIL 10 mg TAKE 1 TABLET 180 tablet 3 05/14/2020 Active tabletIndications: BY MOUTH TWICE Essential A DAY hypertension, benign doxazosin 1 mg Take 1 tablet 60 tablet 3 05/21/2020 Active tabletIndications: by mouth at Essential bedtime. For 7 hypertension, benign days., then increase to 2 at bedtime. doxazosin 2 mg Take 1 tablet 60 tablet 3 05/25/2020 Active tabletIndications: by mouth daily. Essential hypertension, benign famotidine 40 mg Take 1 tablet 90 tablet 3 06/02/2020 Active tabletIndications: by mouth daily. Indigestion ciprofloxacin HCl Take 1 tablet 20 tablet 0 06/05/2020 020 Active (CIPRO) 500 mg by mouth every tabletIndications: 12 (twelve) Generalized abdominal hours for 10 pain, Diarrhea, days. unspecified type metroNIDAZOLE 500 mg Take 1 tablet 30 tablet 0 06/05/202005/18 Active tabletIndications: by mouth every Generalized abdominal 8 (eight) hours pain, Diarrhea, for 10 days. unspecified type Hospital, Clinic, or Other Ordered Dose Route Frequency Start Date End Date Status Facility Administered Medication medroxyPROGESTERone 150 mg IM [id number] 02/14/2020 1 Active (DEPO-PROVERA) injection 150 mgIndications: Encounter for other contraceptive management documented as of this encounter (statuses as of 06/07/2020) Active Problems Problem Noted Date Migraine equivalent syndrome 02/19/2020 Nausea 02/19/2020 Fatigue, unspecified type 02/19/2020 Epigastric pain 02/10/2020 Abdominal pain 04/27/2019 Essential hypertension, benign 07/07/2017 Hyperlipidemia, unspecified hyperlipidemia type 2015 HLD (hyperlipidemia) 04/05/2016 Chronic pelvic pain in female 07/30/2015 Morbid obesity 10/05/2014 Ovarian cyst 05/29/2014 documented as of this encounter (statuses as of 06/07/2020) Resolved Problems Problem Noted Date Resolved Date Well woman exam 02/14/2020 06/07/2020 Contraception management 02/14/2020 06/07/2020 Sigmoid diverticulitis 05/15/2019 01/06/2020 Overview: Added automatically from request for susanna delgado [id number] Contraceptive management 12/19/2018 06/07/2020 History of 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 12/19/2018 01/06/2020 Encounter for surveillance of injectable contraceptive 07/2801/06/2020 Well woman exam 07/28/2016 01/06/2020 Surveillance of previously prescribed contraceptive method 1 12/06/2013 04/05/2016 Overview: ICD10 Diagnosis Term Net Fisher Utility H/O 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 10/05/2014 04/05/2016 Acute upper respiratory infection 10/05/20142014 Overview: ICD10 Diagnosis Term Net Fisher Utility Elevated blood pressure reading without diagnosis of 014 10/05/2014 hypertension documented as of this encounter (statuses as of 06/07/2020) Immunizations Name Administration Dates Next Due Influenza [...] been in contact with No / Unsure 06/05/2020 1:35 PM CDT someone who was confirmed or suspected to have Coronavirus / COVID-19? documented as of this encounter Last Filed Vital Signs Vital Sign Reading Time Taken Comments Blood Pressure 137/77 06/05/2020 1:49 PM CDT Pulse 111 06/05/2020 1:49 PM CDT Temperature 35.9 C (96.6 F) 06/05/2020 1:49 PM CDT Respiratory Rate 18 06/05/2020 1:49 PM CDT Oxygen Saturation 100% 06/05/2020 1:49 PM CDT Inhaled Oxygen Concentration - - Weight 127.3 kg (280 lb 9.6 oz) 06/05/2020 1:49 PM CDT Height - - Body Mass Index 45.29 05/15/2020 8:42 AM CDT documented in this encounter Patient Instructions Patient InstructionsArchana Ball - 06/05/2020 1:40 PM CDTFor diarrhea: start Bifidobacteria at least 8 billion units per capsule, preferably refrigerated. Take 1 capsule twice a day for at least a month. You can read "Plant Paradox" by Dr. Rain. He has a lot of good information on diet and talks aboutlectins. You can also go online to [email or web address]/ for more information and recipes. documented in this encounter Progress Notes Randee Locke MD - 06/05/2020 1:40 PM CDT DOS: 06/05/2020 CC: Follow up of chronic conditions HPI: So Olea is a 44 year old female with history including has a past medical history of Anxiety, Chronic pelvic pain in female, Endometriosis (2014), Hemorrhoids, HTN (hypertension),Nerve pain, Ovarian cyst, and Ovarian cyst. who is being seen today for follow up of chronic conditions. Patient states she's not felling any better. Still having issues with her stomach, adding the famotidine helped a little. Patient states pelvic pain and GI symptoms improve with antibiotics but comes back a few weeks aftershe finishes them. She reports amoxicillin made diarrhea worse. Patient states she's not taking anything for diarrhea because she doesn't want to get constipated. She reports "if my bottom hurts I just go sit in the bath tub". She states diarrhea is more watery butafter about 2 weeks on culturelle her stools started getting more solid. She reports diarrhea after she eats anything. Patient is very tearful. She states things are very hard for her because she lost her brother due tostomach/pancreas issues. She states both her and her brother always had stomach issues. She is worried she has pancreas issues too. She reports she was in the hospital once and had pancreas issues, butwas not at [facility]. Patient states she sweats like crazy and has sweat dripping down her face. She states she sweats more when she's in pain. Patient states she's still having trouble sleeping and the amitriptyline isn't helping. She still feels tired and states her eyes feel heavy. Medications reviewed in EPIC, past medical history and social history and allergies reviewed. Review of Systems Constitutional: Positive for diaphoresis and fatigue. Gastrointestinal: Positive for abdominal pain and diarrhea. Psychiatric/Behavioral: Positive for sleep disturbance. PE: Blood pressure 137/77, pulse 111, temperature 35.9 C (96.6 F), temperature source Oral, resp. rate 18, weight 280 lb 9.6 oz (127.3 kg), SpO2 100 %. Physical Exam Vitals signs reviewed. Constitutional: General: She is not in acute distress. Appearance: She is well-developed. She is not diaphoretic. HENT: Head: Normocephalic and atraumatic. Right Ear: External ear normal. Left Ear: External ear normal. Nose: Nose normal. Eyes: General: No scleral icterus. Right eye: No discharge. Left eye: No discharge. Comments: Left and right eyelids normal. Abdominal: Tenderness: There is generalized abdominal tenderness. Skin: General: Skin is warm and dry. Neurological: Mental Status: She is alert and oriented to person, place, and time. Comments: No tremors. Normal gait. Psychiatric: Behavior: Behavior normal. Comments: Pleasant. Results: No new labs Education & Visit Time: this visit involved counseling and coordination of care that comprised more than 50% of the visit time. I spent at least 25 mintues total time with the patient. Of that time, at least 1 minute was spent on exam, and at least 24 minutes was spent obtaining history and counseling the patient regarding risks and benefits of treatment, treatment options and prevention. A/P: So Olea is a 44 year old female with history including has a past medical history of Anxiety, Chronic pelvic pain in female, Endometriosis (2014), Hemorrhoids, HTN (hypertension), Nerve pain, Ovarian cyst, and Ovarian cyst. who is being seen today for chronic medical conditions. Generalized abdominal pain (primary encounter diagnosis) Diarrhea, unspecified type Comment: still having issues. Pain and GI symptoms seem to improve with antibiotics. Discussed the stool GI 360 test to evaluate for abnormalities. Gave her a kit in clinic, will most likely need to pay out of pocket for this test. She is on probiotics but only lactobacillus, no bifidobacteria. Will start bifidobacteria probiotics and start antibiotics again. Her pain is severe, antibiotics always help the pain, and the pain improved after a colonoscopy prep as well. May have a bacterial overgrowth. Plan: START ciprofloxacin HCl (CIPRO) 500 mg tablet, metroNIDAZOLE 500 mg tablet. Discussed with patient to start taking Bifidobacteria at least 8 billion units per capsule, preferably refrigerated. Take 1 capsule twice a day for at least a month. Also discussed lectin free diet to help decrease inflammation. Excessive sweating Comment: Could be related to inflammation. Could also be related to irritation of gut lining, triggering pain and sweating. Plan: Discussed lectin free diet to help decrease inflammation. Feeling tired Difficulty sleeping Comment: Hopefully by taking care of abd pain and fixing gut bacteria will over time help her feel better. She is already on a lot of medication. Plan: will increase amitriptyline. Sent in rx. Return for Schedule appointment sometime between 7-8am within the next month for follow-up . Plan of care, desired health behaviors, goals,& [...] performed the services described here-in. Archana Ball, June 05, 2020, 2:20 PM Physician's Attestation IRandee MD, personally performed the services described in this documentation , asscribed by, Archana Ball in my presence and it is both accurate and complete. Randee Locke MD June 07, 2020, 6:37 PM documented in this encounter Plan of Treatment Date Type Specialty Care Team Description 07/13/2020 Office Visit Internal Medicine Pat Locke MD [address] [address] 08/07/2020 Nurse Visit OB Satellites Visit, KendraRmelena Nurse 08/21/2020 Office Visit Internal Medicine Pat Locke MD 146 [facility] [address] [place], [place] [address] [phone] Health Maintenance Due Date Last Done Comments [...] filedocumented in this encounter Visit Diagnoses Diagnosis Generalized abdominal pain - Primary Abdominal pain, generalized Diarrhea, unspecified type Excessive sweating Generalized hyperhidrosis Feeling tired Other malaise and fatigue Difficulty sleeping Sleep disturbance, unspecified documented in this encounter Insurance Payer Benefit Plan / Subscriber ID Effective Dates Phone Addre ss Type Group [facility] [id number] [facility] PPO nt S [phone] [id number] (Work) documented as of this encounter Advance Directives Name Relationship Healthcare Agent Communication Relationship Solitario Olea Spouse Health Care Agent Verona Tod Mother [facility][1] Health Care Agent (Home)
--- OUTSIDE RECORDS SUMMARY | 2020-06-15 13:58 | XMS REPORT | Summary of Care ---
:1975 Author Organization [facility] Address [address] [place] [address] Care Team Providers Name Role Phone Visit, Nurse Unavailable Unavailable Jeffry Locke MD Insurance Hmo Jeffry Locke MD Primary Care Provider Reason for Visit Reason Comments Follow-up GI Problem Encounter Details Date Type Department Care Team Description 06/05/2020 Office Visit [facility] Pediatric Yasmin Locke abdominal pain (Primary Dx); and Adult Primary Kranthi Ulloa Diarrhea, unspecified type; [facility]- [address] Excessive sweating; [address] [place] [address] [address]; [address], [address] [place] [address] Difficulty sleeping [place], [place] [phone] [address] [phone] Allergies No Known Allergiesdocumented as of this [...] female as needed (severe chronic pelvic pain). [id number]-[id number]-bhazw Take 2 capsules 540 capsule 3 04/26/2020 [...] Facility Administered Medication medroxyPROGESTERone 150 mg IM [id number] 02/14/2020 1 Active (DEPO-PROVERA) injection 150 mgIndications: [...] Added automatically from request for susanna delgado [id number] Contraceptive management 12/19/2018 06/07/2020 History of 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 12/19/2018 01/06/2020 Encounter for surveillance of injectable contraceptive 07/2801/06/2020 Well woman exam 07/28/2016 01/06/2020 Surveillance of previously prescribed contraceptive method 1 12/06/2013 04/05/2016 Overview: ICD10 Diagnosis Term Manager Mutual Fund Utility H/O 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 10/05/2014 04/05/2016 Acute upper respiratory infection 10/05/20142014 Overview: ICD10 Diagnosis Term Manager Mutual Fund Utility Elevated blood pressure reading without diagnosis [...] aboutlectins. You can also go online to https://[email or web address] [email or web address]/ for more information and recipes. documented in this encounter Progress Notes Randee Locke MD - 06/05/2020 1:40 PM CDT DOS: 06/05/2020 CC: Follow up of chronic conditions HPI: So Olae is a 44 year old female with [...] and had pancreas issues, butwas not at [facility]. Patient states she sweats like crazy and [...] Visit Internal Medicine Pat Locke MD [address] [address] 08/07/2020 Nurse Visit OB Satellites Visit, KendraRmelena Nurse 08/21/2020 Office Visit Internal Medicine Pat Locke MD 146 [facility] [address] [place], [place] [address] [phone] Health Maintenance Due Date Last Done Comments [...] Effective Dates Phone Addre ss Type Group [facility] [id number] [facility] PPO nt S [phone] [id number] (Work) documented as of this encounter Advance Directives Name Relationship Healthcare Agent Communication Relationship Solitario Olea Spouse Health Care Agent Verona Tod Mother [facility] Health Care [phone] Agent (Home)
--- OUTSIDE RECORDS SUMMARY | 2020-06-15 13:58 | XMS REPORT | Summary of Care ---
:1975 Author Organization [facility] Address [address] [place] [address] Care Team Providers Name Role Phone Visit, Nurse Unavailable Unavailable Jeffry Locke MD Insurance Hmo Jeffry Locke MD Primary Care Provider Reason for Visit Reason Comments Assessment alt visit Encounter Details Date Type Department Care Team Description 06/02/2020 Telephone [facility] Pediatric Louise Locke Assessment (alt visit) and Adult Primary MD [facility]- [address], [address] [place] [address] [place], [place] [phone] [address] [phone] Allergies No Known Allergiesdocumented as of this [...] as female needed (severe chronic pelvic pain). [id number]-[id number] Take 2 capsules 540 capsule 3 0 [...] Facility Administered Medication medroxyPROGESTERone 150 mg IM [id number] 02/14/2020 1 Active (DEPO-PROVERA) injection 150 mgIndications: [...] Added automatically from request for susanna delgado [id number] History of 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 12/19/2018 01/06/2020 Encounter for surveillance of injectable contraceptive 07/2801/06/2020 Well woman exam 07/28/2016 01/06/2020 Surveillance of previously prescribed contraceptive method 1 12/06/2013 04/05/2016 Overview: ICD10 Diagnosis Term Philosophy Instructor Utility H/O 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 10/05/2014 04/05/2016 Acute upper respiratory infection 10/05/20142014 Overview: ICD10 Diagnosis Term Philosophy Instructor Utility Elevated blood pressure reading without diagnosis [...] Visit Internal Medicine Pat Locke MD [address] [address] [phone] 08/07/2020 Nurse Visit OB Satellites Visit, [facility] Nurse 08/21/2020 Office Visit Internal Medicine Pat Locke MD [address] [address] [phone] Health Maintenance Due Date Last Done Comments [...] Effective Phone Address T ype Group Dates [facility] [id number] 2019-Pre HMO/PP O/POS HEALTHCARE HEALTHCARE [facility] [id number] [facility]-Pre [phone] [address] dicaid WOMEN sent [phone] [place] [address] documented as of this encounter Advance Directives Name Relationship Healthcare Agent Communication Relationship Solitario Olea Spouse Health Care Agent Verona Baron Mother [facility] [phone] Agent (Home)
--- OUTSIDE RECORDS SUMMARY | 2020-06-15 13:59 | XMS REPORT | Summary of Care ---
:1975 Author Organization [facility] - [facility] Address [address] [place] [address] Care Team Providers Name Role Phone Visit, Nurse Unavailable Unavailable Jeffry Locke MD Insurance Hmo Jeffry Locke MD Primary Care Provider Encounter Details Date Type Department Care Team Description 06/12/2020 Patient [facility], Muscle spasm Msg Pediatric and Adult Randee Teran MD (Primary Dx) Primary Care- [address] [place] [address] [address], [address] [place] [address] Allergies No Known Allergiesdocumented as of this encounter (statuses as of 06/12/2020) Medications Medication Sig Dispensed Refills Start End Date Status Date MULTIVIT Take by 0 Active &MINERALS/FERROUS mouth. FUM (MULTI VITAMIN ORAL) CALCIUM CARB/VIT Take by 0 Act sacha D3/MINERALS mouth. (CALCIUM CARBONATE-VIT D3-MIN ORAL) docusate calcium Take 1 60 capsule 2 Ac tive 240 mg capsule capsule by 7 mouth daily. amLODIPine 5 mg Take 1.5 45 tablet [...] hours as needed (severe chronic pelvic pain). ljmxfy-avujaytk-ngh Take 2 540 capsule 3 Active lase 12,000-38,000 capsules by 0 -60,000 unit mouth 3 capsuleIndications: (three) times Epigastric pain daily with meals. LISINOPRIL 10 mg TAKE 1 TABLET 180 tablet 3 Active tabletIndications: BY MOUTH 0 Essential TWICE A DAY hypertension, benign doxazosin 1 mg Take 1 tablet 60 tablet 3 A ctive tabletIndications: by mouth at 0 Essential bedtime. For hypertension, 7 days., then benign increase to 2 at bedtime. doxazosin 2 mg Take 1 tablet 60 tablet 3 A ctive tabletIndications: by mouth 0 Essential daily. hypertension, benign famotidine 40 mg Take 1 tablet 90 tablet 3 Active tabletIndications: by mouth 0 Indigestion daily. ciprofloxacin HCl Take 1 tablet 20 tablet 0 06/15/20 Active (CIPRO) 500 mg by mouth 0 20 tabletIndications: every 12 Generalized (twelve) abdominal pain, hours for 10 Diarrhea, days. unspecified type metroNIDAZOLE 500 Take 1 tablet 30 tablet 0 06/15/20 Active mg by mouth 0 20 tabletIndications: every 8 Generalized (eight) hours abdominal pain, for 10 days. Diarrhea, unspecified type Diclofenac Sodium Apply to 100 g 1 Ac tive (VOLTAREN) 1 % area(s) 4 0 gelIndications: (four) times Muscle spasm daily. Apply 4 g qid Diclofenac Sodium 1 Take 2-4 100 g 3 06/12/20 Discontinued % gelIndications: grams three 9 20 (Reorder) Chronic pelvic pain times a day in female, Muscle as needed for spasm pain Hospital, Clinic, or Other Ordered Dose Route Frequency Start Date End Date Status Facility Administered Medication medroxyPROGESTERone 150 mg IM [id number] 02/14/2020 1 Active (DEPO-PROVERA) injection 150 mgIndications: Encounter for other contraceptive management documented as of this encounter (statuses as of 06/12/2020) Active Problems Problem Noted Date Migraine equivalent syndrome 02/19/2020 Nausea 02/19/2020 Fatigue, unspecified type 02/19/2020 Epigastric pain 02/10/2020 Abdominal pain 04/27/2019 Essential hypertension, benign 07/07/2017 Hyperlipidemia, unspecified hyperlipidemia type 2015 HLD (hyperlipidemia) 04/05/2016 Chronic pelvic pain in female 07/30/2015 Morbid obesity 10/05/2014 Ovarian cyst 05/29/2014 documented as of this encounter (statuses as of 06/12/2020) Resolved Problems Problem Noted Date Resolved Date Well woman exam 02/14/2020 06/07/2020 Contraception management 02/14/2020 06/07/2020 Sigmoid diverticulitis 05/15/2019 01/06/2020 Overview: Added automatically from request for susanna delgado [id number] Contraceptive management 12/19/2018 06/07/2020 History of 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 12/19/2018 01/06/2020 Encounter for surveillance of injectable contraceptive 07/2801/06/2020 Well woman exam 07/28/2016 01/06/2020 Surveillance of previously prescribed contraceptive method 1 12/06/2013 04/05/2016 Overview: ICD10 Diagnosis Term 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 08/21/2020 Office Visit Internal Medicine Pat Locke MD [address] [facility] [address] [place], [place] [address] [phone] Health Maintenance Due Date Last Done Comments [...] filedocumented in this encounter Visit Diagnoses Diagnosis Muscle spasm - Primary Spasm of muscle documented in this encounter Insurance Payer Benefit Plan / Subscriber ID Effective Phone Address T e Group Dates [facility] [id number] 2019-Pre HMO/PP O/POS [facility]ALTH[facility]ARE [facility]CARE [facility]PO [facility] [id number] 2019-Pre [phone] dicaid WOMEN sent [id number] [place] [address] documented as of this encounter Advance Directives Name Relationship Healthcare Agent Communication Relationship Solitario Olea Spouse Health Care Agent Verona Baron Mother First [facility] Health Care Agent (Home)
--- OUTSIDE RECORDS SUMMARY | 2020-06-15 13:59 | XMS REPORT | Summary of Care ---
:1975 Author Organization [facility] Address [address] [place] [address] Care Team Providers Name Role Phone Visit, Nurse Unavailable Unavailable Jeffry Locke MD Insurance Hmo Jeffry Locke MD Primary Care Provider Reason for Visit Reason Comments Assessment TRIAGE Encounter Details Date Type Department Care Team Description 06/15/2020 Telephone [facility] Pediatric Louise Locke Assessment (TRIAGE) and Adult Primary Care- MD Shaun Teran [address] [place] [address], [address] [place] [address] [place] [address] [phone] Allergies No Known Allergiesdocumented as of this encounter (statuses as of 06/15/2020) Medications Medication Sig Dispensed Refills Start Date End Date Status MULTIVIT Take by mouth. 0 Acti ve &MINERALS/FERROUS FUM (MULTI VITAMIN ORAL) CALCIUM CARB/VIT Take by mouth. 0 Active D3/MINERALS (CALCIUM CARBONATE-VIT D3-MIN ORAL) docusate calcium 240 Take 1 capsule 60 capsule 2 07/09/2017 Active mg capsule by mouth daily. amLODIPine 5 mg Take 1.5 [...] female as needed (severe chronic pelvic pain). ffhxda-mvaicguc-mjbqj Take 2 capsules 540 capsule 3 04/26/2020 [...] pain, Diarrhea, for 10 days. unspecified type Diclofenac Sodium Apply to 100 g 1 06/12/2020 A ctive (VOLTAREN) 1 % area(s) 4 gelIndications: (four) times Muscle spasm daily. Apply 4 g qid Hospital, Clinic, or Other Ordered Dose Route Frequency Start Date End Date Status Facility Administered Medication medroxyPROGESTERone 150 mg IM [id number] 02/14/2020 1 Active (DEPO-PROVERA) injection 150 mgIndications: Encounter for other contraceptive management documented as of this encounter (statuses as of 06/15/2020) Active Problems Problem Noted Date Migraine equivalent syndrome 02/19/2020 Nausea 02/19/2020 Fatigue, unspecified type 02/19/2020 Epigastric pain 02/10/2020 Abdominal pain 04/27/2019 Essential hypertension, benign 07/07/2017 Hyperlipidemia, unspecified hyperlipidemia type 2015 HLD (hyperlipidemia) 04/05/2016 Chronic pelvic pain in female 07/30/2015 Morbid obesity 10/05/2014 Ovarian cyst 05/29/2014 documented as of this encounter (statuses as of 06/15/2020) Resolved Problems Problem Noted Date Resolved Date Well woman exam 02/14/2020 06/07/2020 Contraception management 02/14/2020 06/07/2020 Sigmoid diverticulitis 05/15/2019 01/06/2020 Overview: Added automatically from request for susanna danny [id number] Contraceptive management 12/19/2018 06/07/2020 History of 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 12/19/2018 01/06/2020 Encounter for surveillance of injectable contraceptive 07/2801/06/2020 Well woman exam 07/28/2016 01/06/2020 Surveillance of previously prescribed contraceptive method 1 12/06/2013 04/05/2016 Overview: ICD10 Diagnosis 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 Patient states she had two bloody bowel movements today. Patient also complained of pain to posterior leg area. Patient advised to go the ER to be evaluated. Patient initially requested an appointment in clinic today, but was informed that has no availability. Patient agrees to go to ER. Telephone Encounter - Nilaytrinitr Deborah Wright - 06/15/2020 12:37 PM CDTPT stated at 11:10 today her stool was all bright red two times today. Pt states she is in severe pain in the abdomen and lower back area. PSS Janet instructed me to transfer call to [phone] andTalenchoa took call. documented in this encounter Plan of Treatment Date Type Specialty Care Team Description 07/13/2020 Office Visit Internal Medicine Pat Locke MD [address] [place] [address] 77 15 [phone] 08/07/2020 Nurse Visit OB Satellites Visit, [facility] Nurse 08/21/2020 Office Visit Internal Medicine Pat Locke MD [address] [place] [address] 15 Health Maintenance Due Date Last Done [...] Address T ype Group Dates [facility] [id number] 2019-Pre HMO/PP O/POS [facility] PPO sent [facility] [id number] 2019-Pre [phone] dicaid WOMEN sent [phone] [id number] [place] [address] documented as of this encounter Advance Directives Name Relationship Healthcare Agent Communication Relationship Solitario Olea Spouse Health Care Agent Verona Baron Mother [facility] Care Agent (Home)
--- OUTSIDE RECORDS SUMMARY | 2020-06-15 13:59 | XMS REPORT | Summary of Care ---
:1975 Author Organization [facility] - [facility] Address [address] [place] [address] Care Team Providers Name Role Phone Visit, Nurse Unavailable Unavailable Jeffry Locke MD Insurance Hmo Jeffry Locke MD Primary Care Provider Reason for Visit Reason Comments Assessment Encounter Details Date Type Department Care Team Description 06/05/2020 Telephone [facility] Pediatric and Elyssa Locke, Assessment Adult Primary Care- [address] [address] [address] [place] [address] [place] [address] [phone] Allergies No Known Allergiesdocumented as of this encounter (statuses as of 06/08/2020) Medications Medication Sig Dispensed Refills Start Date [...] female as needed (severe chronic pelvic pain). cmtoaw-taxkquro-eerlh Take 2 capsules 540 capsule 3 04/26/2020 [...] Facility Administered Medication medroxyPROGESTERone 150 mg IM [id number] 02/14/2020 1 Active (DEPO-PROVERA) injection 150 mgIndications: Encounter for other contraceptive management documented as of this encounter (statuses as of 06/08/2020) Active Problems Problem Noted Date Migraine equivalent syndrome 02/19/2020 Nausea 02/19/2020 Fatigue, unspecified type 02/19/2020 Epigastric pain 02/10/2020 Abdominal pain 04/27/2019 Essential hypertension, benign 07/07/2017 Hyperlipidemia, unspecified hyperlipidemia type 2015 HLD (hyperlipidemia) 04/05/2016 Chronic pelvic pain in female 07/30/2015 Morbid obesity 10/05/2014 Ovarian cyst 05/29/2014 documented as of this encounter (statuses as of 06/08/2020) Resolved Problems Problem Noted Date Resolved Date Well woman exam 02/14/2020 06/07/2020 Contraception management 02/14/2020 06/07/2020 Sigmoid diverticulitis 05/15/2019 01/06/2020 Overview: Added automatically from request for susanna danny [id number] Contraceptive management 12/19/2018 06/07/2020 History of 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 12/19/2018 01/06/2020 Encounter for surveillance of injectable contraceptive 07/2801/06/2020 Well woman exam 07/28/2016 01/06/2020 Surveillance of previously prescribed contraceptive method 1 12/06/2013 04/05/2016 Overview: ICD10 Diagnosis 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 No further questions or concerns verbalized. elephone Encounter - Randee Locke MD - 06/07/2020 6:31 PM CDTIt is not a cologuard test, it is the GI 360 test. [facility] does not do this test. I had warned she mayhave to pay out of pocket for this test. I don't any other test that will help, otherwise I would have ordered it. elephone Encounter - Mary Love LVN - 06/05/2020 4:09 PM CDTPatient is stating that the cologuard test is not covered by his insurance. The patient is wanting an alternative test ordered. Mary Love LVN 06/05/2020 4:10 PM elephone Encounter - Loni Ryan - 06/05/2020 3:41 PM CDTPlease contact patient in regards to the kit patient received today, patient insurance informed her t hey are not in network with company where patient is suppose to mail stool sample. Pt insurance preferred lab is [facility] or [facility]. Reference # [id number] signed by Loni Ryan at 06/05/2020 3:47 PM CDTdocumented in this encounter Plan of Treatment Date Type Specialty Care Team Description 07/13/2020 Office Visit Internal Medicine Pat Locke MD [address] [place] [address] [phone] 08/07/2020 [facility]2020 Office Visit Internal Medicine Pat Locke MD [address] [place] [address] 15 [phone] Health Maintenance Due Date Last Done Comments [...] ID Effective Phone Address T e Group [facility] [id number] 2019-Pre HMO/PP O/POS [facility] [id number] 2019-Pre [phone] [address] dicaid WOMEN sent [phone] [id number] [place] [address] documented as of this encounter Advance Directives Name Relationship Healthcare Agent Communication Relationship Solitario Olea Spouse Health Care Agent Verona Baron Mother [facility] Care [phone] Agent (Home)
--- NOTE | 2020-06-15 14:34 | RAD REPORT ---
EXAM DESCRIPTION: CT - Stone Protocol - 06/15/2020 2:24 pm CLINICAL HISTORY: ABD PAIN COMPARISON: Abdomen Pelvis W Contrast dated 02/24/2020 TECHNIQUE: Axial 5 mm thick images were obtained without oral or IV contrast. The bcged-[id number]-[id number] span s the entirety of the system including uppermost abdomen and lung bases. All CT scans are performed using dose optimization technique as appropriate and may include automated exposure control or mA/KV adjustment according to patient size. FINDINGS: No hydronephrosis is present and no obstructing ureteral calculi. No suspicious renal mass es. Isodense masses and pyelonephritis are not excluded on a stone protocol CT scan. No significant a drenal finding. No urinary bladder suspicious finding. Uterus and ovaries show no suspicious findings or identifiable changes from comparison. Imaged portions of the liver, spleen and pancreas show no suspicious findings on non-contrast imaging . No gallbladder or biliary tree abnormality identified. No suspicious bowel findings. Patient has minimal diverticulosis without diverticulitis. The wall thi ckening of the colon seen February 23 is not identified on the current study. Retrocecal appendix is ashley l. No hernia, mass or bulky lymphadenopathy noted. No free air, free fluid or inflammatory stranding. No significant bony abnormality. IMPRESSION: Noncontrast CT abdomen and pelvis imaging showing no acute or emergent finding. The left-sided colon wall thickening seen on the February 23 study is not evident on the current study. No acute GI finding. Isodense masses and pyelonephritis are not excluded on stone protocol technique. No worrisome changes from the comparison study.
[2020-06-15] MEDS ORDERED: ONDANSETRON 4 MG/2 ML VIAL ONE (15:31)
[2020-06-15] MEDS ORDERED: MORPHINE 4 MG/ML SYR ONE (15:31)
[2020-06-15 15:50] LABS: Absolute Lymphocytes (CBC) 3.1 K/uL (0.7-4.9); Basophils % 1.3 % (0-1.3); Lymphocytes % 29.1 % (15.3-44.8); MPV 8.8 fL (7.6-11.3)
[2020-06-15 16:00] LABS: ALT/SGPT 29 U/L (12-78); AST/SGOT 13 U/L (15-37); Albumin 3.4 g/dL (3.4-5.0); Alkaline Phosphatase 93 U/L (45-117); BUN Blood Urea Nitrogen 12 mg/dL (7-18); Bicarbonate 22 mmol/L (21-32); Bilirubin Direct < 0.1 mg/dL (0-0.2); Bilirubin Total 0.3 mg/dL (0.2-1.0); Glucose Level 101 mg/dL (74-106); Lipase 164 U/L (73-393); Protein, Total 7.5 g/dL (6.4-8.2); Sodium Level 143 mmol/L (136-145)
[2020-06-15 16:40] LABS: Urine Blood TRACE (NEG); Urine Glucose NEGATIVE (NEG); Urine Protein NEGATIVE (NEG); Urine pH 7.5 (5.0-7.0)
--- NOTE | 2020-06-15 16:54 | ER ---
Nurse's Notes [facility] Name: So Olea Age: 44 yrs Sex: Female : 1975 Arrival Date: 06/15/2020 Time: 13:50 Bed 20 Private MD: Andrea Sandovla H Diagnosis: Unspecified abdominal pain Presentation: 06/15 13:56 Chief complaint: Patient states: upper abd pain that began today. Pt states "my back aa5 also hurts and today I threw up once and I have blood in my stool". Coronavirus screen: Client denies travel out of the [place] in the last 14 days. At this time, the client does not indicate any symptoms associated with coronavirus-19. Ebola Screen: Patient negative for fever greater than or equal to 101.5 degrees Fahrenheit, and additional compatible Ebola Virus Disease symptoms. Initial Sepsis Screen: Does the patient meet any 2 criteria? No. Patient's initial sepsis screen is negative. Does the patient have a suspected source of infection? No. Patient's initial sepsis screen is negative. Risk Assessment: Do you want to hurt yourself or someone else? Patient reports no desire to harm self or others. Onset of symptoms was June 15, 2020. 13:56 Method Of Arrival: Ambulatory aa5 13:56 Acuity: JERROD 3 aa5 ANALYSIS SPECIALIST: 15:59 LMP N/A - tw2 Historical: - Allergies: 13:58 No Known Allergies; aa5 - PMHx: 13:58 Chronic pain; Endometriosis; GERD; Hypertension; Ovarian cysts; aa5 - PSHx: 13:58 None; aa5 - Immunization history:: Adult Immunizations unknown. - Social history:: Smoking status: Patient denies any tobacco usage or history of. Screenin:52 Abuse screen: Denies threats or abuse. Nutritional screening: No deficits noted. tw2 Tuberculosis screening: No symptoms or risk factors identified. Fall Risk None identified. Assessment: 15:20 General: Appears uncomfortable, obese, well groomed, Behavior is calm, cooperative, tw2 appropriate for age. Pain: Complains of pain in abdomen. Neuro: Level of Consciousness is awake, alert, obeys commands, Oriented to person, place, time, situation. Cardiovascular: Heart tones S1 S2 Patient's skin is warm and dry. Respiratory: Airway is patent Respiratory effort is even, unlabored, Respiratory pattern is regular, symmetrical, Breath sounds are clear bilaterally. GI: Abdomen is non-distended, obese, Bowel sounds present X 4 quads. Abd is soft X 4 quads Reports upper abdominal pain, nausea. : No signs and/or symptoms were reported regarding the genitourinary system. EENT: No signs and/or symptoms were reported regarding the EENT system. Derm: No signs and/or symptoms reported regarding the dermatologic system. Musculoskeletal: Range of motion: intact in all extremities. 15:40 Reassessment: pt dry heaving and vomiting a small amount at this time while infusion of tw2 Morphine, provider notified, will continue to monitor. 15:56 Reassessment: Patient states feeling better. Patient states symptoms have improved. tw2 17:01 Reassessment: Patient appears in no apparent distress at this time. No changes from tw2 previously documented assessment. Patient and/or family updated on plan of care and expected duration. Pain level reassessed. Patient is alert, oriented x 3, equal unlabored respirations, skin warm/dry/pink. Vital Signs: 13:56 BP 144 / 79; Pulse 95; Resp 18 S; Temp 98.4(O); Pulse Ox 100% on R/A; Height 5 ft. 5 aa5 in. (165.10 cm) (R); Pain 8/10; 15:55 Pain 4/10; tw2 15:59 BP 138 / 77; Pulse 91; Resp 17; Pulse Ox 100% on R/A; tw2 17:00 BP 144 / 72; Pulse 89; Resp 17; Pulse Ox 100% on R/A; tw2 ED Course: 13:50 Patient arrived in ED. ag5 13:50 Andrea Sandoval MD is Private Physician. ag5 13:58 Triage completed. aa5 13:58 Arm band placed on. aa5 14:24 CT Stone Protocol In Process Unspecified. EDMS 15:02 Bed in low position. Call light in reach. tw2 15:08 Sylwia Silva RN is Primary Nurse. tw2 15:08 Ced Thorpe NP is PHCP. pm1 15:08 Renny Leon MD is Attending Physician. pm1 15:32 Inserted saline lock: 20 gauge in right antecubital area, using aseptic technique. tw2 Blood collected. 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 tw2 17:01 IV discontinued, intact, bleeding controlled, No redness/swelling at site. Pressure tw2 dressing applied. Administered Medications: 15:38 Drug: Zofran (Ondansetron) 4 mg Route: IVP; Site: right antecubital; tw2 15:55 Follow up: Response: No adverse reaction; Nausea is decreased tw2 15:40 Drug: morphine 4 mg Route: IVP; Site: right antecubital; tw2 15:55 Follow up: Pain 4/10 Adult; Response: No adverse reaction; Pain is decreased; RASS: tw2 Alert and Calm (0) 16:58 Drug: Bentyl 20 mg Route: PO; tw2 17:01 Follow up: Response: No adverse reaction tw2 Outcome: 16:53 Discharge ordered by . pm1 17:01 Discharged to home ambulatory. tw2 17:01 Condition: stable 17:01 Discharge instructions given to patient, Instructed on discharge instructions, follow up and referral plans. no driving heavy equipment, Demonstrated understanding of instructions, follow-up care, medications, Prescriptions given X 2. 17:05 Patient left the ED. tw2 Signatures: Dispatcher [employer] EDMS Haylie Andujar RN RN aa5 Ced Thorpe, PREPLEATER PREPLEATER pm1 Sylwia Silva RN RN tw2 Manuel wEing ag5
--- NOTE | 2020-06-15 16:54 | EDPHYS ---
Physician Documentation [facility] Name: So Olea Age: 44 yrs Sex: Female : 1975 Arrival Date: 06/15/2020 Time: 13:50 Bed 20 Private MD: Andrea Sandoval H ED Physician Renny Leon HPI: 06/15 15:16 This 44 yrs old Female presents to ER via Ambulatory with complaints of pm1 Abdominal Pain, Low Back Pain, Leg Pain, Bloody Stools. 15:16 The patient presents with abdominal pain in the upper abdomen. Onset: The pm1 symptoms/episode began/occurred 1 year(s) ago. The symptoms do not radiate. Associated signs and symptoms: Pertinent positives: Chronic low back pain with radiation to left leg. One episode of vomiting. 1 episode of mucoid bloody stool, Pertinent negatives: chest pain, constipation, dysuria, fever, shortness of breath. The symptoms are described as crampy. Modifying factors: The symptoms are alleviated by nothing, the symptoms are aggravated by nothing. Severity of pain: in the emergency department the pain is actually worse. The patient has experienced similar episodes in the past, chronically. colonoscopy 1.5 months ago for the same complaints by Dr. Sandoval. 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 - Social history:: Smoking status: Patient denies any tobacco usage or history of. ROS: 15:16 Constitutional: Negative for fever, chills, and weight loss, Neck: Negative for injury, pm1 pain, and swelling, Cardiovascular: Negative for chest pain, palpitations, and edema, Respiratory: Negative for shortness of breath, cough, wheezing, and pleuritic chest pain. 15:16 : Negative for injury, bleeding, discharge, and swelling, MS/Extremity: Negative for injury and deformity, Skin: Negative for injury, rash, and discoloration, Neuro: Negative for headache, weakness, numbness, tingling, and seizure. 15:16 Abdomen/GI: Positive for abdominal pain, of the right upper quadrant and left upper quadrant, Negative for constipation, hematemesis. 15:16 Back: Positive for of the low back area. Exam: 15:16 Constitutional: This is a well developed, well nourished patient who is awake, alert, pm1 and in no acute distress. Head/Face: Normocephalic, atraumatic. Chest/axilla: Normal chest wall appearance and motion. Nontender with no deformity. No lesions are appreciated. 15:16 Back: No spinal tenderness. No costovertebral tenderness. Full range of motion. Skin: Warm, dry with normal turgor. Normal color with no rashes, no lesions, and no evidence of cellulitis. MS/ Extremity: Pulses equal, no cyanosis. Neurovascular intact. Full, normal range of motion. 15:16 Cardiovascular: Exam negative for acute changes, Rate: normal, Rhythm: regular, Pulses: no pulse deficits are appreciated. 15:16 Respiratory: Exam negative for acute changes, respiratory distress, shortness of breath. 15:16 Abdomen/GI: Inspection: obese Palpation: soft, in all quadrants, mild abdominal tenderness, in the epigastric area. 15:16 Neuro: Exam negative for acute changes, Orientation: is normal, Mentation: is normal, Motor: is normal, moves all fours, Sensation: is normal, no obvious gross deficits. 16:52 Abdomen/GI: Rectal exam: rectal tone normal, Stool: normal, guaiac negative, pm1 hemorrhoid(s), external, without bleeding, without inflammation, without thrombosis, without pain, Sylwia RN as Scientologist. Vital Signs: 13:56 BP 144 / 79; Pulse 95; Resp 18 S; Temp 98.4(O); Pulse Ox 100% on R/A; Height 5 ft. 5 aa5 in. (165.10 cm) (R); Pain 8/10; 15:55 Pain 4/10; tw2 15:59 BP 138 / 77; Pulse 91; Resp 17; Pulse Ox 100% on R/A; tw2 17:00 BP 144 / 72; Pulse 89; Resp 17; Pulse Ox 100% on R/A; tw2 MDM: 15:08 Patient medically screened. pm1 16:52 Data reviewed: vital signs. Data interpreted: Pulse oximetry: on room air is 100 %. pm1 Interpretation: normal. 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 06/15 15:17 Order name: Basic Metabolic Panel; Complete Time: 16:12 pm1 06/15 15:17 Order name: CBC with Diff; Complete Time: 16:12 pm1 06/15 15:17 Order name: Hepatic Function; Complete Time: 16:12 pm1 06/15 15:17 Order name: Lipase; Complete Time: 16:12 pm1 06/15 15:56 Order name: Urine Dipstick--Ancillary (enter results); Complete Time: 16:52 bd 06/15 15:56 Order name: Urine --Ancillary (enter results); Complete Time: 16:52 bd 06/15 14:05 Order name: CT Stone Protocol; Complete Time: 15:08 snw 06/15 15:17 Order name: IV Saline Lock; Complete Time: 15:51 pm1 06/15 15:17 Order name: Labs collected and sent; Complete Time: 15:51 pm1 06/15 15:17 Order name: Urine Dipstick-Ancillary (obtain specimen); Complete Time: 15:51 pm1 06/15 15:17 Order name: Urine Test (obtain specimen); Complete Time: 15:51 pm1 Administered Medications: 15:38 Drug: Zofran (Ondansetron) 4 mg Route: IVP; Site: right antecubital; tw2 15:55 Follow up: Response: No adverse reaction; Nausea is decreased tw2 15:40 Drug: morphine 4 mg Route: IVP; Site: right antecubital; tw2 15:55 Follow up: Pain 4/10 Adult; Response: No adverse reaction; Pain is decreased; RASS: tw2 Alert and Calm (0) 16:58 Drug: Bentyl 20 mg Route: PO; tw2 17:01 Follow up: Response: No adverse reaction tw2 Disposition: 17:20 Co-signature as Attending Physician, Renny Leon MD. rn Disposition: 06/15/20 16:53 Discharged to Home. Impression: Unspecified abdominal pain. - Condition is Stable. - Discharge Instructions: Abdominal Pain, Adult. - Prescriptions for Zofran ODT 4 mg Oral tablet,disintegrating - place 1 tablet by TRANSLINGUAL route every 8 hours As needed; 12 tablet. Bentyl 20 mg Oral Tablet - take 1 tablet by ORAL route every 6 hours As needed; 20 tablet. - Medication Reconciliation Form, Thank You Letter, Antibiotic Education, Prescription Opioid Use, Work release form form. - Follow up: Emergency Department; When: As needed; Reason: Worsening of condition. Follow up: Private Physician; When: 2 - 3 days; Reason: Recheck today's complaints, Continuance of care, Re-evaluation by your physician. - Problem is new. - Symptoms have improved. Signatures: Dispatcher [employer] EDMS Renny Leon MD MD rn Calderon, Audri RN RN aa5 Ced Thorpe NP NUTRITION INSTRUCTOR pm1 Sylwia Silva RN RN tw2 Corrections: (The following items were deleted from the chart) 17:05 16:53 06/15/2020 16:53 Discharged to Home. Impression: Unspecified abdominal pain. tw2 Condition is Stable. Forms are Medication Reconciliation Form, Thank You Letter, Antibiotic Education, Prescription Opioid Use. Follow up: Emergency Department; When: As needed; Reason: Worsening of condition. Follow up: Private Physician; When: 2 - 3 days; Reason: Recheck today's complaints, Continuance of care, Re-evaluation by your physician. Problem is new. Symptoms have improved. pm1
[2020-06-15] MEDS ORDERED: DICYCLOMINE HCL 10 MG CAP ONE (17:08)
== END 2020-06-15 17:05 | disposition home or self-care (01) ==
LOC: ER 13:48
DX: R10.10 Upper abdominal pain, unspecified (principal); G89.29 Other chronic pain; M54.5 Low back pain; I10 Essential (primary) hypertension
CPT/HCPCS: 85025; 80048; 36415; 81025; 80076; 81003; 83690; 76377; 74176; J2405; 96374; 96375; 99284